=== PATIENT | female | born 1950 | race Two or more races ===

== ENCOUNTER → 2020-04-23 12:17 | Outpatient (BNVA) | payer MEDICARE, SELFPAY | PROVIDERS: PCP Internal Medicine; Visit Provider Internal Medicine Gastroenterology | DX: R13.12 Dysphagia, oropharyngeal phase (principal); K59.09 Other constipation; R73.03 Prediabetes; I10 Essential (primary) hypertension; Z86.010 Personal history of colon polyps; Z87.19 Personal history of other diseases of the digestive system | CPT/HCPCS: Q3014 ==

== ENCOUNTER 2020-06-17 16:23 | Outpatient (REF) | payer OTHER, MEDICARE, SELFPAY | END 2020-06-17 16:24 | disposition home or self-care (01) | LOC: HO.LAB 16:23 | PROVIDERS: Visit Provider Internal Medicine | DX: Z20.822 Contact with and (suspected) exposure to COVID-19 (principal) | CPT/HCPCS: 36415; C9803; U0003; U0005 ==

== ENCOUNTER → 2020-10-29 13:48 | Outpatient (BNVA) | payer OTHER, MEDICARE, SELFPAY | PROVIDERS: PCP Internal Medicine; Visit Provider Internal Medicine Gastroenterology | DX: R13.12 Dysphagia, oropharyngeal phase (principal); R49.1 Aphonia; K59.00 Constipation, unspecified; R10.32 Left lower quadrant pain; K57.90 Diverticulosis of intestine, part unspecified, without perforation or abscess without bleeding; R11.2 Nausea with vomiting, unspecified; R14.0 Abdominal distension (gaseous); R63.4 Abnormal weight loss; K21.9 Gastro-esophageal reflux disease without esophagitis; I10 Essential (primary) hypertension; R73.03 Prediabetes; E78.1 Pure hyperglyceridemia; Z87.19 Personal history of other diseases of the digestive system; Z86.010 Personal history of colon polyps | CPT/HCPCS: 99212 ==

== ENCOUNTER 2020-11-14 07:19 | Outpatient (REF) | payer OTHER, MEDICARE, SELFPAY ==
[2020-11-14 07:47] LABS: MANUAL DIFF FLAG NO
[2020-11-14 07:51] LABS: Basophils Percent Auto 0.9 % (0-2); Eosinophils Absolute Auto 0.1 X10*3/uL (0.0-0.4); Eosinophils Percent Auto 2.3 % (0-4); Hematocrit 38.5 % (37-47); Hemoglobin 12.8 g/dl (12.0-16.0); Imm Gran Abs Auto 0.01 X10*3/uL (0.00-0.03); Imm Gran Pct Auto 0.3 % (0.0-0.4); Lymphocytes Absolute Auto 1.2 X10*3/uL (1.2-4.9); Lymphocytes Percent Auto 35.9 % (20-40); Mean Corpuscular HGB Conc 33.2 g/dl (31.0-35.0); Mean Corpuscular Hemoglobin 31.1 pg (27.0-33.0); Mean Corpuscular Volume 93.4 fL (80-98); Mean Platelet Volume 9.2 fL (9.4-12.3); Monocytes Absolute Auto 0.3 X10*3/uL (0.1-1.2); Monocytes Percent Auto 9.6 % (2-11); Neutrophils Absolute Auto 1.8 X10*3/uL (2.0-8.3); Platelet Count 256 X10*3/uL (160-400); Red Blood Count 4.12 X10*6/uL (4.20-5.50); Red Cell Distribution Width 13.6 % (11.0-16.0); White Blood Count 3.4 X10*3/uL (4.8-10.8)
[2020-11-14 08:15] LABS: Alanine Aminotransferase 15 U/L (0-31); Albumin Level 4.3 g/dL (3.5-5.0); Alkaline Phosphatase 55 U/L (39-117); Anion Gap 13 (12-20); Aspartate Amino Transferase 15 U/L (5-31); Bilirubin Total 0.6 mg/dL (0.0-1.0); Blood Urea Nitrogen 11 mg/dL (9-16); C Reactive Protein 0.22 mg/dL (< or = 0.50); Calcium 9.2 mg/dL (8.4-10.2); Carbon Dioxide 26 mmol/L (22-29); Chloride 104 mmol/L (96-108); Estimated Glomerular Filt Rate > 60; Glucose Random 146 mg/dL (60-115); Lipase 24 U/L (8-78); Potassium 4.4 mmol/L (3.3-5.1); Sodium 139 mmol/L (135-145); Total Protein 6.6 g/dL (6.5-8.0)
[2020-11-14 08:36] LABS: TSH reflex Free T4 0.68 uIU/mL (0.32-4.0)
[2020-11-16 09:02] LABS: Folate 14.1 ng/mL (> or = 4.0); Vitamin B12 251 pg/mL (200-900)
== END 2020-11-14 07:20 | disposition home or self-care (01) ==
LOC: HO.LAB 07:19
PROVIDERS: PCP Internal Medicine; Visit Provider Internal Medicine Gastroenterology
DX: R13.12 Dysphagia, oropharyngeal phase (principal); K22.2 Esophageal obstruction
CPT/HCPCS: 36415; 80053; 82607; 82746; 83690; 84443; 85025; 86140

== ENCOUNTER 2020-11-23 07:31 | Outpatient (REF) | payer OTHER, MEDICARE, SELFPAY ==
--- NOTE | ~2020-11-23 | US_ITS ---
EXAMINATION: US ABDOMEN COMPLETE CLINICAL INFORMATION: Abnormal weight loss. COMPARISON: CT abdomen pelvis 06/08/2018. Ultrasound pelvis 12/21/2010. TECHNIQUE: Real-time imaging of the abdominal viscera. FINDINGS: PANCREAS: Normal. ABDOMINAL AORTA: The proximal, mid, and distal segments are normal in caliber. INFERIOR VENA CAVA: Visualized portions are normal. LIVER: Normal. The liver is normal in size. The liver contour is normal. Parenchymal echogenicity is normal. No focal hepatic lesion. There is no intrahepatic biliary duct dilatation seen. GALLBLADDER: Normal. The gallbladder is physiologically distended without evidence of stones, sludge, polyps, wall thickening or pericholecystic fluid. COMMON BILE DUCT: Normal in caliber measuring 0.6 cm in diameter. RIGHT KIDNEY: Normal. No hydronephrosis. No renal calculi or focal parenchymal lesions. The kidney measures 9.3 cm in maximum dimension. LEFT KIDNEY: There is a 1 cm cyst in the midpole with question of wall calcification versus milk of calcium. No hydronephrosis. The kidney measures 9.8 cm in maximum dimension. SPLEEN: Normal. The spleen measures 7.8 cm in maximum dimension. FREE FLUID: None. US/US abdomen complete IMPRESSION: 1 cm left renal cyst with question wall calcification versus milk of calcium cyst. Otherwise unremarkable exam.
== END 2020-11-23 07:32 | disposition home or self-care (01) ==
LOC: HO.US 07:31
PROVIDERS: Visit Provider Internal Medicine Gastroenterology
DX: R63.4 Abnormal weight loss (principal)
CPT/HCPCS: 76700

== ENCOUNTER → 2020-11-24 11:58 | Day surgery (SDC) | payer OTHER, MEDICARE, SELFPAY ==
[2020-11-19 12:06] VITALS: BMI 25.4
--- NOTE | 2020-11-23 09:52 | HO.ANESPROP2 ---
HPI - Anesthesia Eval Consult details Narrative: 70yo F for Upper Endoscopy PMFSH Active Problems Active Problems: All Active Problems (Updated 11/19/20 @ 12:07 by Lubna King) Oropharyngeal dysphagia (Acute) Chronic constipation (Acute) History of colon polyps (Acute) Hx of diverticulitis of colon (Acute) Schatzki's ring (Acute) Weight loss (Acute) Past Medical History Medical History (Updated 11/23/20 @ 09:53 by Stephanie Garvin) Chronic constipation Hx of diverticulitis of colon Oropharyngeal dysphagia Schatzki's ring Family History Family History Father No problems noted. Mother No problems noted. Surgical History Surgical History (Updated 11/19/20 @ 12:08 by Lubna King) History of appendectomy History of colonoscopy History of hysterectomy Hx of endoscopy Hx of hand surgery Hx of tonsillectomy Social History Social History Alcohol intake: current Alcohol intake frequency: holidays/special occasions only Alcohol type: wine Meds Allergies Allergy/AdvReac Type Severity Reaction Status Date / Time No Known Allergies Allergy Verified 10/29/20 13:52 [No Known Allergies*] Home Medications Medication Instructions Recorded Confirmed Last Taken Type polyethylene glycol 3350 17 17 g PO DAILY 04/23/20 10/29/20 Unknown History gram/dose oral powder escitalopram oxalate 1 tab PO DAILY 11/19/20 11/19/20 Unknown History zolpidem 1 tab PO BEDTIME PRN 11/19/20 11/19/20 Unknown History Exam Exam Date and Time: November 23, 2020 0952 Height,Weight and Vital Signs: Height 4 ft 10 in Weight 55.338 kg Assessment and Plan Assessment Anesthesia Assessment: Chart Reviewed
--- NOTE | 2020-11-24 13:01 | PC.NURSE ---
Patient is in the process of having extensive dental work done. She is having dental implants and, at this time, the stabilizing screws are in place. Patient was evaluated by Dr Collier prior to preparation for an upper endoscopy today. The decision was made to postpone this elective procedure and reschedule once dental implants are completed. Pt is agreeable and will follow up with Dr Mcknight's office once dental procedure is complete. I spoke with Dr Mcknight's office and they will also follow-up with patient.
== END ==
PROVIDERS: PCP Internal Medicine; Visit Provider Internal Medicine Gastroenterology
DX: R13.12 Dysphagia, oropharyngeal phase (principal); Z53.8 Procedure and treatment not carried out for other reasons

== ENCOUNTER 2021-01-20 07:56 | Outpatient (REF) | payer OTHER, MEDICARE, SELFPAY ==
--- NOTE | ~2021-01-20 | XR_ITS ---
EXAMINATION: XR SHOULDER, RIGHT CLINICAL INFORMATION: Right shoulder pain. COMPARISON: None. TECHNIQUE: Grashey, scapular Y, and axillary views of the right shoulder. FINDINGS: Moderate acromioclavicular marginal osteophytes. Tiny glenohumeral marginal osteophytes. No acute fracture or dislocation. No lytic or blastic osseous lesion. No abnormal soft tissue calcification. XR/XR shoulder RT min 2V IMPRESSION: Moderate acromioclavicular and mild glenohumeral osteoarthritis.
== END 2021-01-20 07:57 | disposition home or self-care (01) ==
LOC: HO.HOSX 07:56
PROVIDERS: Visit Provider Physician Assistant
DX: M75.81 Other shoulder lesions, right shoulder (principal)
CPT/HCPCS: 73030

== ENCOUNTER → 2021-02-11 13:56 | Outpatient (BNVA) | payer OTHER, MEDICARE, SELFPAY | PROVIDERS: PCP Internal Medicine; Referring Provider Internal Medicine; Visit Provider Internal Medicine Gastroenterology ==

== ENCOUNTER 2021-02-16 17:55 | Emergency (ER) | payer MEDICARE, SELFPAY ==
--- NOTE | ~2021-02-16 | CT_ITS ---
EXAMINATION: CT HEAD WITHOUT CONTRAST CLINICAL INFORMATION: Fall. COMPARISON: No similar priors. TECHNIQUE: Contiguous axial imaging was performed from the skull base to vertex without intravenous administration of contrast. This CT examination was performed using dose optimization techniques as appropriate, variously including the following: *Automated exposure control *Adjustment of mA and/or kV according to patient size (this includes techniques or standardized protocols for targeted exams where dose is matched to indication/reason for exam; i.e. extremities or head) *Use of iterative reconstruction technique DLP: 595 mGy-cm FINDINGS: There is no evidence of acute intracranial hemorrhage or edematous territorial infarction. There is no abnormal attenuation within the brain parenchyma. Prabhakar-white matter differentiation is preserved. The ventricles are normal in size and configuration. No evidence for obstructive hydrocephalus. No abnormal mass effect or midline shift. No extra-axial fluid collections. No acute soft tissue or osseous abnormalities. The mastoid air cells and paranasal sinuses are clear. CT/CT head/brain wo con IMPRESSION: No evidence of acute intracranial hemorrhage or edematous territorial infarction.
--- NOTE | 2021-02-16 18:19 | ED.PSYCH ---
HPI - Psych General Chief Complaint: Psychiatric Symptoms Stated Complaint: crisis Time Seen by Provider: 02/16/21 18:13 Source: patient Mode of arrival: ambulatory Limitations: no limitations History of Present Illness HPI Narrative: patient presents with her son, she is not sleeping for months. She is taking escitalopram and zolpidem with no effect. Patient used to drink alcohol but she has stopped. patient denies voices or hallucinations. no thoughts of hurting herself. Patient states that she is not sleeping despite melatonin. Onset (ago): week(s) Duration: constant History of same: Yes Relieving factors: none Exacerbating factors: none Related Data Home Medications Medication Instructions Recorded Confirmed polyethylene glycol 3350 17 17 g PO DAILY 04/23/20 10/29/20 gram/dose oral powder (Miralax) escitalopram oxalate 10 mg tablet 1 tab PO DAILY 11/19/20 01/12/21 zolpidem 5 mg tablet 1 tab PO BEDTIME PRN 11/19/20 01/12/21 Previous Rx's Medication Instructions Recorded sennosides 8.6 mg-docusate sodium 1 tab-cap PO BEDTIME 30 Days #30 10/29/20 50 mg tablet tab Allergies Allergy/AdvReac Type Severity Reaction Status Date / Time No Known Allergies Allergy Verified 02/11/21 13:55 [No Known Allergies*] Review of Systems Constitutional: Constitutional: Reports no additional constitutional complaints Eyes: Eyes: Reports no additional eye complaints ENT: Denies dizziness Cardiovascular: Cardiovascular: Reports no additional cardiovascular complaints Respiratory: Respiratory: Reports as per HPI Gastrointestinal: Gastrointestinal: Reports no additional gastrointestinal complaints Genitourinary: Genitourinary: Reports no additional female genitourinary complaints Musculoskeletal: Musculoskeletal: Reports no additional musculoskeletal complaints Integumentary/Breasts: Skin/Breast: Denies rash Neurologic: Reports system reviewed and no additional complaints, except as documented, Denies dizziness and Denies Sensory deficit (Neuro) Psychiatric: Psychiatric: Denies anxiety PMFSH Past Medical History Medical History Chronic constipation Hx of diverticulitis of colon Oropharyngeal dysphagia Schatzki's ring Surgical History History of appendectomy History of colonoscopy History of hysterectomy Hx of endoscopy Hx of hand surgery Hx of tonsillectomy Family History Family History Father No problems noted. Mother No problems noted. Social History Social History Alcohol intake: current Alcohol intake frequency: holidays/special occasions only Alcohol type: wine Advance Directives: No Advance Directives Information Provided: Yes Current occupational status: employed Current occupation: rt handed Physical Exam Vital Signs: Vital Signs: Last Vital Signs Temp 99.3 F 02/16/21 18:32 Pulse 99 02/16/21 19:59 Resp 20 02/16/21 19:59 BP 152/83 H 02/16/21 19:59 Pulse Ox 99 02/16/21 19:59 Body Mass Index 21.9 Const: General: healthy appearing Nutritional Appearance: average body habitus Orientation/consciousness: oriented to person and patient oriented x3 Limitations: no limitations HENMT: Head: Yes normal to inspection Ears: external ears normal General nose exam: Normal external nose present Mouth: Normal oral and palatal mucosa present and oropharynx normal Throat: Yes posterior oropharynx normal Eyes: General: appearance normal, both eyes and all related structures Neck: Other: supple Neck: Yes normal visual inspection Chest: Chest palpation & inspection: normal inspection of the chest Resp: Auscultation: clear to auscultation bilaterally Cardio: Jugular venous distension: no JVD Rate: regular rate Rhythm: regular rhythm Heart sounds: S1 normal heart sound present and S2 normal heart sound present GI: Inspection: Yes normal to inspection Palpation (GI): Soft to palpation, nontender and No hepatosplenomegaly present Auscultation: normal bowel sounds : General: Yes no CVA tenderness Back/Spine/Pelvis: Back: no CVA tenderness Skin: General skin exam: no rashes or lesions noted Neuro: General: oriented to person and patient oriented x3 Cranial nerves: Yes CN's II-XII intact bilaterally Motor exam (neuro): 5/5 motor strength present throughout Sensory Exam: No Sensory deficit (Neuro) Extrem: General: Yes normal to inspection Psych: Appearance: grossly normal Course Reevaluation(s) Reevaluation #1: Discussed with Dr. Jarrell, will check labs and give ativan and have her follow up with Mel[facility] Time: 19:33 MDM - Psych Lab Data Result diagrams: 02/16/21 19:23 02/16/21 19:23 Labs: Lab Results 02/16/21 02/16/21 02/16/21 Range/Units 18:47 18:47 19:23 WBC 6.1 (4.8-10.8) X10*3/uL RBC 4.52 (4.20-5.50) X10*6/uL Hgb 14.0 (12.0-16.0) g/dl Hct 40.4 (37-47) % MCV 89.4 (80-98) fL MCH 31.0 (27.0-33.0) pg MCHC 34.7 (31.0-35.0) g/dl RDW 13.3 (11.0-16.0) % Plt Count 258 (160-400) X10*3/uL MPV 9.1 L (9.4-12.3) fL Immature Gran % (Auto) 0.2 (0.0-0.4) % Neut % (Auto) 68.1 (45-73) % Lymph % (Auto) 22.1 (20-40) % Mineral % (Auto) 8.4 (2-11) % Eos % (Auto) 0.7 (0-4) % Baso % (Auto) 0.5 (0-2) % Lymph # (Auto) 1.4 (1.2-4.9) X10*3/uL Mineral # (Auto) 0.5 (0.1-1.2) X10*3/uL Eos # (Auto) 0.0 (0.0-0.4) X10*3/uL Baso # (Auto) 0.0 (0.0-0.2) X10*3/uL Abs Immat Gran (auto) 0.01 (0.00-0.03) X10*3/uL Absolute Neuts (auto) 4.2 (2.0-8.3) X10*3/uL Absolute Nucleated RBC 0.000 (0.0-0.012) X10*3/uL Nucleated RBC % (auto) 0.0 (0.0-0.2) /100WBC Sodium (135-145) mmol/L Potassium (3.3-5.1) mmol/L Chloride (96-108) mmol/L Carbon Dioxide (22-29) mmol/L Anion Gap (12-20) BUN (9-16) mg/dL Creatinine (0.5-1.4) mg/dL Estim Creat Clear Calc Estimated GFR Random Glucose (60-115) mg/dL Calcium (8.4-10.2) mg/dL Magnesium (1.6-2.6) mg/dL Total Bilirubin (0.0-1.0) mg/dL Direct Bilirubin (0.0-0.5) mg/dL AST (5-31) U/L ALT (0-31) U/L Alkaline Phosphatase (39-117) U/L Total Protein (6.5-8.0) g/dL Albumin (3.5-5.0) g/dL Urine Color STRAW Urine Appearance CLEAR Urine pH 6.0 (5.0-8.0) Ur Specific [place] <= 1.005 (1.005-1.025) Urine Protein NEG (NEG-TRACE) MG/DL Urine Glucose (UA) NEG (NEG) MG/DL Urine Ketones NEG (NEG) MG/DL Urine Blood NEG (NEG) Urine Nitrite NEG (NEG) Ur Leukocyte Esterase TRACE H (NEG) Urine RBC 0 (0) /HPF Urine WBC 1-4 (0-4) /HPF Ur Squamous Epith Cells TRACE /LPF Ur Renal Epithelial Cell TRACE /LPF Urine Bacteria TRACE /LPF Urine Opiates Screen Not Detected (Not Detect) Urine Fentanyl Screen Not Detected (Not Detect) Ur Barbiturates Screen Not Detected (Not Detect) Ur Phencyclidine Scrn Not Detected (Not Detect) Ur Amphetamines Screen Not Detected (Not Detect) U Benzodiazepines Scrn Not Detected (Not Detect) Urine Cocaine Screen Not Detected (Not Detect) U Marijuana (THC) Screen Not Detected (Not Detect) COVID-19 ([facility]) (Negative) COVID-19 Clin Com 02/16/21 02/16/21 Range/Units 19:23 20:25 WBC (4.8-10.8) X10*3/uL RBC (4.20-5.50) X10*6/uL Hgb (12.0-16.0) g/dl Hct (37-47) % MCV (80-98) fL MCH (27.0-33.0) pg MCHC (31.0-35.0) g/dl RDW (11.0-16.0) % Plt Count (160-400) X10*3/uL MPV (9.4-12.3) fL Immature Gran % (Auto) (0.0-0.4) % Neut % (Auto) (45-73) % Lymph % (Auto) (20-40) % Mineral % (Auto) (2-11) % Eos % (Auto) (0-4) % Baso % (Auto) (0-2) % Lymph # (Auto) (1.2-4.9) X10*3/uL Mineral # (Auto) (0.1-1.2) X10*3/uL Eos # (Auto) (0.0-0.4) X10*3/uL Baso # (Auto) (0.0-0.2) X10*3/uL Abs Immat Gran (auto) (0.00-0.03) X10*3/uL Absolute Neuts (auto) (2.0-8.3) X10*3/uL Absolute Nucleated RBC (0.0-0.012) X10*3/uL Nucleated RBC % (auto) (0.0-0.2) /100WBC Sodium 141 (135-145) mmol/L Potassium 4.0 (3.3-5.1) mmol/L Chloride 103 (96-108) mmol/L Carbon Dioxide 28 (22-29) mmol/L Anion Gap 14 (12-20) BUN 9 (9-16) mg/dL Creatinine 0.73 (0.5-1.4) mg/dL Estim Creat Clear Calc 53.0 Estimated GFR > 60 Random Glucose 120 H (60-115) mg/dL Calcium 9.5 (8.4-10.2) mg/dL Magnesium 2.2 (1.6-2.6) mg/dL Total Bilirubin 0.5 (0.0-1.0) mg/dL Direct Bilirubin 0.2 (0.0-0.5) mg/dL AST 22 D (5-31) U/L ALT 37 H (0-31) U/L Alkaline Phosphatase 68 D (39-117) U/L Total Protein 7.0 (6.5-8.0) g/dL Albumin 4.6 (3.5-5.0) g/dL Urine Color Urine Appearance Urine pH (5.0-8.0) Ur Specific [place] (1.005-1.025) Urine Protein (NEG-TRACE) MG/DL Urine Glucose (UA) (NEG) MG/DL Urine Ketones (NEG) MG/DL Urine Blood (NEG) Urine Nitrite (NEG) Ur Leukocyte Esterase (NEG) Urine RBC (0) /HPF Urine WBC (0-4) /HPF Ur Squamous Epith Cells /LPF Ur Renal Epithelial Cell /LPF Urine Bacteria /LPF Urine Opiates Screen (Not Detect) Urine Fentanyl Screen (Not Detect) Ur Barbiturates Screen (Not Detect) Ur Phencyclidine Scrn (Not Detect) Ur Amphetamines Screen (Not Detect) U Benzodiazepines Scrn (Not Detect) Urine Cocaine Screen (Not Detect) U Marijuana (THC) Screen (Not Detect) COVID-19 ([facility]) Negative (Negative) COVID-19 Clin Com See Note Imaging Data CT scan - head: Radiologist's impression: MPRESSION: No evidence of acute intracranial hemorrhage or edematous territorial infarction. Discharge Plan Discharge Clinical Impression: Anxiety Insomnia Qualifiers: Insomnia type: unspecified Qualified Code(s): G47.00 - Insomnia, unspecified Patient Disposition: Home, Self-Care Instructions: Insomnia (ED), Anxiety (ED) Prescriptions: No Action zolpidem 5 mg tablet 1 tab PO BEDTIME PRN (Reason: Insomnia) RF: 0 escitalopram oxalate 10 mg tablet 1 tab PO DAILY RF: 0 sennosides-docusate sodium 8.6-50 mg tablet 1 tab-cap PO BEDTIME 30 Days Qty: 30 RF: 4 polyethylene glycol 3350 [Miralax] 17 gram/dose powder 17 g PO DAILY RF: 0 Referrals: Sawyer Mckenzie MD [Primary Care Provider] - 2 days (patient with worsening insomnia)
[2021-02-16 18:32] VITALS: BP 185/82; PULSE 100; RESP 18; TEMP 37.4; O2SAT 100; BMI 21.9
[2021-02-16 18:54] LABS: Appearance Urine CLEAR; Color Urine STRAW; Glucose Urine UA NEG (NEG); Leukocyte Esterase Urine TRACE (NEG); Nitrite Urine NEG (NEG); Specific Gravity - Urine <= 1.005 (1.005-1.025); UACC Culture Trigger YES; Urine Blood NEG (NEG); Urine Ketones NEG (NEG); Urine Protein NEG (NEG-TRACE)
[2021-02-16 19:05] LABS: Renal Epithelial Cells Urine TRACE /LPF; Squamous Epithelial Cell Urine TRACE /LPF
[2021-02-16 19:06] LABS: Amphetamine Screen Urine Not Detected (Not Detect); Bacteria Urine TRACE /LPF; Barbiturates, Urine Not Detected (Not Detect); Benzodiazepines Screen Urine Not Detected (Not Detect); Cannabinoid Screen Urine Not Detected (Not Detect); Cocaine Screen Urine Not Detected (Not Detect); Fentanyl, urine Not Detected (Not Detect); Opiate Screen Urine Not Detected (Not Detect); Phencyclidine Screen Urine Not Detected (Not Detect); RBC Urine 0 /HPF (0); UACC CULT YES
[2021-02-16] MEDS: LORazepam 1 MG TABLET 2 MG PO (19:13)
[2021-02-16 19:27] LABS: MANUAL DIFF FLAG NO
[2021-02-16 19:29] LABS: Basophils Percent Auto 0.5 % (0-2); Eosinophils Percent Auto 0.7 % (0-4); Hematocrit 40.4 % (37-47); Imm Gran Abs Auto 0.01 X10*3/uL (0.00-0.03); Imm Gran Pct Auto 0.2 % (0.0-0.4); Lymphocytes Absolute Auto 1.4 X10*3/uL (1.2-4.9); Lymphocytes Percent Auto 22.1 % (20-40); Mean Corpuscular HGB Conc 34.7 g/dl (31.0-35.0); Mean Corpuscular Volume 89.4 fL (80-98); Mean Platelet Volume 9.1 fL (9.4-12.3); Monocytes Absolute Auto 0.5 X10*3/uL (0.1-1.2); Monocytes Percent Auto 8.4 % (2-11); Neutrophils Absolute Auto 4.2 X10*3/uL (2.0-8.3); Neutrophils Percent Auto 68.1 % (45-73); Platelet Count 258 X10*3/uL (160-400); Red Blood Count 4.52 X10*6/uL (4.20-5.50); Red Cell Distribution Width 13.3 % (11.0-16.0); White Blood Count 6.1 X10*3/uL (4.8-10.8)
[2021-02-16 19:44] LABS: Anion Gap 14 (12-20); Blood Urea Nitrogen 9 mg/dL (9-16); Calcium 9.5 mg/dL (8.4-10.2); Carbon Dioxide 28 mmol/L (22-29); Chloride 103 mmol/L (96-108); Estimated Glomerular Filt Rate > 60; Glucose Random 120 mg/dL (60-115); Sodium 141 mmol/L (135-145)
[2021-02-16 19:59] VITALS: BP 152/83; PULSE 99; RESP 20; O2SAT 99
[2021-02-16 20:18] LABS: Alanine Aminotransferase 37 U/L (0-31); Albumin Level 4.6 g/dL (3.5-5.0); Alkaline Phosphatase 68 U/L (39-117); Aspartate Amino Transferase 22 U/L (5-31); Bilirubin Direct 0.2 mg/dL (0.0-0.5); Bilirubin Total 0.5 mg/dL (0.0-1.0); Magnesium 2.2 mg/dL (1.6-2.6)
[2021-02-16 20:48] LABS: COVID-19 Test Negative (Negative)
== END 2021-02-16 23:06 | disposition home or self-care (01) ==
PROVIDERS: Emergency Medicine; Physician Assistant; Emergency Provider Emergency Medicine Emergency Medical Services; PCP Internal Medicine
DX: G47.00 Insomnia, unspecified (principal); F41.1 Generalized anxiety disorder; F43.0 Acute stress reaction; R51.9 Headache, unspecified; Z20.822 Contact with and (suspected) exposure to COVID-19; Z79.899 Other long term (current) drug therapy
CPT/HCPCS: 36415; 70450; 80048; 80076; 80307; 81001; 83735; 85025; 87086; 87635; 99283; 99284

== ENCOUNTER 2021-02-19 20:47 | Inpatient (IN) | payer MEDICARE, SELFPAY ==
--- NOTE | 2021-02-19 20:55 | ED_ITS ---
HPI - Psych General Chief Complaint: Psychiatric Symptoms Stated Complaint: psychotic episode Source: patient Mode of arrival: ambulatory Limitations: no limitations History of Present Illness HPI Narrative: 70-year-old female presents via EMS for increased depression, insomnia, decreased appetite. 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 MD complaint: feels depressed and anxiety Onset (ago): month(s) Duration: constant History of same: Yes Relieving factors: none Associated psychiatric symptoms: depression Associated symptoms: denies other symptoms Treatments prior to arrival: placed on mental health hold Related Data Home Medications Medication Instructions Recorded Confirmed polyethylene glycol 3350 17 17 g PO DAILY 04/23/20 02/19/21 gram/dose oral powder (Miralax) escitalopram oxalate 10 mg tablet 1 tab PO DAILY 11/19/20 02/19/21 Previous Rx's Medication Instructions Recorded sennosides 8.6 mg-docusate sodium 1 tab-cap PO BEDTIME 30 Days #30 10/29/20 50 mg tablet tab lorazepam 1 mg tablet (Ativan) 1 mg PO QPM PRN #10 tab 02/16/21 Allergies Allergy/AdvReac Type Severity Reaction Status Date / Time No Known Allergies Allergy Verified 02/11/21 13:55 [No Known Allergies*] Review of Systems Review of Systems: Constitutional: Positive anorexia, Positive fatigue, No Fever, No Chills ENT/Mouth: No Ear Pain, No Nasal Congestion, No sore throat Eyes: No Eye Pain, No Swelling, No Redness Cardiovascular: No Chest Pain, No SOB Respiratory: No Cough, No Sputum, No Dyspnea Gastrointestinal: No Nausea, No Vomiting, No Diarrhea, No Hematochezia, No Melena Genitourinary: No Dysuria, No Urinary Frequency, No Hematuria Musculoskeletal: No Myalgias Skin: No Skin Lesions, No rash Neuro: No Weakness, No Numbness, No Paresthesias, No Dizziness, No Headache Psych: Positive insomnia, positive Anxiety, positive Depression, no SI/HI Heme/Lymph: No Lymphadenopathy Endocrine: No Polyuria, No Polydipsia Yes all other systems are reviewed and are negative [facility] Past Medical History Attestation statement: The following information was validated with the patient. Source: old records reviewed Medical History Chronic constipation Hx of diverticulitis of colon Oropharyngeal dysphagia Schatzki's ring Surgical History History of appendectomy History of colonoscopy History of hysterectomy Hx of endoscopy Hx of hand surgery Hx of tonsillectomy Family History Family History Father No problems noted. Mother No problems noted. Social History Social History Alcohol intake: current Alcohol intake frequency: holidays/special occasions only Alcohol type: wine Advance Directives: No Advance Directives Information Provided: No Current occupational status: employed Current occupation: rt handed Physical Exam Vital Signs: Vital Signs: Last Vital Signs Temp 98.9 F 02/19/21 20:56 Pulse 94 02/19/21 20:56 Resp 18 02/19/21 20:56 BP 171/85 H 02/19/21 20:56 Pulse Ox 98 02/19/21 20:56 Body Mass Index 25.2 Appearance: Alert. Oriented X3. Moderate emotional distress. Head: Normal external exam. Normocephalic. Atraumatic. No Wilkes signs noted. No raccoon eyes noted Eyes: PERRLA. EOMI. Conjunctiva and sclera normal. Eyelids normal. ENT: TM's Normal. Pharynx normal. Uvula midline. Moist mucous membranes. No trismus noted. No drooling noted. No muffled voice noted. Neck: Normal inspection. Neck supple. No adenopathy. Thyroid Normal. No meningeal signs. No neck mass noted. CVS: Normal heart rate and rhythm. Heart sound normal. No murmurs noted. Pulses equal to all extremities. Respiratory: No respiratory distress. Painless inspiration. Breath sounds normal. No wheezes/rales/rhonchi noted. Chest nontender. No accessory muscle usage noted or decreased air movement noted. Abdomen: Soft and nontender. Bowel sounds normal in all 4 quadrants. No distention noted. No organomegaly noted. No visible injury noted. Back: No CVA tenderness. Full range of motion noted. Skin: Skin warm and dry. Normal skin color. Normal skin turgor. No rashes/lesions/lacerations noted. Extremities: No lower extremity edema. Extremities exhibit normal range of motion. Extremities nontender. Neuro: cranial nerves 2-12 intact, no focal neural deficits, strength 5/5 to all extremities, No motor deficit. No sensory deficit. Patellar Reflexes normal. Course Course Course Narrative: 70-year-old female presents from home for psychiatric evaluation. Patient was seen on 02/16/2021 for anxiety and was prescribed Ativan, which worked for her for couple of days. However patient states that she has not been eating or drinking, feels very depressed, and is fatigued. Family called N, N referred patient to the emergency department. Will rule out medical concerns, order psychiatric consult, and patient is section 12, inpatient bed search. Patient is speaking softly, making poor eye contact, and answering questions politely and appropriately. 10:26 p.m. patient medically cleared. Physician observation started at this time. MDM - Psych Differential Diagnosis Differential diagnosis: Likely acute psychosis, depression, acute anxiety and mood disorder Medical Records Attestation: I reviewed the patient's medical records. Lab Data Attestation: I reviewed the patient's lab results. Result diagrams: 02/19/21 21:22 02/19/21 21:45 Labs: Lab Results 02/19/21 02/19/21 02/19/21 Range/Units 21:22 21:22 21:22 WBC 6.3 (4.8-10.8) X10*3/uL RBC 4.32 (4.20-5.50) X10*6/uL Hgb 13.5 (12.0-16.0) g/dl Hct 39.5 (37-47) % MCV 91.4 (80-98) fL MCH 31.3 (27.0-33.0) pg MCHC 34.2 (31.0-35.0) g/dl RDW 13.6 (11.0-16.0) % Plt Count 244 (160-400) X10*3/uL MPV 9.3 L (9.4-12.3) fL Immature Gran % (Auto) 0.2 (0.0-0.4) % Neut % (Auto) 68.2 (45-73) % Lymph % (Auto) 24.0 (20-40) % [place] % (Auto) 6.3 (2-11) % Eos % (Auto) 0.8 (0-4) % Baso % (Auto) 0.5 (0-2) % Lymph # (Auto) 1.5 (1.2-4.9) X10*3/uL [place] # (Auto) 0.4 (0.1-1.2) X10*3/uL Eos # (Auto) 0.1 (0.0-0.4) X10*3/uL Baso # (Auto) 0.0 (0.0-0.2) X10*3/uL Abs Immat Gran (auto) 0.01 (0.00-0.03) X10*3/uL Absolute Neuts (auto) 4.3 (2.0-8.3) X10*3/uL Absolute Nucleated RBC 0.000 (0.0-0.012) X10*3/uL Nucleated RBC % (auto) 0.0 (0.0-0.2) /100WBC Sodium (135-145) mmol/L Potassium (3.3-5.1) mmol/L Chloride (96-108) mmol/L Carbon Dioxide (22-29) mmol/L Anion Gap (12-20) BUN (9-16) mg/dL Creatinine (0.5-1.4) mg/dL Estim Creat Clear Calc Estimated GFR Random Glucose (60-115) mg/dL Calcium (8.4-10.2) mg/dL Total Bilirubin (0.0-1.0) mg/dL Direct Bilirubin (0.0-0.5) mg/dL AST (5-31) U/L ALT (0-31) U/L Alkaline Phosphatase (39-117) U/L Troponin I High Sens (<3.5-17.0) ng/L Total Protein (6.5-8.0) g/dL Albumin (3.5-5.0) g/dL Lipase (8-78) U/L TSH (0.32-4.0) uIU/mL Urine Color Urine Appearance Urine pH (5.0-8.0) Ur Specific [place] (1.005-1.025) Urine Protein (NEG-TRACE) MG/DL Urine Glucose (UA) (NEG) MG/DL Urine Ketones (NEG) MG/DL Urine Blood (NEG) Urine Nitrite (NEG) Ur Leukocyte Esterase (NEG) Urine Opiates Screen Not Detected (Not Detect) Urine Fentanyl Screen Not Detected (Not Detect) Ur Barbiturates Screen Not Detected (Not Detect) Ur Phencyclidine Scrn Not Detected (Not Detect) Ur Amphetamines Screen Not Detected (Not Detect) U Benzodiazepines Scrn Not Detected (Not Detect) Urine Cocaine Screen Not Detected (Not Detect) U Marijuana (THC) Screen Not Detected (Not Detect) Ethyl Alcohol mg/dL COVID-19 ([facility]) Negative (Negative) COVID-19 Clin Com See Note 02/19/21 02/19/21 02/19/21 Range/Units 21:22 21:45 21:45 WBC (4.8-10.8) X10*3/uL RBC (4.20-5.50) X10*6/uL Hgb (12.0-16.0) g/dl Hct (37-47) % MCV (80-98) fL MCH (27.0-33.0) pg MCHC (31.0-35.0) g/dl RDW (11.0-16.0) % Plt Count (160-400) X10*3/uL MPV (9.4-12.3) fL Immature Gran % (Auto) (0.0-0.4) % Neut % (Auto) (45-73) % Lymph % (Auto) (20-40) % [place] % (Auto) (2-11) % Eos % (Auto) (0-4) % Baso % (Auto) (0-2) % Lymph # (Auto) (1.2-4.9) X10*3/uL [place] # (Auto) (0.1-1.2) X10*3/uL Eos # (Auto) (0.0-0.4) X10*3/uL Baso # (Auto) (0.0-0.2) X10*3/uL Abs Immat Gran (auto) (0.00-0.03) X10*3/uL Absolute Neuts (auto) (2.0-8.3) X10*3/uL Absolute Nucleated RBC (0.0-0.012) X10*3/uL Nucleated RBC % (auto) (0.0-0.2) /100WBC Sodium 140 (135-145) mmol/L Potassium 4.3 (3.3-5.1) mmol/L Chloride 107 (96-108) mmol/L Carbon Dioxide 23 (22-29) mmol/L Anion Gap 14 (12-20) BUN 16 D (9-16) mg/dL Creatinine 0.83 (0.5-1.4) mg/dL Estim Creat Clear Calc 51.9 Estimated GFR > 60 Random Glucose 156 H (60-115) mg/dL Calcium 8.7 D (8.4-10.2) mg/dL Total Bilirubin 0.3 (0.0-1.0) mg/dL Direct Bilirubin < 0.2 (0.0-0.5) mg/dL AST 19 (5-31) U/L ALT 26 (0-31) U/L Alkaline Phosphatase 58 (39-117) U/L Troponin I High Sens 7.0 (<3.5-17.0) ng/L Total Protein 6.5 (6.5-8.0) g/dL Albumin 4.1 (3.5-5.0) g/dL Lipase 40 (8-78) U/L TSH 3.31 (0.32-4.0) uIU/mL Urine Color STRAW Urine Appearance CLEAR Urine pH 6.0 (5.0-8.0) Ur Specific [place] <= 1.005 (1.005-1.025) Urine Protein NEG (NEG-TRACE) MG/DL Urine Glucose (UA) NEG (NEG) MG/DL Urine Ketones NEG (NEG) MG/DL Urine Blood NEG (NEG) Urine Nitrite NEG (NEG) Ur Leukocyte Esterase NEG (NEG) Urine Opiates Screen (Not Detect) Urine Fentanyl Screen (Not Detect) Ur Barbiturates Screen (Not Detect) Ur Phencyclidine Scrn (Not Detect) Ur Amphetamines Screen (Not Detect) U Benzodiazepines Scrn (Not Detect) Urine Cocaine Screen (Not Detect) U Marijuana (THC) Screen (Not Detect) Ethyl Alcohol mg/dL COVID-19 ([facility]) (Negative) COVID-19 Clin Com 02/19/21 Range/Units 21:45 WBC (4.8-10.8) X10*3/uL RBC (4.20-5.50) X10*6/uL Hgb (12.0-16.0) g/dl Hct (37-47) % MCV (80-98) fL MCH (27.0-33.0) pg MCHC (31.0-35.0) g/dl RDW (11.0-16.0) % Plt Count (160-400) X10*3/uL MPV (9.4-12.3) fL Immature Gran % (Auto) (0.0-0.4) % Neut % (Auto) (45-73) % Lymph % (Auto) (20-40) % [place] % (Auto) (2-11) % Eos % (Auto) (0-4) % Baso % (Auto) (0-2) % Lymph # (Auto) (1.2-4.9) X10*3/uL [place] # (Auto) (0.1-1.2) X10*3/uL Eos # (Auto) (0.0-0.4) X10*3/uL Baso # (Auto) (0.0-0.2) X10*3/uL Abs Immat Gran (auto) (0.00-0.03) X10*3/uL Absolute Neuts (auto) (2.0-8.3) X10*3/uL Absolute Nucleated RBC (0.0-0.012) X10*3/uL Nucleated RBC % (auto) (0.0-0.2) /100WBC Sodium (135-145) mmol/L Potassium (3.3-5.1) mmol/L Chloride (96-108) mmol/L Carbon Dioxide (22-29) mmol/L Anion Gap (12-20) BUN (9-16) mg/dL Creatinine (0.5-1.4) mg/dL Estim Creat Clear Calc Estimated GFR Random Glucose (60-115) mg/dL Calcium (8.4-10.2) mg/dL Total Bilirubin (0.0-1.0) mg/dL Direct Bilirubin (0.0-0.5) mg/dL AST (5-31) U/L ALT (0-31) U/L Alkaline Phosphatase (39-117) U/L Troponin I High Sens (<3.5-17.0) ng/L Total Protein (6.5-8.0) g/dL Albumin (3.5-5.0) g/dL Lipase (8-78) U/L TSH (0.32-4.0) uIU/mL Urine Color Urine Appearance Urine pH (5.0-8.0) Ur Specific [place] (1.005-1.025) Urine Protein (NEG-TRACE) MG/DL Urine Glucose (UA) (NEG) MG/DL Urine Ketones (NEG) MG/DL Urine Blood (NEG) Urine Nitrite (NEG) Ur Leukocyte Esterase (NEG) Urine Opiates Screen (Not Detect) Urine Fentanyl Screen (Not Detect) Ur Barbiturates Screen (Not Detect) Ur Phencyclidine Scrn (Not Detect) Ur Amphetamines Screen (Not Detect) U Benzodiazepines Scrn (Not Detect) Urine Cocaine Screen (Not Detect) U Marijuana (THC) Screen (Not Detect) Ethyl Alcohol < 10 mg/dL COVID-19 ([facility]) (Negative) COVID-19 Clin Com ECG Data Attestation: I personally reviewed and interpreted this ECG as follows: ECG interpretation date: 02/19/21 Discharge Plan Discharge Clinical Impression: Acute psychosis, Acute anxiety Depression Qualifiers: Depression Type: major depressive disorder Major depression recurrence: recurrent Active/Remission status: currently active Major depression episode sev erity: severe Psychotic features: without psychotic features Qualified Code(s): F33.2 - Major depressive disorder, recurrent severe without psychotic features Prescriptions: No Action escitalopram oxalate 10 mg tablet 1 tab PO DAILY RF: 0 lorazepam [Ativan] 1 mg tablet 1 mg PO QPM PRN (Reason: Anxiety, insomnia) Qty: 10 RF: 0 sennosides-docusate sodium 8.6-50 mg tablet 1 tab-cap PO BEDTIME 30 Days Qty: 30 RF: 4 polyethylene glycol 3350 [Miralax] 17 gram/dose powder 17 g PO DAILY RF: 0
[2021-02-19 20:56] VITALS: BP 171/85; PULSE 94; RESP 18; TEMP 37.2; O2SAT 98; BMI 25.2
--- NOTE | 2021-02-19 20:58 | ECG_ITS ---
Test Reason : CARDIAC HISTORY Blood Pressure : / mmHG Vent. Rate : 082 BPM Atrial Rate : 082 BPM P-R Int : 146 ms QRS Dur : 080 ms QT Int : 390 ms P-R-T Axes : 052 010 028 degrees QTc Int : 455 ms Normal sinus rhythm Normal ECG When compared with ECG of 09-JUL-2018 12:40, No significant change was found Referred By: Sandi Mcwilliams Electronically Signed By:HAL LUI MD
[2021-02-19 21:28] LABS: MANUAL DIFF FLAG NO
[2021-02-19 21:31] LABS: Appearance Urine CLEAR; Color Urine STRAW; Glucose Urine UA NEG (NEG); Leukocyte Esterase Urine NEG (NEG); Nitrite Urine NEG (NEG); Specific Gravity - Urine <= 1.005 (1.005-1.025); Urine Blood NEG (NEG); Urine Ketones NEG (NEG); Urine Protein NEG (NEG-TRACE)
[2021-02-19 21:47] LABS: COVID-19 Test Negative (Negative)
[2021-02-19 21:53] LABS: Basophils Percent Auto 0.5 % (0-2); Eosinophils Absolute Auto 0.1 X10*3/uL (0.0-0.4); Eosinophils Percent Auto 0.8 % (0-4); Hematocrit 39.5 % (37-47); Hemoglobin 13.5 g/dl (12.0-16.0); Imm Gran Abs Auto 0.01 X10*3/uL (0.00-0.03); Imm Gran Pct Auto 0.2 % (0.0-0.4); Lymphocytes Absolute Auto 1.5 X10*3/uL (1.2-4.9); Mean Corpuscular HGB Conc 34.2 g/dl (31.0-35.0); Mean Corpuscular Hemoglobin 31.3 pg (27.0-33.0); Mean Corpuscular Volume 91.4 fL (80-98); Mean Platelet Volume 9.3 fL (9.4-12.3); Monocytes Absolute Auto 0.4 X10*3/uL (0.1-1.2); Monocytes Percent Auto 6.3 % (2-11); Neutrophils Absolute Auto 4.3 X10*3/uL (2.0-8.3); Neutrophils Percent Auto 68.2 % (45-73); Platelet Count 244 X10*3/uL (160-400); Red Blood Count 4.32 X10*6/uL (4.20-5.50); Red Cell Distribution Width 13.6 % (11.0-16.0); White Blood Count 6.3 X10*3/uL (4.8-10.8)
[2021-02-19 22:05] LABS: Ethanol < 10 mg/dL
[2021-02-19 22:07] LABS: Amphetamine Screen Urine Not Detected (Not Detect); Barbiturates, Urine Not Detected (Not Detect); Benzodiazepines Screen Urine Not Detected (Not Detect); Cannabinoid Screen Urine Not Detected (Not Detect); Cocaine Screen Urine Not Detected (Not Detect); Fentanyl, urine Not Detected (Not Detect); Opiate Screen Urine Not Detected (Not Detect); Phencyclidine Screen Urine Not Detected (Not Detect)
[2021-02-19 22:12] LABS: Alanine Aminotransferase 26 U/L (0-31); Albumin Level 4.1 g/dL (3.5-5.0); Alkaline Phosphatase 58 U/L (39-117); Anion Gap 14 (12-20); Aspartate Amino Transferase 19 U/L (5-31); Bilirubin Direct < 0.2 mg/dL (0.0-0.5); Bilirubin Total 0.3 mg/dL (0.0-1.0); Blood Urea Nitrogen 16 mg/dL (9-16); Calcium 8.7 mg/dL (8.4-10.2); Carbon Dioxide 23 mmol/L (22-29); Chloride 107 mmol/L (96-108); Creatinine Clr Calc Pharmacy 51.9; Estimated Glomerular Filt Rate > 60; Glucose Random 156 mg/dL (60-115); Lipase 40 U/L (8-78); Potassium 4.3 mmol/L (3.3-5.1); Sodium 140 mmol/L (135-145); Total Protein 6.5 g/dL (6.5-8.0)
[2021-02-19 22:29] LABS: Thyroid Stimulating Hormone 3.31 uIU/mL (0.32-4.0)
[2021-02-19] MEDS: LORazepam 1 MG TABLET PO (23:33)
[2021-02-20 00:21] VITALS: BP 153/93; PULSE 88; RESP 18; TEMP 36.7; O2SAT 97
--- NOTE | 2021-02-20 05:08 | PC.NURSE ---
Patient slept through the night, no distress observed/reported, medication compliant, behavior calm, quiet, and appropriate, patient was assessed by [facility] in the community, disposition is section 12 inpatient bed search, med rec completed/approved/MAR active, VSS, patient was upset with her disposition however, after explanation, patient was okayed with plan, elimination intact, good family support, sons comes to see her, will continue to monitor.
--- NOTE | 2021-02-20 06:56 | PC.NURSE ---
patient appears to remain at rest at present with even unlabored breaths patient appears in no distress
[2021-02-20] MEDS: Escitalopram Oxalate 10 MG TABLET PO (08:04)
[2021-02-20 09:10] VITALS: BP 130/93; PULSE 94; RESP 14; TEMP 37; O2SAT 98
[2021-02-20] MEDS: Acetaminophen 325 MG TABLET 975 MG PO ×2 (12:18→19:47)
--- NOTE | 2021-02-20 15:20 | PM.PSYCN ---
History of Present Illness Date of Service: 02/20/21 Chief Complaint: psychotic episode Reason for Consult: medication recs Requesting physician: Sandi Mcwilliams Discussed with referring provider: No Sources of Information: patient interviewed, chart reviewed and crisis/core team assessment reviewed HPI Narrative: pt seen with fleet service clerk Pt is a 70 yo Japanese Speaking female who presents to ED for disorganized behavior, AH and paranoid delusions. Crisis reports indicates synptoms have been increasing over last few weeks per family. Pt is a poor historian answering questions with few words. Reports she is scared for her life and thinks that she is being spied on, followed and that her and her family's lives are in danger; she reports she fears her home is being video taped and that phones are being listened into. Several times pt says she's afraid. She is not sure who is conspiring or why but she reiterates she is scared. Pt endorses AH and says that none of her family believes her or are experiencing the same fears for voices. Pt denies SI. She wants medication to help her. Pt asks several times why her family has not come to visit her, if they are coming to visit her...despite being told several times that they already been her twice today. [facility] Medical History (Updated 02/20/21 @ 20:50 by Timmy Lima MD) Chronic constipation Hx of diverticulitis of colon Oropharyngeal dysphagia Psychotic disorder Schatzki's ring Surgical History History of appendectomy History of colonoscopy History of hysterectomy Hx of endoscopy Hx of hand surgery Hx of tonsillectomy Diagnostics Vital Signs (24Hr): Vital Signs - 24 hr 02/19/21 20:56 02/20/21 00:21 02/20/21 09:10 Temperature 98.9 F 98.1 F 98.6 F Pulse Rate 94 88 94 Respiratory Rate 18 18 14 Blood Pressure 171/85 H 153/93 H 130/93 H Pulse Oximetry 98 97 98 Body Mass Index 25.2 Labs Results: 02/19/21 21:22 02/19/21 21:45 Labs: Laboratory Results - last 48 hr 02/19/21 02/19/21 02/19/21 21:22 21:22 21:22 WBC 6.3 RBC 4.32 Hgb 13.5 Hct 39.5 MCV 91.4 MCH 31.3 MCHC 34.2 RDW 13.6 Plt Count 244 MPV 9.3 L Immature Gran % (Auto) 0.2 Neut % (Auto) 68.2 Lymph % (Auto) 24.0 [place] % (Auto) 6.3 Eos % (Auto) 0.8 Baso % (Auto) 0.5 Lymph # (Auto) 1.5 [place] # (Auto) 0.4 Eos # (Auto) 0.1 Baso # (Auto) 0.0 Abs Immat Gran (auto) 0.01 Absolute Neuts (auto) 4.3 Absolute Nucleated RBC 0.000 Nucleated RBC % (auto) 0.0 Sodium Potassium Chloride Carbon Dioxide Anion Gap BUN Creatinine Estim Creat Clear Calc Estimated GFR Random Glucose Calcium Total Bilirubin Direct Bilirubin AST ALT Alkaline Phosphatase Troponin I High Sens Total Protein Albumin Lipase TSH Urine Color Urine Appearance Urine pH Ur Specific [place] Urine Protein Urine Glucose (UA) Urine Ketones Urine Blood Urine Nitrite Ur Leukocyte Esterase Urine Opiates Screen Not Detected Urine Fentanyl Screen Not Detected Ur Barbiturates Screen Not Detected Ur Phencyclidine Scrn Not Detected Ur Amphetamines Screen Not Detected U Benzodiazepines Scrn Not Detected Urine Cocaine Screen Not Detected U Marijuana (THC) Screen Not Detected Ethyl Alcohol COVID-19 ([facility]) Negative COVID-19 Clin Com See Note 02/19/21 02/19/21 02/19/21 21:22 21:45 21:45 WBC RBC Hgb Hct MCV MCH MCHC RDW Plt Count MPV Immature Gran % (Auto) Neut % (Auto) Lymph % (Auto) [place] % (Auto) Eos % (Auto) Baso % (Auto) Lymph # (Auto) [place] # (Auto) Eos # (Auto) Baso # (Auto) Abs Immat Gran (auto) Absolute Neuts (auto) Absolute Nucleated RBC Nucleated RBC % (auto) Sodium 140 Potassium 4.3 Chloride 107 Carbon Dioxide 23 Anion Gap 14 BUN 16 D Creatinine 0.83 Estim Creat Clear Calc 51.9 Estimated GFR > 60 Random Glucose 156 H Calcium 8.7 D Total Bilirubin 0.3 Direct Bilirubin < 0.2 AST 19 ALT 26 Alkaline Phosphatase 58 Troponin I High Sens 7.0 Total Protein 6.5 Albumin 4.1 Lipase 40 TSH 3.31 Urine Color STRAW Urine Appearance CLEAR Urine pH 6.0 Ur Specific [place] <= 1.005 Urine Protein NEG Urine Glucose (UA) NEG Urine Ketones NEG Urine Blood NEG Urine Nitrite NEG Ur Leukocyte Esterase NEG Urine Opiates Screen Urine Fentanyl Screen Ur Barbiturates Screen Ur Phencyclidine Scrn Ur Amphetamines Screen U Benzodiazepines Scrn Urine Cocaine Screen U Marijuana (THC) Screen Ethyl Alcohol COVID-19 ([facility]) COVID-19 Clin Com 02/19/21 21:45 WBC RBC Hgb Hct MCV MCH MCHC RDW Plt Count MPV Immature Gran % (Auto) Neut % (Auto) Lymph % (Auto) [place] % (Auto) Eos % (Auto) Baso % (Auto) Lymph # (Auto) [place] # (Auto) Eos # (Auto) Baso # (Auto) Abs Immat Gran (auto) Absolute Neuts (auto) Absolute Nucleated RBC Nucleated RBC % (auto) Sodium Potassium Chloride Carbon Dioxide Anion Gap BUN Creatinine Estim Creat Clear Calc Estimated GFR Random Glucose Calcium Total Bilirubin Direct Bilirubin AST ALT Alkaline Phosphatase Troponin I High Sens Total Protein Albumin Lipase TSH Urine Color Urine Appearance Urine pH Ur Specific [place] Urine Protein Urine Glucose (UA) Urine Ketones Urine Blood Urine Nitrite Ur Leukocyte Esterase Urine Opiates Screen Urine Fentanyl Screen Ur Barbiturates Screen Ur Phencyclidine Scrn Ur Amphetamines Screen U Benzodiazepines Scrn Urine Cocaine Screen U Marijuana (THC) Screen Ethyl Alcohol < 10 COVID-19 ([facility]) COVID-19 Clin Com Mental Status Exam Mental Status Exam Patient Appearance: Well Grooomed Patient Orientation: Person, Place and Time Level of Consciousness: Awake and Appropriate Patient Behavior: Cooperative, Timid, Anxious, Fearful and Good Eye Contact Mood Description: Fearful and Anxious Affect Description: Fearful and Anxious Ability to Follow Directions: Fair Speech Pattern: Soft-Spoken Hallucinations: Auditory Delusions: Paranoid Ideation Thought Process: Rumination and Goal Oriented Thought Content: positive for Obsessional Thoughts Judgement: Poor Judgement and Insight: impaired Medications Medications Current Medications Acetaminophen (Acetaminophen 325 Mg Tablet) 975 mg PO Q8H [facility] Last Admin: 02/20/21 12:18 Dose: 975 mg Documented by: Escitalopram Oxalate (Escitalopram Oxalate 10 Mg Tablet) 10 mg PO DAILY [facility] Last Admin: 02/20/21 08:04 Dose: 10 mg Documented by: Lorazepam (Lorazepam 1 Mg Tablet) 1 mg PO BEDTIME PRN PRN Reason: Anxiety, insomnia Last Admin: 02/19/21 23:33 Dose: 1 mg Documented by: Polyethylene Glycol (Polyethylene Glycol 3350 17 Gm Powd.Pack) 17 gm PO BEDTIME JUMA Senna/Docusate Sodium (Sennosides/Docusate Sodium Tablet) 1 tab PO BEDTIME JUMA Last Admin: 02/19/21 23:44 Dose: Not Given Documented by: Allergies Allergies Allergy/AdvReac Type Severity Reaction Status Date / Time No Known Allergies Allergy Verified 02/11/21 13:55 [No Known Allergies*] Assessment & Plan Assessment & Plan (1) Psychotic disorder: Status: Acute Code(s): F29 - Unspecified psychosis not due to a substance or known physiological condition Assessment and Plan: IMPRESSION: pt seen with fleet service clerk Pt is a 70 yo Japanese Speaking female who presents to ED for disorganized behavior, AH and paranoid delusions. Crisis reports indicates synptoms have been increasing over last few weeks per family. Pt is a poor historian answering questions with few words. Reports she is scared for her life and thinks that she is being spied on, followed and that her and her family's lives are in danger; she reports she fears her home is being video taped and that phones are being listened into. Several times pt says she's afraid. She is not sure who is conspiring or why but she reiterates she is scared. Pt endorses AH and says that none of her family believes her or are experiencing the same fears for voices. Pt denies SI. She wants medication to help her.? PLAN: will start Risperdal 0.5mg BID for now; start at lower dose given patients age bed search underway for inpt admission Greater than 50% of the session was spent on counseling and/or coordination of care
[2021-02-20] MEDS: risperiDONE 0.5 MG TABLET PO ×2 (15:36→19:47)
--- NOTE | 2021-02-20 18:03 | PC.NURSE ---
clients sister speaking along with client made request on behalf of client to not have transaltion services if possible seemingly makes client nervous.
[2021-02-20] MEDS: LORazepam 1 MG TABLET PO (19:47)
[2021-02-20] MEDS: polyethylene glycoL 3350 17 GM POWD.PACK PO (19:47)
--- NOTE | 2021-02-21 | ECG_ITS ---
Test Reason : MED CLERANCE Blood Pressure : / mmHG Vent. Rate : 090 BPM Atrial Rate : 090 BPM P-R Int : 132 ms QRS Dur : 076 ms QT Int : 372 ms P-R-T Axes : 063 005 037 degrees QTc Int : 455 ms Sinus rhythm with occasional Premature ventricular complexes Minimal voltage criteria for LVH, may be normal variant Borderline ECG When compared with ECG of 19-FEB-2021 22:25, Premature ventricular complexes are now Present Referred By: Jacque Good Electronically Signed By:HAL LUI MD
[2021-02-21 02:14] VITALS: BP 146/76; PULSE 89; TEMP 36.7; O2SAT 98
--- NOTE | 2021-02-21 05:01 | PC.NURSE ---
Patient slept through the night, no distress observed/reported, patient was up briefly stayed up for an hour, mood pleasant, behavior appropriate, compliant with medication, patient disposition is section 12 inpatient bed search, patient was started on resperidone 0.5 mg BID, patient is [id number] well, VSS, will continue to monitor.
--- NOTE | 2021-02-21 06:55 | PC.NURSE ---
patient appears to remain asleep at present, appears to be in no distress, breaths are even and unlabored
[2021-02-21] MEDS: Escitalopram Oxalate 10 MG TABLET PO (10:12)
[2021-02-21] MEDS: risperiDONE 0.5 MG TABLET PO ×2 (10:12→20:13)
[2021-02-21 11:46] VITALS: BP 148/82; PULSE 85; TEMP 37.3; O2SAT 99
[2021-02-21 12:22] LABS: Estimated Average Glucose 120 mg/dL; Hemoglobin A1c % 5.8 %
[2021-02-21 16:48] VITALS: BP 164/81; PULSE 81; RESP 18; TEMP 36.8; O2SAT 98
[2021-02-21] MEDS: LORazepam 1 MG TABLET PO (20:13)
[2021-02-21] MEDS: polyethylene glycoL 3350 17 GM POWD.PACK PO (20:13)
[2021-02-22 03:40] VITALS: BP 157/88; PULSE 91; TEMP 36.8; O2SAT 98
--- NOTE | 2021-02-22 05:38 | PC.NURSE ---
Patient slept through the night, no distress observed/reported, medication complaint, behavior calm, quiet, and appropriate, appetite good, elimination intact, VSS, disposition per [facility] is section 12 inpatient bed search, patient may be admitted to M3 if there is any discharges today, will continue to monitor.
--- NOTE | 2021-02-22 07:07 | PC.NURSE ---
Report received from Chung. Pt sleeping at this time, resp reg and even. NAD. Awaiting a bed at this time.
[2021-02-22 08:18] VITALS: BP 129/84; PULSE 87; RESP 14; TEMP 36.8; O2SAT 99
[2021-02-22] MEDS: Escitalopram Oxalate 10 MG TABLET PO (09:17)
[2021-02-22] MEDS: risperiDONE 0.5 MG TABLET PO ×2 (09:17→21:19)
[2021-02-22 15:28] VITALS: BP 166/93; PULSE 82; RESP 16; TEMP 36.4; O2SAT 98; BMI 22.5
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
[2021-02-22] MEDS: QUEtiapine Fumarate 25 MG TABLET 12.5 MG PO (17:53)
[2021-02-22 18:00] VITALS: BP 150/89; PULSE 85; TEMP 36.3; O2SAT 99
[2021-02-22] MEDS: polyethylene glycoL 3350 17 GM POWD.PACK PO (21:19)
[2021-02-22] MEDS: Sennosides/Docusate Sodium TABLET 1 TAB PO (21:19)
[2021-02-23 06:00] VITALS: BP 170/81; PULSE 101; RESP 16; O2SAT 96
[2021-02-23 07:07] LABS: Cholesterol 213 mg/dL; HDL Cholesterol 55 mg/dL; LDL Cholesterol Calculated 138 mg/dl; Triglycerides 101 mg/dL
[2021-02-23 08:26] LABS: Estimated Average Glucose 123 mg/dL; Hemoglobin A1c % 5.9 %
[2021-02-23] MEDS: Escitalopram Oxalate 10 MG TABLET PO (09:50)
[2021-02-23] MEDS: risperiDONE 0.5 MG TABLET PO ×2 (09:50→20:19)
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
[2021-02-23 18:00] VITALS: BP 142/77; PULSE 95; RESP 18; TEMP 36.4; O2SAT 98
[2021-02-23] MEDS: polyethylene glycoL 3350 17 GM POWD.PACK PO (20:17)
[2021-02-23] MEDS: Acetaminophen 325 MG TABLET 975 MG PO (20:18)
[2021-02-23] MEDS: Sennosides/Docusate Sodium TABLET 1 TAB PO (20:19)
[2021-02-24 06:00] VITALS: BP 176/91; PULSE 90; TEMP 36.4; O2SAT 100
[2021-02-24] MEDS: risperiDONE 0.5 MG TABLET PO (07:41)
[2021-02-24] MEDS: Escitalopram Oxalate 10 MG TABLET PO (07:41)
--- NOTE | 2021-02-24 14:31 | P.PNPSI_ITS ---
Subjective Subjective Date of Service: 02/24/21 Reason For Visit: Psychosis Subjective Notes: Conditional Voluntary and 3 Day Healthcare Proxy: No Guardianship: No Medical Problems Affecting Mental Status: No Interim History: The nursing staff reports that the patient is eating and sleeping normally. She is very guarded and she does complain of anxiety and depression. Today we interview with the social sciences instructor in she was very paranoid regarding signing consents. We could contact with her sister over the phone and later we had a family meeting and we assured the patient that the concerns that she is signing are on her best interest. Her sister reported that she has chronically paranoid nearly all her life and she was very isolative and quiet. She had the previous admission several years ago but it was not clear where or why she wants. Her sister reported also that she was poorly compliant with doxepin prescribed in the community She signed a 3 day notice and we have to discharge her tomorrow, she is willing to continue treatment as an outpatient. No side effects with Risperdal 1 mg p.o. b.i.d. Medication Compliance: Yes Side effects from medications: No Attending Groups: Intermittent Review of Systems Acute medical concerns: No Medical Review of Systems: unchanged Mental Status Exam Mental Status Exam Patient Appearance: Well Grooomed Patient Orientation: Person, Place and Situation Level of Consciousness: Awake and Appropriate Patient Behavior: Guarded, Cooperative and Passive Mood Description: Constricted Affect Description: Fearful Patient Cognition Impaired: Yes Ability to Follow Directions: Good Speech Pattern: Clear Memory Description: Intact Delusions: Paranoid Ideation Thought Process: Evasive and Slowed Thinking Thought Content: positive for Circumstantial and positive for Preoccupation Judgement: Fair Diagnostics Vital Signs (24Hr): Vital Signs - 24 hr 02/23/21 18:00 02/24/21 06:00 Temperature 97.5 F 97.6 F Pulse Rate 95 90 Respiratory Rate 18 Blood Pressure 142/77 H 176/91 H Pulse Oximetry 98 100 Body Mass Index 22.5 Labs Results: 02/19/21 21:22 02/19/21 21:45 Labs: Laboratory Results - last 48 hr 02/23/21 02/23/21 06:33 06:33 Estimat Average Glucose 123 Hemoglobin A1c % 5.9 Triglycerides 101 Cholesterol 213 LDL Cholesterol, Calc 138 HDL Cholesterol 55 Medications Medications Current Medications Acetaminophen (Acetaminophen 325 Mg Tablet) 975 mg PO Q8H [facility] Last Admin: 02/24/21 04:52 Dose: Not Given Documented by: Al Hydroxide/Mg Hydroxide (Magnesium Hydrox/Alum Hydrox 30 Ml Oral.Susp) 30 ml PO Q6H PRN PRN Reason: Heartburn/Nausea Escitalopram Oxalate (Escitalopram Oxalate 10 Mg Tablet) 10 mg PO DAILY [facility] Last Admin: 02/24/21 07:41 Dose: 10 mg Documented by: Lorazepam (Lorazepam 1 Mg Tablet) 1 mg PO BEDTIME PRN PRN Reason: Anxiety, insomnia Last Admin: 02/21/21 20:13 Dose: 1 mg Documented by: Magnesium Hydroxide (Milk Of Magnesia 30 Ml Oral.Susp) 30 ml PO DAILY PRN PRN Reason: Constipation Polyethylene Glycol (Polyethylene Glycol 3350 17 Gm Powd.Pack) 17 gm PO BEDTIME [facility] Last Admin: 02/23/21 20:17 Dose: 17 gm Documented by: Risperidone (Risperidone 1 Mg Tablet) 1 mg PO BID [facility] Senna/Docusate Sodium (Sennosides/Docusate Sodium Tablet) 1 tab PO BEDTIME [facility] Last Admin: 02/23/21 20:19 Dose: 1 tab Documented by: Allergies Allergies Allergy/AdvReac Type Severity Reaction Status Date / Time No Known Allergies Allergy Verified 02/11/21 13:55 [No Known Allergies*] Assessment & Plan Assessment & Plan (1) Psychotic disorder: Status: Acute Code(s): F29 - Unspecified psychosis not due to a substance or known physiological condition Assessment and Plan: Middle age descent female with a sudden onset of psychotic symptoms without a clear stressor that worsened in the last 3 weeks apparently no prior psychiatric history regarding psychosis. Plan 1. Gather more collateral information. 2. Continue Risperdal 0.5 mg p.o. b.i.d. 3. Discharge tomorrow Greater than 50% of the session was spent on counseling and/or coordination of care Reason for contiued inpatient stay Substantial Risk for: inability to function, rapid decompensation and med/psych decompensation
[2021-02-24 18:00] VITALS: BP 129/71; PULSE 88; RESP 20; TEMP 36.5; O2SAT 98
[2021-02-24] MEDS: Acetaminophen 325 MG TABLET 975 MG PO (20:50)
[2021-02-24] MEDS: risperiDONE 1 MG TABLET PO (20:51)
[2021-02-24] MEDS: polyethylene glycoL 3350 17 GM POWD.PACK PO (20:51)
[2021-02-24] MEDS: Sennosides/Docusate Sodium TABLET 1 TAB PO (20:51)
[2021-02-24] MEDS: LORazepam 1 MG TABLET PO (23:28)
[2021-02-25 06:00] VITALS: BP 108/58; PULSE 99; RESP 18; TEMP 36; O2SAT 99
--- NOTE | 2021-02-25 09:15 | PM.PSYDC ---
DS: Providers Provider Date of Service: 02/25/21 Date of admission: 02/22/21 13:13 Date of discharge: 02/25/21 Primary care physician: Sawyer Mckenzie MD Attending physician on discharge: Dalton Felipe DS: Diagnosis Discharge Diagnosis (1) Psychotic disorder: Status: Acute DS: Medications Discharge Medications Home Medications: Home Medications Medication Instructions Recorded Confirmed polyethylene glycol 3350 17 17 g PO DAILY 04/23/20 02/19/21 gram/dose oral powder (Miralax) escitalopram oxalate 10 mg tablet 1 tab PO DAILY 11/19/20 02/19/21 Previous Rx's Medication Instructions Recorded sennosides 8.6 mg-docusate sodium 1 tab-cap PO BEDTIME 30 Days #30 10/29/20 50 mg tablet tab lorazepam 1 mg tablet (Ativan) 1 mg PO QPM PRN #10 tab 02/16/21 Mental Status Exam Mental Status Exam Patient Appearance: Well Grooomed Patient Orientation: Person and Situation Level of Consciousness: Awake and Appropriate Patient Behavior: Passive and Suspicious Mood Description: Calm Affect Description: Constricted Patient Cognition Impaired: No Ability to Follow Directions: Fair Speech Pattern: Clear Memory Description: Intact Hallucinations: None Delusions: Not Present Thought Process: Goal Oriented Thought Content: positive for Circumstantial Judgement: Fair Data Data Completed and Pending Completed studies during hospitalization [Text1]: 02/19/21 02/19/21 02/19/21 21:22 21:22 21:22 WBC 6.3 RBC 4.32 Hgb 13.5 Hct 39.5 MCV 91.4 MCH 31.3 MCHC 34.2 RDW 13.6 Plt Count 244 MPV 9.3 L Immature Gran % (Auto) 0.2 Neut % (Auto) 68.2 Lymph % (Auto) 24.0 [place] % (Auto) 6.3 Eos % (Auto) 0.8 Baso % (Auto) 0.5 Lymph # (Auto) 1.5 [place] # (Auto) 0.4 Eos # (Auto) 0.1 Baso # (Auto) 0.0 Abs Immat Gran (auto) 0.01 Absolute Neuts (auto) 4.3 Absolute Nucleated RBC 0.000 Nucleated RBC % (auto) 0.0 Sodium Potassium Chloride Carbon Dioxide Anion Gap BUN Creatinine Estim Creat Clear Calc Estimated GFR Random Glucose Estimat Average Glucose Hemoglobin A1c % Calcium Total Bilirubin Direct Bilirubin AST ALT Alkaline Phosphatase Troponin I High Sens Total Protein Albumin Triglycerides Cholesterol LDL Cholesterol, Calc HDL Cholesterol Lipase TSH Urine Color Urine Appearance Urine pH Ur Specific [place] Urine Protein Urine Glucose (UA) Urine Ketones Urine Blood Urine Nitrite Ur Leukocyte Esterase Urine Opiates Screen Not Detected Urine Fentanyl Screen Not Detected Ur Barbiturates Screen Not Detected Ur Phencyclidine Scrn Not Detected Ur Amphetamines Screen Not Detected U Benzodiazepines Scrn Not Detected Urine Cocaine Screen Not Detected U Marijuana (THC) Screen Not Detected Ethyl Alcohol COVID-19 ([facility]) Negative COVID-19 [employer] See Note 02/19/21 02/19/21 02/19/21 21:22 21:22 21:45 WBC RBC Hgb Hct MCV MCH MCHC RDW Plt Count MPV Immature Gran % (Auto) Neut % (Auto) Lymph % (Auto) [place] % (Auto) Eos % (Auto) Baso % (Auto) Lymph # (Auto) [place] # (Auto) Eos # (Auto) Baso # (Auto) Abs Immat Gran (auto) Absolute Neuts (auto) Absolute Nucleated RBC Nucleated RBC % (auto) Sodium 140 Potassium 4.3 Chloride 107 Carbon Dioxide 23 Anion Gap 14 BUN 16 D Creatinine 0.83 Estim Creat Clear Calc 51.9 Estimated GFR > 60 Random Glucose 156 H Estimat Average Glucose 120 Hemoglobin A1c % 5.8 Calcium 8.7 D Total Bilirubin 0.3 Direct Bilirubin < 0.2 AST 19 ALT 26 Alkaline Phosphatase 58 Troponin I High Sens Total Protein 6.5 Albumin 4.1 Triglycerides Cholesterol LDL Cholesterol, Calc HDL Cholesterol Lipase 40 TSH 3.31 Urine Color STRAW Urine Appearance CLEAR Urine pH 6.0 Ur Specific [place] <= 1.005 Urine Protein NEG Urine Glucose (UA) NEG Urine Ketones NEG Urine Blood NEG Urine Nitrite NEG Ur Leukocyte Esterase NEG Urine Opiates Screen Urine Fentanyl Screen Ur Barbiturates Screen Ur Phencyclidine Scrn Ur Amphetamines Screen U Benzodiazepines Scrn Urine Cocaine Screen U Marijuana (THC) Screen Ethyl Alcohol COVID-19 ([facility]) COVID-19 [employer] 02/19/21 02/19/21 02/23/21 21:45 21:45 06:33 WBC RBC Hgb Hct MCV MCH MCHC RDW Plt Count MPV Immature Gran % (Auto) Neut % (Auto) Lymph % (Auto) [place] % (Auto) Eos % (Auto) Baso % (Auto) Lymph # (Auto) [place] # (Auto) Eos # (Auto) Baso # (Auto) Abs Immat Gran (auto) Absolute Neuts (auto) Absolute Nucleated RBC Nucleated RBC % (auto) Sodium Potassium Chloride Carbon Dioxide Anion Gap BUN Creatinine Estim Creat Clear Calc Estimated GFR Random Glucose Estimat Average Glucose 123 Hemoglobin A1c % 5.9 Calcium Total Bilirubin Direct Bilirubin AST ALT Alkaline Phosphatase Troponin I High Sens 7.0 Total Protein Albumin Triglycerides Cholesterol LDL Cholesterol, Calc HDL Cholesterol Lipase TSH Urine Color Urine Appearance Urine pH Ur Specific [place] Urine Protein Urine Glucose (UA) Urine Ketones Urine Blood Urine Nitrite Ur Leukocyte Esterase Urine Opiates Screen Urine Fentanyl Screen Ur Barbiturates Screen Ur Phencyclidine Scrn Ur Amphetamines Screen U Benzodiazepines Scrn Urine Cocaine Screen U Marijuana (THC) Screen Ethyl Alcohol < 10 COVID-19 ([facility]) COVID-19 [employer] 02/23/21 06:33 WBC RBC Hgb Hct MCV MCH MCHC RDW Plt Count MPV Immature Gran % (Auto) Neut % (Auto) Lymph % (Auto) [place] % (Auto) Eos % (Auto) Baso % (Auto) Lymph # (Auto) [place] # (Auto) Eos # (Auto) Baso # (Auto) Abs Immat Gran (auto) Absolute Neuts (auto) Absolute Nucleated RBC Nucleated RBC % (auto) Sodium Potassium Chloride Carbon Dioxide Anion Gap BUN Creatinine Estim Creat Clear Calc Estimated GFR Random Glucose Estimat Average Glucose Hemoglobin A1c % Calcium Total Bilirubin Direct Bilirubin AST ALT Alkaline Phosphatase Troponin I High Sens Total Protein Albumin Triglycerides 101 Cholesterol 213 LDL Cholesterol, Calc 138 HDL Cholesterol 55 Lipase TSH Urine Color Urine Appearance Urine pH Ur Specific [place] Urine Protein Urine Glucose (UA) Urine Ketones Urine Blood Urine Nitrite Ur Leukocyte Esterase Urine Opiates Screen Urine Fentanyl Screen Ur Barbiturates Screen Ur Phencyclidine Scrn Ur Amphetamines Screen U Benzodiazepines Scrn Urine Cocaine Screen U Marijuana (THC) Screen Ethyl Alcohol COVID-19 ([facility]) COVID-19 Clin Com DS: Summary Hospital Course Hospital Course: The patient was initially admitted due to psychotic symptoms please see HPI and admission note for more details. The patient was initially placed into the unit to address his psychosis. She was started on Risperdal 0.5 mg p.o. b.i.d.. The patient tolerated the medication very well but still she was psychotic after 4 days of treatment. The patient also signed herself into the hospital but she signed a 3 day notice since she wanted to get out of the hospital soon as possible. The patient was very paranoid and confused at times. Even though that she was distrustful, she was able to participate in the unit and participate in treatment with the social service agency director and the rest of the team. We gather collateral information and we could talk with her sister and she reported that she has been chronically psychotic since she was a young adult but she was never treated. She had 1 prior admission long time ago but it was unclear what kind of treatment she was taking. It was clear that she was noncompliant with the doxepin that was prescribed by a primary care physician. We increased Risperdal up to 1 mg p.o. b.i.d. wait for improvement of her psychosis, she denied auditory hallucinations, her paranoia improved and since there were no safety concerns discharge planning was discussed. Time spent discussing smoking cessation with patient: 3 to 10 minutes Status at Discharge Cognitive/behavioral status at discharge: At baseline Functional status at discharge: independent ambulation Overall status at discharge: patient is back to baseline Time Spent with Patient Time attestation: Total time spent providing and/or coordinating discharge services: Time spent: Less than 30 minutes Discharge Plan Discharge Patient Disposition: Home, Self-Care Discharge Diagnosis: Schizophrenia Referrals: Jessica Garcia [Other] - 03/02/21 2:00 pm (Your next therapy appointment is scheudled for 03/02/21 at 2:00PM and this is an in office visit. ) Sawyer Mckenzie MD [Primary Care Provider] - 1 Week Discharge Medications: New risperidone 1 mg Tablet 1 mg PO BID 30 Days Qty: 60 RF: 0 Continued lorazepam [Ativan] 1 mg tablet 1 mg PO QPM PRN (Reason: Anxiety, insomnia) 30 Days Qty: 30 RF: 0 escitalopram oxalate 10 mg tablet 1 tab PO DAILY 30 Days Qty: 30 RF: 0 sennosides-docusate sodium 8.6-50 mg tablet 1 tab-cap PO BEDTIME 30 Days Qty: 30 RF: 4 polyethylene glycol 3350 [Miralax] 17 gram/dose powder 17 g PO DAILY RF: 0 Discharge Orders: Discharge Order (Routine); Ordered 02/25/21 Ordered By: Dalton Felipe Diet: advance to usual diet Activity on Discharge: As tolerated Stand Alone Forms: Patient Portal Discharge page Care Plan Goals: Care plan goals were achieved in the unit. Health Concerns: Continue outpatient treatment with his regular PCP Plan of Treatment: Continue psychiatric treatment as an outpatient. She has a therapist and she will be referred to prescriber Assessment: The patient is a middle-aged descent female, mostly South African-speaking with a long history of psychosis that probably started in her childhood, with mild chronic paranoid but she has been functional on her life. Recently admitted to exacerbation of psychosis with paranoia that resolved with Risperdal. Since she is not a safety concern, discharge planning was discussed and aftercare provided.
[2021-02-25] MEDS: Escitalopram Oxalate 10 MG TABLET PO (09:48)
[2021-02-25] MEDS: risperiDONE 1 MG TABLET PO (09:48)
--- NOTE | 2021-02-25 10:51 | PC.NURSE ---
Patient appropriate upon approach. Pleasant and cooperative. Alert and oriented. Son participated in dc. All information/instructions reviewed with patient and son and understanding was verbalized by both. Patient ambulating independently. Was walked to front of hospital by staff. Patient happy to be leaving stating, I'm excited to be going home .
== END 2021-02-25 10:25 | disposition home or self-care (01) | DRG 885 ==
LOC: HO.ED 02-22 13:07 → HO.PGERI 02-22 13:16
PROVIDERS: Nurse Practitioner Family; Physician Assistant Medical; Admitting Provider Psychiatry & Neurology Psychiatry; Emergency Provider Emergency Medicine; PCP Internal Medicine; Visit Provider Psychiatry & Neurology Psychiatry
DX: F20.9 Schizophrenia, unspecified (principal); K59.09 Other constipation; Z20.822 Contact with and (suspected) exposure to COVID-19; Z79.899 Other long term (current) drug therapy
CPT/HCPCS: 36415; 80048; 80061; 80076; 80307; 81003; 82077; 83036; 83690; 84443; 84484; 85025; 87635; 93005; 99285

== ENCOUNTER 2021-03-08 13:12 | Day surgery (SDC) | payer MEDICARE, SELFPAY ==
--- NOTE | 2021-03-05 09:38 | P.CONAN_ITS ---
Documented by User: Stephanie Garvin NP 03/05/21 09:43 HPI - Anesthesia Eval Consult details Narrative: 70yo F for Upper Endoscopy with dilation 02/25/21 Psych D/C with exacerbation of psychosis with paranoia that resolved with Risperdal Pt rescheduled x 2 d/t dental procedures with exposed sutures in mouth PMFSH Active Problems Active Problems: All Active Problems (Updated 03/05/21 @ 00:03 by Background Daemon) History of colon polyps (Acute) Weight loss (Acute) Rotator cuff tendonitis (Acute) Depression (Acute) Psychotic disorder (Acute) Oropharyngeal dysphagia (Acute) Chronic constipation (Acute) Hx of diverticulitis of colon (Acute) Schatzki's ring (Acute) Past Medical History Medical History (Updated 03/05/21 @ 00:03 by Background Daemon) Anxiety Chronic constipation Hiatal hernia Hx of diverticulitis of colon Oropharyngeal dysphagia Psychotic disorder Schatzki's ring Family History Family History Father No problems noted. Mother No problems noted. Surgical History Surgical History History of appendectomy History of colonoscopy History of hysterectomy Hx of endoscopy Hx of hand surgery Hx of tonsillectomy Social History Social History Household Members: None Housing: House Housing Other:: Two family home. lives on second floor alone Do you presently have visiting nurse or other home services: No Alcohol intake: current Alcohol intake frequency: holidays/special occasions only Alcohol type: wine Patient Tobacco Use Status: Never used Tobacco Second Hand Smoke Exposure: No Advance Directives: No Advance Directives Information Provided: Yes service: No Current occupational status: employed Current occupation: rt handed Sexual orientation: Straight/Heterosexual Meds Allergies Allergy/AdvReac Type Severity Reaction Status Date / Time No Known Allergies Allergy Verified 02/11/21 13:55 [No Known Allergies*] Home Medications Medication Instructions Recorded Confirmed Last Taken Type polyethylene glycol 3350 17 17 g PO DAILY 04/23/20 03/02/21 Unknown History gram/dose oral powder (Miralax) Exam Exam Date and Time: March 05, 2021 0938 Pertinent Lab Results Pertinent Lab Results: Laboratory Tests 02/19/21 02/19/21 21:22 21:45 WBC 6.3 Hgb 13.5 Hct 39.5 Plt Count 244 Sodium 140 Potassium 4.3 Chloride 107 Carbon Dioxide 23 BUN 16 D Creatinine 0.83 Narrative Narrative: EKG 02/2021 Vent. Rate : 090 BPM ? ? Atrial Rate : 090 BPM ?? P-R Int : 132 ms? QRS Dur : 076 ms ? ? QT Int : 372 ms ? ? ? P-R-T Axes : 063 005 037 degrees ?? QTc Int : 455 ms ? Sinus rhythm with occasional Premature ventricular complexes Minimal voltage criteria for LVH, may be normal variant Borderline ECG When compared with ECG of 19-FEB-2021 22:25, Premature ventricular complexes are now Present Assessment and Plan Assessment Anesthesia Assessment: Chart Reviewed Documented by User: Annemarie Rosario MD 03/08/21 13:34 [facility] Past Medical History Medical History (Updated 03/05/21 @ 00:03 by Shailesh Conde) Anxiety Chronic constipation Hiatal hernia Hx of diverticulitis of colon Oropharyngeal dysphagia Psychotic disorder Schatzki's ring Family History Family History Father No problems noted. Mother No problems noted. Family history of problems with anesthesia: No Surgical History Surgical History History of appendectomy History of colonoscopy History of hysterectomy Hx of endoscopy Hx of hand surgery Hx of tonsillectomy History of Problems with Anesthesia: No Social History Social History Household Members: None Housing: House Housing Other:: Two family home. lives on second floor alone Do you presently have visiting nurse or other home services: No Alcohol intake: current Alcohol intake frequency: holidays/special occasions only Alcohol type: wine Patient Tobacco Use Status: Never used Tobacco Second Hand Smoke Exposure: No Advance Directives: No Advance Directives Information Provided: Yes service: No Current occupational status: employed Current occupation: rt handed Sexual orientation: Straight/Heterosexual Meds Allergies Allergy/AdvReac Type Severity Reaction Status Date / Time No Known Allergies Allergy Verified 02/11/21 13:55 [No Known Allergies*] Home Medications Medication Instructions Recorded Confirmed Last Taken Type polyethylene glycol 3350 17 17 g PO DAILY 04/23/20 03/02/21 Unknown History gram/dose oral powder (Miralax) Exam Airway Mallampati Class: II TM Dist: >3cm Neck ROM: Full Partial: Upper Heart: rrr Lungs: cta Assessment and Plan Assessment Anesthesia Assessment: Anesthesia Plan Discussed and Chart Reviewed Final Anesthetic Review Family History of Problems with Anesthesia: No History of Problems with Anesthesia: No NPO: Yes ASA Class: II Final Preanesthetic Review: No Changes in Pt Med Stat, Meds/Allgs Chart Reviewed and Consent Obtained/Reviewed Patient Risk: Intermediate Procedure Risk: Intermediate Anesthetic Plan Anesthetic Plan: MAC: Disposition: Standard PACU
[2021-03-08 13:40] VITALS: BP 165/85; PULSE 101; RESP 18; TEMP 37.3; O2SAT 100; BMI 19.5
[2021-03-08] MEDS: Lactated Ringers 1,000 ML 100 ML IVCONT (13:51)
--- NOTE | 2021-03-08 14:20 | PM.OP ---
Brief Operative Note Date of Service: 03/08/21 Pre-op diagnosis: Dysphagia, history of Schatzki's ring, wt loss Post-op diagnosis: same Procedure: FLEXIBLE TRANSORAL UPPER GASTROINTESTINAL ENDOSCOPY WITH BIOPSIES AND ESOPHAGEAL BALLOON DILATION Consent: Indications for the procedure and potential complications of bleeding, perforation, reaction to medications and missed diagnosis were discussed with the patient and informed consent was obtained. Instrument: Olympus GIF H 190 mid size upper endoscope Monitoring: Vital signs and clinical assessment, continuous EKG monitoring, Pulse oximetry, Carbon Dioxide monitoring and blood pressure monitoring were done throughout the procedure. Procedure: The patient was placed in the left lateral decubitis position and pre-procedure medications were administered and a bite block was placed. The endoscope was inserted into the mouth and advanced under direct vision to the third part of duodenum. A careful inspection was made as the upper endoscope was withdrawn including a retroflexed examination of the proximal stomach; Findings and interventions are described below. Findings: Larynx: Normal Esophagus: Tortuous esophagus with increased tertiary contractions without stricture or ring. GE junction at 34 cms, hiatal hernia 34 to 37 cms . No esophagitis or Wahl?s. Recurrent Schatzki's ring was not visualized - empirc dilation was performed with an 18 and 19 mm CRE balloon x 60 seconds at each level. Stomach: Mild gastric erythema. Biopsies obtained during last EGD were negative for H pylori. Grade 2 flap valve on retroflexed examination of the cardia. Duodenum: Normal bulb and descending duodenum. Biopsies obtained from 3rd part of duodenum to check for celiac sprue - given hx of wt loss. Intervention: Biopsies and balloon dilation to 57 F as noted above Impression and Post Procedure Diagnosis: Endoscopy Findings: ESOPHAGUS: Tortuous esophagus with increased tertiary contractions without stricture or ring. GE junction at 34 cms, hiatal hernia 34 to 37 cms . No esophagitis or Wahl?s. Recurrent Schatzki's ring was not visualized - empirc dilation was performed with an 18 and 19 mm CRE balloon x 60 seconds at each level. DUODENUM: Normal - bxed to check for celiac sprue Plan: Await pathology results Patient has an appointment on 04/29/21 in the GI Clinic with Dalia Mcknight M.D.-. Above findings were reviewed with the patient. Surgeon: Dalia Mcknight MD Anesthesia: MAC (Komal Bartlett CRNA) Was an Vessel Welder used for this Procedure?: Yes Vessel Welder: Karol Sinclair Estimated blood loss (mL): 0 Pathology: other (A- SMALL BOWEL BIOPSIES) Condition: stable Disposition: PACU
--- NOTE | 2021-03-08 14:20 | MHC.SHP ---
Pre-Procedural Eval Section A Date of Service: 03/08/21 The patient is an INPATIENT: No Changes since office visit: Yes New Medical Problems, Yes Changes in Medication and Yes Patient answered all questions; No Cold of Flu in the past 2 weeks The History & Physical has been completed within 30 days and I have reviewed it.: Yes Section B Chief Complaint: dysphagia,oropharyngeal Allergies: Allergies Allergy/AdvReac Type Severity Reaction Status Date / Time No Known Allergies Allergy Verified 03/08/21 13:57 [No Known Allergies*] Plan I have reviewed the history and physical and performed a pertinent physical examination on my patient. No changes have occurred unless specified.
--- NOTE | 2021-03-08 14:25 | W.PM.OPN ---
Operative Note Operative Note Date of Service: 03/08/21 Narrative: Pre-op diagnosis:?Dysphagia, history of Schatzki's ring, wt loss Post-op diagnosis:?same Procedure:? FLEXIBLE TRANSORAL UPPER GASTROINTESTINAL ENDOSCOPY WITH BIOPSIES AND ESOPHAGEAL BALLOON DILATION Consent:?Indications for the procedure and potential complications of bleeding, perforation, reaction to medications and missed diagnosis were discussed with the patient and informed consent was obtained. Instrument:?Olympus GIF H 190 mid size upper endoscope Monitoring: Vital signs and clinical assessment, continuous EKG monitoring, Pulse oximetry, Carbon Dioxide monitoring and blood pressure monitoring were done throughout the procedure. Procedure:?The patient was placed in the left lateral decubitis position and pre-procedure medications were administered and a bite block was placed. The endoscope was inserted into the mouth and advanced under direct vision to the third part of duodenum. A careful inspection was made as the upper endoscope was withdrawn including a retroflexed examination of the proximal stomach; Findings and interventions are described below. Findings: Larynx:? Normal Esophagus: Tortuous esophagus with increased tertiary contractions without stricture or ring.? GE junction at 34 cms, hiatal hernia 34 to 37 cms . No esophagitis or Wahl?s.? Recurrent Schatzki's ring was not visualized - empirc dilation was performed with an 18 and 19 mm CRE balloon x 60 seconds at each level. Stomach:?Mild gastric erythema. Biopsies obtained during last EGD were negative for H pylori. Grade 2 flap valve on retroflexed examination of the cardia. Duodenum: Normal bulb and descending duodenum.? Biopsies obtained from 3rd part of duodenum to check for celiac sprue - given hx of wt loss. Intervention: Biopsies and balloon dilation to 57 F as noted above Impression and Post Procedure Diagnosis: Endoscopy Findings: ESOPHAGUS: Tortuous esophagus with increased tertiary contractions without stricture or ring.? GE junction at 34 cms, hiatal hernia 34 to 37 cms . No esophagitis or Wahl?s.? Recurrent Schatzki's ring was not visualized - empirc dilation was performed with an 18 and 19 mm CRE balloon x 60 seconds at each level. DUODENUM: Normal - bxed to check for celiac sprue Plan: Await pathology results Patient has an appointment on 04/29/21 in the GI Clinic with Dalia Mcknight M.D.-. Above findings were reviewed with the patient. Surgeon:?Dalia Mcknight MD Anesthesia:?MAC (Komal Bartlett CRNA) Was an Executive Associate used for this Procedure?:?Yes Executive Associate:?Karol Sinclair Estimated blood loss (mL):?0 Pathology:?other (A- SMALL BOWEL BIOPSIES) Condition:?stable Disposition:?PACU
[2021-03-08 14:59] VITALS: BP 79/41; PULSE 81; RESP 16; TEMP 36.9; O2SAT 98
[2021-03-08 15:14] VITALS: BP 94/58; PULSE 82; RESP 18; O2SAT 98
[2021-03-08 15:25] VITALS: BP 126/69; TEMP 36.9
== END 2021-03-08 16:07 | disposition home or self-care (01) ==
PROVIDERS: PCP Internal Medicine; Visit Provider Internal Medicine Gastroenterology
PROC: 0DJ08ZZ Inspection of Upper Intestinal Tract, Via Natural or Artificial Opening Endoscopic (ICD-10-PCS; CPT 43235; principal; 2021-03-08 14:10)
DX: K22.2 Esophageal obstruction (principal); Z87.19 Personal history of other diseases of the digestive system; K22.89 Other specified disease of esophagus; R09.89 Other specified symptoms and signs involving the circulatory and respiratory systems; K44.9 Diaphragmatic hernia without obstruction or gangrene; R63.4 Abnormal weight loss; Z68.23 Body mass index [BMI] 23.0-23.9, adult; I10 Essential (primary) hypertension; R73.03 Prediabetes; Z79.899 Other long term (current) drug therapy
CPT/HCPCS: 43249; 43239; 88305; C1726; J3010

== ENCOUNTER 2021-04-27 10:53 | Outpatient (REF) | payer MEDICARE, SELFPAY ==
[2021-04-27 10:58] LABS: MANUAL DIFF FLAG NO
[2021-04-27 11:29] LABS: Appearance Urine CLEAR; Color Urine YELLOW; Glucose Urine UA NEG (NEG); Leukocyte Esterase Urine NEG (NEG); Nitrite Urine NEG (NEG); PH 6.5 (5.0-8.0); Urine Blood NEG (NEG); Urine Ketones NEG (NEG); Urine Protein NEG (NEG-TRACE)
[2021-04-27 11:39] LABS: Basophils Percent Auto 0.9 % (0-2); Eosinophils Percent Auto 0.6 % (0-4); Hematocrit 40.9 % (37.0-47.0); Hemoglobin 13.5 g/dl (12.0-16.0); Imm Gran Abs Auto 0.01 X10*3/uL (0.00-0.03); Imm Gran Pct Auto 0.3 % (0.0-0.4); Lymphocytes Absolute Auto 0.8 X10*3/uL (1.2-4.9); Lymphocytes Percent Auto 23.9 % (20-40); Mean Corpuscular Hemoglobin 30.1 pg (27.0-33.0); Mean Corpuscular Volume 91.1 fL (80.0-98.0); Mean Platelet Volume 9.4 fL (9.4-12.3); Monocytes Absolute Auto 0.2 X10*3/uL (0.1-1.2); Monocytes Percent Auto 6.8 % (2-11); Neutrophils Absolute Auto 2.3 x10*3/uL (2.0-8.3); Neutrophils Percent Auto 67.5 % (45-73); Platelet Count 334 X10*3/uL (160-400); Red Blood Count 4.49 X10*6/uL (4.20-5.50); Red Cell Distribution Width 13.1 % (11.0-16.0); White Blood Count 3.4 X10*3/uL (4.8-10.8)
[2021-04-27 12:23] LABS: Alanine Aminotransferase 15 U/L (0-31); Albumin Level 4.4 g/dL (3.5-5.0); Alkaline Phosphatase 65 U/L (39-117); Anion Gap 13 (12-20); Aspartate Amino Transferase 12 U/L (5-31); Bilirubin Total 0.6 mg/dL (0.0-1.0); Blood Urea Nitrogen 8 mg/dL (9-16); Calcium 9.7 mg/dL (8.4-10.2); Carbon Dioxide 26 mmol/L (22-29); Chloride 106 mmol/L (96-108); Cholesterol 223 mg/dL; Estimated Glomerular Filt Rate > 60; Glucose Fasting 119 mg/dL (60-99); HDL Cholesterol 60 mg/dL; LDL Cholesterol Calculated 142 mg/dl; Potassium 4.2 mmol/L (3.3-5.1); Sodium 141 mmol/L (135-145); Total Protein 6.8 g/dL (6.5-8.0); Triglycerides 105 mg/dL
[2021-04-27 12:26] LABS: Creatinine Urine 160.85 mg/dL; Estimated Average Glucose 123 mg/dL; Hemoglobin A1c % 5.9 %; Microalbum/Creatinine Ratio Ur 8.7 ug/mg cr; Reflex LDLD? No
== END 2021-04-27 10:54 | disposition home or self-care (01) ==
LOC: HO.LNP 10:53
PROVIDERS: PCP Internal Medicine; Visit Provider Internal Medicine
DX: Z00.00 Encounter for general adult medical examination without abnormal findings (principal); I10 Essential (primary) hypertension; D72.9 Disorder of white blood cells, unspecified; E78.2 Mixed hyperlipidemia; R73.03 Prediabetes; E55.9 Vitamin D deficiency, unspecified
CPT/HCPCS: 80053; 80061; 81003; 82043; 82306; 83036; 85025

== ENCOUNTER 2021-05-27 11:18 | Inpatient (IN) | payer MEDICARE, SELFPAY ==
--- NOTE | ~2021-05-27 | CT_ITS ---
CT HEAD WITHOUT CONTRAST CLINICAL INFORMATION: Change in mental status. COMPARISON: Head CT 02/16/2021. TECHNIQUE: Contiguous axial imaging was performed from the skull base to vertex without intravenous administration of contrast. This CT examination was performed using dose optimization techniques as appropriate, variously including the following: *Automated exposure control *Adjustment of mA and/or kV according to patient size (this includes techniques or standardized protocols for targeted exams where dose is matched to indication/reason for exam; i.e. extremities or head) *Use of iterative reconstruction technique FINDINGS: Atherosclerotic calcification throughout the intracranial arterial vasculature. Mild chronic microangiopathy. There is no intracranial hemorrhage, hydrocephalus, extra-axial surface collection, midline shift, or other herniation pattern. Prabhakar to white matter differentiation is diffusely maintained without evidence of an evolved acute territorial infarct. The basilar cisterns are preserved. No significant soft tissue abnormality. No acute osseous abnormality. The paranasal sinuses and the mastoid air cells are well aerated. CT/CT head/brain wo con IMPRESSION: No acute intracranial abnormality. Atherosclerotic calcification throughout the intracranial arterial vasculature. Mild chronic microangiopathy.
[2021-05-27 13:22] VITALS: BP 152/79; PULSE 88; RESP 14; TEMP 36; O2SAT 99; BMI 20.7
[2021-05-27 15:55] VITALS: RESP 18
--- NOTE | 2021-05-27 17:05 | ED.PSYCH ---
HPI - Psych General Chief Complaint: Psychiatric Symptoms <AMBER Troncoso - Last Filed: 05/27/21 17:45> Stated Complaint: behavioral <AMBER Troncoso Last Filed: 05/27/21 17:45> Time Seen by Provider: 05/27/21 16:38 <AMBER Troncoso Last Filed: 05/27/21 17:45> Source: patient <AMBER Troncoso - Last Filed: 05/27/21 17:45> Mode of arrival: ambulatory <AMBER Troncoso Last Filed: 05/27/21 17:45> History of Present Illness HPI Narrative: 71-year-old female with a past medical history of anxiety, chronic constipation, psychotic disorder with recent admission to our facility discharged on 02/25/21, sent in by PCPs office for increased anxiety/depression and medication refills/adjustments. Patient reports she is almost out of her medication, reports compliance with medications. Denies SI/HI, EtOH or illicit drug use. Denies CP/SOB, cough, abdominal pain <AMBER Troncoso Last Filed: 05/27/21 17:45> MD complaint: feels depressed and anxiety <AMBER Troncoso Last Filed: 05/27/21 17:45> Onset (ago): day(s) <AMBER Troncoso - Last Filed: 05/27/21 17:45> Duration: constant <AMBER Troncoso Last Filed: 05/27/21 17:45> History of same: Yes <AMBER Troncoso Last Filed: 05/27/21 17:45> Related Data Home Medications: Home Medications Medication Instructions Recorded Confirmed polyethylene glycol 3350 17 17 g PO DAILY 04/23/20 03/02/21 gram/dose oral powder (Miralax) Previous Rx's Medication Instructions Recorded sennosides 8.6 mg-docusate sodium 1 tab-cap PO BEDTIME 30 Days #30 10/29/20 50 mg tablet tab escitalopram oxalate 10 mg tablet 1 tab PO DAILY 30 Days #30 tab 02/25/21 lorazepam 1 mg tablet (Ativan) 1 mg PO QPM PRN 30 Days #30 tab 02/25/21 risperidone 1 mg tablet 1 mg PO BID 14 Days #28 tab 05/27/21 <AMBER Troncoso - Last Filed: 05/27/21 17:45> Allergies/Adverse Reactions: Allergies Allergy/AdvReac Type Severity Reaction Status Date / Time No Known Allergies Allergy Verified 03/08/21 13:57 [No Known Allergies*] <AMBER Troncoso - Last Filed: 05/27/21 17:45> Review of Systems Review of Systems: Constitutional: No Fever, No Chills, No Fatigue, No Malaise ENT/Mouth: No Ear Pain, No Nasal Congestion, No sore throat, No Rhinorrhea, No Swallowing Difficulty Eyes: No Eye Pain, No Swelling, No Redness Cardiovascular: No Chest Pain, No SOB, No Edema Respiratory: No Cough, No Dyspnea Gastrointestinal: No Nausea, No Vomiting, No Diarrhea, No Constipation, No Abdominal pain Genitourinary: No Dysuria, No Urinary Frequency, No Hesitancy Musculoskeletal: No joint pain, No Myalgias, No Joint Swelling Skin: No Skin Lesions, No rash Neuro: No Weakness, No Dizziness, No Headache Psych: + Anxiety/Panic, + Depression, No SI/HI/AH/VH, No Social Issues <AMBER Troncoso - Last Filed: 05/27/21 17:45> Yes all other systems are reviewed and are negative <AMBER Troncoso - Last Filed: 05/27/21 17:45> [facility] Past Medical History Attestation statement: The following information was validated with the patient. <AMBER Troncoso - Last Filed: 05/27/21 17:45> Medical History: Medical History Anxiety Chronic constipation Hiatal hernia Hx of diverticulitis of colon Oropharyngeal dysphagia Psychotic disorder Schatzki's ring <AMBER Troncoso - Last Filed: 05/27/21 17:45> Surgical History: Surgical History History of appendectomy History of colonoscopy History of hysterectomy Hx of endoscopy Hx of hand surgery Hx of tonsillectomy <AMBER Troncoso Last Filed: 05/27/21 17:45> Family History Family History: Family History Father No problems noted. Mother No problems noted. <AMBER Troncoso - Last Filed: 05/27/21 17:45> Social History Social History: Social History Household Members: None Housing: House Housing Other:: Two family home. lives on second floor alone Do you presently have visiting nurse or other home services: No Alcohol intake: current Alcohol intake frequency: holidays/special occasions only Alcohol type: wine Patient Tobacco Use Status: Never used Tobacco Second Hand Smoke Exposure: No Use of substances other than those prescribed or required for medical reasons: No Advance Directives: No Advance Directives Information Provided: Yes service: No Current occupational status: employed Current occupation: rt handed Sexual orientation: Straight/Heterosexual <AMBER Troncoso - Last Filed: 05/27/21 17:45> Physical Exam Vital Signs: Vital Signs: Last Vital Signs Temp 96.8 F 05/27/21 13:22 Pulse 88 05/27/21 13:22 Resp 18 05/27/21 15:55 BP 152/79 H 05/27/21 13:22 Pulse Ox 99 05/27/21 13:22 BMI result Body Mass Index 20.7 <AMBER Troncoso - Last Filed: 05/27/21 17:45> Vital Signs: Last Vital Signs Temp 96.8 F 05/27/21 13:22 Pulse 88 05/27/21 13:22 Resp 18 05/27/21 15:55 BP 152/79 H 05/27/21 13:22 Pulse Ox 99 05/27/21 13:22 BMI result Body Mass Index 20.7 <AMBER Gonzalez - Last Filed: 05/27/21 19:05> Const: General: cooperative, alert and awake <AMBER Troncoso - Last Filed: 05/27/21 17:45> Orientation/consciousness: patient oriented x3 <AMBER Troncoso - Last Filed: 05/27/21 17:45> Limitations: no limitations <AMBER Troncoso - Last Filed: 05/27/21 17:45> HENMT: Head: Yes normal to inspection and Yes atraumatic <Katie Faria PA - Last Filed: 05/27/21 17:45> Ears: hearing grossly normal bilaterally <Katie Faria PA - Last Filed: 05/27/21 17:45> General nose exam: Normal external nose present <Katie Faria PA - Last Filed: 05/27/21 17:45> Face and sinus: Yes normal facial exam <Katie Faria PA - Last Filed: 05/27/21 17:45> Throat: Yes posterior oropharynx normal <Katie Faria PA - Last Filed: 05/27/21 17:45> Eyes: General: appearance normal, both eyes and all related structures <Katie Faria PA - Last Filed: 05/27/21 17:45> EOM: EOMs intact bilaterally <Katie Faria PA - Last Filed: 05/27/21 17:45> Neck: Neck: Yes normal visual inspection and Yes no meningeal signs <Katie Faria PA - Last Filed: 05/27/21 17:45> Resp: Effort & Inspection: normal respiratory effort and no respiratory distress <Katie Faria PA - Last Filed: 05/27/21 17:45> Auscultation: clear to auscultation bilaterally, no rales, no rhonchi and no wheezes <Katie Faria PA - Last Filed: 05/27/21 17:45> Cardio: Rate: regular rate <Katie Faria PA - Last Filed: 05/27/21 17:45> Heart sounds: S1 normal heart sound present and S2 normal heart sound present <Katie Faria PA - Last Filed: 05/27/21 17:45> GI: Inspection: Yes normal to inspection <Katie Faria PA - Last Filed: 05/27/21 17:45> Palpation (GI): Soft to palpation, nontender, no guarding and not rigid <Katie Faria PA - Last Filed: 05/27/21 17:45> Skin: Rashes: no rashes <Katie Faria PA - Last Filed: 05/27/21 17:45> Wounds: no wounds <AMBER Troncoso - Last Filed: 05/27/21 17:45> Neuro: General: patient oriented x3, no meningeal signs and CN's II-XI intact bilaterally <AMBER Troncoso - Last Filed: 05/27/21 17:45> Gait exam (Neuro): Normal gait present <AMBER Troncoso - Last Filed: 05/27/21 17:45> Extrem: General: Yes normal to inspection <AMBER Troncoso - Last Filed: 05/27/21 17:45> Psych: Affect: Anxious affect present <AMBER Troncoso Last Filed: 05/27/21 17:45> Attitude: cooperative <AMBER Troncoso - Last Filed: 05/27/21 17:45> Thought content: suicidality, no homicidality and Depressive thoughts present <AMBER Troncoso - Last Filed: 05/27/21 17:45> Insight: Fair insight present (Psych) <AMBER Troncoso - Last Filed: 05/27/21 17:45> Judgement: Fair judgement present (Psych) <AMBER Troncoso - Last Filed: 05/27/21 17:45> Course Course Course Narrative: -1800--ED care transferred to Dr. Rivera pending CARE team consult <AMBER Troncoso - Last Filed: 05/27/21 17:45> Reevaluation(s) Reevaluation #1: - Care team spoke to me. Risperidone was sent to the pharmacy by Winifred Bhakta NP. Patient should still have ativan. Patient not SI or HI. Care team feels comfortable with discharge home. I agree with plan. <AMBER Gonzalez - Last Filed: 05/27/21 19:05> Time: 19:04 <AMBER Gonzalez - Last Filed: 05/27/21 19:05> MDM - Psych MDM Narrative Medical decision making narrative: 71-year-old female with a past medical history of anxiety, chronic constipation, psychotic disorder with recent admission to our facility discharged on 02/25/21, sent in by PCPs office for increased anxiety/depression and medication refills/adjustments. On exam VSS, NAD, well appearing. Denies SI/SI Will obtain Care team consult <AMBER Troncoso - Last Filed: 05/27/21 17:45> Differential Diagnosis Differential diagnosis: Likely acute psychosis, depression and acute anxiety <AMBER Troncoso - Last Filed: 05/27/21 17:45> Medical Records Attestation: I reviewed the patient's medical records. <AMBER Troncoso Last Filed: 05/27/21 17:45> Lab Data Attestation: I reviewed the patient's lab results. <AMBER Troncoso Last Filed: 05/27/21 17:45> Discharge Plan Discharge Clinical Impression: Acute anxiety, Depression <AMBER Troncoso Last Filed: 05/27/21 17:45> Patient Disposition: Home, Self-Care <AMBER Troncoso Last Filed: 05/27/21 17:45> Instructions: Depression (ED), Anxiety (ED) <AMBER Troncoso Last Filed: 05/27/21 17:45> Additional Instructions: Take your medications as prescribed. If you were prescribed antibiotics today, it is important that you take your medication to their entirety, do not skip any doses, do not finish them early. Follow-up with your primary care provider this week. Return to the emergency department with new or worsening symptoms. In case of emergency call 911 <AMBER Troncoso - Last Filed: 05/27/21 17:45> Prescriptions: Continued risperidone 1 mg Tablet 1 mg PO BID 14 Days Qty: 28 RF: 0 No Action lorazepam [Ativan] 1 mg tablet 1 mg PO QPM PRN (Reason: Anxiety, insomnia) 30 Days Qty: 30 RF: 0 escitalopram oxalate 10 mg tablet 1 tab PO DAILY 30 Days Qty: 30 RF: 0 sennosides-docusate sodium 8.6-50 mg tablet 1 tab-cap PO BEDTIME 30 Days Qty: 30 RF: 4 polyethylene glycol 3350 [Miralax] 17 gram/dose powder 17 g PO DAILY RF: 0 <AMBER Troncoso Last Filed: 05/27/21 17:45> Referrals: Sawyer Mckenzie MD [Primary Care Provider] - 2 days <AMBER Troncoso - Last Filed: 05/27/21 17:45> Stand Alone Forms: Work/School Release <AMBER Troncoso - Last Filed: 05/27/21 17:45>
--- NOTE | 2021-05-27 19:09 | MHC.CARE ---
CARE Team meets with pt, who was sent to the ED (not a sect 12) by her PCP due to increased anxiety and depression and pt being out of meds. Pt states denies SI/HI, but states that she does feel anxious and depressed due to being out of her medication. Pt states that she has some Ativan at home, but is out of risperdal. CARE Team speaks with psych provider, Siri Canas NP who agrees to fill her risperdal. CARE Team explains to pt how to get an outpatient psychiatrist and makes referral for pt to [facility]. Contact info for [facility] also provided to pt, who is instructed to call and follow up. Plan is discussed with AMBER Hutchison who plans to discharge pt.
[2021-05-27 19:16] VITALS: BP 157/93; PULSE 89; RESP 16; O2SAT 98
[2021-05-27 20:45] VITALS: BP 182/94; PULSE 93; RESP 18; TEMP 36.6; O2SAT 98
[2021-05-27 21:38] LABS: COVID-19 Test Negative (Negative)
[2021-05-27] MEDS: LORazepam 1 MG TABLET PO (21:41)
[2021-05-27] MEDS: risperiDONE 1 MG TABLET PO (22:16)
[2021-05-28 05:19] VITALS: BP 149/79; PULSE 78; RESP 17; TEMP 36.4; O2SAT 100
[2021-05-28 05:33] LABS: Appearance Urine CLEAR; Color Urine YELLOW; Glucose Urine UA NEG (NEG); Leukocyte Esterase Urine 1+ (NEG); Nitrite Urine NEG (NEG); PH 5.5 (5.0-8.0); Specific Gravity - Urine <= 1.005 (1.005-1.025); UACC Culture Trigger YES; Urine Blood NEG (NEG); Urine Ketones NEG (NEG); Urine Protein NEG (NEG-TRACE)
[2021-05-28 06:00] LABS: Bacteria Urine 1+ /LPF; RBC Urine 0-2 /HPF (0); Squamous Epithelial Cell Urine 2+ /LPF; UACC CULT YES
--- NOTE | 2021-05-28 06:01 | PC.NURSE ---
Patient slept through the night, no distress observed/reported, patient is primarily Serbian speaking, behavior calm, quiet, and cooperative, medication compliant, VSS, patient was assessed by care team, disposition is section 12 inpatient bed search, will continue to monitor.
[2021-05-28 06:02] LABS: Amphetamine Screen Urine Not Detected (Not Detect); Barbiturates, Urine Not Detected (Not Detect); Benzodiazepines Screen Urine Not Detected (Not Detect); Cannabinoid Screen Urine Not Detected (Not Detect); Cocaine Screen Urine Not Detected (Not Detect); Fentanyl, urine Not Detected (Not Detect); Opiate Screen Urine Not Detected (Not Detect); Phencyclidine Screen Urine Not Detected (Not Detect)
--- NOTE | 2021-05-28 07:19 | PC.NURSE ---
patient appears to remain at rest at present respirations are even and unlabored, patient sergio[ears in no distress
[2021-05-28] MEDS: risperiDONE 1 MG TABLET PO (08:54)
--- NOTE | 2021-05-28 09:03 | MHC.CARE ---
CARE Team spoke with Rudy - Pt no longer is covered. Pts plan termed 02/05/2021.
[2021-05-28 20:14] VITALS: BP 154/77; PULSE 100; TEMP 37.1; O2SAT 96
[2021-05-28] MEDS: risperiDONE 2 MG TABLET PO (21:15)
[2021-05-28] MEDS: cloNIDine HCL 0.1 MG TABLET PO (21:15)
[2021-05-28] MEDS: LORazepam 1 MG TABLET PO (21:15)
[2021-05-28 21:24] VITALS: BP 149/88; PULSE 99
[2021-05-28 21:39] LABS: MANUAL DIFF FLAG NO
[2021-05-28 21:40] LABS: Basophils Percent Auto 0.7 % (0-2); Eosinophils Absolute Auto 0.1 X10*3/uL (0.0-0.4); Eosinophils Percent Auto 2.2 % (0-4); Hematocrit 38.7 % (37.0-47.0); Imm Gran Abs Auto 0.01 X10*3/uL (0.00-0.03); Imm Gran Pct Auto 0.2 % (0.0-0.4); Lymphocytes Absolute Auto 1.4 X10*3/uL (1.2-4.9); Lymphocytes Percent Auto 31.2 % (20-40); Mean Corpuscular HGB Conc 33.6 g/dl (31.0-35.0); Mean Corpuscular Hemoglobin 30.3 pg (27.0-33.0); Mean Corpuscular Volume 90.2 fL (80.0-98.0); Mean Platelet Volume 8.9 fL (9.4-12.3); Monocytes Absolute Auto 0.5 X10*3/uL (0.1-1.2); Monocytes Percent Auto 10.1 % (2-11); Neutrophils Absolute Auto 2.5 x10*3/uL (2.0-8.3); Neutrophils Percent Auto 55.6 % (45-73); Platelet Count 311 X10*3/uL (160-400); Red Blood Count 4.29 X10*6/uL (4.20-5.50); Red Cell Distribution Width 13.2 % (11.0-16.0); White Blood Count 4.5 X10*3/uL (4.8-10.8)
[2021-05-28 21:59] LABS: Alanine Aminotransferase 16 U/L (0-31); Albumin Level 4.1 g/dL (3.5-5.0); Alkaline Phosphatase 65 U/L (39-117); Anion Gap 12 (12-20); Aspartate Amino Transferase 13 U/L (5-31); Bilirubin Total 0.3 mg/dL (0.0-1.0); Blood Urea Nitrogen 15 mg/dL (9-16); Calcium 9.7 mg/dL (8.4-10.2); Carbon Dioxide 29 mmol/L (22-29); Chloride 103 mmol/L (96-108); Creatinine Clr Calc Pharmacy 53.4; Estimated Glomerular Filt Rate > 60; Glucose Random 109 mg/dL (60-115); Sodium 140 mmol/L (135-145); Total Protein 6.7 g/dL (6.5-8.0)
[2021-05-28 22:54] VITALS: BP 99/58; PULSE 93; RESP 20; TEMP 36.4; O2SAT 98
--- NOTE | 2021-05-28 22:56 | P.CNPS_ITS ---
History of Present Illness Date of Service: 05/28/2021 Chief Complaint: Delusional Reason for Consult: medication, disposition Requesting physician: Annamarie Hernandez Discussed with referring provider: Yes Sources of Information: patient interviewed, chart reviewed and crisis/core team assessment reviewed HPI Narrative: Hoa is a 71 year old Hong Konger speaking female who carries a dx of an unspecified psychotic disorder. She is known to [facility] through one prior admission to in 03/05 for similar presentation. Pt presented to [facility] ED on 05/27/21 from her PCP office due to non-adherence on risperdal and increased anxiety and depression. During CARE team eval, pt began to express delusional thought content, feeling fearful, and appeared suspicious. CARE Team clinician also spoke with pt?s family who reported that pt has been wandering around town, pacing, not sleeping, verbally aggressive, and expressing odd beliefs, i.e. government agencies are coming after her and there are people wanting to harm her kids. Pt?s family is advocating for pt to be admitted. Per CARE team, pt?s family stated she was not better after discharging from , however, delusional thoughts increased over the past two weeks. Pt is pacing a lot, and has been wandering around town aimlessly. Pt has questionable med adherence, as she says she has been taking risperdal, however has not filled it since 03/30/21.? I evaluated the pt this evening and upon interview she reports ?I want to go home.? Says she has been unable to sleep, daytime energy is low. Says the risperdal has been ?helping a little bit? and that she has been taking it, however does not appear to be reliable historian. She reports risperdal is ?too strong? and that it is ?giving me nightmares.? Pt denies A/VH, however endorses delusional thought content. Says she is afraid something will happen to her and her family. She is distressed, tearful, says ?Tell me, I killed my son?? Insists that something happened to her children. Says no one cares about her.?Pt perseverative on wanting to go home to check on her children, deemed elopement risk in the ED pod. Past Psychiatric History: The patient is a very poor historian but apparently has progressive reports she has 2 prior admissions unclear where and when. Medical Evaluation Reviewed: Yes [facility] Medical History Anxiety Chronic constipation Hiatal hernia Hx of diverticulitis of colon Oropharyngeal dysphagia Psychotic disorder Schatzki's ring Surgical History History of appendectomy History of colonoscopy History of hysterectomy Hx of endoscopy Hx of hand surgery Hx of tonsillectomy Family History: Denies, she reports that on her father side there is substance a buse Social History: The patient was born and raised in [place], her milestones were achieved at expected age that she attended regular school up to the 9th grade she dropped out. She had 3 children and she has worked, this moment she has good social support provided by her family. Retired from working at [employer] for 14 years Trauma History: -Per chart, pt reported a period of time being from her children was difficult for her. Diagnostics Vital Signs (24Hr): Vital Signs - 24 hr 05/28/21 05:19 05/28/21 20:14 05/28/21 21:24 Temperature 97.5 F 98.8 F Pulse Rate 78 100 99 Respiratory Rate 17 Blood Pressure 149/79 H 154/77 H 149/88 H Pulse Oximetry 100 96 05/28/21 22:54 Temperature 97.6 F Pulse Rate 93 Respiratory Rate 20 Blood Pressure 99/58 L Pulse Oximetry 98 BMI result Body Mass Index 20.7 Labs Results: 05/28/21 21:34 05/28/21 21:34 Labs: Laboratory Results - last 48 hr 05/27/21 05/28/21 05/28/21 21:16 05:24 05:24 WBC RBC Hgb Hct MCV MCH MCHC RDW Plt Count MPV Immature Gran % (Auto) Neut % (Auto) Lymph % (Auto) [place] % (Auto) Eos % (Auto) Baso % (Auto) Lymph # (Auto) [place] # (Auto) Eos # (Auto) Baso # (Auto) Abs Immat Gran (auto) Absolute Neuts (auto) Absolute Nucleated RBC Nucleated RBC % (auto) Sodium Potassium Chloride Carbon Dioxide Anion Gap BUN Creatinine Estim Creat Clear Calc Estimated GFR Random Glucose Calcium Total Bilirubin AST ALT Alkaline Phosphatase Total Protein Albumin Urine Color YELLOW Urine Appearance CLEAR Urine pH 5.5 Ur Specific [place] <= 1.005 Urine Protein NEG Urine Glucose (UA) NEG Urine Ketones NEG Urine Blood NEG Urine Nitrite NEG Ur Leukocyte Esterase 1+ H Urine RBC 0-2 Urine WBC 1-4 Ur Squamous Epith Cells 2+ Urine Bacteria 1+ Urine Opiates Screen Not Detected Urine Fentanyl Screen Not Detected Ur Barbiturates Screen Not Detected Ur Phencyclidine Scrn Not Detected Ur Amphetamines Screen Not Detected U Benzodiazepines Scrn Not Detected Urine Cocaine Screen Not Detected U Marijuana (THC) Screen Not Detected COVID-19 ([facility]) Negative COVID-19 Clin Com See Note 05/28/21 05/28/21 21:34 21:34 WBC 4.5 L RBC 4.29 Hgb 13.0 Hct 38.7 MCV 90.2 MCH 30.3 MCHC 33.6 RDW 13.2 Plt Count 311 MPV 8.9 L Immature Gran % (Auto) 0.2 Neut % (Auto) 55.6 Lymph % (Auto) 31.2 [place] % (Auto) 10.1 Eos % (Auto) 2.2 Baso % (Auto) 0.7 Lymph # (Auto) 1.4 [place] # (Auto) 0.5 Eos # (Auto) 0.1 Baso # (Auto) 0.0 Abs Immat Gran (auto) 0.01 Absolute Neuts (auto) 2.5 Absolute Nucleated RBC 0.000 Nucleated RBC % (auto) 0.0 Sodium 140 Potassium 4.0 Chloride 103 Carbon Dioxide 29 Anion Gap 12 BUN 15 D Creatinine 0.75 Estim Creat Clear Calc 53.4 Estimated GFR > 60 Random Glucose 109 Calcium 9.7 Total Bilirubin 0.3 AST 13 ALT 16 Alkaline Phosphatase 65 Total Protein 6.7 Albumin 4.1 Urine Color Urine Appearance Urine pH Ur Specific [place] Urine Protein Urine Glucose (UA) Urine Ketones Urine Blood Urine Nitrite Ur Leukocyte Esterase Urine RBC Urine WBC Ur Squamous Epith Cells Urine Bacteria Urine Opiates Screen Urine Fentanyl Screen Ur Barbiturates Screen Ur Phencyclidine Scrn Ur Amphetamines Screen U Benzodiazepines Scrn Urine Cocaine Screen U Marijuana (THC) Screen COVID-19 ([facility]) COVID-19 Clin Com Mental Status Exam Mental Status Exam Narrative: A&O to person and place. In hospital attire, appears older than stated age, petite. Good eye contact, inattentive. No Tics or Tremors. No abnormal involuntary movements. Suspicious, difficult to engage in meaningful conversation. Non-pressured speech, non-spontaneous with regular rate and r hythm, quiet volume and normal prosody. No prolonged speech latency or dysarthria. Mood is ?anxious,? affect is tearful, anxious, distressed. Denies SI/SIB/HI upon inquiry. Denies A/VH. Endorses bizarre delusional thought content. Thoughts are illogical, ruminative on delusional beliefs. No known co gnitive or memory impairment. Insight/ Judgment poor. Medications Medications Current Medications Acetaminophen (Acetaminophen 325 Mg Tablet) 650 mg PO Q6H PRN PRN Reason: Headache/Pain Mild Scale (1-3) Al Hydroxide/Mg Hydroxide (Magnesium Hydrox/Alum Hydrox 30 Ml Oral.Susp) 30 ml PO Q6H PRN PRN Reason: Heartburn/Nausea Clonidine HCl (Clonidine Hcl 0.1 Mg Tablet) 0.1 mg PO BID [facility]; Protocol Last Admin: 05/28/21 21:15 Dose: 0.1 mg Documented by: Hydroxyzine HCl (Hydroxyzine Hcl 25 Mg Tablet) 25 mg PO Q6H PRN PRN Reason: Anxiety Lorazepam (Lorazepam 1 Mg Tablet) 1 mg PO BEDTIME PRN PRN Reason: Anxiety, insomnia Last Admin: 05/28/21 21:15 Dose: 1 mg Documented by: Magnesium Hydroxide (Milk Of Magnesia 30 Ml Oral.Susp) 30 ml PO DAILY PRN PRN Reason: Constipation Risperidone (Risperidone 2 Mg Tablet) 2 mg PO BEDTIME JUMA Last Admin: 05/28/21 21:15 Dose: 2 mg Documented by: Trazodone HCl (Trazodone Hcl 50 Mg Tablet) 50 mg PO BEDTIME PRN PRN Reason: Insomnia Allergies Allergies Allergy/AdvReac Type Severity Reaction Status Date / Time No Known Allergies Allergy Verified 03/08/21 13:57 [No Known Allergies*] Assessment & Plan Assessment & Plan (1) Schizoaffective disorder, depressive type: Status: Acute Code(s): F25.1 - Schizoaffective disorder, depressive type Assessment and Plan: Hoa is a 71 year old Hong Konger speaking female who carries a dx of an unspecified psychotic disorder. She presented to [facility] ED at request of her PCP and family due to concerns with delusional beliefs, bizarre behaviors, poor sleep, and not attending to ADLs. She does not appear med adherent. Plan: Pt willing to sign CV, however appears highly anxious and distressed due to delusional belief that she harmed her son and that her children/ family are harmed. Will continue risperdal 1 mg BID and start clonidine 0.1 mg BID for sx of anxiety, hyperarousal, and nightmares. Will continue ativan 1 mg QHS PRN, however per CARE team pt may be overusing this medication. -Continue monitoring medically. Patient is currently medically cleared. -Patient cannot leave AGAINST MEDICAL ADVICE. -Care Team evaluation for bed search. Patient will be a CV. Legal Status: signed CV initial treatments ordered collateral history needed ? I spent minutes with the patient and/or on the patient floor today, greater than?50% of which was spent counseling/coordinating care.
--- NOTE | 2021-05-29 00:11 | PC.ADMIT ---
patient admitted from [facility] emergency room after family sending her in saying that her medications are not working and she needs a psychiatrist to adjust her medications. Patient has been hearing voices telling her her children are going to be hurt, On admission patient requests her children not be contacted, only her sister Galina but can't remember her phone number. Senior Field Service Engineer [employer] with patient. Patient is calm and cooperative states I'll only be here 3 days and its because I hurt my children . Very poor eye contact from patient. Consents to be signed with a medical administrative technician in the AM. Patient given snack and oriented to her room.
[2021-05-29 06:00] VITALS: BP 148/67; PULSE 94; RESP 19; TEMP 36.1; O2SAT 96
[2021-05-29 08:00] VITALS: BP 148/67; PULSE 94; RESP 19; TEMP 36.1; O2SAT 96
[2021-05-29 08:00] LABS: Cholesterol 190 mg/dL; HDL Cholesterol 47 mg/dL; LDL Cholesterol Calculated 126 mg/dl; Triglycerides 89 mg/dL
[2021-05-29 08:08] LABS: Estimated Average Glucose 126 mg/dL
[2021-05-29 08:20] LABS: Free T4 (Free Thyroxine) 0.96 ng/dL (0.71-1.85); Thyroid Stimulating Hormone 1.32 uIU/mL (0.32-4.0)
[2021-05-29] MEDS: cloNIDine HCL 0.1 MG TABLET PO ×2 (09:07→21:03)
--- NOTE | 2021-05-29 10:36 | HO.PSYCHPN ---
Subjective Subjective Date of Service: 05/29/21 Reason For Visit: Delusional Subjective Notes: Conditional Voluntary Interim History: Patient was seen and discussed in rounds. Records and plans reviewed. Labs were reviewed. She is doing better and has been less delusional back on her medications. She continues to be anxious and somewhat paranoid, checking doors etc.. No complaints or side effects. Eating and sleeping adequately. No changes were made today Medication Compliance: Yes Side effects from medications: No Review of Systems Review of Systems Constitutional: No Fever, No Chills, No Fatigue, No Malaise ENT/Mouth: No Ear Pain, No Nasal Congestion, No sore throat, No Rhinorrhea, No Swallowing Difficulty Eyes: No Eye Pain, No Swelling, No Redness Cardiovascular: No Chest Pain, No SOB, No Edema Respiratory: No Cough, No Dyspnea Gastrointestinal: No Nausea, No Vomiting, No Diarrhea, No Constipation, No Abdominal pain Genitourinary: No Dysuria, No Urinary Frequency, No Hesitancy Musculoskeletal: No joint pain, No Myalgias, No Joint Swelling Skin: No Skin Lesions, No rash Neuro: No Weakness, No Dizziness, No Headache Psych: + Anxiety/Panic, + Depression, No SI/HI/AH/VH, No Social Issues Yes all other systems are reviewed and are negative Mental Status Exam Mental Status Exam Narrative: In today's visit she is alert, pleasant and somewhat interactive. Normal speech. Little eye contact. Affect is appropriate and constricted. She denies any auditory or visual hallucinations. Cognitively impaired. Suspicious Marina paranoia present. No SI. Cognitively impaired. Judgment is impaired Diagnostics Vital Signs (24Hr): Vital Signs - 24 hr 05/28/21 20:14 05/28/21 21:24 05/28/21 22:54 Temperature 98.8 F 97.6 F Pulse Rate 100 99 93 Respiratory Rate 20 Blood Pressure 154/77 H 149/88 H 99/58 L Pulse Oximetry 96 98 05/29/21 06:00 05/29/21 08:00 Temperature 97 F 97 F Pulse Rate 94 94 Respiratory Rate 19 19 Blood Pressure 148/67 H 148/67 H Pulse Oximetry 96 96 BMI result Body Mass Index 20.7 Labs Results: 05/28/21 21:34 05/28/21 21:34 Labs: Laboratory Results - last 48 hr 05/27/21 05/28/21 05/28/21 21:16 05:24 05:24 WBC RBC Hgb Hct MCV MCH MCHC RDW Plt Count MPV Immature Gran % (Auto) Neut % (Auto) Lymph % (Auto) [place] % (Auto) Eos % (Auto) Baso % (Auto) Lymph # (Auto) [place] # (Auto) Eos # (Auto) Baso # (Auto) Abs Immat Gran (auto) Absolute Neuts (auto) Absolute Nucleated RBC Nucleated RBC % (auto) Sodium Potassium Chloride Carbon Dioxide Anion Gap BUN Creatinine Estim Creat Clear Calc Estimated GFR Random Glucose Estimat Average Glucose Hemoglobin A1c % Calcium Total Bilirubin AST ALT Alkaline Phosphatase Total Protein Albumin Triglycerides Cholesterol LDL Cholesterol, Calc HDL Cholesterol TSH Free T4 Urine Color YELLOW Urine Appearance CLEAR Urine pH 5.5 Ur Specific [place] <= 1.005 Urine Protein NEG Urine Glucose (UA) NEG Urine Ketones NEG Urine Blood NEG Urine Nitrite NEG Ur Leukocyte Esterase 1+ H Urine RBC 0-2 Urine WBC 1-4 Ur Squamous Epith Cells 2+ Urine Bacteria 1+ Urine Opiates Screen Not Detected Urine Fentanyl Screen Not Detected Ur Barbiturates Screen Not Detected Ur Phencyclidine Scrn Not Detected Ur Amphetamines Screen Not Detected U Benzodiazepines Scrn Not Detected Urine Cocaine Screen Not Detected U Marijuana (THC) Screen Not Detected COVID-19 ([facility]) Negative COVID-19 Clin Com See Note 05/28/21 05/28/21 05/29/21 21:34 21:34 07:14 WBC 4.5 L RBC 4.29 Hgb 13.0 Hct 38.7 MCV 90.2 MCH 30.3 MCHC 33.6 RDW 13.2 Plt Count 311 MPV 8.9 L Immature Gran % (Auto) 0.2 Neut % (Auto) 55.6 Lymph % (Auto) 31.2 [place] % (Auto) 10.1 Eos % (Auto) 2.2 Baso % (Auto) 0.7 Lymph # (Auto) 1.4 [place] # (Auto) 0.5 Eos # (Auto) 0.1 Baso # (Auto) 0.0 Abs Immat Gran (auto) 0.01 Absolute Neuts (auto) 2.5 Absolute Nucleated RBC 0.000 Nucleated RBC % (auto) 0.0 Sodium 140 Potassium 4.0 Chloride 103 Carbon Dioxide 29 Anion Gap 12 BUN 15 D Creatinine 0.75 Estim Creat Clear Calc 53.4 Estimated GFR > 60 Random Glucose 109 Estimat Average Glucose 126 Hemoglobin A1c % 6.0 Calcium 9.7 Total Bilirubin 0.3 AST 13 ALT 16 Alkaline Phosphatase 65 Total Protein 6.7 Albumin 4.1 Triglycerides Cholesterol LDL Cholesterol, Calc HDL Cholesterol TSH Free T4 Urine Color Urine Appearance Urine pH Ur Specific [place] Urine Protein Urine Glucose (UA) Urine Ketones Urine Blood Urine Nitrite Ur Leukocyte Esterase Urine RBC Urine WBC Ur Squamous Epith Cells Urine Bacteria Urine Opiates Screen Urine Fentanyl Screen Ur Barbiturates Screen Ur Phencyclidine Scrn Ur Amphetamines Screen U Benzodiazepines Scrn Urine Cocaine Screen U Marijuana (THC) Screen COVID-19 ([facility]) COVID-19 [facility] Com 05/29/21 07:14 WBC RBC Hgb Hct MCV MCH MCHC RDW Plt Count MPV Immature Gran % (Auto) Neut % (Auto) Lymph % (Auto) [place] % (Auto) Eos % (Auto) Baso % (Auto) Lymph # (Auto) [place] # (Auto) Eos # (Auto) Baso # (Auto) Abs Immat Gran (auto) Absolute Neuts (auto) Absolute Nucleated RBC Nucleated RBC % (auto) Sodium Potassium Chloride Carbon Dioxide Anion Gap BUN Creatinine Estim Creat Clear Calc Estimated GFR Random Glucose Estimat Average Glucose Hemoglobin A1c % Calcium Total Bilirubin AST ALT Alkaline Phosphatase Total Protein Albumin Triglycerides 89 Cholesterol 190 LDL Cholesterol, Calc 126 HDL Cholesterol 47 D TSH 1.32 Free T4 0.96 Urine Color Urine Appearance Urine pH Ur Specific [place] Urine Protein Urine Glucose (UA) Urine Ketones Urine Blood Urine Nitrite Ur Leukocyte Esterase Urine RBC Urine WBC Ur Squamous Epith Cells Urine Bacteria Urine Opiates Screen Urine Fentanyl Screen Ur Barbiturates Screen Ur Phencyclidine Scrn Ur Amphetamines Screen U Benzodiazepines Scrn Urine Cocaine Screen U Marijuana (THC) Screen COVID-19 ([facility]) COVID-19 Clin Com Medications Medications Current Medications Acetaminophen (Acetaminophen 325 Mg Tablet) 650 mg PO Q6H PRN PRN Reason: Headache/Pain Mild Scale (1-3) Al Hydroxide/Mg Hydroxide (Magnesium Hydrox/Alum Hydrox 30 Ml Oral.Susp) 30 ml PO Q6H PRN PRN Reason: Heartburn/Nausea Clonidine HCl (Clonidine Hcl 0.1 Mg Tablet) 0.1 mg PO BID [facility]; Protocol Last Admin: 05/29/21 09:07 Dose: 0.1 mg Documented by: Hydroxyzine HCl (Hydroxyzine Hcl 25 Mg Tablet) 25 mg PO Q6H PRN PRN Reason: Anxiety Lorazepam (Lorazepam 1 Mg Tablet) 1 mg PO BEDTIME PRN PRN Reason: Anxiety, insomnia Last Admin: 05/28/21 21:15 Dose: 1 mg Documented by: Magnesium Hydroxide (Milk Of Magnesia 30 Ml Oral.Susp) 30 ml PO DAILY PRN PRN Reason: Constipation Risperidone (Risperidone 2 Mg Tablet) 2 mg PO BEDTIME JUMA Last Admin: 05/28/21 21:15 Dose: 2 mg Documented by: Trazodone HCl (Trazodone Hcl 50 Mg Tablet) 50 mg PO BEDTIME PRN PRN Reason: Insomnia Allergies Allergies Allergy/AdvReac Type Severity Reaction Status Date / Time No Known Allergies Allergy Verified 03/08/21 13:57 [No Known Allergies*] Assessment & Plan Assessment & Plan (1) Schizoaffective disorder, depressive type: Status: Acute Code(s): F25.1 - Schizoaffective disorder, depressive type Assessment and Plan: Hoa is a 71 year old [place] speaking female who carries a dx of an unspecified psychotic disorder. She presented to [facility] ED at request of her PCP and family due to concerns with delusional beliefs, bizarre behaviors, poor sleep, and not attending to ADLs. She does not appear med adherent. Plan: Pt willing to sign CV, however appears highly anxious and distressed due to delusional belief that she harmed her son and that her children/ family are harmed. Will continue risperdal 1 mg BID and start clonidine 0.1 mg BID for sx of anxiety, hyperarousal, and nightmares. Will continue ativan 1 mg QHS PRN, however per CARE team pt may be overusing this medication. -Continue monitoring medically. Patient is currently medically cleared. -Patient cannot leave AGAINST MEDICAL ADVICE. -Care Team evaluation for bed search. Patient will be a CV. Legal Status: signed CV initial treatments ordered collateral history needed ? 05/29/2021 Continue current regimen and plans with no changes I spent minutes with the patient and/or on the patient floor today, greater than?50% of which was spent counseling/coordinating care. Reason for contiued inpatient stay Substantial Risk for: rapid decompensation
[2021-05-29 18:00] VITALS: BP 137/73; PULSE 82; RESP 18; TEMP 36.2; O2SAT 98
[2021-05-29] MEDS: traZODone HCL 50 MG TABLET PO (21:03)
[2021-05-29] MEDS: risperiDONE 2 MG TABLET PO (21:03)
[2021-05-30] MEDS: cloNIDine HCL 0.1 MG TABLET PO ×2 (09:35→21:14)
[2021-05-30 09:56] VITALS: BP 145/71; PULSE 89; RESP 16; TEMP 36.6; O2SAT 96
--- NOTE | 2021-05-30 10:25 | P.PNPSI_ITS ---
Subjective Subjective Date of Service: 05/30/21 Reason For Visit: Delusional Subjective Notes: Conditional Voluntary Medical Problems Affecting Mental Status: No Interim History: Patient was seen and discussed in rounds today. She continues to be somewhat anxious with some pacing and checking the exit doors but not doing that today. She continues also to be isolative. She is med compliant but says that she is not going to take medications after discharge. She does not have any providers on the outside beside her PCP. No changes were made today Medication Compliance: Yes Side effects from medications: No Review of Systems Review of Systems Constitutional: No Fever, No Chills, No Fatigue, No Malaise ENT/Mouth: No Ear Pain, No Nasal Congestion, No sore throat, No Rhinorrhea, No Swallowing Difficulty Eyes: No Eye Pain, No Swelling, No Redness Cardiovascular: No Chest Pain, No SOB, No Edema Respiratory: No Cough, No Dyspnea Gastrointestinal: No Nausea, No Vomiting, No Diarrhea, No Constipation, No Abdominal pain Genitourinary: No Dysuria, No Urinary Frequency, No Hesitancy Musculoskeletal: No joint pain, No Myalgias, No Joint Swelling Skin: No Skin Lesions, No rash Neuro: No Weakness, No Dizziness, No Headache Psych: + Anxiety/Panic, + Depression, No SI/HI/AH/VH, No Social Issues Yes all other systems are reviewed and are negative Mental Status Exam Mental Status Exam Narrative: In today's visit she is alert, pleasant and somewhat interactive. Normal speech. Little eye contact. Affect is appropriate and constricted. She denies any auditory or visual hallucinations. Cognitively impaired. Suspicious Marina paranoia present. No SI. Cognitively impaired. Judgment is impaired Diagnostics Vital Signs (24Hr): Vital Signs - 24 hr 05/29/21 18:00 05/30/21 09:56 Temperature 97.2 F 97.8 F Pulse Rate 82 89 Respiratory Rate 18 16 Blood Pressure 137/73 145/71 H Pulse Oximetry 98 96 BMI result Body Mass Index 20.7 Labs Results: 05/28/21 21:34 05/28/21 21:34 Labs: Laboratory Results - last 48 hr 05/28/21 05/28/21 05/29/21 21:34 21:34 07:14 WBC 4.5 L RBC 4.29 Hgb 13.0 Hct 38.7 MCV 90.2 MCH 30.3 MCHC 33.6 RDW 13.2 Plt Count 311 MPV 8.9 L Immature Gran % (Auto) 0.2 Neut % (Auto) 55.6 Lymph % (Auto) 31.2 [place] % (Auto) 10.1 Eos % (Auto) 2.2 Baso % (Auto) 0.7 Lymph # (Auto) 1.4 [place] # (Auto) 0.5 Eos # (Auto) 0.1 Baso # (Auto) 0.0 Abs Immat Gran (auto) 0.01 Absolute Neuts (auto) 2.5 Absolute Nucleated RBC 0.000 Nucleated RBC % (auto) 0.0 Sodium 140 Potassium 4.0 Chloride 103 Carbon Dioxide 29 Anion Gap 12 BUN 15 D Creatinine 0.75 Estim Creat Clear Calc 53.4 Estimated GFR > 60 Random Glucose 109 Estimat Average Glucose 126 Hemoglobin A1c % 6.0 Calcium 9.7 Total Bilirubin 0.3 AST 13 ALT 16 Alkaline Phosphatase 65 Total Protein 6.7 Albumin 4.1 Triglycerides Cholesterol LDL Cholesterol, Calc HDL Cholesterol TSH Free T4 05/29/21 07:14 WBC RBC Hgb Hct MCV MCH MCHC RDW Plt Count MPV Immature Gran % (Auto) Neut % (Auto) Lymph % (Auto) [place] % (Auto) Eos % (Auto) Baso % (Auto) Lymph # (Auto) [place] # (Auto) Eos # (Auto) Baso # (Auto) Abs Immat Gran (auto) Absolute Neuts (auto) Absolute Nucleated RBC Nucleated RBC % (auto) Sodium Potassium Chloride Carbon Dioxide Anion Gap BUN Creatinine Estim Creat Clear Calc Estimated GFR Random Glucose Estimat Average Glucose Hemoglobin A1c % Calcium Total Bilirubin AST ALT Alkaline Phosphatase Total Protein Albumin Triglycerides 89 Cholesterol 190 LDL Cholesterol, Calc 126 HDL Cholesterol 47 D TSH 1.32 Free T4 0.96 Medications Medications Current Medications Acetaminophen (Acetaminophen 325 Mg Tablet) 650 mg PO Q6H PRN PRN Reason: Headache/Pain Mild Scale (1-3) Al Hydroxide/Mg Hydroxide (Magnesium Hydrox/Alum Hydrox 30 Ml Oral.Susp) 30 ml PO Q6H PRN PRN Reason: Heartburn/Nausea Clonidine HCl (Clonidine Hcl 0.1 Mg Tablet) 0.1 mg PO BID [facility]; Protocol Last Admin: 05/30/21 09:35 Dose: 0.1 mg Documented by: Hydroxyzine HCl (Hydroxyzine Hcl 25 Mg Tablet) 25 mg PO Q6H PRN PRN Reason: Anxiety Lorazepam (Lorazepam 1 Mg Tablet) 1 mg PO BEDTIME PRN PRN Reason: Anxiety, insomnia Last Admin: 05/28/21 21:15 Dose: 1 mg Documented by: Magnesium Hydroxide (Milk Of Magnesia 30 Ml Oral.Susp) 30 ml PO DAILY PRN PRN Reason: Constipation Risperidone (Risperidone 2 Mg Tablet) 2 mg PO BEDTIME JUMA Last Admin: 05/29/21 21:03 Dose: 2 mg Documented by: Trazodone HCl (Trazodone Hcl 50 Mg Tablet) 50 mg PO BEDTIME PRN PRN Reason: Insomnia Last Admin: 05/29/21 21:03 Dose: 50 mg Documented by: Allergies Allergies Allergy/AdvReac Type Severity Reaction Status Date / Time No Known Allergies Allergy Verified 03/08/21 13:57 [No Known Allergies*] Assessment & Plan Assessment & Plan (1) Schizoaffective disorder, depressive type: Status: Acute Code(s): F25.1 - Schizoaffective disorder, depressive type Assessment and Plan: Hoa is a 71 year old Tamaz[place] speaking female who carries a dx of an unspecified psychotic disorder. She presented to [facility] [place] ED at request of her PCP and family due to concerns with delusional beliefs, bizarre behaviors, poor sleep, and not attending to ADLs. She does not appear med adherent. Plan: Pt willing to sign CV, however appears highly anxious and distressed due to delusional belief that she harmed her son and that her children/ family are harmed. Will continue risperdal 1 mg BID and start clonidine 0.1 mg BID for sx of anxiety, hyperarousal, and nightmares. Will continue ativan 1 mg QHS PRN, however per CARE team pt may be overusing this medication. -Continue monitoring medically. Patient is currently medically cleared. -Patient cannot leave AGAINST MEDICAL ADVICE. -Care Team evaluation for bed search. Patient will be a CV. Legal Status: signed CV initial treatments ordered collateral history needed ? 05/29/2021 Continue current regimen and plans with no changes 05/30/2021 Continue current plans and regimen. No changes were made today I spent minutes with the patient and/or on the patient floor today, greater than?50% of which was spent counseling/coordinating care. Reason for contiued inpatient stay Substantial Risk for: other
[2021-05-30 18:00] VITALS: BP 138/83; PULSE 89; RESP 17; TEMP 36.4; O2SAT 96
[2021-05-30] MEDS: risperiDONE 2 MG TABLET PO (21:14)
[2021-05-31] MEDS: traZODone HCL 50 MG TABLET PO (02:54)
[2021-05-31 06:00] VITALS: BP 153/73; PULSE 91; RESP 17; TEMP 36.2; O2SAT 98
[2021-05-31] MEDS: cloNIDine HCL 0.1 MG TABLET PO ×2 (08:24→20:52)
--- NOTE | 2021-05-31 14:44 | P.PNPSI_ITS ---
Subjective Subjective Date of Service: 05/31/21 Reason For Visit: Delusional Subjective Notes: Conditional Voluntary Interim History: the nursing staff reported the patient is anxious and dysphoric. She remains most of the time in her room but she attended to 1 gr oup. The patient disclosed that she has poor sleep. On interview the patient denies having any problems she wants to go home we discussed over the phone with her sister who reported that she was noncompliant since she was unable to follow outpatient providers in the community. Mental Status Exam Mental Status Exam Patient Appearance: Well Grooomed Patient Orientation: Person Level of Consciousness: Awake Patient Behavior: Cooperative Mood Description: Constricted Affect Description: Constricted Patient Cognition Impaired: Yes Ability to Follow Directions: Good Speech Pattern: Clear Memory Description: Intact Hallucinations: None Delusions: Paranoid Ideation Thought Content: positive for Linear Judgement: Fair Diagnostics Vital Signs (24Hr): Vital Signs - 24 hr 05/30/21 18:00 05/31/21 06:00 Temperature 97.5 F 97.1 F Pulse Rate 89 91 Respiratory Rate 17 17 Blood Pressure 138/83 153/73 H Pulse Oximetry 96 98 BMI result Body Mass Index 20.7 Labs Results: 05/28/21 21:34 05/28/21 21:34 Medications Medications Current Medications Acetaminophen (Acetaminophen 325 Mg Tablet) 650 mg PO Q6H PRN PRN Reason: Headache/Pain Mild Scale (1-3) Al Hydroxide/Mg Hydroxide (Magnesium Hydrox/Alum Hydrox 30 Ml Oral.Susp) 30 ml PO Q6H PRN PRN Reason: Heartburn/Nausea Clonidine HCl (Clonidine Hcl 0.1 Mg Tablet) 0.1 mg PO BID [facility]; Protocol Last Admin: 05/31/21 08:24 Dose: 0.1 mg Documented by: Hydroxyzine HCl (Hydroxyzine Hcl 25 Mg Tablet) 25 mg PO Q6H PRN PRN Reason: Anxiety Lorazepam (Lorazepam 1 Mg Tablet) 1 mg PO BEDTIME PRN PRN Reason: Anxiety, insomnia Last Admin: 05/28/21 21:15 Dose: 1 mg Documented by: Magnesium Hydroxide (Milk Of Magnesia 30 Ml Oral.Susp) 30 ml PO DAILY PRN PRN Reason: Constipation Risperidone (Risperidone 2 Mg Tablet) 2 mg PO BEDTIME JUMA Last Admin: 05/30/21 21:14 Dose: 2 mg Documented by: Trazodone HCl (Trazodone Hcl 50 Mg Tablet) 50 mg PO BEDTIME PRN PRN Reason: Insomnia Last Admin: 05/31/21 02:54 Dose: 50 mg Documented by: Allergies Allergies Allergy/AdvReac Type Severity Reaction Status Date / Time No Known Allergies Allergy Verified 03/08/21 13:57 [No Known Allergies*] Assessment & Plan Assessment & Plan (1) Schizoaffective disorder, depressive type: Status: Acute Code(s): F25.1 - Schizoaffective disorder, depressive type Assessment and Plan: Hoa is a 71 year old French speaking female who carries a dx of an unspecified psychotic disorder. She [place] [facility] [place] request of her PCP and family due to concerns with delusional beliefs, bizarre behaviors, poor sleep, and not attending to ADLs. She does not appear med adherent. Plan 1. Continue Risperdal 2 mg p.o. q.h.s. and lorazepam 1 mg p.o. q.h.s.. 2. Get a family meeting. 3. [place] testing French for tomorrow I spent minutes with the patient and/or on the patient floor today, greater than?50% of which was spent counseling/coordinating care. Reason for contiued inpatient stay Substantial Risk for: inability to function, rapid decompensation and med/psych decompensation
[2021-05-31 18:00] VITALS: BP 185/115; PULSE 96; RESP 18; TEMP 36.8; O2SAT 98
[2021-05-31 20:50] VITALS: BP 162/64; PULSE 88; RESP 16; O2SAT 99
[2021-05-31] MEDS: risperiDONE 2 MG TABLET PO (20:52)
--- NOTE | 2021-06-01 | ECG_ITS ---
Test Reason : CP Blood Pressure : / mmHG Vent. Rate : 089 BPM Atrial Rate : 089 BPM P-R Int : 126 ms QRS Dur : 074 ms QT Int : 366 ms P-R-T Axes : 082 046 061 degrees QTc Int : 445 ms Normal sinus rhythm Normal ECG When compared with ECG of 21-FEB-2021 09:36, Premature ventricular complexes are no longer Present Referred By: Dalton Felipe Electronically Signed By:Frankie Cash
[2021-06-01 06:00] VITALS: BP 148/89; PULSE 91; RESP 16; TEMP 36.8; O2SAT 96
[2021-06-01] MEDS: cloNIDine HCL 0.1 MG TABLET PO ×2 (08:10→21:08)
[2021-06-01] MEDS: hydrOXYzine HCL 25 MG TABLET PO (10:43)
--- NOTE | 2021-06-01 16:40 | HO.PSYCHPN ---
Subjective Subjective Date of Service: 06/01/21 Reason For Visit: Delusional Subjective Notes: Conditional Voluntary Interim History: The nursing staff reported that the patient has been isolative, pacing the hallways paranoid and internally preoccupied. She is verbal only in [place] Sudanese. On interview the patient reported that she wanted to go home. Yesterday we spoke with her sister and apparently she could not continue her treatment since her appointment was canceled and she decompensated. The patient wants to go home as soon as possible Mental Status Exam Mental Status Exam Patient Appearance: Well Grooomed Patient Orientation: Person Level of Consciousness: Awake Patient Behavior: Cooperative Mood Description: Depressed Affect Description: Constricted Patient Cognition Impaired: No Ability to Follow Directions: Good Speech Pattern: Clear Memory Description: Intact Hallucinations: None Delusions: Not Present Thought Process: Linear Thought Content: positive for Circumstantial Depressive Symptoms: Crying Spells Judgement: Poor Diagnostics Vital Signs (24Hr): Vital Signs - 24 hr 05/31/21 18:00 05/31/21 20:50 06/01/21 06:00 Temperature 98.3 F 98.2 F Pulse Rate 96 88 91 Respiratory Rate 18 16 16 Blood Pressure 185/115 H 162/64 H 148/89 H Pulse Oximetry 98 99 96 BMI result Body Mass Index 20.7 Labs Results: 05/28/21 21:34 05/28/21 21:34 Medications Medications Current Medications Acetaminophen (Acetaminophen 325 Mg Tablet) 650 mg PO Q6H PRN PRN Reason: Headache/Pain Mild Scale (1-3) Al Hydroxide/Mg Hydroxide (Magnesium Hydrox/Alum Hydrox 30 Ml Oral.Susp) 30 ml PO Q6H PRN PRN Reason: Heartburn/Nausea Clonidine HCl (Clonidine Hcl 0.1 Mg Tablet) 0.1 mg PO BID [facility]; Protocol Last Admin: 06/01/21 08:10 Dose: 0.1 mg Documented by: Hydroxyzine HCl (Hydroxyzine Hcl 25 Mg Tablet) 25 mg PO Q6H PRN PRN Reason: Anxiety Last Admin: 06/01/21 10:43 Dose: 25 mg Documented by: Lorazepam (Lorazepam 1 Mg Tablet) 1 mg PO BEDTIME PRN PRN Reason: Anxiety, insomnia Last Admin: 05/28/21 21:15 Dose: 1 mg Documented by: Magnesium Hydroxide (Milk Of Magnesia 30 Ml Oral.Susp) 30 ml PO DAILY PRN PRN Reason: Constipation Risperidone (Risperidone 2 Mg Tablet) 2 mg PO BEDTIME JUMA Last Admin: 05/31/21 20:52 Dose: 2 mg Documented by: Trazodone HCl (Trazodone Hcl 50 Mg Tablet) 50 mg PO BEDTIME PRN PRN Reason: Insomnia Last Admin: 05/31/21 02:54 Dose: 50 mg Documented by: Allergies Allergies Allergy/AdvReac Type Severity Reaction Status Date / Time No Known Allergies Allergy Verified 03/08/21 13:57 [No Known Allergies*] Assessment & Plan Assessment & Plan (1) Schizoaffective disorder, depressive type: Status: Acute Code(s): F25.1 - Schizoaffective disorder, depressive type Assessment and Plan: Hoa is a 71 year old [place]ese speaking female who carries a dx of an unspecified psychotic disorder. She presented to [facility] [facility] at request of her PCP and family due to concerns with delusional beliefs, bizarre behaviors, poor sleep, and not attending to ADLs. She does not appear med adherent. Plan 1. Continue Risperdal 2 mg p.o. q.h.s. and lorazepam 1 mg p.o. q.h.s.. 2. Get a family meeting. 3. [place] testing [place]ese for tomorrow I spent minutes with the patient and/or on the patient floor today, greater than?50% of which was spent counseling/coordinating care. Reason for contiued inpatient stay Substantial Risk for: inability to function, rapid decompensation and med/psych decompensation
[2021-06-01 18:00] VITALS: BP 183/73; PULSE 90; RESP 16; TEMP 36.6; O2SAT 99
[2021-06-01] MEDS: risperiDONE 2 MG TABLET PO (21:08)
[2021-06-02 08:00] VITALS: BP 145/75; PULSE 97; TEMP 36.3; O2SAT 99
[2021-06-02] MEDS: cloNIDine HCL 0.1 MG TABLET PO ×2 (08:18→20:28)
--- NOTE | 2021-06-02 16:34 | P.PNPSI_ITS ---
Subjective Subjective Date of Service: 06/02/21 Reason For Visit: Delusional Subjective Notes: Conditional Voluntary Interim History: The nursing staff reported the patient slept well, she was visible in the unit and she looked less guarded with staff but she was very anxious on approach. She took a shower last day but she was seen self dialogue in last night. On interview, the patient stated that she was doing well and she wants to be discharged as soon as possible. Today we have a family meeting over the phone with the outreach and education social worker and we tried to convince her to get Invega Sustenna long-acting injectable but she refused. We also wanted the family to help her convinced her to take medications and accept help. We had a conversation with the risk engineer and her sister will have permission to visit her in person so she can advocate her and help her to get the healthcare proxy, applications for [employer] and other services. Mental Status Exam Mental Status Exam Patient Appearance: Well Grooomed Patient Orientation: Person Level of Consciousness: Awake Patient Behavior: Guarded, Passive and Suspicious Mood Description: Blunted Affect Description: Calm Patient Cognition Impaired: No Ability to Follow Directions: Good Speech Pattern: Appropriate Hallucinations: None Delusions: Paranoid Ideation Thought Process: Evasive Thought Content: positive for Perseveration, positive for Poverty of Content and positive for Thought Blocking Judgement: Fair Diagnostics Vital Signs (24Hr): Vital Signs - 24 hr 06/01/21 18:00 06/02/21 08:00 Temperature 97.8 F 97.4 F Pulse Rate 90 97 Respiratory Rate 16 Blood Pressure 183/73 H 145/75 H Pulse Oximetry 99 99 BMI result Body Mass Index 20.7 Labs Results: 05/28/21 21:34 05/28/21 21:34 Medications Medications Current Medications Acetaminophen (Acetaminophen 325 Mg Tablet) 650 mg PO Q6H PRN PRN Reason: Headache/Pain Mild Scale (1-3) Al Hydroxide/Mg Hydroxide (Magnesium Hydrox/Alum Hydrox 30 Ml Oral.Susp) 30 ml PO Q6H PRN PRN Reason: Heartburn/Nausea Clonidine HCl (Clonidine Hcl 0.1 Mg Tablet) 0.1 mg PO BID [facility]; Protocol Last Admin: 06/02/21 08:18 Dose: 0.1 mg Documented by: Hydroxyzine HCl (Hydroxyzine Hcl 25 Mg Tablet) 25 mg PO Q6H PRN PRN Reason: Anxiety Last Admin: 06/01/21 10:43 Dose: 25 mg Documented by: Magnesium Hydroxide (Milk Of Magnesia 30 Ml Oral.Susp) 30 ml PO DAILY PRN PRN Reason: Constipation Risperidone (Risperidone 2 Mg Tablet) 2 mg PO BEDTIME JUMA Last Admin: 06/01/21 21:08 Dose: 2 mg Documented by: Trazodone HCl (Trazodone Hcl 50 Mg Tablet) 50 mg PO BEDTIME PRN PRN Reason: Insomnia Last Admin: 05/31/21 02:54 Dose: 50 mg Documented by: Allergies Allergies Allergy/AdvReac Type Severity Reaction Status Date / Time No Known Allergies Allergy Verified 03/08/21 13:57 [No Known Allergies*] Assessment & Plan Assessment & Plan (1) Schizoaffective disorder, depressive type: Status: Acute Code(s): F25.1 - Schizoaffective disorder, depressive type Assessment and Plan: Hoa is a 71 year old Slovenian speaking female who carries a dx of an unspecified psychotic disorder. She presented to [facility] [place] at request of her PCP and family due to concerns with delusional beliefs, bizarre behaviors, poor sleep, and not attending to ADLs. She does not appear med adherent. Plan 1. Continue Risperdal 2 mg p.o. q.h.s. and lorazepam 1 mg p.o. q.h.s.. 2. Get a family meeting. 3. [place] testing Slovenian for tomorrow I spent minutes with the patient and/or on the patient floor today, greater than?50% of which was spent counseling/coordinating care. Reason for contiued inpatient stay Substantial Risk for: inability to function, rapid decompensation and med/psych decompensation
[2021-06-02 18:00] VITALS: BP 166/91; PULSE 84; RESP 18; TEMP 36.4; O2SAT 97
[2021-06-02] MEDS: traZODone HCL 50 MG TABLET PO (20:28)
[2021-06-02] MEDS: risperiDONE 2 MG TABLET PO (20:28)
[2021-06-03 08:00] VITALS: BP 152/74; PULSE 92; TEMP 36.4; O2SAT 100
[2021-06-03] MEDS: cloNIDine HCL 0.1 MG TABLET PO ×2 (08:48→20:38)
[2021-06-03 10:22] VITALS: BMI 20.2
--- NOTE | 2021-06-03 14:47 | PC.NURSE ---
Patient was complaining about constipation. Patient was offered Milk of magnesia PRN but refused it .Patient wanted to get a tablet instead of a liquid. MD notified . Will continue to monitor.
--- NOTE | 2021-06-03 16:46 | HO.PSYCHPN ---
Subjective Subjective Date of Service: 06/03/21 Reason For Visit: Delusional Subjective Notes: Conditional Voluntary Interim History: the nursing staff reported the patient has being cooperative and pleasant, asking continues knee about her discharge. On interview the patient denies new symptoms she was to be discharged. We did a [place] test and she scored 22/30 but the patient is nearly illetrated. Mental Status Exam Mental Status Exam Patient Appearance: Well Grooomed Patient Orientation: Person Level of Consciousness: Awake Patient Behavior: Cooperative Mood Description: Constricted Affect Description: Constricted Patient Cognition Impaired: Yes Ability to Follow Directions: Good Speech Pattern: Clear Hallucinations: None Delusions: Paranoid Ideation Thought Process: Linear Thought Content: positive for Circumstantial Judgement: Fair Diagnostics Vital Signs (24Hr): Vital Signs - 24 hr 06/02/21 18:00 06/03/21 08:00 Temperature 97.5 F 97.6 F Pulse Rate 84 92 Respiratory Rate 18 Blood Pressure 166/91 H 152/74 H Pulse Oximetry 97 100 BMI result Body Mass Index 20.2 Labs Results: 05/28/21 21:34 05/28/21 21:34 Imaging Radiology Impressions: ITS Impressions Head CT 06/03/21 08:01 IMPRESSION: No acute intracranial abnormality. Atherosclerotic calcification throughout the intracranial arterial vasculature. Mild chronic microangiopathy. Medications Medications Current Medications Acetaminophen (Acetaminophen 325 Mg Tablet) 650 mg PO Q6H PRN PRN Reason: Headache/Pain Mild Scale (1-3) Al Hydroxide/Mg Hydroxide (Magnesium Hydrox/Alum Hydrox 30 Ml Oral.Susp) 30 ml PO Q6H PRN PRN Reason: Heartburn/Nausea Clonidine HCl (Clonidine Hcl 0.1 Mg Tablet) 0.1 mg PO BID [facility]; Protocol Last Admin: 06/03/21 08:48 Dose: 0.1 mg Documented by: Hydroxyzine HCl (Hydroxyzine Hcl 25 Mg Tablet) 25 mg PO Q6H PRN PRN Reason: Anxiety Last Admin: 06/01/21 10:43 Dose: 25 mg Documented by: Magnesium Hydroxide (Milk Of Magnesia 30 Ml Oral.Susp) 30 ml PO DAILY PRN PRN Reason: Constipation Risperidone (Risperidone 2 Mg Tablet) 2 mg PO BEDTIME [facility] Last Admin: 06/02/21 20:28 Dose: 2 mg Documented by: Trazodone HCl (Trazodone Hcl 50 Mg Tablet) 50 mg PO BEDTIME PRN PRN Reason: Insomnia Last Admin: 06/02/21 20:28 Dose: 50 mg Documented by: Allergies Allergies Allergy/AdvReac Type Severity Reaction Status Date / Time No Known Allergies Allergy Verified 03/08/21 13:57 [No Known Allergies*] Assessment & Plan Assessment & Plan (1) Schizoaffective disorder, depressive type: Status: Acute Code(s): F25.1 - Schizoaffective disorder, depressive type Assessment and Plan: Hoa is a 71 year old Andorran speaking female who carries a dx of an unspecified psychotic disorder. She presented to [facility] [facility] at request of her PCP and family due to concerns with delusional beliefs, bizarre behaviors, poor sleep, and not attending to ADLs. She does not appear med adherent. Plan 1. Continue Risperdal 2 mg p.o. q.h.s. and lorazepam 1 mg p.o. q.h.s.. 2. Get a family meeting. 3. [place] testing [place]ran I spent minutes with the patient and/or on the patient floor today, greater than?50% of which was spent counseling/coordinating care. Reason for contiued inpatient stay Substantial Risk for: inability to function, rapid decompensation and med/psych decompensation
[2021-06-03] MEDS: risperiDONE 2 MG TABLET PO (20:38)
[2021-06-03 22:07] VITALS: BP 158/82; PULSE 85; RESP 16; TEMP 36.6; O2SAT 100
[2021-06-04 08:18] VITALS: BP 148/81; PULSE 84; RESP 16; TEMP 36.4; O2SAT 97
[2021-06-04] MEDS: cloNIDine HCL 0.1 MG TABLET PO ×2 (08:19→21:02)
--- NOTE | 2021-06-04 08:30 | P.PNPSI_ITS ---
Subjective Subjective Date of Service: 06/04/21 Reason For Visit: Delusional Subjective Notes: Conditional Voluntary Interim History: The nursing staff reported that the patient has being visible in the unit, pacing the hallway. On interview the patient asked for her discharge she states that she is compliant with medication and she wants to go home as soon as possible. We he did a Jack test on the Bahamian and she has scored 23/30 but the patient is nearly illetrated. Mental Status Exam Mental Status Exam Patient Appearance: Well Grooomed Patient Orientation: Person Level of Consciousness: Awake Patient Behavior: Cooperative Mood Description: Depressed Affect Description: Constricted Patient Cognition Impaired: Yes Ability to Follow Directions: Good Speech Pattern: Clear Hallucinations: None Delusions: Paranoid Ideation Thought Process: Linear Thought Content: positive for Circumstantial Judgement: Fair Diagnostics Vital Signs (24Hr): Vital Signs - 24 hr 06/03/21 22:07 06/04/21 08:18 Temperature 97.9 F 97.6 F Pulse Rate 85 84 Respiratory Rate 16 16 Blood Pressure 158/82 H 148/81 H Pulse Oximetry 100 97 BMI result Body Mass Index 20.2 Labs Results: 05/28/21 21:34 05/28/21 21:34 Imaging Radiology Impressions: ITS Impressions Head CT 06/03/21 08:01 IMPRESSION: No acute intracranial abnormality. Atherosclerotic calcification throughout the intracranial arterial vasculature. Mild chronic microangiopathy. Medications Medications Current Medications Acetaminophen (Acetaminophen 325 Mg Tablet) 650 mg PO Q6H PRN PRN Reason: Headache/Pain Mild Scale (1-3) Al Hydroxide/Mg Hydroxide (Magnesium Hydrox/Alum Hydrox 30 Ml Oral.Susp) 30 ml PO Q6H PRN PRN Reason: Heartburn/Nausea Clonidine HCl (Clonidine Hcl 0.1 Mg Tablet) 0.1 mg PO BID [facility]LY [facility]; Protocol Last Admin: 06/04/21 08:19 Dose: 0.1 mg Documented by: Hydroxyzine HCl (Hydroxyzine Hcl 25 Mg Tablet) 25 mg PO Q6H PRN PRN Reason: Anxiety Last Admin: 06/01/21 10:43 Dose: 25 mg Documented by: Magnesium Hydroxide (Milk Of Magnesia 30 Ml Oral.Susp) 30 ml PO DAILY PRN PRN Reason: Constipation Risperidone (Risperidone 2 Mg Tablet) 2 mg PO BEDTIME [facility] Last Admin: 06/03/21 20:38 Dose: 2 mg Documented by: Trazodone HCl (Trazodone Hcl 50 Mg Tablet) 50 mg PO BEDTIME PRN PRN Reason: Insomnia Last Admin: 06/02/21 20:28 Dose: 50 mg Documented by: Allergies Allergies Allergy/AdvReac Type Severity Reaction Status Date / Time No Known Allergies Allergy Verified 03/08/21 13:57 [No Known Allergies*] Assessment & Plan Assessment & Plan (1) Schizoaffective disorder, depressive type: Status: Acute Code(s): F25.1 - Schizoaffective disorder, depressive type Assessment and Plan: Hoa is a 71 year old Bahamian speaking female who carries a dx of an unspecified psychotic disorder. She presented to [facility] ED at request of her PCP and family due to concerns with delusional beliefs, bizarre behaviors, poor sleep, and not attending to ADLs. She does not appear med adherent. Plan 1. Continue Risperdal 2 mg p.o. q.h.s. and lorazepam 1 mg p.o. q.h.s.. 2. Get a family meeting. 3. Jack testing Bahamian I spent minutes with the patient and/or on the patient floor today, greater than?50% of which was spent counseling/coordinating care. Reason for contiued inpatient stay Substantial Risk for: inability to function, rapid decompensation and med/psych decompensation
[2021-06-04 20:50] VITALS: BP 133/65; PULSE 87; RESP 16; TEMP 37; O2SAT 97
[2021-06-04] MEDS: risperiDONE 2 MG TABLET PO (21:03)
[2021-06-05 08:00] VITALS: BP 165/74; PULSE 87; RESP 16; TEMP 36.1; O2SAT 97
[2021-06-05] MEDS: cloNIDine HCL 0.1 MG TABLET PO ×2 (11:11→20:16)
--- NOTE | 2021-06-05 15:38 | P.PNPSI_ITS ---
Subjective Subjective Date of Service: 06/05/21 Reason For Visit: Delusional Medical Problems Affecting Mental Status: No Interim History: record reviewed and discussed with staff. Is guarded and vague with continuity writer. Is aware how long she has been in hospital stating she was anxious and depressed but feels much better. Reported that she was scared as was her family, but could not elaborate on same. Unable to elaborate why family were concerned. Denied medication nonadherence in the past. Denied medication concerns and where she takes Risperdal. Denies feeling depressed. Denies feeling paranoid or hallucinations. Reports he will continue medications o utside, but unable to give a concrete plan around same. Medication Compliance: Yes Side effects from medications: No Review of Systems Review of Systems Unremarkable Mental Status Exam Mental Status Exam Narrative: guarded. Fair self-care. Restricted affect. Denied SI or HI. No overt psychosis. Insight and judgment does appear limited Diagnostics Vital Signs (24Hr): Vital Signs - 24 hr 06/04/21 20:50 06/05/21 08:00 Temperature 98.6 F 97.0 F Pulse Rate 87 87 Respiratory Rate 16 16 Blood Pressure 133/65 165/74 H Pulse Oximetry 97 97 BMI result Body Mass Index 20.2 Labs Results: 05/28/21 21:34 05/28/21 21:34 Imaging Radiology Impressions: ITS Impressions Head CT 06/03/21 08:01 IMPRESSION: No acute intracranial abnormality. Atherosclerotic calcification throughout the intracranial arterial vasculature. Mild chronic microangiopathy. Medications Medications Current Medications Acetaminophen (Acetaminophen 325 Mg Tablet) 650 mg PO Q6H PRN PRN Reason: Headache/Pain Mild Scale (1-3) Al Hydroxide/Mg Hydroxide (Magnesium Hydrox/Alum Hydrox 30 Ml Oral.Susp) 30 ml PO Q6H PRN PRN Reason: Heartburn/Nausea Clonidine HCl (Clonidine Hcl 0.1 Mg Tablet) 0.1 mg PO BID [facility]; Protocol Last Admin: 06/05/21 11:11 Dose: 0.1 mg Documented by: Hydroxyzine HCl (Hydroxyzine Hcl 25 Mg Tablet) 25 mg PO Q6H PRN PRN Reason: Anxiety Last Admin: 06/01/21 10:43 Dose: 25 mg Documented by: Magnesium Hydroxide (Milk Of Magnesia 30 Ml Oral.Susp) 30 ml PO DAILY PRN PRN Reason: Constipation Risperidone (Risperidone 2 Mg Tablet) 2 mg PO BEDTIME JUMA Last Admin: 06/04/21 21:03 Dose: 2 mg Documented by: Trazodone HCl (Trazodone Hcl 50 Mg Tablet) 50 mg PO BEDTIME PRN PRN Reason: Insomnia Last Admin: 06/02/21 20:28 Dose: 50 mg Documented by: Allergies Allergies Allergy/AdvReac Type Severity Reaction Status Date / Time No Known Allergies Allergy Verified 03/08/21 13:57 [No Known Allergies*] Assessment & Plan Assessment & Plan (1) Schizoaffective disorder, depressive type: Status: Acute Code(s): F25.1 - Schizoaffective disorder, depressive type Assessment and Plan: Hoa is a 71 year old Dominican speaking female who carries a dx of an unspecified psychotic disorder. She presented to [facility] at request of her PCP and family due to concerns with delusional beliefs, bizarre behaviors, poor sleep, and not attending to ADLs. She does not appear med adherent. Plan 1. Continue Risperdal 2 mg p.o. q.h.s. and lorazepam 1 mg p.o. q.h.s.. 2. Get a family meeting. 3. Arthur testing Dominican 06/05/2021: No changes to current Teams treatment plan. I spent minutes with the patient and/or on the patient floor today, greater than?50% of which was spent counseling/coordinating care. Reason for contiued inpatient stay Substantial Risk for: rapid decompensation
[2021-06-05 20:10] VITALS: BP 138/66; PULSE 89; RESP 16; TEMP 36.3; O2SAT 98
[2021-06-05] MEDS: risperiDONE 2 MG TABLET PO (20:16)
[2021-06-06 06:00] VITALS: BP 143/82; PULSE 88; TEMP 36.2; O2SAT 98
[2021-06-06] MEDS: cloNIDine HCL 0.1 MG TABLET PO ×2 (08:58→20:02)
--- NOTE | 2021-06-06 11:11 | P.PNPSI_ITS ---
Subjective Subjective Date of Service: 06/06/21 Reason For Visit: Delusional Interim History: no issues overnight. Looking forward to discharge tomorrow and staying with her sister. Reports sleep is okay. Reports feeling much less anxious and much less fearful. Attributes this to medications. Denies feeling depressed. No psychosis noted. No medication concerns. Medication Compliance: Yes Side effects from medications: No Attending Groups: Intermittent Review of Systems Acute medical concerns: No Review of Systems Review of Systems Unremarkable Mental Status Exam Mental Status Exam Narrative: Engaged. Organized. Fair self-care. Restricted affect. Denied SI or HI. No overt psychosis. Insight and judgment okay Diagnostics Vital Signs (24Hr): Vital Signs - 24 hr 06/05/21 20:10 06/06/21 06:00 Temperature 97.4 F 97.1 F Pulse Rate 89 88 Respiratory Rate 16 Blood Pressure 138/66 143/82 H Pulse Oximetry 98 98 BMI result Body Mass Index 20.2 Labs Results: 05/28/21 21:34 05/28/21 21:34 Imaging Radiology Impressions: ITS Impressions Head CT 06/03/21 08:01 IMPRESSION: No acute intracranial abnormality. Atherosclerotic calcification throughout the intracranial arterial vasculature. Mild chronic microangiopathy. Medications Medications Current Medications Acetaminophen (Acetaminophen 325 Mg Tablet) 650 mg PO Q6H PRN PRN Reason: Headache/Pain Mild Scale (1-3) Al Hydroxide/Mg Hydroxide (Magnesium Hydrox/Alum Hydrox 30 Ml Oral.Susp) 30 ml PO Q6H PRN PRN Reason: Heartburn/Nausea Clonidine HCl (Clonidine Hcl 0.1 Mg Tablet) 0.1 mg PO BID [facility]; Protocol Last Admin: 06/06/21 08:58 Dose: 0.1 mg Documented by: Hydroxyzine HCl (Hydroxyzine Hcl 25 Mg Tablet) 25 mg PO Q6H PRN PRN Reason: Anxiety Last Admin: 06/01/21 10:43 Dose: 25 mg Documented by: Magnesium Hydroxide (Milk Of Magnesia 30 Ml Oral.Susp) 30 ml PO DAILY PRN PRN Reason: Constipation Risperidone (Risperidone 2 Mg Tablet) 2 mg PO BEDTIME JUMA Last Admin: 06/05/21 20:16 Dose: 2 mg Documented by: Trazodone HCl (Trazodone Hcl 50 Mg Tablet) 50 mg PO BEDTIME PRN PRN Reason: Insomnia Last Admin: 01/19/22 20:28 Dose: 50 mg Documented by: Allergies Allergies Allergy/AdvReac Type Severity Reaction Status Date / Time No Known Allergies Allergy Verified 03/08/21 13:57 [No Known Allergies*] Assessment & Plan Assessment & Plan (1) Schizoaffective disorder, depressive type: Status: Acute Code(s): F25.1 - Schizoaffective disorder, depressive type Assessment and Plan: Hoa is a 71 year old Indonesian speaking female who carries a dx of an unspecified psychotic disorder. She presented to [facility] ED at request of her PCP and family due to concerns with delusional beliefs, bizarre behaviors, poor sl eep, and not attending to ADLs. She does not appear med adherent. Plan 1. Continue Risperdal 2 mg p.o. q.h.s. and lorazepam 1 mg p.o. q.h.s.. 2. Get a family meeting. 3. Hockley testing Indonesian 06/06/2021: No changes to primary team's treatment plan. I spent minutes with the patient and/or on the patient floor today, greater than?50% of which was spent counseling/coordinating care. Reason for contiued inpatient stay Substantial Risk for: rapid decompensation
[2021-06-06 18:00] VITALS: BP 135/74; PULSE 85; RESP 17; TEMP 36.6; O2SAT 98
[2021-06-06] MEDS: risperiDONE 2 MG TABLET PO (20:02)
[2021-06-07 06:00] VITALS: BP 127/69; PULSE 95; RESP 18; TEMP 36.3; O2SAT 98
[2021-06-07] MEDS: cloNIDine HCL 0.1 MG TABLET PO (08:56)
--- NOTE | 2021-06-07 12:21 | P.DS_ITS ---
DS: Providers Provider Date of Service: 06/07/21 Date of admission: 05/28/21 22:06 Date of discharge: 06/07/21 Primary care physician: Sawyer Mckenzie MD Attending physician on discharge: Dalton Felipe DS: Diagnosis Discharge Diagnosis (1) Schizoaffective disorder, depressive type: Status: Acute DS: Medications Discharge Medications Home Medications: Previous Rx's Medication Instructions Recorded lorazepam 1 mg tablet (Ativan) 1 mg PO QPM PRN 30 Days #30 tab 02/25/21 risperidone 1 mg tablet 1 mg PO BID 14 Days #28 tab 05/27/21 Mental Status Exam Mental Status Exam Patient Appearance: Well Grooomed Patient Orientation: Person Level of Consciousness: Awake Patient Behavior: Cooperative Mood Description: Calm Affect Description: Constricted Patient Cognition Impaired: Yes Ability to Follow Directions: Good Speech Pattern: Clear Hallucinations: None Delusions: Not Present Thought Process: Linear Thought Content: positive for Circumstantial Judgement: Fair Data Data Completed and Pending Completed studies during hospitalization [Text1]: 05/28/21 Unknown Urine clean catch - Urine watts top Urine Culture - Final Imaging Diagnostic Imaging Impressions Head CT 06/03/21 08:01 IMPRESSION: No acute intracranial abnormality. Atherosclerotic calcification throughout the intracranial arterial vasculature. Mild chronic microangiopathy. DS: Summary Hospital Course Hospital Course: the patient was admitted for exacerbation of psychotic symptoms please see HPI on the admission note. We contact her sister and her relatives in a family meeting over the phone and it was clear that the patient was unable to continue treatment after the last admission a few months ago. She was noncompliant with Risperdal for several weeks and she decompensated. We discussed risks, benefits, side-effects and alternatives and she agreed to restart Risperdal with for improvement. The patient went back to her normal self and discharge planning was discussed Time Spent with Patient Time attestation: Total time spent providing and/or coordinating discharge services: Discharge Plan Discharge Patient Disposition: Home, Self-Care Discharge Diagnosis: schizoaffective disorder depressed type Referrals: [facility] [Other] - 3-5 Days (Multiple attempts to call office and obtain next appointment date have been made. Hoa reports she will reach out to her therapist to make an appointment.) Sawyer Mckenzie MD [Primary Care Provider] - 06/18/21 3:15 pm Discharge Medications: New clonidine HCl 0.1 mg Tablet 0.1 mg PO BID 30 Days Qty: 60 RF: 0 risperidone 2 mg Tablet 2 mg PO BEDTIME 30 Days Qty: 30 RF: 0 Continued lorazepam [Ativan] 1 mg tablet 1 mg PO QPM PRN (Reason: Anxiety, insomnia) 30 Days Qty: 30 RF: 0 Discontinued risperidone 1 mg Tablet 1 mg PO BID 30 Days Qty: 60 RF: 0 Discharge Orders: Discharge Order (Routine); Ordered 06/07/21 Ordered By: Dalton Felipe Diet: advance to usual diet Activity on Discharge: As tolerated Stand Alone Forms: Patient Portal Discharge page, Work/School Release Activity Restrictions/Additional Instructions: Take your medications as prescribed. If you were prescribed antibiotics today, it is important that you take your medication to their entirety, do not skip any doses, do not finish them early. Follow-up with your primary care provider this week. Return to the emergency department with new or worsening symptoms. In case of emergency call 911 Care Plan Goals: CARE PLAN GOALS ACHIEVED Health Concerns: continue treatment by primary care physician Plan of Treatment: continue medication management. Referral for ancillary services were ready done Assessment: the patient is a middle-aged descent female, mostly Macedonian-speaking with a long history of psychosis and treated for years readmitted for disorganized behavior in the context of noncompliance with Risperdal. Currently at baseline ready for discharge safe in the community Patient Instructions: Depression (ED), Anxiety (ED)
--- NOTE | 2021-06-07 12:36 | PC.NURSE ---
Discharge Note: Patient alert and oriented x4. Patient appears calm, pleasant, cooperative and compliant with meds and care. Patient aware of discharge plan and patient reports readiness to go home. Discharge instructions and medication teaching discussed with patient. Patient's belongings have all been accounted for and returned to patient.
== END 2021-06-07 12:55 | disposition home or self-care (01) | DRG 885 ==
LOC: HO.ED 05-28 09:29 → HO.PGERI 05-28 22:15
PROVIDERS: Admitting Provider Registered Nurse; Emergency Provider Emergency Medicine; PCP Internal Medicine; Visit Provider Registered Nurse
DX: F25.1 Schizoaffective disorder, depressive type (principal); K59.09 Other constipation; Z20.822 Contact with and (suspected) exposure to COVID-19; Z79.899 Other long term (current) drug therapy
CPT/HCPCS: 36415; 70450; 80053; 80061; 80307; 81001; 83036; 84439; 84443; 85025; 87086; 87635; 93005; 99285

== ENCOUNTER 2021-06-07 16:59 | Inpatient (IN) | payer MEDICARE, SELFPAY ==
[2021-06-07 17:08] VITALS: BP 165/77; BP 176/70; PULSE 101; PULSE 107; RESP 18; TEMP 36.7; O2SAT 100; BMI 23.8
--- NOTE | 2021-06-07 17:10 | ED_ITS ---
HPI - Psych General Chief Complaint: Psychiatric Symptoms Stated Complaint: sec 12/crisis Time Seen by Provider: 06/07/21 17:10 Source: patient Mode of arrival: EMS Limitations: no limitations History of Present Illness MD complaint: other (aggression, not taking medications, delusions) Onset (ago): day(s) (2) Duration: getting worse History of same: Yes Relieving factors: none Context: not taking psychiatric medications Associated psychiatric symptoms: delusions Associated symptoms: denies other symptoms Treatments prior to arrival: placed on mental health hold Related Data Previous Rx's Medication Instructions Recorded clonidine HCl 0.1 mg tablet 0.1 mg PO BID 30 Days #60 tab 06/07/21 lorazepam 1 mg tablet (Ativan) 1 mg PO QPM PRN 30 Days #30 tab 06/07/21 risperidone 2 mg tablet 2 mg PO BEDTIME 30 Days #30 tab 06/07/21 Allergies Allergy/AdvReac Type Severity Reaction Status Date / Time No Known Allergies Allergy Verified 03/08/21 13:57 [No Known Allergies*] Review of Systems Review of Systems: Constitutional : No Fever, No Chills ENT/Mouth : No Ear Pain, No Nasal Congestion, No sore throat Eyes: No Eye Pain, No Swelling, No Redness Cardiovascular : No Chest Pain, No SOB Respiratory : No Cough, No Sputum, No Dyspnea Gastrointestinal : No Nausea, No Vomiting, No Diarrhea, No Hematochezia, No Melena Genitourinary : No Dysuria, No Urinary Frequency, No Hematuria Musculoskeletal : No Myalgias Skin : No Skin Lesions, No rash Neuro : No Weakness, No Numbness, No Paresthesias, No Dizziness, No Headache Psych : positive Anxiety, positive Depression, no SI/HI Heme/Lymph: No Lymphadenopathy Endocrine : No Polyuria, No Polydipsia All other systems reviewed and are negative [facility] Past Medical History Medical History Anxiety Chronic constipation Hiatal hernia Hx of diverticulitis of colon Oropharyngeal dysphagia Psychotic disorder Schatzki's ring Surgical History History of appendectomy History of colonoscopy History of hysterectomy Hx of endoscopy Hx of hand surgery Hx of tonsillectomy Family History Family History Father No problems noted. Mother No problems noted. Social History Social History Household Members: None Housing: House Housing Other:: Two family home. lives on second floor alone Do you presently have visiting nurse or other home services: No Alcohol intake: current Alcohol intake frequency: holidays/special occasions only Alcohol type: wine Patient Tobacco Use Status: Never used Tobacco Second Hand Smoke Exposure: No Advance Directives: No Advance Directives Information Provided: Yes service: No Current occupational status: employed Current occupation: rt handed Sexual orientation: Straight/Heterosexual Physical Exam Vital Signs: Vital Signs: Last Vital Signs Temp 98.0 F 06/07/21 17:08 Pulse 90 06/07/21 21:24 Resp 18 06/07/21 17:08 BP 125/73 06/07/21 21:24 Pulse Ox 100 06/07/21 17:08 BMI result Body Mass Index 23.8 Appearance: Alert. Oriented X3. No acute distress. Calm and cooperative, tearful Eyes: Pupils equal, round and reactive to light. ENT: Pharynx normal. Neck: Normal inspection. Neck supple. CVS: Normal heart rate and rhythm. Pulses normal. Respiratory: No respiratory distress. Breath sounds normal. Abdomen: Soft and nontender. Skin: Skin warm and dry. Normal skin color. Normal skin turgor. Extremities: No lower extremity edema. No calf ttp Neuro: Oriented X 3. No motor deficit. No sensory deficit. CN2-12 intact Course Course Course Narrative: Physician observation started at 615pm. Patient placed in physician observation because the patient needed more time for bed search given section 12 and ongoing need for placement. At the time observation was started the patient's vitals were stable, patient is alert and oriented but slightly anxious, Neuro: nonfocal, CV RRR, Lungs clear MDM - Psych MDM Narrative Medical decision making narrative: 71 yo female with hx of depression, anxiety, schizophrenia, off medications - delusions, aggression, on section 12 with bedsearch from community at this time will obtain basic labs and and medically clear the patient for psychiatric care. Lab Data Result diagrams: 06/07/21 17:30 06/07/21 17:30 Labs: Lab Results 06/07/21 06/07/21 06/07/21 Range/Units 17:30 17:30 17:30 WBC 4.4 L (4.8-10.8) X10*3/uL RBC 4.17 L (4.20-5.50) X10*6/uL Hgb 12.5 (12.0-16.0) g/dl Hct 37.7 (37.0-47.0) % MCV 90.4 (80.0-98.0) fL MCH 30.0 (27.0-33.0) pg MCHC 33.2 (31.0-35.0) g/dl RDW 13.2 (11.0-16.0) % Plt Count 277 (160-400) X10*3/uL MPV 9.5 (9.4-12.3) fL Immature Gran % (Auto) 0.2 (0.0-0.4) % Neut % (Auto) 68.3 (45-73) % Lymph % (Auto) 22.1 (20-40) % Lee % (Auto) 7.3 (2-11) % Eos % (Auto) 1.4 (0-4) % Baso % (Auto) 0.7 (0-2) % Lymph # (Auto) 1.0 L (1.2-4.9) X10*3/uL Lee # (Auto) 0.3 (0.1-1.2) X10*3/uL Eos # (Auto) 0.1 (0.0-0.4) X10*3/uL Baso # (Auto) 0.0 (0.0-0.2) X10*3/uL Abs Immat Gran (auto) 0.01 (0.00-0.03) X10*3/uL Absolute Neuts (auto) 3.0 (2.0-8.3) x10*3/uL Absolute Nucleated RBC 0.000 (0.0-0.012) X10*3/uL Nucleated RBC % (auto) 0.0 (0.0-0.2) /100WBC Sodium 140 (135-145) mmol/L Potassium 4.4 (3.3-5.1) mmol/L Chloride 106 (96-108) mmol/L Carbon Dioxide 27 (22-29) mmol/L Anion Gap 11 L (12-20) BUN 19 H (9-16) mg/dL Creatinine 0.78 (0.5-1.4) mg/dL Estim Creat Clear Calc 46.3 Estimated GFR > 60 Random Glucose 121 H (60-115) mg/dL Calcium 9.1 D (8.4-10.2) mg/dL Total Bilirubin 0.2 (0.0-1.0) mg/dL Direct Bilirubin < 0.2 (0.0-0.5) mg/dL AST 11 (5-31) U/L ALT 14 (0-31) U/L Alkaline Phosphatase 59 (39-117) U/L Total Protein 6.3 L (6.5-8.0) g/dL Albumin 3.9 (3.5-5.0) g/dL COVID-19 ([facility]) Negative (Negative) COVID-19 Clin Com See Note Discharge Plan Discharge Clinical Impression: Depression Patient Disposition: Still a Patient Prescriptions: No Action clonidine HCl 0.1 mg Tablet 0.1 mg PO BID 30 Days Qty: 60 RF: 0 risperidone 2 mg Tablet 2 mg PO BEDTIME 30 Days Qty: 30 RF: 0 lorazepam [Ativan] 1 mg tablet 1 mg PO QPM PRN (Reason: Anxiety, insomnia) 30 Days Qty: 30 RF: 0
[2021-06-07 17:36] LABS: MANUAL DIFF FLAG NO
[2021-06-07 17:52] LABS: COVID-19 Test Negative (Negative); IDNOW Serial# 9DD0AD1C
[2021-06-07 17:59] LABS: Alanine Aminotransferase 14 U/L (0-31); Albumin Level 3.9 g/dL (3.5-5.0); Alkaline Phosphatase 59 U/L (39-117); Anion Gap 11 (12-20); Aspartate Amino Transferase 11 U/L (5-31); Bilirubin Direct < 0.2 mg/dL (0.0-0.5); Bilirubin Total 0.2 mg/dL (0.0-1.0); Blood Urea Nitrogen 19 mg/dL (9-16); Calcium 9.1 mg/dL (8.4-10.2); Carbon Dioxide 27 mmol/L (22-29); Chloride 106 mmol/L (96-108); Creatinine Clr Calc Pharmacy 46.3; Estimated Glomerular Filt Rate > 60; Glucose Random 121 mg/dL (60-115); Potassium 4.4 mmol/L (3.3-5.1); Sodium 140 mmol/L (135-145); Total Protein 6.3 g/dL (6.5-8.0)
[2021-06-07 18:06] LABS: Basophils Percent Auto 0.7 % (0-2); Eosinophils Absolute Auto 0.1 X10*3/uL (0.0-0.4); Eosinophils Percent Auto 1.4 % (0-4); Hematocrit 37.7 % (37.0-47.0); Hemoglobin 12.5 g/dl (12.0-16.0); Imm Gran Abs Auto 0.01 X10*3/uL (0.00-0.03); Imm Gran Pct Auto 0.2 % (0.0-0.4); Lymphocytes Percent Auto 22.1 % (20-40); Mean Corpuscular HGB Conc 33.2 g/dl (31.0-35.0); Mean Corpuscular Volume 90.4 fL (80.0-98.0); Mean Platelet Volume 9.5 fL (9.4-12.3); Monocytes Absolute Auto 0.3 X10*3/uL (0.1-1.2); Monocytes Percent Auto 7.3 % (2-11); Neutrophils Percent Auto 68.3 % (45-73); Platelet Count 277 X10*3/uL (160-400); Red Blood Count 4.17 X10*6/uL (4.20-5.50); Red Cell Distribution Width 13.2 % (11.0-16.0); White Blood Count 4.4 X10*3/uL (4.8-10.8)
[2021-06-07] MEDS: cloNIDine HCL 0.1 MG TABLET PO (21:23)
[2021-06-07] MEDS: LORazepam 1 MG TABLET PO (21:23)
[2021-06-07 21:24] VITALS: BP 125/73; PULSE 90
[2021-06-07] MEDS: risperiDONE 2 MG TABLET PO (21:28)
--- NOTE | 2021-06-08 | ECG_ITS ---
Test Reason : medical clearance Blood Pressure : / mmHG Vent. Rate : 083 BPM Atrial Rate : 083 BPM P-R Int : 144 ms QRS Dur : 072 ms QT Int : 366 ms P-R-T Axes : 075 036 045 degrees QTc Int : 430 ms Normal sinus rhythm Possible Left atrial enlargement Borderline ECG When compared with ECG of 01-JUN-2021 12:16, No significant change was found Referred By: Corrina Deleon Electronically Signed By:REBECA VAZQUEZ MD
--- NOTE | 2021-06-08 05:10 | PC.NURSE ---
Patient slept through the night, no distress observed/reported, behavior calm and quiet, medication compliant, patient's disposition per [facility] is section 12 inpatient bed search, will continue to monitor.
[2021-06-08 06:00] VITALS: BP 172/84; PULSE 95; RESP 16; TEMP 36.8; O2SAT 100
[2021-06-08 06:43] LABS: Amphetamine Screen Urine Not Detected (Not Detect); Barbiturates, Urine Not Detected (Not Detect); Benzodiazepines Screen Urine Not Detected (Not Detect); Cannabinoid Screen Urine Not Detected (Not Detect); Cocaine Screen Urine Not Detected (Not Detect); Fentanyl, urine Not Detected (Not Detect); Opiate Screen Urine Not Detected (Not Detect); Phencyclidine Screen Urine Not Detected (Not Detect)
[2021-06-08 06:49] LABS: Appearance Urine CLEAR; Color Urine YELLOW; Glucose Urine UA NEG (NEG); Leukocyte Esterase Urine 1+ (NEG); Nitrite Urine NEG (NEG); Urine Blood NEG (NEG); Urine Ketones NEG (NEG); Urine Protein NEG (NEG-TRACE)
[2021-06-08 06:55] LABS: Bacteria Urine TRACE /LPF; RBC Urine 0 /HPF (0); Squamous Epithelial Cell Urine 1+ /LPF; WBC Clumps Urine NOTED
--- NOTE | 2021-06-08 07:05 | PC.NURSE ---
patient appear to remain asleep at present respirations are even and unlabored patient appears in no distress
[2021-06-08] MEDS: cloNIDine HCL 0.1 MG TABLET PO ×2 (09:34→20:22)
[2021-06-08 09:59] LABS: Appearance Urine CLEAR; Color Urine STRAW; Glucose Urine UA NEG (NEG); Leukocyte Esterase Urine NEG (NEG); Nitrite Urine NEG (NEG); Urine Blood NEG (NEG); Urine Ketones NEG (NEG); Urine Protein NEG (NEG-TRACE)
[2021-06-08 10:07] LABS: COVID-19 Test Negative (Negative)
[2021-06-08 12:28] VITALS: BP 140/82
--- NOTE | 2021-06-08 13:35 | PHA.MEDREC ---
Pharmacy Consult ? Medication Reconciliation Pharmacy has completed the medication reconciliation. No remarkable issues. Charmaine Solis, JerilynD
[2021-06-08 13:55] VITALS: BP 137/65; PULSE 76; RESP 18; TEMP 36.1; O2SAT 99
[2021-06-08 16:05] VITALS: BMI 23.8
--- NOTE | 2021-06-08 18:27 | PC.ADMIT ---
pt is a 71 y/o female who presented to [facility] ED post discharge from inpatient geriatric psych unit for verbal/physical aggression and paranoia. pt was admitted to tang-psych with DSM 5 diagnosis unspecified schizophrenia, and depressive disorder. pa arrived on unit from ED to unit alert and oriented x3, on wheelchair accompanied by security and nurse. Pt signed CV in ED and requested to sign 3-day upon arrival to unit. Most of admission history obtained from [facility] crisis assessment due to pt not being fully compliant w/admission. Per [facility] crisis report, pt's family reached out to MD demanding pt to be reevaluated due to aggressive behavior towards them. Pt's brother reported patient's presentation to be worse. it is important to note that most of this history was obtained from [facility] crisis assessment. pt declined exhibiting any aggressive behaviors nor paranoia however, pt was observed to be guarded, suspicious and responding to internal stimuli. Vital signs on arrival are stable, pt is ambulatory. Pt appears hemodynamically stable.
[2021-06-08 20:20] VITALS: BP 130/72; PULSE 92; RESP 16; TEMP 36.6; O2SAT 100
[2021-06-08] MEDS: risperiDONE 2 MG TABLET PO (20:22)
[2021-06-09 08:00] VITALS: BP 148/87; PULSE 89; RESP 18; TEMP 36.3; O2SAT 99
[2021-06-09] MEDS: cloNIDine HCL 0.1 MG TABLET PO ×2 (08:33→22:25)
--- NOTE | 2021-06-09 15:03 | P.HPPS_ITS ---
[facility] Date of Service: 06/09/21 Chief Complaint: psychosis Sources of Information: patient interviewed and chart reviewed HPI Subjective Notes: Arora Warning and Conditional Voluntary Narrative: The patient is a 71-year-old descent female, mostly Korean-speaking with a long history of schizoaffective disorder discharged from this unit yesterday after being treated with risperidone that historically has helped her. When she was discharged, at home, her family described that she was very easily agitated, paranoid uneven assaultive. They called EMS and she was brought into this facility for psychiatric stabilization. When she was brought back into the unit, the patient has sinus CV and she asked for a 3 day notice that she wants to be discharged. On interview, the patient was perseverative on being discharged she wants to leave she states that she is doing fine and she admitted that she had an argument with her sister Galina but she is not angry or irritable and she states that she is doing fairly well. On observation, the patient is slightly internally preoccupied and very concrete. Usually, at baseline she is very concrete and she has court on the [place] but she is poorly located. She adamantly denies suicidal ideation or homicidal ideation she denies auditory hallucinations. Over the phone, we could talk with her sister and they want to start guardianship papers since they stated that they do not feel that she is safe in the community by herself. Her son a.m. and her sister Galina are willing to be the guardian's of the patient. I explained at length how the process is done but at this moment we will try to filed for Section 7 and 8 since the patient does not want treatment here at this moment Past Psychiatric History: The patient is a very poor historian but apparently has progressive reports she has 2 prior admissions unclear where and when. Medical Evaluation Reviewed: Yes [facility] Medical History Anxiety Chronic constipation Hiatal hernia Hx of diverticulitis of colon Oropharyngeal dysphagia Psychotic disorder Schatzki's ring Surgical History History of appendectomy History of colonoscopy History of hysterectomy Hx of endoscopy Hx of hand surgery Hx of tonsillectomy Family History: Denies, she reports that on her father side there is substance abuse Social History: The patient was born and raised in [place], her milestones were achieved at expected age that she attended regular school up to the 9th grade she dropped out. She had 3 children and she has worked, this moment she has good social support provided by her family. Retired from working at [employer] for 14 years Trauma History: -Per chart, pt reported a period of time being from her children was difficult for her. Diagnostics Vital Signs (24Hr): Vital Signs - 24 hr 06/08/21 20:20 06/09/21 08:00 Temperature 98 F 97.4 F Pulse Rate 92 89 Respiratory Rate 16 18 Blood Pressure 130/72 148/87 H Pulse Oximetry 100 99 BMI result Verdana 4 Body Mass Index Verdana 4 23.8 Verdana 4 Verdana 4 Labs Results: 06/07/21 17:30 06/07/21 17:30 Labs: Laboratory Results - last 48 hr 06/07/21 06/07/21 06/07/21 17:30 17:30 17:30 WBC 4.4 L RBC 4.17 L Hgb 12.5 Hct 37.7 MCV 90.4 MCH 30.0 MCHC 33.2 RDW 13.2 Plt Count 277 MPV 9.5 Immature Gran % (Auto) 0.2 Neut % (Auto) 68.3 Lymph % (Auto) 22.1 [place] % (Auto) 7.3 Eos % (Auto) 1.4 Baso % (Auto) 0.7 Lymph # (Auto) 1.0 L [place] # (Auto) 0.3 Eos # (Auto) 0.1 Baso # (Auto) 0.0 Abs Immat Gran (auto) 0.01 Absolute Neuts (auto) 3.0 Absolute Nucleated RBC 0.000 Nucleated RBC % (auto) 0.0 Sodium 140 Potassium 4.4 Chloride 106 Carbon Dioxide 27 Anion Gap 11 L BUN 19 H Creatinine 0.78 Estim Creat Clear Calc 46.3 Estimated GFR > 60 Random Glucose 121 H Calcium 9.1 D Total Bilirubin 0.2 Direct Bilirubin < 0.2 AST 11 ALT 14 Alkaline Phosphatase 59 Total Protein 6.3 L Albumin 3.9 Urine Color Urine Appearance Urine pH Ur Specific [place] Urine Protein Urine Glucose (UA) Urine Ketones Urine Blood Urine Nitrite Ur Leukocyte Esterase Urine RBC Urine WBC Urine WBC Clumps Ur Squamous Epith Cells Urine Bacteria Urine Opiates Screen Urine Fentanyl Screen Ur Barbiturates Screen Ur Phencyclidine Scrn Ur Amphetamines Screen U Benzodiazepines Scrn Urine Cocaine Screen U Marijuana (THC) Screen COVID-19 ([facility]) Negative COVID-19 Clin Com See Note 06/08/21 06/08/21 06/08/21 06:21 06:21 09:42 WBC RBC Hgb Hct MCV MCH MCHC RDW Plt Count MPV Immature Gran % (Auto) Neut % (Auto) Lymph % (Auto) [place] % (Auto) Eos % (Auto) Baso % (Auto) Lymph # (Auto) [place] # (Auto) Eos # (Auto) Baso # (Auto) Abs Immat Gran (auto) Absolute Neuts (auto) Absolute Nucleated RBC Nucleated RBC % (auto) Sodium Potassium Chloride Carbon Dioxide Anion Gap BUN Creatinine Estim Creat Clear Calc Estimated GFR Random Glucose Calcium Total Bilirubin Direct Bilirubin AST ALT Alkaline Phosphatase Total Protein Albumin Urine Color YELLOW Urine Appearance CLEAR Urine pH 6.0 Ur Specific [place] 1.010 Urine Protein NEG Urine Glucose (UA) NEG Urine Ketones NEG Urine Blood NEG Urine Nitrite NEG Ur Leukocyte Esterase 1+ H Urine RBC 0 Urine WBC 10-14 H Urine WBC Clumps NOTED Ur Squamous Epith Cells 1+ Urine Bacteria TRACE Urine Opiates Screen Not Detected Urine Fentanyl Screen Not Detected Ur Barbiturates Screen Not Detected Ur Phencyclidine Scrn Not Detected Ur Amphetamines Screen Not Detected U Benzodiazepines Scrn Not Detected Urine Cocaine Screen Not Detected U Marijuana (THC) Screen Not Detected COVID-19 ([facility]) Negative COVID-19 Clin Com See Note 06/08/21 09:44 WBC RBC Hgb Hct MCV MCH MCHC RDW Plt Count MPV Immature Gran % (Auto) Neut % (Auto) Lymph % (Auto) [place] % (Auto) Eos % (Auto) Baso % (Auto) Lymph # (Auto) [place] # (Auto) Eos # (Auto) Baso # (Auto) Abs Immat Gran (auto) Absolute Neuts (auto) Absolute Nucleated RBC Nucleated RBC % (auto) Sodium Potassium Chloride Carbon Dioxide Anion Gap BUN Creatinine Estim Creat Clear Calc Estimated GFR Random Glucose Calcium Total Bilirubin Direct Bilirubin AST ALT Alkaline Phosphatase Total Protein Albumin Urine Color STRAW Urine Appearance CLEAR Urine pH 6.0 Ur Specific [place] 1.010 Urine Protein NEG Urine Glucose (UA) NEG Urine Ketones NEG Urine Blood NEG Urine Nitrite NEG Ur Leukocyte Esterase NEG Urine RBC Urine WBC Urine WBC Clumps Ur Squamous Epith Cells Urine Bacteria Urine Opiates Screen Urine Fentanyl Screen Ur Barbiturates Screen Ur Phencyclidine Scrn Ur Amphetamines Screen U Benzodiazepines Scrn Urine Cocaine Screen U Marijuana (THC) Screen COVID-19 ([facility]) COVID-19 Clin Com Meds/Allergies Meds Home Medications Acetaminophen (Acetaminophen 325 Mg Tablet) 650 mg PO Q6H PRN PRN Reason: Headache/Pain Mild Scale (1-3) Al Hydroxide/Mg Hydroxide (Magnesium Hydrox/Alum Hydrox 30 Ml Oral.Susp) 30 ml PO Q6H PRN PRN Reason: Heartburn/Nausea Clonidine HCl (Clonidine Hcl 0.1 Mg Tablet) 0.1 mg PO BID [facility]; Protocol Last Admin: 06/09/21 08:33 Dose: 0.1 mg Documented by: Hydroxyzine HCl (Hydroxyzine Hcl 25 Mg Tablet) 25 mg PO BEDTIME PRN PRN Reason: Anxiety Lorazepam (Lorazepam 1 Mg Tablet) 1 mg PO BEDTIME PRN PRN Reason: Anxiety Magnesium Hydroxide (Milk Of Magnesia 30 Ml Oral.Susp) 30 ml PO DAILY PRN PRN Reason: Constipation Risperidone (Risperidone 2 Mg Tablet) 2 mg PO BEDTIME [facility] Last Admin: 06/08/21 20:22 Dose: 2 mg Documented by: Trazodone HCl (Trazodone Hcl 50 Mg Tablet) 50 mg PO BEDTIME PRN PRN Reason: Insomnia Allergies Allergies Allergy/AdvReac Type Severity Reaction Status Date / Time No Known Allergies Allergy Verified 03/08/21 13:57 [No Known Allergies*] Mental Status Exam Mental Status Exam Patient Appearance: Appropriate Patient Orientation: Person and Situation Level of Consciousness: Awake Patient Behavior: Guarded and Suspicious Mood Description: Suspicious, Withdrawn and Fearful Affect Description: Labile Patient Cognition Impaired: Yes Ability to Follow Directions: Good Speech Pattern: Clear Hallucinations: None Delusions: Paranoid Ideation Thought Process: Evasive Thought Content: positive for Perseveration, positive for Poverty of Content and positive for Thought Blocking Judgement: Fair Assessment & Plan Assessment & Plan (1) Schizoaffective disorder, depressive type: Status: Acute Code(s): F25.1 - Schizoaffective disorder, depressive type Plan The patient is a middle-aged female with a long history of schizoaffective disorder who has not been treated most of her life 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 She was recently discharged from this unit but at home she become assaultive towards her sister so she was brought back into the hospital. Plan 1. Continue same medications. 2. We will file for section 7 and 8 and probably will ask to start Invega Sustenna to assure compliance. 3. Neuro cognitive testing to see we have to start Aricept for dementia Reason for continued inpatient stay Substantial Risk for: inability to function, rapid decompensation and med/psych decompensation
[2021-06-09 22:10] VITALS: BP 156/68; PULSE 82; RESP 17; TEMP 36.8; O2SAT 99
[2021-06-09] MEDS: risperiDONE 2 MG TABLET PO (22:26)
[2021-06-10 07:30] VITALS: BP 128/73; PULSE 72; RESP 14; TEMP 36.7; O2SAT 98
[2021-06-10] MEDS: cloNIDine HCL 0.1 MG TABLET PO ×2 (09:49→20:10)
[2021-06-10 09:56] VITALS: BMI 22.8
--- NOTE | 2021-06-10 14:35 | P.PNPSI_ITS ---
Subjective Subjective Date of Service: 06/10/21 Reason For Visit: psychosis Subjective Notes: Arora Warning and 3 Day Interim History: The nursing staff reported that she was internally preoccupied, verbal on [place] only. On interview, she asked for discharge, she admitted that she got angry at home with her sister. I explained that she would probably get a section 7 and 8 since she is unable to take care of herself in the community. Mental Status Exam Mental Status Exam Patient Appearance: Inappropriate Patient Orientation: Person and Situation Level of Consciousness: Awake Patient Behavior: Guarded and Passive Mood Description: Withdrawn Affect Description: Constricted Patient Cognition Impaired: Yes Ability to Follow Directions: Good Speech Pattern: Appropriate Hallucinations: Auditory Delusions: Paranoid Ideation Thought Process: Linear Thought Content: positive for [place], positive for Poverty of Content and positive for Thought Blocking Judgement: Fair Diagnostics Vital Signs (24Hr): Vital Signs - 24 hr 06/09/21 22:10 06/10/21 07:30 Temperature 98.2 F 98.1 F Pulse Rate 82 72 Respiratory Rate 17 14 Blood Pressure 156/68 H 128/73 Pulse Oximetry 99 98 BMI result [place] 4 Body Mass Index [place] 4 22.8 [place] 4 [place] 4 Labs Results: 06/07/21 17:30 06/07/21 17:30 Medications Medications Current Medications Acetaminophen (Acetaminophen 325 Mg Tablet) 650 mg PO Q6H PRN PRN Reason: Headache/Pain Mild Scale (1-3) Al Hydroxide/Mg Hydroxide (Magnesium Hydrox/Alum Hydrox 30 Ml Oral.Susp) 30 ml PO Q6H PRN PRN Reason: Heartburn/Nausea Clonidine HCl (Clonidine Hcl 0.1 Mg Tablet) 0.1 mg PO BID [facility]; Protocol Last Admin: 06/10/21 09:49 Dose: 0.1 mg Documented by: Hydroxyzine HCl (Hydroxyzine Hcl 25 Mg Tablet) 25 mg PO BEDTIME PRN PRN Reason: Anxiety Lorazepam (Lorazepam 1 Mg Tablet) 1 mg PO BEDTIME PRN PRN Reason: Anxiety Magnesium Hydroxide (Milk Of Magnesia 30 Ml Oral.Susp) 30 ml PO DAILY PRN PRN Reason: Constipation Risperidone (Risperidone 2 Mg Tablet) 2 mg PO BEDTIME [facility] Last Admin: 06/09/21 22:26 Dose: 2 mg Documented by: Trazodone HCl (Trazodone Hcl 50 Mg Tablet) 50 mg PO BEDTIME PRN PRN Reason: Insomnia Allergies Allergies Allergy/AdvReac Type Severity Reaction Status Date / Time No Known Allergies Allergy Verified 03/08/21 13:57 [No Known Allergies*] Assessment & Plan Assessment & Plan (1) Schizoaffective disorder, depressive type: Status: Acute Code(s): F25.1 - Schizoaffective disorder, depressive type Plan The patient is a middle-aged female with a long history of schizoaffective disorder who has not been treated most of her life 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 She was recently discharged from this unit but at home she become assaultive towards her sister so she was brought back into the hospital. Plan 1. Continue same medications. 2. We will file for section 7 and 8 and probably will ask to start Invega Sustenna to assure compliance. 3. Neuro cognitive testing to see we have to start Aricept for dementia/ 4. Family meeting. I spent minutes with the patient and/or on the patient floor today, greater than?50% of which was spent counseling/coordinating care. Reason for contiued inpatient stay Substantial Risk for: harm to others, inability to function, rapid decompensation and med/psych decompensation
[2021-06-10 18:59] VITALS: BP 134/66; PULSE 82; RESP 16; TEMP 36.6; O2SAT 99
[2021-06-10] MEDS: risperiDONE 2 MG TABLET PO (20:10)
[2021-06-11 08:00] VITALS: BP 150/75; PULSE 80; RESP 15; TEMP 36.4; O2SAT 99
[2021-06-11] MEDS: cloNIDine HCL 0.1 MG TABLET PO ×2 (08:34→20:07)
--- NOTE | 2021-06-11 15:25 | P.PNPSI_ITS ---
Subjective Subjective Date of Service: 06/11/21 Reason For Visit: psychosis Subjective Notes: 3 Day Interim History: The nursing staff reported that the patient remains internally preoccupied and seclussive, mostly in her room, perseverative of discharge. Her son called and asked for discharge since she was been calling him to pick her up. On interview, she denied new symptoms, refused to participate in the interview, she understood Arora warning. Today, we did the filing for section 7 and 8. Mental Status Exam Mental Status Exam Patient Appearance: Disheveled Patient Orientation: Person and Situation Level of Consciousness: Awake Patient Behavior: Passive Mood Description: Depressed Affect Description: Constricted Patient Cognition Impaired: No Ability to Follow Directions: Fair Speech Pattern: Appropriate Hallucinations: None Delusions: Not Present Thought Process: Evasive Thought Content: positive for Perseveration and positive for Poverty of Content Judgement: Fair Diagnostics Vital Signs (24Hr): Vital Signs - 24 hr 06/10/21 18:59 06/11/21 08:00 Temperature 97.8 F 97.6 F Pulse Rate 82 80 Respiratory Rate 16 15 Blood Pressure 134/66 150/75 H Pulse Oximetry 99 99 BMI result Verd[place] 4 Body Mass Index [place] 4 22.8 [place] 4 Verdana 4 Labs Results: 06/07/21 17:30 06/07/21 17:30 Medications Medications Current Medications Acetaminophen (Acetaminophen 325 Mg Tablet) 650 mg PO Q6H PRN PRN Reason: Headache/Pain Mild Scale (1-3) Al Hydroxide/Mg Hydroxide (Magnesium Hydrox/Alum Hydrox 30 Ml Oral.Susp) 30 ml PO Q6H PRN PRN Reason: Heartburn/Nausea Clonidine HCl (Clonidine Hcl 0.1 Mg Tablet) 0.1 mg PO BID [facility]; Protocol Last Admin: 06/11/21 08:34 Dose: 0.1 mg Documented by: Hydroxyzine HCl (Hydroxyzine Hcl 25 Mg Tablet) 25 mg PO BEDTIME PRN PRN Reason: Anxiety Lorazepam (Lorazepam 1 Mg Tablet) 1 mg PO BEDTIME PRN PRN Reason: Anxiety Magnesium Hydroxide (Milk Of Magnesia 30 Ml Oral.Susp) 30 ml PO DAILY PRN PRN Reason: Constipation Risperidone (Risperidone 2 Mg Tablet) 2 mg PO BEDTIME [facility] Last Admin: 06/10/21 20:10 Dose: 2 mg Documented by: Trazodone HCl (Trazodone Hcl 50 Mg Tablet) 50 mg PO BEDTIME PRN PRN Reason: Insomnia Allergies Allergies Allergy/AdvReac Type Severity Reaction Status Date / Time No Known Allergies Allergy Verified 03/08/21 13:57 [No Known Allergies*] Assessment & Plan Assessment & Plan (1) Schizoaffective disorder, depressive type: Status: Acute Code(s): F25.1 - Schizoaffective disorder, depressive type Plan The patient is a middle-aged female with a long history of schizoaffective disorder who has not been treated most of her life 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 She was recently discharged from this unit but at home she become assaultive towards her sister so she was brought back into the hospital. Plan 1. Continue same medications. 2. We will file for section 7 and 8 and probably will ask to start Invega Sustenna to assure compliance. 3. Neuro cognitive testing to see we have to start Aricept for dementia/ 4. Family meeting. I spent minutes with the patient and/or on the patient floor today, greater than?50% of which was spent counseling/coordinating care. Reason for contiued inpatient stay Substantial Risk for: inability to function, rapid decompensation and med/psych decompensation
[2021-06-11 18:00] VITALS: BP 124/59; PULSE 82; RESP 17; TEMP 36.5; O2SAT 98
[2021-06-11] MEDS: risperiDONE 2 MG TABLET PO (20:07)
[2021-06-12 06:00] VITALS: BP 165/84; PULSE 79; RESP 18; TEMP 36.7; O2SAT 98
--- NOTE | 2021-06-12 08:53 | HO.PSYCHPN ---
Subjective Subjective Date of Service: 06/12/21 Reason For Visit: psychosis Subjective Notes: 3 Day Interim History: The nursing staff reported that the patient remains mostly in her room, seclusive and isolative but fully compliant with treatment. On interview the patient asked to be discharged as soon as possible. She is fully aware that we sign for a sections 7 and 8 due to her readmission. Mental Status Exam Mental Status Exam Patient Appearance: Well Grooomed Patient Orientation: Person Level of Consciousness: Awake Patient Behavior: Guarded and Passive Mood Description: Suspicious and Withdrawn Affect Description: Constricted Patient Cognition Impaired: Yes Ability to Follow Directions: Good Speech Pattern: Clear Hallucinations: None Delusions: Paranoid Ideation Thought Process: Linear Thought Content: positive for Circumstantial Judgement: Fair Diagnostics Vital Signs (24Hr): Vital Signs - 24 hr 06/11/21 18:00 06/12/21 06:00 Temperature 97.7 F 98.0 F Pulse Rate 82 79 Respiratory Rate 17 18 Blood Pressure 124/59 L 165/84 H Pulse Oximetry 98 98 BMI result Body Mass Index 22.8 Labs Results: 06/07/21 17:30 06/07/21 17:30 Medications Medications Current Medications Acetaminophen (Acetaminophen 325 Mg Tablet) 650 mg PO Q6H PRN PRN Reason: Headache/Pain Mild Scale (1-3) Al Hydroxide/Mg Hydroxide (Magnesium Hydrox/Alum Hydrox 30 Ml Oral.Susp) 30 ml PO Q6H PRN PRN Reason: Heartburn/Nausea Clonidine HCl (Clonidine Hcl 0.1 Mg Tablet) 0.1 mg PO BID [facility]; Protocol Last Admin: 06/11/21 20:07 Dose: 0.1 mg Documented by: Hydroxyzine HCl (Hydroxyzine Hcl 25 Mg Tablet) 25 mg PO BEDTIME PRN PRN Reason: Anxiety Lorazepam (Lorazepam 1 Mg Tablet) 1 mg PO BEDTIME PRN PRN Reason: Anxiety Magnesium Hydroxide (Milk Of Magnesia 30 Ml Oral.Susp) 30 ml PO DAILY PRN PRN Reason: Constipation Risperidone (Risperidone 2 Mg Tablet) 2 mg PO BEDTIME [facility] Last Admin: 06/11/21 20:07 Dose: 2 mg Documented by: Trazodone HCl (Trazodone Hcl 50 Mg Tablet) 50 mg PO BEDTIME PRN PRN Reason: Insomnia Allergies Allergies Allergy/AdvReac Type Severity Reaction Status Date / Time No Known Allergies Allergy Verified 03/08/21 13:57 [No Known Allergies*] Assessment & Plan Assessment & Plan (1) Schizoaffective disorder, depressive type: Status: Acute Code(s): F25.1 - Schizoaffective disorder, depressive type Plan The patient is a middle-aged female with a long history of schizoaffective disorder who has not been treated most of her life 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 She was recently discharged from this unit but at home she become assaultive towards her sister so she was brought back into the hospital. Plan 1. Continue same medications. 2. We will file for section 7 and 8 and probably will ask to start Invega Sustenna to assure compliance. 3. Neuro cognitive testing to see we have to start Aricept for dementia/ 4. Family meeting. I spent minutes with the patient and/or on the patient floor today, greater than?50% of which was spent counseling/coordinating care. Reason for contiued inpatient stay Substantial Risk for: inability to function, rapid decompensation and med/psych decompensation
[2021-06-12] MEDS: cloNIDine HCL 0.1 MG TABLET PO ×2 (09:33→20:13)
[2021-06-12 18:00] VITALS: BP 129/63; PULSE 82; RESP 14; TEMP 36.5; O2SAT 98
[2021-06-12] MEDS: risperiDONE 2 MG TABLET PO (20:13)
[2021-06-12] MEDS: traZODone HCL 50 MG TABLET PO (20:13)
[2021-06-13 07:30] VITALS: BP 136/77; PULSE 76; RESP 16; TEMP 36.1; O2SAT 99
--- NOTE | 2021-06-13 07:57 | P.PNPSI_ITS ---
Subjective Subjective Date of Service: 06/13/21 Reason For Visit: psychosis Subjective Notes: Conditional Voluntary and 3 Day Interim History: The nursing staff reported that the patient has been isolative, crying in her room in the morning but later, she had a phone call in the afternoon with her family and she cheered up later. On interview, she denied new symptoms, she wants to go home. Mental Status Exam Mental Status Exam Patient Appearance: Appropriate Patient Orientation: Person and Situation Level of Consciousness: Awake Patient Behavior: Appropriate and Guarded Mood Description: Depressed Affect Description: Constricted Patient Cognition Impaired: Yes Ability to Follow Directions: Good Speech Pattern: Clear Hallucinations: None Delusions: Paranoid Ideation Thought Process: Linear Thought Content: positive for Obsessional Thoughts and positive for Poverty of Content Judgement: Fair Diagnostics Vital Signs (24Hr): Vital Signs - 24 hr 06/12/21 18:00 Temperature 97.7 F Pulse Rate 82 Respiratory Rate 14 Blood Pressure 129/63 Pulse Oximetry 98 BMI result [place] 4 Body Mass Index [place] 4 22.8 [place] 4 [place] 4 Labs Results: 06/07/21 17:30 06/07/21 17:30 Medications Medications Current Medications Acetaminophen (Acetaminophen 325 Mg Tablet) 650 mg PO Q6H PRN PRN Reason: Headache/Pain Mild Scale (1-3) Al Hydroxide/Mg Hydroxide (Magnesium Hydrox/Alum Hydrox 30 Ml Oral.Susp) 30 ml PO Q6H PRN PRN Reason: Heartburn/Nausea Clonidine HCl (Clonidine Hcl 0.1 Mg Tablet) 0.1 mg PO BID [facility]; Protocol Last Admin: 06/12/21 20:13 Dose: 0.1 mg Documented by: Hydroxyzine HCl (Hydroxyzine Hcl 25 Mg Tablet) 25 mg PO BEDTIME PRN PRN Reason: Anxiety Lorazepam (Lorazepam 1 Mg Tablet) 1 mg PO BEDTIME PRN PRN Reason: Anxiety Magnesium Hydroxide (Milk Of Magnesia 30 Ml Oral.Susp) 30 ml PO DAILY PRN PRN Reason: Constipation Risperidone (Risperidone 2 Mg Tablet) 2 mg PO BEDTIME [facility] Last Admin: 06/12/21 20:13 Dose: 2 mg Documented by: Trazodone HCl (Trazodone Hcl 50 Mg Tablet) 50 mg PO BEDTIME PRN PRN Reason: Insomnia Last Admin: 06/12/21 20:13 Dose: 50 mg Documented by: Allergies Allergies Allergy/AdvReac Type Severity Reaction Status Date / Time No Known Allergies Allergy Verified 03/08/21 13:57 [No Known Allergies*] Assessment & Plan Assessment & Plan (1) Schizoaffective disorder, depressive type: Status: Acute Code(s): F25.1 - Schizoaffective disorder, depressive type Plan The patient is a 71 year old [place] female, mostly Russian speaking with a long history of Schizoaffective Disorder, readmitted after an episode of agitation. So far, she has been compliatn with treatment, seclussive and perseverative. Plan: Continue same treatment. Family meeting tomorrow. I spent minutes with the patient and/or on the patient floor today, greater than?50% of which was spent counseling/coordinating care. Reason for contiued inpatient stay Substantial Risk for: inability to function, rapid decompensation and med/psych decompensation
[2021-06-13] MEDS: cloNIDine HCL 0.1 MG TABLET PO ×2 (09:12→20:28)
[2021-06-13 20:10] VITALS: BP 136/63; PULSE 84; RESP 18; TEMP 37.1; O2SAT 100
[2021-06-13] MEDS: risperiDONE 2 MG TABLET PO (20:28)
[2021-06-13] MEDS: Milk of Magnesia 30 ML ORAL.SUSP PO (20:28)
[2021-06-14 06:00] VITALS: BP 150/67; PULSE 79; RESP 16; TEMP 36.2; O2SAT 98
[2021-06-14] MEDS: cloNIDine HCL 0.1 MG TABLET PO ×2 (08:24→20:31)
--- NOTE | 2021-06-14 11:03 | P.PNPSI_ITS ---
Subjective Subjective Date of Service: 06/14/21 Reason For Visit: psychosis Subjective Notes: 3 Day Interim History: The nursing staff reported that the patient slept 7 hours and she state most of the time in her room. She is perseverative stating that she wants to go home. According to the family, she calls constantly asking to be picked up. Today we have a family meeting and we explained to the family the procedure of sections 7 Na since she signed a 3 day notice. On interview the patient denies new symptoms and she states that she is going to do very well and she will be compliant with medications Mental Status Exam Mental Status Exam Patient Appearance: Appropriate Patient Orientation: Person and Situation Level of Consciousness: Awake Patient Behavior: Cooperative Mood Description: Constricted Affect Description: Constricted Patient Cognition Impaired: Yes Ability to Follow Directions: Good Speech Pattern: Appropriate Hallucinations: None Delusions: Paranoid Ideation Thought Process: Linear Thought Content: positive for Circumstantial Judgement: Fair Diagnostics Vital Signs (24Hr): Vital Signs - 24 hr 06/13/21 20:10 06/14/21 06:00 Temperature 98.8 F 97.1 F Pulse Rate 84 79 Respiratory Rate 18 16 Blood Pressure 136/63 150/67 H Pulse Oximetry 100 98 BMI result Verdana 4 Body Mass Index Verdana 4 22.8 Verdana 4 Verdana 4 Labs Results: 06/07/21 17:30 06/07/21 17:30 Medications Medications Current Medications Acetaminophen (Acetaminophen 325 Mg Tablet) 650 mg PO Q6H PRN PRN Reason: Headache/Pain Mild Scale (1-3) Al Hydroxide/Mg Hydroxide (Magnesium Hydrox/Alum Hydrox 30 Ml Oral.Susp) 30 ml PO Q6H PRN PRN Reason: Heartburn/Nausea Clonidine HCl (Clonidine Hcl 0.1 Mg Tablet) 0.1 mg PO BID [facility]; Protocol Last Admin: 06/14/21 08:24 Dose: 0.1 mg Documented by: Hydroxyzine HCl (Hydroxyzine Hcl 25 Mg Tablet) 25 mg PO BEDTIME PRN PRN Reason: Anxiety Magnesium Hydroxide (Milk Of Magnesia 30 Ml Oral.Susp) 30 ml PO DAILY PRN PRN Reason: Constipation Last Admin: 06/13/21 20:28 Dose: 30 ml Documented by: Risperidone (Risperidone 2 Mg Tablet) 2 mg PO BEDTIME JUMA Last Admin: 06/13/21 20:28 Dose: 2 mg Documented by: Trazodone HCl (Trazodone Hcl 50 Mg Tablet) 50 mg PO BEDTIME PRN PRN Reason: Insomnia Last Admin: 06/12/21 20:13 Dose: 50 mg Documented by: Allergies Allergies Allergy/AdvReac Type Severity Reaction Status Date / Time No Known Allergies Allergy Verified 03/08/21 13:57 [No Known Allergies*] Assessment & Plan Assessment & Plan (1) Schizoaffective disorder, depressive type: Status: Acute Code(s): F25.1 - Schizoaffective disorder, depressive type Plan The patient is a 71 year old [place]ert[place] female, mostly [place]araguan speaking with a long history of Schizoaffective Disorder, readmitted after an episode of agitation. So far, she has been compliatn with treatment, seclussive and perseverative. Plan: Continue same treatment. Filed for Section 7 and 8 I spent minutes with the patient and/or on the patient floor today, greater than?50% of which was spent counseling/coordinating care. Reason for contiued inpatient stay Substantial Risk for: inability to function, rapid decompensation and med/psych decompensation
[2021-06-14 19:50] VITALS: BP 133/63; PULSE 80; RESP 16; TEMP 36.6; O2SAT 99
[2021-06-14] MEDS: risperiDONE 2 MG TABLET PO (20:32)
[2021-06-15 07:30] VITALS: BP 149/73; PULSE 80; TEMP 35.9; O2SAT 99
[2021-06-15] MEDS: cloNIDine HCL 0.1 MG TABLET PO ×2 (08:20→20:13)
--- NOTE | 2021-06-15 11:05 | P.PNPSI_ITS ---
Subjective Subjective Date of Service: 06/15/21 Reason For Visit: psychosis Interim History: The nursing staff reported the patient has been isolative in her room, compliant with her medications. Yesterday we had a family meeting with her sister and son and apparently the patient has been calling a daily basis asking to be picked up. We discussed with the family about the goals of treatment and having realistic expectations of her level of functionality. The patient has been suffering of psychotic symptoms nearly all her life without any treatment and she has residual symptoms such as chronic paranoia that medication with not help. On interview the patient wanted to be discharged. We discussed with the team and we will ask for a continuation of the sections 7 and 8 and coordinated efforts with the family and the patient. Mental Status Exam Mental Status Exam Patient Appearance: Well Grooomed Patient Orientation: Person Level of Consciousness: Awake Patient Behavior: Cooperative Mood Description: Depressed Affect Description: Constricted Patient Cognition Impaired: Yes Ability to Follow Directions: Good Speech Pattern: Clear Hallucinations: None Delusions: Paranoid Ideation Thought Process: Linear Thought Content: positive for Circumstantial Judgement: Fair Diagnostics Vital Signs (24Hr): Vital Signs - 24 hr 06/14/21 19:50 06/15/21 07:30 Temperature 97.8 F 96.7 F L Pulse Rate 80 80 Respiratory Rate 16 Blood Pressure 133/63 149/73 H Pulse Oximetry 99 99 BMI result Verdana 4 Body Mass Index Verdana 4 22.8 Verdana 4 Verdana 4 Labs Results: 06/07/21 17:30 06/07/21 17:30 Medications Medications Current Medications Acetaminophen (Acetaminophen 325 Mg Tablet) 650 mg PO Q6H PRN PRN Reason: Headache/Pain Mild Scale (1-3) Al Hydroxide/Mg Hydroxide (Magnesium Hydrox/Alum Hydrox 30 Ml Oral.Susp) 30 ml PO Q6H PRN PRN Reason: Heartburn/Nausea Clonidine HCl (Clonidine Hcl 0.1 Mg Tablet) 0.1 mg PO BID [facility]; Protocol Last Admin: 06/15/21 08:20 Dose: 0.1 mg Documented by: Hydroxyzine HCl (Hydroxyzine Hcl 25 Mg Tablet) 25 mg PO BEDTIME PRN PRN Reason: Anxiety Magnesium Hydroxide (Milk Of Magnesia 30 Ml Oral.Susp) 30 ml PO DAILY PRN PRN Reason: Constipation Last Admin: 06/13/21 20:28 Dose: 30 ml Documented by: Risperidone (Risperidone 2 Mg Tablet) 2 mg PO BEDTIME JUMA Last Admin: 06/14/21 20:32 Dose: 2 mg Documented by: Trazodone HCl (Trazodone Hcl 50 Mg Tablet) 50 mg PO BEDTIME PRN PRN Reason: Insomnia Last Admin: 06/12/21 20:13 Dose: 50 mg Documented by: Allergies Allergies Allergy/AdvReac Type Severity Reaction Status Date / Time No Known Allergies Allergy Verified 03/08/21 13:57 [No Known Allergies*] Assessment & Plan Assessment & Plan (1) Schizoaffective disorder, depressive type: Status: Acute Code(s): F25.1 - Schizoaffective disorder, depressive type Plan The patient is a 71 year old Puertor[place] female, mostly Fijian speaking with a long history of Schizoaffective Disorder, readmitted after an episode of agitation. So far, she has been compliatn with treatment, seclussive and perseverative. Plan: Continue same treatment. I will offer Invega Hansel Filed for Section 7 and 8 I spent minutes with the patient and/or on the patient floor today, greater than?50% of which was spent counseling/coordinating care. Reason for contiued inpatient stay Substantial Risk for: inability to function, rapid decompensation and med/psych decompensation
[2021-06-15] MEDS: risperiDONE 2 MG TABLET PO (20:14)
[2021-06-15 21:29] VITALS: BP 127/59; PULSE 74; RESP 18; TEMP 36.5; O2SAT 100
[2021-06-16 06:00] VITALS: BP 142/70; PULSE 76; RESP 14; TEMP 36.7; O2SAT 98
[2021-06-16] MEDS: cloNIDine HCL 0.1 MG TABLET PO ×2 (08:56→21:07)
--- NOTE | 2021-06-16 13:48 | P.PNPSI_ITS ---
Subjective Subjective Date of Service: 06/16/21 Reason For Visit: psychosis Interim History: The nursing staff reported the patient has refused showered and yesterday, she is visible in the unit but she does not engage with staff or peers. Not even with Citizen Of [place]-speaking staff. On interview, I explained the patient that she will have a hearing tomorrow since she signed a 3 day notice and she wants to leave the hospital. The family has given mixed messages regarding the expectations a day 1 from her. I offered long-acting injectables but she refused. Still she remains internally preoccupied but easily redirectable. Mental Status Exam Mental Status Exam Patient Appearance: Appropriate Patient Orientation: Person Level of Consciousness: Awake Patient Behavior: Cooperative Mood Description: Depressed Affect Description: Constricted Patient Cognition Impaired: Yes Ability to Follow Directions: Fair Speech Pattern: Clear Hallucinations: Auditory Delusions: Paranoid Ideation Thought Process: Linear Thought Content: positive for Poverty of Content Judgement: Poor Diagnostics Vital Signs (24Hr): Vital Signs - 24 hr 06/15/21 21:29 06/16/21 06:00 Temperature 97.7 F 98.0 F Pulse Rate 74 76 Respiratory Rate 18 14 Blood Pressure 127/59 L 142/70 H Pulse Oximetry 100 98 BMI result Verdana 4 Body Mass Index Verdana 4 22.8 Verdana 4 Verdana 4 Labs Results: 06/07/21 17:30 06/07/21 17:30 Medications Medications Current Medications Acetaminophen (Acetaminophen 325 Mg Tablet) 650 mg PO Q6H PRN PRN Reason: Headache/Pain Mild Scale (1-3) Al Hydroxide/Mg Hydroxide (Magnesium Hydrox/Alum Hydrox 30 Ml Oral.Susp) 30 ml PO Q6H PRN PRN Reason: Heartburn/Nausea Clonidine HCl (Clonidine Hcl 0.1 Mg Tablet) 0.1 mg PO BID [facility]; Protocol Last Admin: 06/16/21 08:56 Dose: 0.1 mg Documented by: Hydroxyzine HCl (Hydroxyzine Hcl 25 Mg Tablet) 25 mg PO BEDTIME PRN PRN Reason: Anxiety Magnesium Hydroxide (Milk Of Magnesia 30 Ml Oral.Susp) 30 ml PO DAILY PRN PRN Reason: Constipation Last Admin: 06/13/21 20:28 Dose: 30 ml Documented by: Risperidone (Risperidone 2 Mg Tablet) 2 mg PO BEDTIME JUMA Last Admin: 06/15/21 20:14 Dose: 2 mg Documented by: Trazodone HCl (Trazodone Hcl 50 Mg Tablet) 50 mg PO BEDTIME PRN PRN Reason: Insomnia Last Admin: 06/12/21 20:13 Dose: 50 mg Documented by: Allergies Allergies Allergy/AdvReac Type Severity Reaction Status Date / Time No Known Allergies Allergy Verified 03/08/21 13:57 [No Known Allergies*] Assessment & Plan Assessment & Plan (1) Schizoaffective disorder, depressive type: Status: Acute Code(s): F25.1 - Schizoaffective disorder, depressive type Plan The patient is a 71 year old [place]ert[place] female, mostly Citizen Of [place] speaking with a long history of Schizoaffective Disorder, readmitted after an episode of agitation. So far, she has been compliatn with treatment, seclussive and perseverative. Plan: Continue same treatment. I offered Invega Hansel but she refused Filed for Section 7 and 8 I spent minutes with the patient and/or on the patient floor today, greater than?50% of which was spent counseling/coordinating care. Reason for contiued inpatient stay Substantial Risk for: inability to function, rapid decompensation and med/psych decompensation
[2021-06-16 19:52] VITALS: BP 147/72; PULSE 74; RESP 17; TEMP 36.3; O2SAT 98
[2021-06-16] MEDS: risperiDONE 2 MG TABLET PO (21:07)
[2021-06-17 06:00] VITALS: BP 157/76; PULSE 77; RESP 16; TEMP 36.7; O2SAT 99
[2021-06-17] MEDS: cloNIDine HCL 0.1 MG TABLET PO ×2 (08:39→19:42)
[2021-06-17 14:19] VITALS: BMI 23.0
[2021-06-17 19:34] VITALS: BP 133/64; PULSE 80; RESP 17; TEMP 36.4; O2SAT 98
[2021-06-17] MEDS: risperiDONE 2 MG TABLET PO (19:45)
[2021-06-18 08:00] VITALS: BP 135/74; PULSE 77; RESP 16; TEMP 36.2; O2SAT 99
[2021-06-18] MEDS: cloNIDine HCL 0.1 MG TABLET PO ×2 (08:10→20:13)
--- NOTE | 2021-06-18 15:21 | P.PNPSI_ITS ---
Subjective Subjective Date of Service: 06/18/21 Reason For Visit: psychosis Interim History: The nursing staff reported the patient remains appropriate, isolative in her room pacing in the hallways at times. On interview, the patient wanted to be discharged as soon as possible, I offer her again long-acting injectables insert of the medication but she was not 100% in agreement. I stated that I do not want to filed for Section 7 and 8, her hearing was postponed until further notice. Mental Status Exam Mental Status Exam Patient Appearance: Appropriate Patient Orientation: Person, Place and Situation Level of Consciousness: Awake Patient Behavior: Guarded and Passive Mood Description: Suspicious and Withdrawn Affect Description: Constricted Patient Cognition Impaired: Yes Ability to Follow Directions: Fair Speech Pattern: Clear Hallucinations: None Delusions: Paranoid Ideation Thought Content: positive for Perseveration and positive for Poverty of Content Judgement: Poor Diagnostics Vital Signs (24Hr): Vital Signs - 24 hr 06/17/21 19:34 06/18/21 08:00 Temperature 97.5 F 97.1 F Pulse Rate 80 77 Respiratory Rate 17 16 Blood Pressure 133/64 135/74 Pulse Oximetry 98 99 BMI result Verdana 4 Body Mass Index Verdana 4 23.0 Verdana 4 Verdana 4 Labs Results: 06/07/21 17:30 06/07/21 17:30 Medications Medications Current Medications Acetaminophen (Acetaminophen 325 Mg Tablet) 650 mg PO Q6H PRN PRN Reason: Headache/Pain Mild Scale (1-3) Al Hydroxide/Mg Hydroxide (Magnesium Hydrox/Alum Hydrox 30 Ml Oral.Susp) 30 ml PO Q6H PRN PRN Reason: Heartburn/Nausea Clonidine HCl (Clonidine Hcl 0.1 Mg Tablet) 0.1 mg PO BID [facility]; Protocol Last Admin: 06/18/21 08:10 Dose: 0.1 mg Documented by: Hydroxyzine HCl (Hydroxyzine Hcl 25 Mg Tablet) 25 mg PO BEDTIME PRN PRN Reason: Anxiety Magnesium Hydroxide (Milk Of Magnesia 30 Ml Oral.Susp) 30 ml PO DAILY PRN PRN Reason: Constipation Last Admin: 06/13/21 20:28 Dose: 30 ml Documented by: Risperidone (Risperidone 2 Mg Tablet) 2 mg PO BEDTIME JUMA Last Admin: 06/17/21 19:45 Dose: 2 mg Documented by: Trazodone HCl (Trazodone Hcl 50 Mg Tablet) 50 mg PO BEDTIME PRN PRN Reason: Insomnia Last Admin: 06/12/21 20:13 Dose: 50 mg Documented by: Allergies Allergies Allergy/AdvReac Type Severity Reaction Status Date / Time No Known Allergies Allergy Verified 03/08/21 13:57 [No Known Allergies*] Assessment & Plan Assessment & Plan (1) Schizoaffective disorder, depressive type: Status: Acute Code(s): F25.1 - Schizoaffective disorder, depressive type Plan The patient is a 71 year old [place]ert[place] female, mostly Welsh speaking with a long history of Schizoaffective Disorder, readmitted after an episode of agitation. So far, she has been compliatn with treatment, seclussive and perseverative. Plan: Continue same treatment. I offered Invega Hansel but she refused Filed for Section 7 and 8 I spent minutes with the patient and/or on the patient floor today, greater than?50% of which was spent counseling/coordinating care. Patient educated on: diagnosis and medication risk/benefits Informed Consent: further education needed Reason for contiued inpatient stay Substantial Risk for: inability to function, rapid decompensation and med/psych decompensation
[2021-06-18 19:51] VITALS: BP 128/71; PULSE 96; RESP 17; TEMP 36.7; O2SAT 98
[2021-06-18] MEDS: risperiDONE 2 MG TABLET PO (20:13)
[2021-06-19 08:00] VITALS: BP 164/73; PULSE 81; RESP 18; TEMP 36.2; O2SAT 100
[2021-06-19] MEDS: cloNIDine HCL 0.1 MG TABLET PO ×2 (08:01→20:12)
--- NOTE | 2021-06-19 15:59 | P.PNPSI_ITS ---
Subjective Subjective Date of Service: 06/19/21 Reason For Visit: psychosis Subjective Notes: Arora Warning Interim History: 06/18:The nursing staff reported the patient remains appropriate, isolative in her room pacing in the hallways at times. On interview, the patient wanted to be discharged as soon as possible, I offer her again long-acting injectables insert of the medication but she was not 100% in agreement. I stated that I do not want to filed for Section 7 and 8, her hearing was postponed until further notice. 06/19: Remains much the same. Wandering in corridor. States she is going to court. Looked perplexed. Ct Rx plan Medication Compliance: Intermittent Side effects from medications: No Attending Groups: No Mental Status Exam Mental Status Exam Patient Appearance: Appropriate Patient Orientation: Person, Place and Situation Level of Consciousness: Awake Patient Behavior: Guarded and Passive Mood Description: Suspicious and Withdrawn Affect Description: Constricted Patient Cognition Impaired: Yes Ability to Follow Directions: Fair Speech Pattern: Clear Diagnostics Vital Signs (24Hr): Vital Signs - 24 hr 06/18/21 19:51 06/19/21 08:00 Temperature 98.0 F 97.2 F Pulse Rate 96 81 Respiratory Rate 17 18 Blood Pressure 128/71 164/73 H Pulse Oximetry 98 100 BMI result Verdana 4 Body Mass Index Verdana 4 23.0 Verdana 4 Verdana 4 Labs Results: 06/07/21 17:30 06/07/21 17:30 Medications Medications Current Medications Acetaminophen (Acetaminophen 325 Mg Tablet) 650 mg PO Q6H PRN PRN Reason: Headache/Pain Mild Scale (1-3) Al Hydroxide/Mg Hydroxide (Magnesium Hydrox/Alum Hydrox 30 Ml Oral.Susp) 30 ml PO Q6H PRN PRN Reason: Heartburn/Nausea Clonidine HCl (Clonidine Hcl 0.1 Mg Tablet) 0.1 mg PO BID [facility]; Protocol Last Admin: 06/19/21 08:01 Dose: 0.1 mg Documented by: Hydroxyzine HCl (Hydroxyzine Hcl 25 Mg Tablet) 25 mg PO BEDTIME PRN PRN Reason: Anxiety Magnesium Hydroxide (Milk Of Magnesia 30 Ml Oral.Susp) 30 ml PO DAILY PRN PRN Reason: Constipation Last Admin: 06/13/21 20:28 Dose: 30 ml Documented by: Risperidone (Risperidone 2 Mg Tablet) 2 mg PO BEDTIME JUMA Last Admin: 06/18/21 20:13 Dose: 2 mg Documented by: Trazodone HCl (Trazodone Hcl 50 Mg Tablet) 50 mg PO BEDTIME PRN PRN Reason: Insomnia Last Admin: 06/12/21 20:13 Dose: 50 mg Documented by: Allergies Allergies Allergy/AdvReac Type Severity Reaction Status Date / Time No Known Allergies Allergy Verified 03/08/21 13:57 [No Known Allergies*] Assessment & Plan Assessment & Plan (1) Schizoaffective disorder, depressive type: Status: Acute Code(s): F25.1 - Schizoaffective disorder, depressive type Plan The patient is a 71 year old [place] female, mostly Citizen Of [place] speaking with a long history of Schizoaffective Disorder, readmitted after an episode of agitation. So far, she has been compliatn with treatment, seclussive and perseverative. Plan: Continue same treatment. I offered Invega Sustenna but she refused Filed for Section 7 and 8 06/18: Ct same. Recheck CBC if allows I spent __25____ minutes with the patient and/or on the patient floor today, greater than?50% of which was spent counseling/coordinating care. Patient educated on: diagnosis Informed Consent: does not understand and further education needed Reason for contiued inpatient stay Substantial Risk for: inability to function and rapid decompensation
--- NOTE | 2021-06-19 16:06 | P.PNPSI_ITS ---
Subjective Subjective Date of Service: 06/19/21 Reason For Visit: psychosis Interim History: 06/18:The nursing staff reported the patient remains appropriate, isolative in her room pacing in the hallways at times. On interview, the patient wanted to be discharged as soon as possible, I offer her again long-acting injectables insert of the medication but she was not 100% in agreement. I stated that I do not want to filed for Section 7 and 8, her hearing was postponed until further notice. 06/19: Remains much the same. Wandering in corridor. States she is going to court. Looked perplexed. Ct Rx plan Mental Status Exam Mental Status Exam Patient Appearance: Appropriate Patient Orientation: Person, Place and Situation Level of Consciousness: Awake Patient Behavior: Guarded and Passive Mood Description: Suspicious and Withdrawn Affect Description: Constricted Patient Cognition Impaired: Yes Ability to Follow Directions: Fair Speech Pattern: Clear Diagnostics Vital Signs (24Hr): Vital Signs - 24 hr 06/18/21 19:51 06/19/21 08:00 Temperature 98.0 F 97.2 F Pulse Rate 96 81 Respiratory Rate 17 18 Blood Pressure 128/71 164/73 H Pulse Oximetry 98 100 BMI result Verdana 4 Body Mass Index Verdana 4 23.0 Verdana 4 Verdana 4 Labs Results: 06/07/21 17:30 06/07/21 17:30 Medications Medications Current Medications Acetaminophen (Acetaminophen 325 Mg Tablet) 650 mg PO Q6H PRN PRN Reason: Headache/Pain Mild Scale (1-3) Al Hydroxide/Mg Hydroxide (Magnesium Hydrox/Alum Hydrox 30 Ml Oral.Susp) 30 ml PO Q6H PRN PRN Reason: Heartburn/Nausea Clonidine HCl (Clonidine Hcl 0.1 Mg Tablet) 0.1 mg PO BID [facility]; Protocol Last Admin: 06/19/21 08:01 Dose: 0.1 mg Documented by: Hydroxyzine HCl (Hydroxyzine Hcl 25 Mg Tablet) 25 mg PO BEDTIME PRN PRN Reason: Anxiety Magnesium Hydroxide (Milk Of Magnesia 30 Ml Oral.Susp) 30 ml PO DAILY PRN PRN Reason: Constipation Last Admin: 06/13/21 20:28 Dose: 30 ml Documented by: Risperidone (Risperidone 2 Mg Tablet) 2 mg PO BEDTIME JUMA Last Admin: 06/18/21 20:13 Dose: 2 mg Documented by: Trazodone HCl (Trazodone Hcl 50 Mg Tablet) 50 mg PO BEDTIME PRN PRN Reason: Insomnia Last Admin: 06/12/21 20:13 Dose: 50 mg Documented by: Allergies Allergies Allergy/AdvReac Type Severity Reaction Status Date / Time No Known Allergies Allergy Verified 03/08/21 13:57 [No Known Allergies*] Assessment & Plan Assessment & Plan (1) Schizoaffective disorder, depressive type: Status: Acute Code(s): F25.1 - Schizoaffective disorder, depressive type Plan The patient is a 71 year old Puert[place] female, mostly Haitian speaking with a long history of Schizoaffective Disorder, readmitted after an episode of agitation. So far, she has been compliatn with treatment, seclussive and perseverative. Plan: Continue same treatment. I offered Invega Hansel but she refused Filed for Section 7 and 8 06/18: Ct same. Recheck CBC if allows I spent minutes with the patient and/or on the patient floor today, greater than?50% of which was spent counseling/coordinating care. Reason for contiued inpatient stay Substantial Risk for: rapid decompensation
[2021-06-19] MEDS: risperiDONE 2 MG TABLET PO (20:12)
[2021-06-19 21:17] VITALS: BP 125/64; PULSE 79; RESP 16; TEMP 37.3; O2SAT 98
[2021-06-20 06:00] VITALS: BP 135/67; PULSE 69; TEMP 36; O2SAT 99
[2021-06-20] MEDS: cloNIDine HCL 0.1 MG TABLET PO ×2 (08:44→19:46)
--- NOTE | 2021-06-20 12:07 | P.PNPSI_ITS ---
Subjective Subjective Date of Service: 06/20/21 Reason For Visit: psychosis Interim History: 06/18:The nursing staff reported the patient remains appropriate, isolative in her room pacing in the hallways at times. On interview, the patient wanted to be discharged as soon as possible, I offer her again long-acting injectables insert of the medication but she was not 100% in agreement. I stated that I do not want to filed for Section 7 and 8, her hearing was postponed until further notice. 06/19: Remains much the same. Wandering in corridor. States she is going to court. Looked perplexed. Ct Rx plan 06/20: No change in MSE. Remains confused/perseverative. Ct Rx plan Unsure of taking meds. Pleasant. Med compliant Medication Compliance: Yes Side effects from medications: No Mental Status Exam Mental Status Exam Patient Appearance: Appropriate Patient Orientation: Person, Place and Situation Level of Consciousness: Awake Patient Behavior: Guarded and Passive Mood Description: Suspicious and Withdrawn Affect Description: Constricted Patient Cognition Impaired: Yes Ability to Follow Directions: Fair Speech Pattern: Clear Diagnostics Vital Signs (24Hr): Vital Signs - 24 hr 06/19/21 08:00 06/19/21 21:17 Temperature 97.2 F 99.1 F Pulse Rate 81 79 Respiratory Rate 18 16 Blood Pressure 164/73 H 125/64 Pulse Oximetry 100 98 BMI result Verdana 4 Body Mass Index Verdana 4 23.0 Verdana 4 Verdana 4 Labs Results: 06/07/21 17:30 06/07/21 17:30 Medications Medications Current Medications Acetaminophen (Acetaminophen 325 Mg Tablet) 650 mg PO Q6H PRN PRN Reason: Headache/Pain Mild Scale (1-3) Al Hydroxide/Mg Hydroxide (Magnesium Hydrox/Alum Hydrox 30 Ml Oral.Susp) 30 ml PO Q6H PRN PRN Reason: Heartburn/Nausea Clonidine HCl (Clonidine Hcl 0.1 Mg Tablet) 0.1 mg PO BID [facility]; Protocol Last Admin: 06/19/21 20:12 Dose: 0.1 mg Documented by: Hydroxyzine HCl (Hydroxyzine Hcl 25 Mg Tablet) 25 mg PO BEDTIME PRN PRN Reason: Anxiety Magnesium Hydroxide (Milk Of Magnesia 30 Ml Oral.Susp) 30 ml PO DAILY PRN PRN Reason: Constipation Last Admin: 06/13/21 20:28 Dose: 30 ml Documented by: Risperidone (Risperidone 2 Mg Tablet) 2 mg PO BEDTIME JUMA Last Admin: 06/19/21 20:12 Dose: 2 mg Documented by: Trazodone HCl (Trazodone Hcl 50 Mg Tablet) 50 mg PO BEDTIME PRN PRN Reason: Insomnia Last Admin: 06/12/21 20:13 Dose: 50 mg Documented by: Allergies Allergies Allergy/AdvReac Type Severity Reaction Status Date / Time No Known Allergies Allergy Verified 03/08/21 13:57 [No Known Allergies*] Assessment & Plan Assessment & Plan (1) Schizoaffective disorder, depressive type: Status: Acute Code(s): F25.1 - Schizoaffective disorder, depressive type Plan The patient is a 71 year old [place]ert[place] female, mostly [place] speaking with a long history of Schizoaffective Disorder, readmitted after an episode of agitation. So far, she has been compliatn with treatment, seclussive and perseverative. Plan: Continue same treatment. I offered Invega Sustenna but she refused Filed for Section 7 and 8 06/18: Ct same. Recheck CBC if allows 06/19, 06/20: Ct Rx plan. encourage med compliance. Hearing pending I spent minutes with the patient and/or on the patient floor today, greater than?50% of which was spent counseling/coordinating care. Patient educated on: diagnosis Informed Consent: does not understand Reason for contiued inpatient stay Substantial Risk for: rapid decompensation
[2021-06-20] MEDS: risperiDONE 2 MG TABLET PO (19:46)
[2021-06-20 19:47] VITALS: BP 125/66; PULSE 72; RESP 16; TEMP 36.6; O2SAT 98
[2021-06-21 06:58] LABS: MANUAL DIFF FLAG NO
[2021-06-21 07:01] LABS: Basophils Percent Auto 0.8 % (0-2); Eosinophils Percent Auto 1.1 % (0-4); Hematocrit 37.1 % (37.0-47.0); Hemoglobin 12.4 g/dl (12.0-16.0); Imm Gran Abs Auto 0.01 X10*3/uL (0.00-0.03); Imm Gran Pct Auto 0.3 % (0.0-0.4); Lymphocytes Percent Auto 27.1 % (20-40); Mean Corpuscular HGB Conc 33.4 g/dl (31.0-35.0); Mean Corpuscular Hemoglobin 29.9 pg (27.0-33.0); Mean Corpuscular Volume 89.4 fL (80.0-98.0); Monocytes Absolute Auto 0.3 X10*3/uL (0.1-1.2); Monocytes Percent Auto 7.9 % (2-11); Neutrophils Absolute Auto 2.4 x10*3/uL (2.0-8.3); Neutrophils Percent Auto 62.8 % (45-73); Platelet Count 263 X10*3/uL (160-400); Red Blood Count 4.15 X10*6/uL (4.20-5.50); Red Cell Distribution Width 12.9 % (11.0-16.0); White Blood Count 3.8 X10*3/uL (4.8-10.8)
[2021-06-21 08:00] VITALS: BP 173/81; PULSE 76; RESP 18; TEMP 36.8; O2SAT 99
[2021-06-21] MEDS: cloNIDine HCL 0.1 MG TABLET PO (08:14)
--- NOTE | 2021-06-21 18:01 | PC.NURSE ---
Patient was aware and ready for discharge but did not know if it is going to happen today. After court decision . Paper work reviewed with patient . Next doses medication and follow up appointment explained to patient. Patient verbalized understanding. Patient with belongings accompanied to the front of the building per hospital policy.
--- NOTE | 2021-09-30 16:57 | P.DS_ITS ---
DS: Providers Provider Date of Service: 06/21/21 Date of admission: 06/08/21 13:05 Date of discharge: 06/21/21 Primary care physician: Sawyer Mckenzie MD Consults: 06/09/21 07:11 Consult to Hospitalist Routine Consulting Provider: Hospitalist Reason For Exam: New admission DS: Diagnosis Discharge Diagnosis (1) Schizoaffective disorder, depressive type: Status: Acute DS: Medications Discharge Medications Home Medications: Home Medications Medication Instructions Recorded Confirmed clonidine HCl 0.1 mg tablet 1 tab PO BID 09/22/21 09/30/21 lorazepam 1 mg tablet 1 mg PO QPM PRN 09/22/21 09/30/21 minoxidil 2.5 mg tablet 0.5 tab PO DAILY 09/22/21 09/30/21 risperidone 2 mg tablet 1 tab PO BEDTIME 09/22/21 09/30/21 sennosides 8.6 mg-docusate sodium 1 tab PO BEDTIME 09/22/21 09/30/21 50 mg tablet (Senna-S) Previous Rx's Medication Instructions Recorded oxycodone 5 mg tablet 5 mg PO Q6H PRN #10 tab 09/24/21 amoxicillin 875 mg-potassium 1 tab PO Q12H #20 tab 09/30/21 clavulanate 125 mg tablet metronidazole 500 mg tablet 500 mg PO BID 10 Days #20 tab 09/30/21 Mental Status Exam Mental Status Exam Patient Appearance: Well Grooomed Patient Orientation: Person Level of Consciousness: Awake Patient Behavior: Guarded Mood Description: Constricted Affect Description: Constricted Patient Cognition Impaired: Yes Ability to Follow Directions: Good Speech Pattern: Clear Hallucinations: None Delusions: Not Present Thought Process: Distracted Thought Content: positive for Herman Judgement: Fair Data Data Completed and Pending Completed studies during hospitalization [Text1]: 06/08/21 Unknown Urine clean catch - Urine watts top Urine Culture - Final DS: Summary Hospital Course Hospital Course: the patient has been fully compliant with treatment, she is at her baseline on Risperdal. She she has pleasant and cooperative. Please see the discharge summary of June 10 for further details Time spent discussing smoking cessation with patient: 3 to 10 minutes Status at Discharge Cognitive/behavioral status at discharge: at baseline Functional status at discharge: independent ambulation Overall status at discharge: patient is back to baseline Time Spent with Patient Time attestation: Total time spent providing and/or coordinating discharge services: Time spent: Less than 30 minutes Discharge Plan Discharge Patient Disposition: Home, Self-Care Discharge Diagnosis: schizoaffective disorder Referrals: [facility] [Other] - 07/13/21 2:30 pm (SW called to make referral, however provider office closed. Court hearing ran late and office closed prior to court hearing ending. Nurse Discharge ordered Hoa to be discharged. SW to call and obtain appt date and times and call Hoa's sister with them. Hoa in agreement with plan and did sign VIPUL. SW obtained [place] [facility]. Appointment is for July 13 @ 2:30 PM via telehealth. SW called son Cain and provided him with appointment date and time.) [facility] [Provider Group] - 1 Day (Patient has a walking appointment in 1 week. Tel: [phone]) Sawyer Mckenzie MD [Primary Care Provider] - 1 Week (Will call office tomorrow to schedule appointment.) Discharge Medications: Discontinued clonidine HCl 0.1 mg Tablet 0.1 mg PO BID 30 Days Qty: 60 0RF Protocol: Hold for SBP< HOLD for SBP < : 90 risperidone 2 mg Tablet 2 mg PO BEDTIME 30 Days Qty: 30 0RF lorazepam 1 mg tablet 1 mg PO BEDTIME PRN (Reason: Anxiety) 0RF No Action clonidine HCl 0.1 mg tablet 1 tab PO BID 0RF sennosides-docusate sodium [Senna-S] 8.6-50 mg tablet 1 tab PO BEDTIME 0RF minoxidil 2.5 mg tablet 0.5 tab PO DAILY 0RF risperidone 2 mg tablet 1 tab PO BEDTIME 0RF lorazepam 1 mg tablet 1 mg PO QPM PRN (Reason: Anxiety) 0RF oxycodone 5 mg tablet 5 mg PO Q6H PRN (Reason: pain (scale score 7-10)) Qty: 10 0RF amoxicillin-pot clavulanate 875-125 mg tablet 1 tab PO Q12H Qty: 20 0RF metronidazole 500 mg tablet 500 mg PO BID 10 Days Qty: 20 0RF Discharge Orders: Discharge Order (Routine); Ordered 06/21/21 Ordered By: Maegan Mendez Diet: advance to usual diet Activity on Discharge: As tolerated Stand Alone Forms: Patient Portal Discharge page, Community Support Care Plan Goals: 1. maintain mood No SI/HI continue taking medications Health Concerns: follow up with PCP re: HTN Plan of Treatment: go to nearest ED or call 911 in event of emergency. Assessment: pt suspicious, superficially cooperative, declines referrals for OP providers despite reporting that medications where helpful. No SI/HI. No signs of aggression towards self or others. Discharge Date/Time: 06/21/21 17:30
== END 2021-06-21 17:30 | disposition home or self-care (01) | DRG 885 ==
LOC: HO.ED 06-08 08:45 → HO.PGERI 06-08 13:18
PROVIDERS: Physician Assistant Medical; Psychiatry & Neurology Psychiatry; Student in an Organized Health Care Education/Training Program; Admitting Provider Psychiatry & Neurology Psychiatry; Emergency Provider Emergency Medicine; PCP Internal Medicine; Visit Provider Psychiatry & Neurology Psychiatry
DX: F25.1 Schizoaffective disorder, depressive type (principal); Z20.822 Contact with and (suspected) exposure to COVID-19; Z79.899 Other long term (current) drug therapy
CPT/HCPCS: 36415; 80048; 80076; 80307; 81001; 81003; 85025; 87086; 87635; 93005; 99285

== ENCOUNTER → 2021-09-02 09:36 | Outpatient (BNVA) | payer SELFPAY | PROVIDERS: PCP Internal Medicine; Referring Provider Internal Medicine; Visit Provider Internal Medicine Gastroenterology | DX: R13.12 Dysphagia, oropharyngeal phase (principal); K22.2 Esophageal obstruction; K59.09 Other constipation; R10.30 Lower abdominal pain, unspecified; Z86.010 Personal history of colon polyps; Z87.19 Personal history of other diseases of the digestive system | CPT/HCPCS: 99212 ==

== ENCOUNTER 2021-09-22 12:38 | Inpatient (IN) | payer MEDICARE, SELFPAY ==
--- NOTE | ~2021-09-22 | CT_ITS ---
EXAMINATION: CT ABDOMEN AND PELVIS WITHOUT CONTRAST CLINICAL INFORMATION: Lower abdominal pain for 5 days COMPARISON: 06/08/2018 TECHNIQUE: Multidetector volumetric imaging was performed from the superior aspect of the liver through the pubic symphysis. Sagittal and coronal reformatted images were obtained on the technologist's workstation. This CT examination was performed using dose optimization techniques as appropriate, variously including the following: *Automated exposure control *Adjustment of mA and/or kV according to patient size (this includes techniques or standardized protocols for targeted exams where dose is matched to indication/reason for exam; i.e. extremities or head) *Use of iterative reconstruction technique DLP: 386 mGy-cm FINDINGS: LUNG BASES: Mild basilar atelectasis LIVER, GALLBLADDER, AND BILIARY TREE: The liver is normal in size, shape, and attenuation. No focal hepatic lesion or biliary ductal dilatation is present. The gallbladder is unremarkable with no evidence of radiopaque gallstones, gallbladder wall thickening, or obvious pericholecystic inflammatory changes. PANCREAS: Unremarkable. SPLEEN: Unremarkable. ADRENAL GLANDS: Unremarkable. KIDNEYS AND URETERS: The kidneys are normal in size, shape, and attenuation. No hydronephrosis, hydroureter, or calculi seen. No perinephric stranding. BLADDER: Unremarkable. GASTROINTESTINAL TRACT: Diverticulosis in the sigmoid. In addition soft tissue stranding in mucosal thickening. I suspect diverticulitis. There is some free fluid in the deep pelvis on the right which may be reactive. Early abscess formation here cannot be excluded. Attention to follow-up. This area measures 3.7 x 1.9 cm. Otherwise the bowel pattern is nonobstructing. Diverticulosis in other areas noted. ABDOMINAL WALL: No significant hernia is appreciated. LYMPH NODES: No bulky adenopathy. Some mild nodes around diverticula disease may well be reactive. VASCULAR: Unremarkable. PELVIC VISCERA: Unremarkable. OSSEOUS STRUCTURES: Unremarkable. CT/CT abdomen pelvis wo con IMPRESSION: Findings as described above. Findings most consistent with significant diverticulitis in the sigmoid. As described some adjacent soft tissue stranding and fluid. Possible early fluid collection in the deep pelvis on the right. Attention to follow-up. This area of disease is also intimately associated with the cervical/uterine structure which demonstrates some air density. Therefore an element of fistulization cannot be excluded. Fleischner guidelines were followed.
[2021-09-22 12:54] VITALS: BP 150/74; PULSE 98; RESP 16; TEMP 37.8; O2SAT 99; BMI 24.6
[2021-09-22 13:04] LABS: MANUAL DIFF FLAG NO
[2021-09-22 13:16] LABS: Basophils Percent Auto 0.3 % (0-2); Eosinophils Percent Auto 0.2 % (0-4); Hematocrit 37.1 % (37.0-47.0); Hemoglobin 12.3 g/dl (12.0-16.0); Imm Gran Abs Auto 0.03 X10*3/uL (0.00-0.03); Imm Gran Pct Auto 0.3 % (0.0-0.4); Lymphocytes Absolute Auto 1.2 X10*3/uL (1.2-4.9); Lymphocytes Percent Auto 11.4 % (20-40); Mean Corpuscular HGB Conc 33.2 g/dl (31.0-35.0); Mean Corpuscular Hemoglobin 29.2 pg (27.0-33.0); Mean Corpuscular Volume 88.1 fL (80.0-98.0); Mean Platelet Volume 9.3 fL (9.4-12.3); Monocytes Absolute Auto 0.6 X10*3/uL (0.1-1.2); Monocytes Percent Auto 5.8 % (2-11); Neutrophils Absolute Auto 8.4 x10*3/uL (2.0-8.3); Platelet Count 322 X10*3/uL (160-400); Red Blood Count 4.21 X10*6/uL (4.20-5.50); Red Cell Distribution Width 13.5 % (11.0-16.0); White Blood Count 10.2 X10*3/uL (4.8-10.8)
[2021-09-22 13:25] LABS: Anion Gap 15 (12-20); Blood Urea Nitrogen 9 mg/dL (9-16); Calcium 9.4 mg/dL (8.4-10.2); Carbon Dioxide 23 mmol/L (22-29); Chloride 105 mmol/L (96-108); Creatinine Clr Calc Pharmacy 57.5; Estimated Glomerular Filt Rate > 60; Glucose Random 115 mg/dL (60-115); Potassium 4.4 mmol/L (3.3-5.1); Sodium 139 mmol/L (135-145)
[2021-09-22 13:27] LABS: Influenza A Negative (Negative); Influenza B2 Negative (Negative)
--- NOTE | 2021-09-22 17:18 | ED_ITS ---
HPI - Abdominal Pain General Chief Complaint: Abdominal Pain Stated Complaint: abd pain Time Seen by Provider: 09/22/21 17:17 Source: patient Mode of arrival: ambulatory Limitations: no limitations History of Present Illness HPI narrative: 71 y/o female with history of schizoaffective disorder, constipation, divert iculitis, depression who presents to the ER with 5 days of worsening lower abdominal pain. She reports it feels similar to when she had diverticulitis in the past. She has also been constipated and taking laxatives with last BM yesterday, small and hard, no blood. She also reports nausea and vomiting a few days ago that has since resolved, she has not eaten much in the last 2 days. She reports development of fevers yesterday. No urinary symptoms, vaginal discharge or bleeding. MD elicited complaint: abdominal pain Pertinent past history: diverticulitis Onset (ago): day(s) (5) Pain Consistency: constant Location: RLQ, LLQ and suprapubic Severity: severe Pain scale (0-10): 9 Quality: stabbing Radiation: none Migration to: no migration Exacerbating factors: eating Relieving factors: nothing Context: history of similar episodes Associated symptoms: nausea, vomiting, fever, chills and constipation Related Data Previous Rx's Medication Instructions Recorded clonidine HCl 0.1 mg tablet 0.1 mg PO BID #60 tab 06/21/21 risperidone 2 mg tablet 2 mg PO BEDTIME #30 tab 06/21/21 linaclotide 145 mcg capsule 145 mcg PO QAM 30 Days #30 cap 09/02/21 (Linzess) Allergies Allergy/AdvReac Type Severity Reaction Status Date / Time No Known Allergies Allergy Verified 09/02/21 09:47 [No Known Allergies*] Review of Systems Review of Systems Constitutional: + Fever, No Chills ENT/Mouth: No sore throat, No Rhinorrhea, No Swallowing Difficulty Eyes: No Eye Pain, No Swelling, No Redness Cardiovascular: No Chest Pain, No SOB, No Orthopnea, No Edema Respiratory: No Cough, No Sputum, No Wheezing, No dyspnea Gastrointestinal: + Nausea, No Vomiting, No Diarrhea, + abdominal Pain, No Hematochezia, No Melena Genitourinary: No Dysuria, No Urinary Frequency, No Hematuria Musculoskeletal: No joint pain, No Myalgias Skin: No Skin Lesions, No rash Neuro: No Weakness, No Numbness, No Dizziness, No Headache Psych: No Anxiety/Panic, No Depression Heme/Lymph: No Bruising, No Lymphadenopathy Endocrine: No Polyuria, No Polydipsia [facility] Past Medical History Medical History (Updated 09/22/21 @ 20:09 by AMBER Cannon) Anxiety Chronic constipation Hiatal hernia Hx of diverticulitis of colon Oropharyngeal dysphagia Psychotic disorder Schatzki's ring Surgical History History of appendectomy History of colonoscopy History of esophagogastroduodenoscopy (EGD) History of hysterectomy Hx of endoscopy Hx of hand surgery Hx of tonsillectomy Family History Family History Father No problems noted. Mother No problems noted. Social History Social History Household Members: None Housing: House Housing Other:: Two family home. lives on second floor alone Do you presently have visiting nurse or other home services: No Unable to assess alcohol history related to: Refusing to respond Alcohol intake: current Alcohol intake frequency: holidays/special occasions only Alcohol type: wine Patient Tobacco Use Status: Never used Tobacco Second Hand Smoke Exposure: No Advance Directives: No Advance Directives Information Provided: No service: No Current occupational status: employed Current occupation: rt handed Sexual orientation: Straight/Heterosexual Physical Exam ED Vital Signs: Vital Signs - 24 hr 09/22/21 12:54 09/22/21 17:31 Temperature 100.1 F 99.8 F Pulse Rate 98 90 Respiratory Rate 16 18 Blood Pressure 150/74 H 180/94 H Pulse Oximetry 99 96 BMI result Body Mass Index 24.6 Appearance: Alert. Oriented X3. Appears uncomfortable. Eyes: Pupils equal, round and reactive to light. ENT: Pharynx normal. Neck: Normal inspection. Neck supple. CVS: Normal heart rate and rhythm. Pulses normal. Respiratory: No respiratory distress. Breath sounds normal. Abdomen: Soft with diffuse lower abdominal tenderness, no rebound or guarding. +BS x4 Skin: Skin warm and dry. Normal skin color. Normal skin turgor. No rashes. Extremities: No lower extremity edema. Neuro: Oriented X 3. No motor deficit. No sensory deficit. Course Course Course Narrative: 71 yo female with history of schizoaffective disorder, diverticulitis, depression, dysphagia, constipation who presents to the ER with 5 days of lower abdominal pain, s/p nausea and vomiting and reported fever at home. Lower abdomen is tender throughout, no rebound or guarding. Labs are unremarkable. Will get CT scan for further evaluation. UA added as well. Will place IV and medicate with morphine, zofran and give 1L IVF. Reevaluation(s) Reevaluation #1: UA negative. Pain slightly improved. No vomiting. CT scan showing Dense of diverticulitis is soft tissue stranding in mucosal thickening, there is also free fluid deep in the pelvis on the right which may be reactive. This may also be due to early abscess formation, area measures 3.7 x 1.9 cm. Will give Zosyn, check lactic and blood cultures. Dr. Alexandra Tigertexted - recommending medicine admission and he will consult. Patient updated on plan of care. Consultations Consultation #1: Dr. Alexandra - General Surgery MDM - Abdominal Pain Lab Data Result diagrams: 09/22/21 13:00 09/22/21 13:00 Labs: Lab Results 09/22/21 09/22/21 09/22/21 Range/Units 13:00 13:00 13:00 WBC 10.2 (4.8-10.8) X10*3/uL RBC 4.21 (4.20-5.50) X10*6/uL Hgb 12.3 (12.0-16.0) g/dl Hct 37.1 (37.0-47.0) % MCV 88.1 (80.0-98.0) fL MCH 29.2 (27.0-33.0) pg MCHC 33.2 (31.0-35.0) g/dl RDW 13.5 (11.0-16.0) % Plt Count 322 (160-400) X10*3/uL MPV 9.3 L (9.4-12.3) fL Immature Gran % (Auto) 0.3 (0.0-0.4) % Neut % (Auto) 82.0 H (45-73) % Lymph % (Auto) 11.4 L (20-40) % [place] % (Auto) 5.8 (2-11) % Eos % (Auto) 0.2 (0-4) % Baso % (Auto) 0.3 (0-2) % Lymph # (Auto) 1.2 (1.2-4.9) X10*3/uL [place] # (Auto) 0.6 (0.1-1.2) X10*3/uL Eos # (Auto) 0.0 (0.0-0.4) X10*3/uL Baso # (Auto) 0.0 (0.0-0.2) X10*3/uL Abs Immat Gran (auto) 0.03 (0.00-0.03) X10*3/uL Absolute Neuts (auto) 8.4 H (2.0-8.3) x10*3/uL Absolute Nucleated RBC 0.000 (0.0-0.012) X10*3/uL Nucleated RBC % (auto) 0.0 (0.0-0.2) /100WBC Sodium 139 (135-145) mmol/L Potassium 4.4 (3.3-5.1) mmol/L Chloride 105 (96-108) mmol/L Carbon Dioxide 23 (22-29) mmol/L Anion Gap 15 (12-20) BUN 9 D (9-16) mg/dL Creatinine 0.73 (0.5-1.4) mg/dL Estim Creat Clear Calc 57.5 Estimated GFR > 60 Random Glucose 115 (60-115) mg/dL Calcium 9.4 (8.4-10.2) mg/dL Urine Color Urine Appearance Urine pH (5.0-8.0) Ur Specific [place] (1.005-1.025) Urine Protein (NEG-TRACE) MG/DL Urine Glucose (UA) (NEG) MG/DL Urine Ketones (NEG) MG/DL Urine Blood (NEG) Urine Nitrite (NEG) Ur Leukocyte Esterase (NEG) Influenza Type A (JACIEL) Negative (Negative) Influenza Type B (JACIEL) Negative (Negative) Influenza A & B Note See Note 09/22/21 Range/Units 18:38 WBC (4.8-10.8) X10*3/uL RBC (4.20-5.50) X10*6/uL Hgb (12.0-16.0) g/dl Hct (37.0-47.0) % MCV (80.0-98.0) fL MCH (27.0-33.0) pg MCHC (31.0-35.0) g/dl RDW (11.0-16.0) % Plt Count (160-400) X10*3/uL MPV (9.4-12.3) fL Immature Gran % (Auto) (0.0-0.4) % Neut % (Auto) (45-73) % Lymph % (Auto) (20-40) % [place] % (Auto) (2-11) % Eos % (Auto) (0-4) % Baso % (Auto) (0-2) % Lymph # (Auto) (1.2-4.9) X10*3/uL [place] # (Auto) (0.1-1.2) X10*3/uL Eos # (Auto) (0.0-0.4) X10*3/uL Baso # (Auto) (0.0-0.2) X10*3/uL Abs Immat Gran (auto) (0.00-0.03) X10*3/uL Absolute Neuts (auto) (2.0-8.3) x10*3/uL Absolute Nucleated RBC (0.0-0.012) X10*3/uL Nucleated RBC % (auto) (0.0-0.2) /100WBC Sodium (135-145) mmol/L Potassium (3.3-5.1) mmol/L Chloride (96-108) mmol/L Carbon Dioxide (22-29) mmol/L Anion Gap (12-20) BUN (9-16) mg/dL Creatinine (0.5-1.4) mg/dL Estim Creat Clear Calc Estimated GFR Random Glucose (60-115) mg/dL Calcium (8.4-10.2) mg/dL Urine Color YELLOW Urine Appearance CLEAR Urine pH 5.5 (5.0-8.0) Ur Specific [place] 1.015 (1.005-1.025) Urine Protein NEG (NEG-TRACE) MG/DL Urine Glucose (UA) NEG (NEG) MG/DL Urine Ketones 15 (NEG) MG/DL Urine Blood NEG (NEG) Urine Nitrite NEG (NEG) Ur Leukocyte Esterase NEG (NEG) Influenza Type A (JACIEL) (Negative) Influenza Type B (JACIEL) (Negative) Influenza A & B Note Critical Care Time Critical Care Time Critical Care Time: Yes Total Critical Care Time: 35 Attestation: I have personally provided critical care time exclusive of time spent on separately billable procedures. Time includes review of lab data, radiology results, discussion with consultants, and monitoring for potential decompensation. Intervention performed as documented. Discharge Plan Discharge Clinical Impression: Diverticulitis Patient Disposition: Admitted As Inpatient
[2021-09-22 17:31] VITALS: BP 180/94; PULSE 90; RESP 18; TEMP 37.7; O2SAT 96
[2021-09-22] MEDS: ondansetron HCL 4 MG/2 ML VIAL IVPUSH (17:51)
[2021-09-22] MEDS: Morphine Sulfate 4 MG/ML CARTRIDGE IVPUSH ×2 (17:51→20:21)
[2021-09-22] MEDS: 0.9 % Sodium Chloride 1,000 ML 999 ML IVCONT ×2 (17:51→20:22)
[2021-09-22 18:44] LABS: Appearance Urine CLEAR; Color Urine YELLOW; Glucose Urine UA NEG (NEG); Leukocyte Esterase Urine NEG (NEG); Nitrite Urine NEG (NEG); PH 5.5 (5.0-8.0); Specific Gravity - Urine 1.015 (1.005-1.025); Urine Blood NEG (NEG); Urine Ketones 15 MG/DL (NEG); Urine Protein NEG (NEG-TRACE)
[2021-09-22] MEDS: Piperacillin Sodium/Tazobactam 3.375 GM in 0.9 % Sodium Chloride 50 ML IV (20:22)
--- NOTE | 2021-09-22 20:23 | PM.IMHP ---
History of Present Illness Date of Service: 09/22/21 Chief Complaint: Abdominal pain 71-year-old female with a past medical history of hypertension, hyperlipidemia, prediabetes, history of diverticulitis, dysphagia, hiatal hernia, gastritis, history of Schatzki ring; history of diverticulosis presented to the hospital with a chief complaint of lower abdominal pain. Patient reported that over the past 5 days she has been having abdominal pain located in the lower abdomen; denies any diarrhea. Mentions that she has been constipated x-ray she had a bowel movement him. Also complained of subjective fevers. Reported she had nausea and vomiting. Denies any blood in the vomitus. Reports her symptoms are similar to prior episodes of diverticulitis. Denies any urinary symptoms. Denies any chest pain palpitations lightheadedness or dizziness. Review of all other systems is negative except mentioned above ER course: Per ER team patient noted to have abdominal tenderness; no peritoneal signs; CT scan showed acute diverticulitis; given Zosyn. Admitted to the hospital for further management. [facility] Medical History Anxiety Chronic constipation Hiatal hernia Hx of diverticulitis of colon Oropharyngeal dysphagia Psychotic disorder Schatzki's ring Family History Father No problems noted. Mother No problems noted. Surgical History History of appendectomy History of colonoscopy History of esophagogastroduodenoscopy (EGD) History of hysterectomy Hx of endoscopy Hx of hand surgery Hx of tonsillectomy Social History Household Members: None Housing: House Housing Other:: Two family home. lives on second floor alone Do you presently have visiting nurse or other home services: No Unable to assess alcohol history related to: Refusing to respond Alcohol intake: current Alcohol intake frequency: holidays/special occasions only Alcohol type: wine Patient Tobacco Use Status: Never used Tobacco Second Hand Smoke Exposure: No service: No Current occupational status: unemployed Current occupation: rt handed Sexual orientation: Straight/Heterosexual Meds Allergies Allergy/AdvReac Type Severity Reaction Status Date / Time No Known Allergies Allergy Verified 11/29/21 07:58 [No Known Allergies*] Active Medications: Current Medications Sodium Chloride (Ns) 1,000 mls @ 999 mls/hr IVCONT .Q1H1M JUMA Stop: 09/22/21 21:00 Piperacillin Sod/Tazobactam (Sod 3.375 gm/ Sodium Chloride) 50 mls @ 100 mls/hr IV ONCE ONE Stop: 09/22/21 20:26 Pharmacy Consult (Consult Rx Perform Med Rec) 1 each MISCELLANE ONCE PRN PRN Reason: Consult order Home Medications Medication Instructions Recorded Confirmed Last Taken Type clonidine HCl 0.1 mg tablet 1 tab PO BID 09/22/21 11/29/21 09/22/21 History lorazepam 1 mg tablet 1 mg PO QPM PRN Anxiety 09/22/21 11/29/21 Unknown History minoxidil 2.5 mg tablet 0.5 tab PO DAILY alopecia 09/22/21 11/29/21 09/22/21 History risperidone 2 mg tablet 1 tab PO BEDTIME 09/22/21 11/29/21 09/21/21 History Physical Exam Vital Signs and Narrative: Vital Signs: Last Vital Signs Temp 99.8 F 09/22/21 17:31 Pulse 90 09/22/21 17:31 Resp 18 09/22/21 17:31 BP 180/94 H 09/22/21 17:31 Pulse Ox 96 09/22/21 17:31 BMI result Body Mass Index 24.6 Gen: Appears be in no acute distress HEENT: NCAT, Moist mucosa. Pulmonary: Vesicular breath sounds, fair air entry CVS: Normal S1-S2 Abdomen: BS+, Soft, tender in the lower quadrants; no guarding no rigidity Extremities: Warm well perfused Neuro: Alert and awake. Results Labs CBC and Chem 7: 09/23/21 07:37 09/23/21 07:37 Labs: Laboratory Results - last 24 hr 09/22/21 09/22/21 09/22/21 13:00 13:00 13:00 MCV 88.1 MCH 29.2 MCHC 33.2 RDW 13.5 Plt Count 322 MPV 9.3 L Immature Gran % (Auto) 0.3 Neut % (Auto) 82.0 H Lymph % (Auto) 11.4 L [place] % (Auto) 5.8 Eos % (Auto) 0.2 Baso % (Auto) 0.3 Lymph # (Auto) 1.2 [place] # (Auto) 0.6 Eos # (Auto) 0.0 Baso # (Auto) 0.0 Abs Immat Gran (auto) 0.03 Absolute Neuts (auto) 8.4 H Absolute Nucleated RBC 0.000 Nucleated RBC % (auto) 0.0 Anion Gap 15 Estim Creat Clear Calc 57.5 Estimated GFR > 60 Random Glucose 115 Calcium 9.4 Urine Color Urine Appearance Urine pH Ur Specific [place] Urine Protein Urine Glucose (UA) Urine Ketones Urine Blood Urine Nitrite Ur Leukocyte Esterase Influenza Type A (JACIEL) Negative Influenza Type B (JACIEL) Negative Influenza A & B Note See Note 09/22/21 18:38 MCV MCH MCHC RDW Plt Count MPV Immature Gran % (Auto) Neut % (Auto) Lymph % (Auto) [place] % (Auto) Eos % (Auto) Baso % (Auto) Lymph # (Auto) [place] # (Auto) Eos # (Auto) Baso # (Auto) Abs Immat Gran (auto) Absolute Neuts (auto) Absolute Nucleated RBC Nucleated RBC % (auto) Anion Gap Estim Creat Clear Calc Estimated GFR Random Glucose Calcium Urine Color YELLOW Urine Appearance CLEAR Urine pH 5.5 Ur Specific [place] 1.015 Urine Protein NEG Urine Glucose (UA) NEG Urine Ketones 15 Urine Blood NEG Urine Nitrite NEG Ur Leukocyte Esterase NEG Influenza Type A (JACIEL) Influenza Type B (JACIEL) Influenza A & B Note Imaging Radiologist's Impressions: Impressions Abdomen/Pelvis CT 09/22/21 17:57 IMPRESSION: Findings as described above. Findings most consistent with significant diverticulitis in the sigmoid. As described some adjacent soft tissue stranding and fluid. Possible early fluid collection in the deep pelvis on the right. Attention to follow-up. This area of disease is also intimately associated with the cervical/uterine structure which demonstrates some air density. Therefore an element of fistulization cannot be excluded. Fleischner guidelines were followed. Assessment and Plan (1) Diverticulitis: Status: Acute Plan 71-year-old female with a past medical history of hypertension, hyperlipidemia, prediabetes, history of diverticulitis, dysphagia, hiatal hernia, gastritis, history of Schatzki ring; history of diverticulosis presented to the hospital with a chief complaint of lower abdominal pain. Noted to have acute diverticulitis on the CT scan. Admitted for further management. Acute diverticulitis: CT scan showed diverticulitis without any abscess or free air. Also noted free fluid in the pelvis. Patient has no peritoneal signs. Continue Zosyn General surgery consult NPO IV fluids History of Dysphagia: Likely secondary to tortuous esophagus as noted on EGD in February 2021; no evidence of stricture webbing. Patient had empiric dilation done. Speech and swallow eval Gastroenterology follow-up. History of anxiety/depression: Continue home clonidine/aspirin. DVT prophylaxis: Subcu heparin Code status: Full code Quality Stroke Does the patient have a stroke diagnosis?: No VTE Prior VTE?: No VTE Risk Level:: Medical - moderate - high VTE Device Contraindication: Treatment Not Indicated VTE Drug Contraindication: N/A - Med Ordered
[2021-09-22 20:26] VITALS: BP 150/85; PULSE 85; RESP 18; TEMP 36.9; O2SAT 95
[2021-09-22 20:32] LABS: Lactic Acid 0.5 mmol/L (0.5-2.0)
--- NOTE | 2021-09-22 20:46 | PHA.MEDREC ---
Pharmacy Consult ? Medication Reconciliation Pharmacy has completed the medication reconciliation.
[2021-09-22] MEDS: Dextrose 5 % and 0.45 % NaCl 1,000 ML 50 ML IVCONT (22:09)
[2021-09-22] MEDS: Heparin Sodium,Porcine 5,000 UNIT/ML VIAL 5000 UNIT SUBCUT (22:09)
[2021-09-22 22:14] LABS: COVID-19 Test Negative (Negative)
[2021-09-22 23:30] VITALS: BP 136/59; PULSE 81; RESP 16; TEMP 37.1; O2SAT 98
[2021-09-23] MEDS: Piperacillin Sodium/Tazobactam 3.375 GM in 0.9 % Sodium Chloride 50 ML IV ×4 (01:57→19:51)
[2021-09-23 01:59] VITALS: BP 141/68; PULSE 78
[2021-09-23] MEDS: HYDROmorphone HCl 1 MG/ML SYRINGE 0.5 MG IVPUSH ×2 (02:08→09:03)
--- NOTE | 2021-09-23 02:45 | PC.NURSE ---
Pt unhooked from monitor to ambulate to bathroom Gait even and steady Pt back on stretcher and on monitors NAD Pt medicated per MAR Will continue to monitor
[2021-09-23 05:42] VITALS: BP 126/69; PULSE 79; RESP 16; TEMP 36.7; O2SAT 98
[2021-09-23] MEDS: Heparin Sodium,Porcine 5,000 UNIT/ML VIAL 5000 UNIT SUBCUT ×3 (06:00→21:01)
[2021-09-23 06:24] VITALS: BP 164/65; PULSE 78; RESP 17; TEMP 36.9; O2SAT 98
[2021-09-23 07:51] LABS: MANUAL DIFF FLAG NO
[2021-09-23 07:55] LABS: Basophils Percent Auto 0.2 % (0-2); Eosinophils Percent Auto 0.3 % (0-4); Hematocrit 32.5 % (37.0-47.0); Hemoglobin 10.9 g/dl (12.0-16.0); Imm Gran Abs Auto 0.02 X10*3/uL (0.00-0.03); Imm Gran Pct Auto 0.2 % (0.0-0.4); Lymphocytes Absolute Auto 1.2 X10*3/uL (1.2-4.9); Lymphocytes Percent Auto 13.3 % (20-40); Mean Corpuscular HGB Conc 33.5 g/dl (31.0-35.0); Mean Corpuscular Hemoglobin 29.6 pg (27.0-33.0); Mean Corpuscular Volume 88.3 fL (80.0-98.0); Mean Platelet Volume 9.1 fL (9.4-12.3); Monocytes Absolute Auto 0.7 X10*3/uL (0.1-1.2); Monocytes Percent Auto 7.9 % (2-11); Neutrophils Absolute Auto 7.1 x10*3/uL (2.0-8.3); Neutrophils Percent Auto 78.1 % (45-73); Platelet Count 259 X10*3/uL (160-400); Red Blood Count 3.68 X10*6/uL (4.20-5.50); Red Cell Distribution Width 13.7 % (11.0-16.0); White Blood Count 9.1 X10*3/uL (4.8-10.8)
--- NOTE | 2021-09-23 08:07 | PM.CNGS ---
History of Present Illness Consult details Consult date: 09/23/21 Requesting physician: Steve Talavera Narrative: 71-year-old female patient presenting with a 5 day history of lower abdominal pain which is increasing in severity. She has a prior history of diverticulitis and feels the symptoms are quite similar. She has past history of schizoaffective disorder, constipation, diverticulitis, and depression. She reports previous hysterectomy. The abdominal pain was associated with nausea and vomiting, fever without chills. Her bowels have been difficult for the last several days, requiring a laxative to have a bowel movement. She denies any bleeding per rectum. Evaluation in the emergency department revealed a normal WBC. CT of the abdomen and pelvis did reveal a evidence of diverticulitis as well as a possible fluid collection/abscess. No free air is appreciated. Patient is admitted for IV antibiotics. Review of Systems Constitutional: Constitutional: Denies chills, Denies fever(s), Denies headache(s) and Denies poor appetite ENT: Denies dizziness and Denies headache(s) Cardiovascular: Cardiovascular: Denies chest pain, Denies rapid heart rate, Denies palpitations and Denies slow heart rate Respiratory: Respiratory: Denies chest congestion, Denies cough, Denies pain on inspiration and Denies wheezing Gastrointestinal: Gastrointestinal: Reports abdominal pain, Denies bloating, Denies change in stool character, Reports constipation, Denies diarrhea, Reports nausea, Reports vomiting and Denies hematemesis Musculoskeletal: Musculoskeletal: Denies back pain, Denies arthralgias, Denies joint swelling and Denies numbness Integumentary/Breasts: Skin/Breast: Denies change in pigmentation, Denies erythema and Denies rash Neurologic: Denies dizziness, Denies headache(s) and Denies numbness Psychiatric: Psychiatric: Reports anxiety and Reports depression Endocrine: Endocrine: Denies palpitations Hematologic/Lymphatic: Hematologic/Lymphatic: Denies easy bleeding, Denies easy bruising and Denies lymphadenopathy Allergic/Immunologic: Allergic/Immunologic: Denies wheezing PMFSH Past Medical History Medical History Anxiety Chronic constipation Hiatal hernia Hx of diverticulitis of colon Oropharyngeal dysphagia Psychotic disorder Schatzki's ring Family History Family History Father No problems noted. Mother No problems noted. Surgical History Surgical History History of appendectomy History of colonoscopy History of esophagogastroduodenoscopy (EGD) History of hysterectomy Hx of endoscopy Hx of hand surgery Hx of tonsillectomy Social History Social History Household Members: None Housing: House Housing Other:: Two family home. lives on second floor alone Do you presently have visiting nurse or other home services: No Unable to assess alcohol history related to: Refusing to respond Alcohol intake: current Alcohol intake frequency: holidays/special occasions only Alcohol type: wine Patient Tobacco Use Status: Never used Tobacco Second Hand Smoke Exposure: No Advance Directives: No Advance Directives Information Provided: No service: No Current occupational status: employed Current occupation: rt handed Sexual orientation: Straight/Heterosexual Meds Allergies Allergy/AdvReac Type Severity Reaction Status Date / Time No Known Allergies Allergy Verified 09/02/21 09:47 [No Known Allergies*] Active Medications: Current Medications Acetaminophen (Acetaminophen 325 Mg Tablet) 650 mg PO Q6H PRN PRN Reason: Pain, Mild (Pain Scale 1-3) Clonidine HCl (Clonidine Hcl 0.1 Mg Tablet) 0.1 mg PO BID [facility]; Protocol Heparin Sodium (Porcine) (Heparin Sodium,Porcine 5,000 Unit/Ml Vial) 5,000 unit SUBCUT Q8H [facility] Last Admin: 09/23/21 06:00 Dose: 5,000 unit Documented by: Hydromorphone HCl (Hydromorphone Hcl 1 Mg/Ml Syringe) 0.5 mg IVPUSH Q4H PRN; Protocol PRN Reason: Breakthrough Pain Last Admin: 09/23/21 02:08 Dose: 0.5 mg Documented by: Dextrose/Sodium Chloride (D51/2ns) 1,000 mls @ 50 mls/hr IVCONT .Q20H [facility] Last Admin: 09/22/21 22:09 Dose: 50 mls/hr Documented by: Piperacillin Sod/Tazobactam (Sod 3.375 gm/ Sodium Chloride) 50 mls @ 100 mls/hr IV Q6H [facility] Last Infusion: 09/23/21 02:30 Dose: Infused Documented by: Lorazepam (Lorazepam 1 Mg Tablet) 1 mg PO DAILY PRN PRN Reason: Anxiety Melatonin (Melatonin 3 Mg Tablet) 6 mg PO BEDTIME PRN PRN Reason: Insomnia Minoxidil (Minoxidil 2.5 Mg Tablet) 1.25 mg PO DAILY [facility] Pharmacy Consult (Consult Rx Perform Med Rec) 1 each MISCELLANE ONCE PRN PRN Reason: Consult order Risperidone (Risperidone 2 Mg Tablet) 2 mg PO BEDTIME [facility] Senna (Sennosides 8.6 Mg Tablet) 17.2 mg PO BEDTIME PRN PRN Reason: Constipation Senna/Docusate Sodium (Sennosides/Docusate Sodium Tablet) 1 tab PO BEDTIME [facility] Sodium Chloride (0.9 % Sodium Chloride Flush 3 Ml Syringe) 3 ml IVFLUSH QSHIFT [facility] Last Admin: 09/23/21 00:18 Dose: Not Given Documented by: Home Medications Medication Instructions Recorded Confirmed Last Taken Type clonidine HCl 0.1 mg tablet 1 tab PO BID 09/22/21 09/22/21 09/22/21 History lorazepam 1 mg tablet 1 mg PO QPM PRN 09/22/21 09/22/21 Unknown History minoxidil 2.5 mg tablet 0.5 tab PO DAILY 09/22/21 09/22/21 09/22/21 History risperidone 2 mg tablet 1 tab PO BEDTIME 09/22/21 09/22/21 09/21/21 History sennosides 8.6 mg-docusate sodium 1 tab PO BEDTIME 09/22/21 09/22/21 09/21/21 History 50 mg tablet (Senna-S) Physical Exam Vital Signs: Vital Signs: Last Vital Signs Temp 98.5 F 09/23/21 06:24 Pulse 78 09/23/21 06:24 Resp 17 09/23/21 06:24 BP 164/65 H 09/23/21 06:24 Pulse Ox 98 09/23/21 06:24 BMI result Body Mass Index 24.6 Const: General: cooperative and well developed Nutritional Appearance: well nourished Orientation/consciousness: patient oriented x3 Eyes: Sclerae: sclerae normal EOM: EOMs intact bilaterally Neck: Neck: Yes normal visual inspection Resp: Effort & Inspection: normal respiratory effort, no cough, no respiratory distress and no stridor Cardio: Jugular venous distension: no JVD GI: Inspection: Yes normal to inspection Palpation (GI): Soft to palpation, Tenderness to palpation present (GI), no guarding, not rigid and No Rebound tenderness present Percussion: Yes normal to percussion Auscultation: normal bowel sounds Rectal Exam - Female: deferred Skin: General skin exam: no rashes or lesions noted Neuro: General: patient oriented x3 and no focal motor deficits Extrem: General: Yes full ROM and Yes no clubbing, cyanosis or edema Psych: Appearance: grossly normal Results Labs Result diagrams: 09/23/21 07:37 09/22/21 13:00 Labs: Abnormal lab results 09/22/21 09/23/21 Range/Units 13:00 07:37 RBC 3.68 L (4.20-5.50) X10*6/uL Hgb 10.9 L (12.0-16.0) g/dl Hct 32.5 L (37.0-47.0) % MPV 9.3 L 9.1 L (9.4-12.3) fL Neut % (Auto) 82.0 H 78.1 H (45-73) % Lymph % (Auto) 11.4 L 13.3 L (20-40) % Absolute Neuts (auto) 8.4 H (2.0-8.3) x10*3/uL Short CBC 09/22/21 09/23/21 Range/Units 13:00 07:37 WBC 10.2 9.1 (4.8-10.8) X10*3/uL Hgb 12.3 10.9 L (12.0-16.0) g/dl Hct 37.1 32.5 L (37.0-47.0) % Plt Count 322 259 (160-400) X10*3/uL BMP 09/22/21 13:00 Sodium 139 Potassium 4.4 Chloride 105 Carbon Dioxide 23 BUN 9 D Creatinine 0.73 Calcium 9.4 Urine 09/22/21 Range/Units 18:38 Urine Color YELLOW Urine Appearance CLEAR Urine pH 5.5 (5.0-8.0) Ur Specific [place] 1.015 (1.005-1.025) Urine Protein NEG (NEG-TRACE) MG/DL Urine Glucose (UA) NEG (NEG) MG/DL All other labs normal. Assessment and Plan (1) Diverticulitis: Status: Acute Plan 71-year-old female patient presenting with complaints of lower abdominal pain over the past 5 days, increasing in severity, associated with nausea and vomiting. Patient has a prior history of diverticulitis and this appears to be recurrent episode. CT confirms evidence of diverticulitis with a possible fluid collection. There is no evidence of free air. Agree with current management with Zosyn. Will monitor the patient's progress during this hospitalization. No surgical intervention recommended at this time unless symptoms worsen or do not respond to antibiotics. Procedures Date of Service Date of Service: 09/23/21
[2021-09-23 08:16] LABS: Anion Gap 12 (12-20); Blood Urea Nitrogen 8 mg/dL (9-16); Calcium 8.4 mg/dL (8.4-10.2); Carbon Dioxide 20 mmol/L (22-29); Chloride 109 mmol/L (96-108); Creatinine Clr Calc Pharmacy 68.9; Estimated Glomerular Filt Rate > 60; Glucose Random 125 mg/dL (60-115); Sodium 137 mmol/L (135-145)
[2021-09-23] MEDS: minoxidiL 2.5 MG TABLET 1.25 MG PO (08:32)
[2021-09-23] MEDS: cloNIDine HCL 0.1 MG TABLET PO ×2 (08:33→19:49)
--- NOTE | 2021-09-23 11:25 | HO.PM.IMPN ---
Subjective Subjective Date of Service: 09/23/21 Interval History: Seen in follow-up for acute diverticulitis, interval history; 11/21 pain, no nausea vomiting. This is not her 1st episode of diverticulitis Review of Systems no nausea vomiting has abdominal pain no fever Physical Exam Vital Signs: Vital Signs: Last Vital Signs Temp 98.5 F 09/23/21 06:24 Pulse 78 09/23/21 06:24 Resp 17 09/23/21 06:24 BP 164/65 H 09/23/21 06:24 Pulse Ox 98 09/23/21 06:24 BMI result Body Mass Index 24.6 Const: Other: General: AO X 3, no acute distress Resp: CTA bilateral CVS: S1,S2,RRR GI: +BS, mild tenderness in the low abdomen., no distention Skin: No rash Neuro: motor grossly intact Psych: appropriate affect Objective Data Active Medications Acetaminophen (Acetaminophen 325 Mg Tablet) 650 mg PO Q6H PRN PRN Reason: Pain, Mild (Pain Scale 1-3) Clonidine HCl (Clonidine Hcl 0.1 Mg Tablet) 0.1 mg PO BID [facility]; Protocol Last Admin: 09/23/21 08:33 Dose: 0.1 mg Documented by: JEZ Heparin Sodium (Porcine) (Heparin Sodium,Porcine 5,000 Unit/Ml Vial) 5,000 unit SUBCUT Q8H [facility] Last Admin: 09/23/21 06:00 Dose: 5,000 unit Documented by: HARLAN Hydromorphone HCl (Hydromorphone Hcl 1 Mg/Ml Syringe) 0.5 mg IVPUSH Q4H PRN; Protocol PRN Reason: Breakthrough Pain Last Admin: 09/23/21 09:03 Dose: 0.5 mg Documented by: JEZ Dextrose/Sodium Chloride (D51/2ns) 1,000 mls @ 50 mls/hr IVCONT .Q20H [facility] Last Admin: 09/22/21 22:09 Dose: 50 mls/hr Documented by: HARLAN Piperacillin Sod/Tazobactam (Sod 3.375 gm/ Sodium Chloride) 50 mls @ 100 mls/hr IV Q6H [facility] Last Infusion: 09/23/21 09:36 Dose: 0 mls/hr Documented by: JEZ Lorazepam (Lorazepam 1 Mg Tablet) 1 mg PO DAILY PRN PRN Reason: Anxiety Melatonin (Melatonin 3 Mg Tablet) 6 mg PO BEDTIME PRN PRN Reason: Insomnia Minoxidil (Minoxidil 2.5 Mg Tablet) 1.25 mg PO DAILY [facility] Last Admin: 09/23/21 08:32 Dose: 1.25 mg Documented by: JEZ Pharmacy Consult (Consult Rx Perform Med Rec) 1 each MISCELLANE ONCE PRN PRN Reason: Consult order Risperidone (Risperidone 2 Mg Tablet) 2 mg PO BEDTIME [facility] Senna (Sennosides 8.6 Mg Tablet) 17.2 mg PO BEDTIME PRN PRN Reason: Constipation Senna/Docusate Sodium (Sennosides/Docusate Sodium Tablet) 1 tab PO BEDTIME [facility] Sodium Chloride (0.9 % Sodium Chloride Flush 3 Ml Syringe) 3 ml IVFLUSH QSHIFT [facility] Last Admin: 09/23/21 08:34 Dose: Not Given Documented by: JEZ Non-Admin Reason: IV Running Labs CBC & Chem 7: 09/23/21 07:37 09/23/21 07:37 Labs: Laboratory Results - last 24 hr 09/22/21 09/22/21 09/22/21 13:00 13:00 13:00 MCV 88.1 MCH 29.2 MCHC 33.2 RDW 13.5 Plt Count 322 MPV 9.3 L Immature Gran % (Auto) 0.3 Neut % (Auto) 82.0 H Lymph % (Auto) 11.4 L [place] % (Auto) 5.8 Eos % (Auto) 0.2 Baso % (Auto) 0.3 Lymph # (Auto) 1.2 [place] # (Auto) 0.6 Eos # (Auto) 0.0 Baso # (Auto) 0.0 Abs Immat Gran (auto) 0.03 Absolute Neuts (auto) 8.4 H Absolute Nucleated RBC 0.000 Nucleated RBC % (auto) 0.0 Anion Gap 15 Estim Creat Clear Calc 57.5 Estimated GFR > 60 Random Glucose 115 Lactic Acid Calcium 9.4 Urine Color Urine Appearance Urine pH Ur Specific [place] Urine Protein Urine Glucose (UA) Urine Ketones Urine Blood Urine Nitrite Ur Leukocyte Esterase COVID-19 (SUMANTH) COVID-19 Clin Com Influenza Type A (JACIEL) Negative Influenza Type B (JACIEL) Negative Influenza A & B Note See Note 09/22/21 09/22/21 09/22/21 18:38 20:16 21:53 MCV MCH MCHC RDW Plt Count MPV Immature Gran % (Auto) Neut % (Auto) Lymph % (Auto) [place] % (Auto) Eos % (Auto) Baso % (Auto) Lymph # (Auto) [place] # (Auto) Eos # (Auto) Baso # (Auto) Abs Immat Gran (auto) Absolute Neuts (auto) Absolute Nucleated RBC Nucleated RBC % (auto) Anion Gap Estim Creat Clear Calc Estimated GFR Random Glucose Lactic Acid 0.5 Calcium Urine Color YELLOW Urine Appearance CLEAR Urine pH 5.5 Ur Specific [place] 1.015 Urine Protein NEG Urine Glucose (UA) NEG Urine Ketones 15 Urine Blood NEG Urine Nitrite NEG Ur Leukocyte Esterase NEG COVID-19 (SUMANTH) Negative COVID-19 Clin Com See Note Influenza Type A (JACIEL) Influenza Type B (JACIEL) Influenza A & B Note 09/23/21 09/23/21 07:37 07:37 MCV 88.3 MCH 29.6 MCHC 33.5 RDW 13.7 Plt Count 259 MPV 9.1 L Immature Gran % (Auto) 0.2 Neut % (Auto) 78.1 H Lymph % (Auto) 13.3 L [place] % (Auto) 7.9 Eos % (Auto) 0.3 Baso % (Auto) 0.2 Lymph # (Auto) 1.2 [place] # (Auto) 0.7 Eos # (Auto) 0.0 Baso # (Auto) 0.0 Abs Immat Gran (auto) 0.02 Absolute Neuts (auto) 7.1 Absolute Nucleated RBC 0.000 Nucleated RBC % (auto) 0.0 Anion Gap 12 Estim Creat Clear Calc 68.9 Estimated GFR > 60 Random Glucose 125 H Lactic Acid Calcium 8.4 D Urine Color Urine Appearance Urine pH Ur Specific [place] Urine Protein Urine Glucose (UA) Urine Ketones Urine Blood Urine Nitrite Ur Leukocyte Esterase COVID-19 (SUMANTH) COVID-19 Clin Com Influenza Type A (JACIEL) Influenza Type B (JACIEL) Influenza A & B Note Assessment and Plan (1) Diverticulitis: Status: Acute (2) Lower abdominal pain: Status: Acute Plan 71-year-old female with a past medical history of hypertension, hyperlipidemia, prediabetes, history of diverticulitis, dysphagia, hiatal hernia, gastritis, history of Schatzki ring; history of diverticulosis presented to the hospital with a chief complaint of lower abdominal pain.? Noted to have acute diverticulitis on the CT scan.? Admitted for further management.? Acute diverticulitis: CT scan showed diverticulitis, CT scan shows some fluid collection but no free air. - Continue IV antibiotics (Zosyn) - surgery is following and does not recommend int-ervention at this time. - IV fluid while NPO. - IV Dilaudid for pain History of Dysphagia:? Likely secondary to tortuous esophagus as noted on EGD in February 2021; no evidence of stricture webbing.? Patient had empiric dilation done. Speech and swallow eval Gastroenterology follow-up. History of anxiety/depression:? Continue home clonidine/aspirin.? DVT prophylaxis:? Subcu heparin Code status:? Full code need for inpatient: Need for IV antibiotics for extensive diverticular lightest while NPO and need to monitor for response. Quality Stroke Does the patient have a stroke diagnosis?: No VTE Prior VTE?: No VTE Risk Level:: Medical - moderate - high VTE Device Contraindication: Treatment Not Indicated VTE Drug Contraindication: N/A - Med Ordered
[2021-09-23 12:04] VITALS: BP 102/48; PULSE 67; RESP 14; TEMP 36.5; O2SAT 97
--- NOTE | 2021-09-23 13:58 | PC.NURSE ---
1000 Medicated with IV Dilaudid at 0900 with good effect. Remains NPO. VSS Amb to bathroom. cont with IV zosyn.
[2021-09-23 17:37] LABS: Glucose, Whole Blood 109 mg/dL (60-115)
[2021-09-23 18:13] VITALS: BP 150/69; PULSE 73; RESP 18; TEMP 37.1
[2021-09-23] MEDS: Dextrose 5 % and 0.45 % NaCl 1,000 ML 50 ML IVCONT (18:21)
[2021-09-23] MEDS: Sennosides/Docusate Sodium TABLET 1 TAB PO (19:49)
[2021-09-23] MEDS: risperiDONE 2 MG TABLET PO (19:49)
[2021-09-24 00:08] VITALS: BP 96/56; PULSE 76; RESP 18; TEMP 36.8; O2SAT 97
[2021-09-24] MEDS: Piperacillin Sodium/Tazobactam 3.375 GM in 0.9 % Sodium Chloride 50 ML IV ×2 (01:07→09:14)
[2021-09-24] MEDS: HYDROmorphone HCl 1 MG/ML SYRINGE 0.5 MG IVPUSH (01:30)
[2021-09-24] MEDS: 0.9 % Sodium Chloride Flush 3 ML SYRINGE IVFLUSH ×2 (01:38→09:14)
[2021-09-24] MEDS: Heparin Sodium,Porcine 5,000 UNIT/ML VIAL 5000 UNIT SUBCUT (06:46)
--- NOTE | 2021-09-24 06:51 | PC.NURSE ---
Patient c/o abdominal pain. Pain medication administered with good effect . Will continued to monitor.
[2021-09-24 08:17] VITALS: BP 147/79
--- NOTE | 2021-09-24 09:08 | PM.PNGS ---
Subjective Subjective Date of Service: 09/24/21 Interval history: Patient feels much improved with abdominal pain down to 4/10. She feels ready for discharge for home but has not eaten yet. She denies fever or chills. Physical Exam Vital Signs: Vital Signs: Last Vital Signs Temp 98.2 F 09/24/21 00:08 Pulse 76 09/24/21 00:08 Resp 18 09/24/21 00:08 BP 147/79 H 09/24/21 08:17 Pulse Ox 97 09/24/21 00:08 BMI result Body Mass Index 24.6 Const: General: no acute distress Nutritional Appearance: well nourished Orientation/consciousness: patient oriented x3 Limitations: no limitations Resp: Effort & Inspection: normal respiratory effort, no cough, respiratory effort not decreased and no respiratory distress GI: Palpation (GI): Soft to palpation, Tenderness to palpation present (GI) in the LLQ; Negative for with no rebound tenderness, no guarding and not rigid Percussion: Yes normal to percussion Auscultation: normal bowel sounds Skin: General skin exam: no rashes or lesions noted Neuro: General: patient oriented x3 Extrem: General: No edema Objective Data Active Medications Acetaminophen (Acetaminophen 325 Mg Tablet) 650 mg PO Q6H PRN PRN Reason: Pain, Mild (Pain Scale 1-3) Clonidine HCl (Clonidine Hcl 0.1 Mg Tablet) 0.1 mg PO BID [facility]; Protocol Last Admin: 09/23/21 19:49 Dose: 0.1 mg Documented by: INDERJIT Heparin Sodium (Porcine) (Heparin Sodium,Porcine 5,000 Unit/Ml Vial) 5,000 unit SUBCUT Q8H [facility] Last Admin: 09/24/21 06:46 Dose: 5,000 unit Documented by: JEREMIAS Hydromorphone HCl (Hydromorphone Hcl 1 Mg/Ml Syringe) 0.5 mg IVPUSH Q4H PRN; Protocol PRN Reason: Breakthrough Pain Last Admin: 09/24/21 01:30 Dose: 0.5 mg Documented by: JEREMIAS Dextrose/Sodium Chloride (D51/2ns) 1,000 mls @ 50 mls/hr IVCONT .Q20H [facility] Last Admin: 09/23/21 18:21 Dose: 50 mls/hr Documented by: INDERJIT Piperacillin Sod/Tazobactam (Sod 3.375 gm/ Sodium Chloride) 50 mls @ 100 mls/hr IV Q6H [facility] Last Infusion: 09/24/21 06:29 Dose: 100 mls/hr Documented by: JEREMIAS Lorazepam (Lorazepam 1 Mg Tablet) 1 mg PO DAILY PRN PRN Reason: Anxiety Melatonin (Melatonin 3 Mg Tablet) 6 mg PO BEDTIME PRN PRN Reason: Insomnia Minoxidil (Minoxidil 2.5 Mg Tablet) 1.25 mg PO DAILY [facility] Last Admin: 09/23/21 08:32 Dose: 1.25 mg Documented by: JEZ Pharmacy Consult (Consult Rx Perform Med Rec) 1 each MISCELLANE ONCE PRN PRN Reason: Consult order Risperidone (Risperidone 2 Mg Tablet) 2 mg PO BEDTIME [facility] Last Admin: 09/23/21 19:49 Dose: 2 mg Documented by: INDERJIT Senna (Sennosides 8.6 Mg Tablet) 17.2 mg PO BEDTIME PRN PRN Reason: Constipation Senna/Docusate Sodium (Sennosides/Docusate Sodium Tablet) 1 tab PO BEDTIME [facility] Last Admin: 09/23/21 19:49 Dose: 1 tab Documented by: INDERJIT Sodium Chloride (0.9 % Sodium Chloride Flush 3 Ml Syringe) 3 ml IVFLUSH QSHIFT [facility] Last Admin: 09/24/21 01:38 Dose: 3 ml Documented by: JEREMIAS Labs CBC & Chem 7: 09/23/21 07:37 09/23/21 07:37 Labs: Laboratory Results - last 24 hr 09/23/21 17:33 POC Glucose 109 Microbiology Microbiology Results: Microbiology 09/22/21 20:16 Blood Culture - Preliminary Blood - Venous No growth after 24 hours. 09/22/21 20:16 Blood Culture - Preliminary Blood - Venous No growth after 24 hours. Procedures Date of Service Date of Service: 09/24/21 Progress Note: A&P Assessment and plan (1) Diverticulitis: Status: Acute Plan 71-year-old female patient with a recurrent episode of sigmoid diverticulitis. She does appear to be improving with the IV antibiotics. I believe she can start a diet today. Discharge to home with oral antibiotics if tolerated as per primary team. I will be able to follow her up in the office in 1-2 weeks after discharge. Time Spent With Patient Time: Total time spent is greater than 50% in coordination of care (as documented) at patient's floor/unit and/or counseling patient: Quality Stroke Does the patient have a stroke diagnosis?: No VTE Prior VTE?: No VTE Risk Level:: Medical - moderate - high VTE Device Contraindication: Treatment Not Indicated VTE Drug Contraindication: N/A - Med Ordered
[2021-09-24] MEDS: minoxidiL 2.5 MG TABLET 1.25 MG PO (09:14)
[2021-09-24] MEDS: cloNIDine HCL 0.1 MG TABLET PO (09:14)
[2021-09-24 10:43] VITALS: BP 141/61; PULSE 63; RESP 20; TEMP 36.8; O2SAT 97
--- NOTE | 2021-09-24 10:45 | PM.DS ---
DS: Providers Provider Date of Service: 09/24/21 Date of admission: 09/22/21 20:21 Primary care physician: Sawyer Mckenzie MD Consults: 09/22/21 20:21 Consult to General Surgery Routine Consulting Provider: Mike Chappell Reason for consultation: Diverticulitis-recurrent; free fluid in the pelvis DS: Diagnosis Discharge Diagnosis (1) Diverticulitis: Status: Resolved DS: Summary Hospital Course Hospital Course: 71-year-old female with a past medical history of hypertension, hyperlipidemia, prediabetes, history of diverticulitis, dysphagia, hiatal hernia, gastritis, history of Schatzki ring; history of diverticulosis presented to the hospital with a chief complaint of lower abdominal pain.? Noted to have acute diverticulitis on the CT scan.? Admitted for further management.? Acute diverticulitis: CT scan showed diverticulitis, ? CT scan shows some fluid collection but no free air. She was treated with Zosyn in the hospital, IV fluid. She was evaluated by surgery and there was no indication for Procedure. Her diet has been advanced and she is tolerating presently has no fever or chill and her pain has significantly improved therefore will transition to oral Augmentin and Flagyl to complete a 7 day course of antibiotic. History of Dysphagia:She is swallowing History of anxiety/depression:? Continue home clonidine/aspirin.? Time Spent with Patient Time attestation: Total time spent providing and/or coordinating discharge services: Discharge coordination time: Greater than 30 minutes Quality: Safe Use of Opioids Does Pt have an Active Cancer Diagnosis on the Problem List?: No Quality: Stroke Does the patient have a stroke diagnosis?: No Physical Exam Vital Signs: Vital Signs: Last Vital Signs Temp 98.3 F 09/24/21 10:43 Pulse 63 09/24/21 10:43 Resp 20 09/24/21 10:43 BP 141/61 H 09/24/21 10:43 Pulse Ox 97 09/24/21 10:43 BMI result Body Mass Index 24.6 DS: Data Data Completed and Pending Labs on day of discharge: Laboratory Results - last 24 hr 09/23/21 17:33 POC Glucose 109 Preliminary micro results at discharge 09/22/21 20:16 Blood Culture - Preliminary Blood - Venous No growth after 24 hours. 09/22/21 20:16 Blood Culture - Preliminary Blood - Venous No growth after 24 hours. Discharge Plan Discharge Anticipated Discharge Date/Time: 09/24/21 10:26 Patient Disposition: Home, Self-Care Discharge Diagnosis: Acute diverticulitis Referrals: Sawyer Mckenzie MD [Primary Care Provider] - 1 Week Discharge Medications: New oxycodone 5 mg tablet 5 mg PO Q6H PRN (Reason: pain (scale score 7-10)) Qty: 10 0RF Continued clonidine HCl 0.1 mg tablet 1 tab PO BID sennosides-docusate sodium [Senna-S] 8.6-50 mg tablet 1 tab PO BEDTIME minoxidil 2.5 mg tablet 0.5 tab PO DAILY risperidone 2 mg tablet 1 tab PO BEDTIME lorazepam 1 mg tablet 1 mg PO QPM PRN (Reason: Anxiety) Discharge Orders: Discharge Order (Routine); Ordered 09/24/21 Ordered By: Jose A Zuluaga Activity on Discharge: As tolerated Stand Alone Forms: Patient Portal Discharge page Care Plan Goals: full recovery from diverticulitis Health Concerns: diverticulitis Plan of Treatment: take antibiotics as recommended and follow up with your doctor in a week Assessment: as above Patient Instructions: Diverticulitis Diet (DC) Discharge Date/Time: 09/24/21 16:40
[2021-09-24 11:16] LABS: Glucose, Whole Blood 101 mg/dL (60-115)
[2021-09-24 11:42] VITALS: BP 133/64; PULSE 63; RESP 20; TEMP 36.7; O2SAT 97
--- NOTE | 2021-09-24 12:39 | MHC.CM.PN ---
PT REPORTS SHE LIVES ALONE AND IS INDEPENDENT WITH CARE PT DENIES USE OF DME OR HOME SERVICES PT DOES NOT HAVE A HCP AND DECLINES TO COMPLETE ONE TODAY PT CONFIRMS HER PCP IS SHI CONNORS PT REPORTS SHE IS COVID VACCINATED X 3 IMM DELIVERED PT WILL DC HOME TODAY WITH NO SERVICES PT REPORTS SHE WILL SELF ARRANGE TRANSPORT
== END 2021-09-24 16:40 | disposition home or self-care (01) | DRG 392 ==
LOC: HO.ED 20:09 → HO.EDOVER 20:42 → HO.IMC 09-24 07:44
PROVIDERS: Physician Assistant; Admitting Provider Hospitalist; Emergency Provider Internal Medicine; PCP Internal Medicine; Visit Provider Internal Medicine
DX: K57.92 Diverticulitis of intestine, part unspecified, without perforation or abscess without bleeding (principal); F25.9 Schizoaffective disorder, unspecified; E78.5 Hyperlipidemia, unspecified; I10 Essential (primary) hypertension; Z20.822 Contact with and (suspected) exposure to COVID-19; Z79.899 Other long term (current) drug therapy
CPT/HCPCS: 36415; 74176; 80048; 81003; 82947; 83605; 85025; 87040; 87502; 87635; 96361; 96365; 96375; 99285; 99291; J1170; J2270; J2405; J2543

== ENCOUNTER → 2021-09-30 13:02 | Outpatient (BNVA) | payer SELFPAY | PROVIDERS: PCP Internal Medicine; Referring Provider Internal Medicine; Visit Provider Internal Medicine Gastroenterology | DX: K57.92 Diverticulitis of intestine, part unspecified, without perforation or abscess without bleeding (principal); K59.09 Other constipation; K22.2 Esophageal obstruction; R10.30 Lower abdominal pain, unspecified; R63.4 Abnormal weight loss; R13.12 Dysphagia, oropharyngeal phase; Z86.010 Personal history of colon polyps | CPT/HCPCS: 99212 ==

== ENCOUNTER → 2021-10-28 12:52 | Outpatient (BNVA) | payer SELFPAY | PROVIDERS: PCP Internal Medicine; Visit Provider Internal Medicine Gastroenterology | DX: R13.12 Dysphagia, oropharyngeal phase (principal); K22.2 Esophageal obstruction; K59.09 Other constipation; Z87.19 Personal history of other diseases of the digestive system; Z86.010 Personal history of colon polyps | CPT/HCPCS: 99212 ==

== ENCOUNTER 2021-10-29 11:30 | Outpatient (REF) | payer MEDICARE, SELFPAY ==
--- NOTE | ~2021-10-29 | CT_ITS ---
EXAMINATION: CT ABDOMEN AND PELVIS WITHOUT CONTRAST CLINICAL INFORMATION: Abdominal pain COMPARISON: Previous CT of the abdomen and pelvis most recent September 2021 TECHNIQUE: Multidetector volumetric imaging was performed from the superior aspect of the liver through the pubic symphysis. Sagittal and coronal reformatted images were obtained on the technologist's workstation. This CT examination was performed using dose optimization techniques as appropriate, variously including the following: *Automated exposure control *Adjustment of mA and/or kV according to patient size (this includes techniques or standardized protocols for targeted exams where dose is matched to indication/reason for exam; i.e. extremities or head) *Use of iterative reconstruction technique DLP: 311 mGy-cm FINDINGS: LUNG BASES: There is a 2 mm right lower lobe nodule axial image 1 series 3 that is stable. The lung bases are otherwise clear. LIVER, GALLBLADDER, AND BILIARY TREE: The liver is normal in size, shape, and attenuation. No focal hepatic lesion or biliary ductal dilatation is present. The gallbladder is unremarkable with no evidence of radiopaque gallstones, gallbladder wall thickening, or obvious pericholecystic inflammatory changes. PANCREAS: Unremarkable. SPLEEN: Unremarkable. ADRENAL GLANDS: Unremarkable. KIDNEYS AND URETERS: The kidneys are normal in size, shape, and attenuation. No hydronephrosis, hydroureter, or calculi seen. No perinephric stranding. BLADDER: Unremarkable. GASTROINTESTINAL TRACT: There is significant interval improvement in sigmoid diverticulitis compared to September 2021 exam. There is still an area of wall thickening and of the left side of the proximal sigmoid colon and some stranding of the adjacent fat. No evidence of obstruction, perforation or abscess is seen. Small and large bowel is otherwise normal. The appendix is not seen. ABDOMINAL WALL: No significant hernia is appreciated. LYMPH NODES: Normal. VASCULAR: Unremarkable. PELVIC VISCERA: The uterus appears to have been removed. No pelvic mass. OSSEOUS STRUCTURES: There are degenerative changes of the spine. CT/CT abdomen pelvis wo con IMPRESSION: Improving sigmoid diverticulitis from September 2021 exam. Fleischner guidelines were followed.
[2021-10-29] MEDS: Barium Sulfate Oral (Mocha) 450 ML ORAL.SUSP 900 ML PO (14:12)
== END 2021-10-29 11:31 | disposition home or self-care (01) ==
LOC: HO.CT 11:30
PROVIDERS: Visit Provider Internal Medicine Gastroenterology
DX: Z87.19 Personal history of other diseases of the digestive system (principal)
CPT/HCPCS: 74176

== ENCOUNTER 2022-02-24 12:27 | Outpatient (REF) | payer MEDICARE, SELFPAY ==
[2022-02-24 12:35] LABS: MANUAL DIFF FLAG NO
[2022-02-24 12:50] LABS: Basophils Percent Auto 0.8 % (0-2); Eosinophils Absolute Auto 0.1 X10*3/uL (0.0-0.4); Eosinophils Percent Auto 2.8 % (0-4); Hematocrit 37.2 % (37.0-47.0); Hemoglobin 12.5 g/dl (12.0-16.0); Lymphocytes Absolute Auto 1.1 X10*3/uL (1.2-4.9); Lymphocytes Percent Auto 27.6 % (20-40); Mean Corpuscular HGB Conc 33.6 g/dl (31.0-35.0); Mean Corpuscular Hemoglobin 29.9 pg (27.0-33.0); Mean Platelet Volume 9.2 fL (9.4-12.3); Monocytes Absolute Auto 0.7 X10*3/uL (0.1-1.2); Monocytes Percent Auto 16.5 % (2-11); Neutrophils Absolute Auto 2.1 x10*3/uL (2.0-8.3); Neutrophils Percent Auto 52.3 % (45-73); Platelet Count 221 X10*3/uL (160-400); Red Blood Count 4.18 X10*6/uL (4.20-5.50); Red Cell Distribution Width 13.5 % (11.0-16.0)
[2022-02-24 12:55] LABS: COVID-19 Test Positive (Negative); IDNOW Serial# 16C4AD1C
[2022-02-24 13:37] LABS: C Reactive Protein 2.35 mg/dL (< or = 0.50)
[2022-02-24 13:51] LABS: Ferritin 135 ng/mL (10-250); Vitamin D 25-OH Total 25.4 ng/mL (>30)
== END 2022-02-24 12:28 | disposition home or self-care (01) ==
LOC: HO.LAB 12:27
PROVIDERS: Internal Medicine; PCP Internal Medicine; Visit Provider Internal Medicine Gastroenterology
DX: K21.9 Gastro-esophageal reflux disease without esophagitis (principal); Z20.822 Contact with and (suspected) exposure to COVID-19
CPT/HCPCS: 36415; 82306; 82728; 85025; 86140; 87635; C9803

== ENCOUNTER 2022-02-24 12:39 | Outpatient (REF) | payer MEDICARE, SELFPAY | END 2022-02-24 12:40 | disposition home or self-care (01) | LOC: HO.LAB 12:39 | PROVIDERS: Visit Provider Internal Medicine | DX: Z13.89 Encounter for screening for other disorder (principal) ==

== ENCOUNTER → 2022-08-25 11:25 | Outpatient (BNVA) | payer MEDICARE, SELFPAY | PROVIDERS: PCP Internal Medicine; Visit Provider Internal Medicine Gastroenterology ==

== ENCOUNTER 2022-08-25 12:27 | Outpatient (REF) | payer MEDICARE, SELFPAY ==
--- NOTE | ~2022-08-25 | XR_ITS ---
EXAMINATION: XR ABDOMEN KUB CLINICAL INDICATION: Constipation COMPARISON: None available. TECHNIQUE: AP view of the abdomen. FINDINGS: The bowel gas pattern is normal. There does not appear to be a large amount of stool in the colon. There are no dilated loops of bowel or evidence of free air. There is a diverticulosis. Small pelvic calcifications suggestive of calcified phleboliths. Mild degenerative changes of the spine and hip joints. XR/XR KUB IMPRESSION: No evidence of constipation or obstruction.
[2022-08-25 12:40] LABS: MANUAL DIFF FLAG NO
[2022-08-25 13:04] LABS: Basophils Percent Auto 0.7 % (0-2); Eosinophils Absolute Auto 0.1 X10*3/uL (0.0-0.4); Eosinophils Percent Auto 2.8 % (0-4); Hematocrit 40.1 % (37.0-47.0); Hemoglobin 13.7 g/dl (12.0-16.0); Imm Gran Abs Auto 0.01 X10*3/uL (0.00-0.03); Imm Gran Pct Auto 0.2 % (0.0-0.4); Lymphocytes Absolute Auto 1.5 X10*3/uL (1.2-4.9); Mean Corpuscular HGB Conc 34.2 g/dl (31.0-35.0); Mean Corpuscular Hemoglobin 30.5 pg (27.0-33.0); Mean Corpuscular Volume 89.3 fL (80.0-98.0); Mean Platelet Volume 9.2 fL (9.4-12.3); Monocytes Absolute Auto 0.4 X10*3/uL (0.1-1.2); Monocytes Percent Auto 8.8 % (2-11); Neutrophils Absolute Auto 2.3 x10*3/uL (2.0-8.3); Neutrophils Percent Auto 52.5 % (45-73); Platelet Count 285 X10*3/uL (160-400); Red Blood Count 4.49 X10*6/uL (4.20-5.50); Red Cell Distribution Width 13.8 % (11.0-16.0); White Blood Count 4.3 X10*3/uL (4.8-10.8)
[2022-08-25 13:18] LABS: Appearance Urine Clear; Color Urine Yellow; Glucose Urine UA Negative (Negative); Leukocyte Esterase Urine Small (1+) (Negative); Nitrite Urine Negative (Negative); PH 5.5 (5.0-9.0); UMIC TRIGGER UACC YES; Urine Blood Negative (Negative); Urine Ketones Negative (Negative); Urine Protein Negative (Neg-Trace)
[2022-08-25 13:44] LABS: C Reactive Protein 0.15 mg/dL (< or = 0.50)
[2022-08-25 13:53] LABS: Bacteria Urine None Seen (None Seen); Hyaline Casts Urine 0-2 /LPF (0-2); RBC Urine 0-2 /HPF (0-2); Squamous Epithelial Cell Urine 0-2 /HPF (0-2); UACC Culture Trigger YES; WBC Urine 0-5 /HPF (0-5)
[2022-08-25 14:17] LABS: Folate 15.8 ng/mL (> or = 4.0); Vitamin B12 374 pg/mL (200-900)
== END 2022-08-25 12:28 | disposition home or self-care (01) ==
LOC: HO.LAB 12:27
PROVIDERS: PCP Internal Medicine; Visit Provider Internal Medicine Gastroenterology
DX: K57.90 Diverticulosis of intestine, part unspecified, without perforation or abscess without bleeding (principal); K59.09 Other constipation; R10.32 Left lower quadrant pain; R13.10 Dysphagia, unspecified; R63.4 Abnormal weight loss; R35.0 Frequency of micturition; Z87.19 Personal history of other diseases of the digestive system; Z79.899 Other long term (current) drug therapy
CPT/HCPCS: 36415; 74018; 81001; 82607; 82746; 85025; 86140; 87086; 99212

== ENCOUNTER → 2022-09-23 07:12 | Outpatient (BNVA) | payer MEDICARE, SELFPAY | PROVIDERS: PCP Internal Medicine; Referring Provider Internal Medicine; Visit Provider Internal Medicine Gastroenterology | DX: J21.9 Acute bronchiolitis, unspecified (principal); R63.4 Abnormal weight loss; K59.09 Other constipation; K22.2 Esophageal obstruction; Z87.19 Personal history of other diseases of the digestive system; Z86.010 Personal history of colon polyps | CPT/HCPCS: 99212 ==

== ENCOUNTER 2022-10-03 11:23 | Outpatient (REF) | payer MEDICARE, SELFPAY ==
--- NOTE | ~2022-10-03 | XR_ITS ---
EXAMINATION: XR CHEST CLINICAL INFORMATION: Chest wall pain COMPARISON: Previous chest CT June 2016 TECHNIQUE: 2 views of the chest were obtained. FINDINGS: The cardiac silhouette is upper normal in size but stable. Hilar and mediastinal contours are normal. The lungs are clear. No pleural effusions. Degenerative changes of the spine. No rib fracture seen. XR/XR chest 2V IMPRESSION: No evidence for acute disease in the chest.
== END 2022-10-03 11:24 | disposition home or self-care (01) ==
LOC: HO.XRAY 11:23
PROVIDERS: PCP Internal Medicine; Visit Provider Internal Medicine
DX: R07.89 Other chest pain (principal)
CPT/HCPCS: 71046

== ENCOUNTER 2023-01-03 10:41 | Outpatient (REF) | payer MEDICARE, SELFPAY ==
[2023-01-03 12:14] LABS: Erythrocyte Sedimentation Rate 9 MM/HR (0-20)
== END 2023-01-03 10:42 | disposition home or self-care (01) ==
LOC: HO.LNP 10:41
PROVIDERS: PCP Internal Medicine; Visit Provider Internal Medicine
DX: M79.10 Myalgia, unspecified site (principal)
CPT/HCPCS: 85652

== ENCOUNTER 2023-03-30 07:07 | Outpatient (AMB) | payer MEDICARE, SELFPAY ==
--- NOTE | 2023-03-30 07:21 | A.OFFVIS_ITS ---
Intake Vital Signs 03/30/23 07:25 Height 5 ft Weight 140 lb BMI 27.3 BP 141/70 H Blood Pressure Location Lt brachial Position Sitting Pulse 80 Intake Visit Reasons: 6 month fu Intake Note: Patient follow up for constipation. Patient cc: constipation on and off, some problems swallowing, and lower and middle abdominal pain come and go. 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 Accompanied by: Self / Same As Patient Allergies No Known Allergies [No Known Allergies*] Allergy (Verified 03/30/23 07:19) Medication List - Last Reconciled 03/30/23 by Dalia Mcknight MD cholecalciferol (vitamin D3) 250 mcg PO 2XW 90 days diclofenac sodium 1% (Voltaren Arthritis Pain) 2 grams topical QID 30 days famotidine 20 mg PO BEDTIME 90 days gabapentin 300 mg PO BEDTIME minoxidil 0.5 tabs PO DAILY mirtazapine 7.5 mg PO DAILY polyethylene glycol 3350 (Miralax) 17 grams PO DAILY 90 days sennosides-docusate sodium 8.6-50 mg (Senna-S) 2 tab-caps (2 x 8.6-50 mg) PO BEDTIME 90 days HPI 6 month fu HPI Details GI clinic visit for this 72-year-old female for follow-up of dysphagia, left lower quadrant pain, diverticulosis and constipation. Pt was hospitalized 09/22-09/24/21 with acute diverticulitis and discharged on p.o. antibiotics x 7 days ? IMAGING STUDIES:? 09/22/[address] SCAN SHOWED: Findings as described above. Findings most consistent with significant diverticulitis in the sigmoid. As described some adjacent soft tissue stranding and fluid. Possible early fluid collection in the deep pelvis on the right. Attention to follow-up. This area of disease is also intimately associated with the cervical/uterine structure which demonstrates some air density. Therefore an element of fistulization cannot be excluded. 11/23/20 ABD US SHOWED: 1 cm left renal cyst with question wall calcification versus milk of calcium cyst. Otherwise unremarkable exam. ? ENDOSCOPIC STUDIES: 03/04 EGD showed: ESOPHAGUS: Tortuous esophagus with increased tertiary contractions without stricture or ring.? GE junction at 34 cms, hiatal hernia 34 to 37 cms . No esophagitis or Wahl?s.? Recurrent Schatzki's ring was not visualized - empirc dilation was performed with an 18 and 19 mm CRE balloon x 60 seconds at each level. DUODENUM: Normal - bxed to check for celiac sprue - normal Plan:? Await pathology results 07/2018 UPPER ENDOSCOPY AND COLONOSCOPY W PERFORMED: EGD showed hiatal hernia, gastritis and a Schatzki's ring which was dilated with a balloon. ? Colonoscopy showed diverticulosis and two small adenomatous polyps were removed ?TODAY'S VISIT Continues to have intermittent constipation. When she takes her pills, has a BM the following morning. Takes Senna and Miralax daily. Intermittent dysphagia - mostly solids and occasionally with liquids. Food can get stuck occasionally and she has to drink some water. Chews her food well Will be spending Thanksgiving by herself since she has children in [facility] PAST VISIT: Abdominal pain has improved. Taking Miralax twice a day and Senna at bedtime and has a BM the following day. Notes lower abdominal pain when she sleeps on stomach. Continues to have acid reflux and denies dysphagia. Has chronic cough and intermittent hoarseness. Having pain in the back for the past week and taking Ibuprofen. Had back pain in the past and it resolved. Has to pee every 15 min without burning Has been having nausea in the am for the past 1-2 weeks. Taking Senna or Miralax daily and has a BM daily every morning Had a BM today with incomplete evacuation. Notes lower abdominal pain which improves after she has a BM Had a cough for 3 weeks - resolved and then came back again Denies heartburn or dysphaia Abdominal pain is better - notes some pain at night. Notes occasonal nausea Has nausea when she wakes up. Taking a low fibre diet. Has not been Denies fever or chills. Has some sweating during sleep which she thinks is normal for her. Abdominal pain is 50% better and not resolved. Taking soups and sometimes white bread. Abd pain is 3-4/10 in intesnity. Having small BMs in the morning. Continuing to have some lower abdominal pain (4-5/10 in intensity) Notes some pressure in the lower abdomen and denies fever. Finished antibiotics today. taking mostly a liquid diet - unsure what she can eat. BMs are small. Notes some dysphagia when she takes her pills. Lost weight to 105 due to depression and is now regaining the wt she lost Patient cc: N/V, GERD, lower abdominal pain with bloating and she said is more at night time. Denies any other GI issues. Dysphagia has improved - sometimes has trouble swallowing large pills. Lower abdominal pain for the past few weeks - wakes her up from sleep at night. Pain improves after she has a BM Notes worsening constipation -sometimes no BM for 3 days. Taking Senna and Miralax - not always helpful ? ? ? Continues to have recurrent dysphagia with solid foods for the past several months ? ? ? Notes difficulty swallowing her pills and sometimes looses her voice. Scheduled for an EGD in November, and procedure was postponed by anesthesia due to presence of dental implants - pt was advised to reschedule after her dental work was completed. Taking Miralax daily and has a BM every other day . Ran out of pills - which worked better. Has not been eating. Has lost 20 to?22?lbs [facility] Medical History Anxiety Chronic constipation Hiatal hernia Hx of diverticulitis of colon Oropharyngeal dysphagia Psychotic disorder Schatzki's ring Surgical History History of esophagogastroduodenoscopy (EGD) Hx of tonsillectomy Hx of hand surgery History of appendectomy History of hysterectomy Hx of endoscopy History of colonoscopy Family History Father No problems noted. Mother No problems noted. Social History Household Members: None Housing: House Housing Other:: Two family home. lives on second floor alone Do you presently have visiting nurse or other home services: No Unable to assess alcohol history related to: Refusing to respond Alcohol intake: current Alcohol intake frequency: holidays/special occasions only Alcohol type: wine Patient Tobacco Use Status: Never used Tobacco Second Hand Smoke Exposure: No service: No Current occupational status: unemployed Current occupation: rt handed Sexual orientation: Straight/Heterosexual Review of Systems Const All systems reviewed & are unremarkable except as noted in HPI and below Physical Exam Vital Signs: Last Vital Signs Pulse 80 03/30/23 07:25 BP 141/70 H 03/30/23 07:25 BMI result Body Mass Index 27.3 Const General: healthy appearing and no acute distress Nutritional Appearance: overweight Orientation/consciousness: patient oriented x3 Limitations: no limitations HEENT Head: Yes normal to inspection Ears: hearing grossly normal bilaterally Eyes Sclerae: sclerae normal Pupils: Equal, round and reactive pupils present Neck Neck: Yes normal visual inspection Chest Chest palpation & inspection: normal inspection of the chest Resp Effort & Inspection: normal respiratory effort Auscultation: clear to auscultation bilaterally Cardio Palpation: normal PMI Rate: regular rate Rhythm: regular rhythm Heart sounds: S1 normal heart sound present, S2 normal heart sound present and no murmurs GI Palpation (GI): Soft to palpation, nontender and No hepatosplenomegaly present Auscultation: normal bowel sounds Rectal Exam - Female: deferred Skin General skin exam: no rashes or lesions noted Neuro General: patient oriented x3, gait normal and moves all extremities Cranial nerves: Yes Equal, round and reactive pupils present Psych Appearance: grossly normal Mental Status: mental status grossly normal Assessment & Plan Assessment & Plan (1) GERD (gastroesophageal reflux disease): Code(s): K21.9 - Gastro-esophageal reflux disease without esophagitis (2) History of colon polyps: Comment: Two small adenomatous polyps were removed during colonoscopy in 07/2018. Action in place for repeat colon in 5 years (due July,). Code(s): Z86.010 - Personal history of colonic polyps (3) Chronic constipation: Code(s): K59.09 - Other constipation (4) Schatzki's ring: Code(s): K22.2 - Esophageal obstruction Plan 72 YF with Htn, pre-diabetes, hypertriglyceridemia, arthritis, Vitamin D deficiency seen for FU of recurrent LLQ pain and past episode of diverticulitis. Past EGD showed hiatal hernia, gastritis and a Schatzki's ring which was dilated with a balloon. Colonoscopy showed diverticulosis and two small adenomatous polyps were removed. Her abdominal pain has improved with regular BMs. Pt was?scheduled for EGD in November, and procedure was postponed by anesthesia due to presence of dental implants - 03/04 EGD with balloon dilation was performed and recurrent Schatzki's ring was not visualized. Pt was hospitalized 09/22 to 09/24/21 with acute diverticulitis. Her symptoms have improved and not resolved after 1 week of antibiotic therapy. Pt was advised to continue antibiotics for another 10 days with subsequent improvement in her symptoms. 10/29/[address] SCAN SHOWED: GASTROINTESTINAL TRACT: There is significant interval improvement in sigmoid diverticulitis compared to September 2021 exam. There is still an area of wall thickening and of the left side of the proximal sigmoid colon and some stranding of the adjacent fat. No evidence of obstruction, perforation or abscess is seen. Small and large bowel is otherwise normal. The appendix is not seen. ABDOMINAL WALL: No significant hernia is appreciated.? Pt was advised to increase Senna to 2 tab at bedtime and continue taking Miralax every morning for constipation 08/25/22 Pt was advised to check labs and a KUB Labs showed normal CBC and CRP. KUB showed: No evidence of constipation or obstruction.- pt called and informed Patient was advised to take MiraLax twice daily for constipation with improvement in abdominal pain 09/23/22 Pt was prescribed Voltaren gel for back and pain in the right shoulder until she can be seen by her PCP next month. 03/2023 Pt was advised to schedule an EGD (dysphagia) and a colon (FU of colon polyps) in July, FU in 6 months Medications: New bisacodyl (Dulcolax (bisacodyl)) Take 4 tablets at 12 pm the day before colonoscopy appointment 10 mg (2 x 5 mg) PO ONCE 4 tabs 0RF colon prep 2 days polyethylene glycol 3350 (Miralax) Mix Miralax with 64 oz(8 cups) of Crystal light. Take 2 tablets of Dulcolax qt 12 pm. Wait to have your 1st bowel movement, then begin drinking Miralax. Drink a glass of Miralax every 10-15 minutes until you are finished. You will drink at least another 4 cups of clear liquid of your choice over the next 2 hours. Please drink as many clear liquids as possible You may have clear liquids up to four hours before your procedure 17 grams PO DAILY 238 grams 0RF colon prep 1 day Coding Level of Care Code Est Pt Level 4 (13955) Diagnoses GERD (gastroesophageal reflux disease) K21.9 History of colon polyps Z86.010 Chronic constipation K59.09 Schatzki's ring K22.2 Time Spent (min) 18
[2023-03-30 07:25] VITALS: BP 141/70; PULSE 80; BMI 27.3
== END 2023-03-30 07:48 | disposition home or self-care (01) ==
PROVIDERS: Visit Provider Internal Medicine Gastroenterology
DX: K21.9 Gastro-esophageal reflux disease without esophagitis (principal); Z86.010 Personal history of colon polyps; K59.09 Other constipation; K22.2 Esophageal obstruction
CPT/HCPCS: 99214

== ENCOUNTER → 2023-03-30 07:07 | Outpatient (BNVA) | payer MEDICARE, SELFPAY | PROVIDERS: Visit Provider Internal Medicine Gastroenterology | DX: K21.9 Gastro-esophageal reflux disease without esophagitis (principal); K59.09 Other constipation; K22.2 Esophageal obstruction; Z86.010 Personal history of colon polyps | CPT/HCPCS: 99212 ==

== ENCOUNTER 2023-07-28 12:02 | Day surgery (SDC) | payer MEDICARE, SELFPAY ==
[2023-07-28 12:10] VITALS: BP 148/86; PULSE 83; RESP 18; TEMP 36.9; O2SAT 98; BMI 28.6
[2023-07-28] MEDS: Lactated Ringers 1,000 ML 50 ML IVCONT (12:27)
--- NOTE | 2023-07-28 13:17 | MHC.SHP ---
Pre-Procedural Eval Section A - 24 Hr Update-Section A only Date of Service: 07/28/23 The patient is an INPATIENT: No Section B - Complete if H&P > 30 days Chief Complaint: Surveillance of colon polyps, GERD, dysphagia Relevant Family History (Specify if Yes): No Relevant Social History: None Present Medications: see Short Stay Collaborative assessment Medical History: Significant History (Chronic constipation Hiatal hernia Hx of diverticulitis of colon Oropharyngeal dysphagia Psychotic disorder Schatzki's ring) History of Previous Operations: Relevant previous surgery/procedure and date(s) (History of esophagogastroduodenoscopy (EGD) Hx of tonsillectomy Hx of hand surgery History of appendectomy History of hysterectomy Hx of endoscopy History of colonoscopy) Allergies: Allergies Allergy/AdvReac Type Severity Reaction Status Date / Time No Known Allergies Allergy Verified 03/30/23 07:19 [No Known Allergies*] Review of Systems Sugical H&P ROS: Negative: Constitution, Cardiovascular, Respiratory and Gastrointestinal Exam Surgical H&P Exam: Normal: Heart, Normal: Lungs, Normal: Extremities and Normal: Abdomen Plan Diagnosis/Plan: Unchanged I have reviewed the history and physical and performed a pertinent physical examination on my patient. No changes have occurred unless specified. Time Spent With Patient Time: Total time managing care of this patient today ____ minutes.
--- NOTE | 2023-07-28 13:27 | W.PM.OPN ---
Operative Note Operative Note Date of Service: 07/28/23 Narrative: FLEXIBLE TRANSORAL UPPER GASTROINTESTINAL ENDOSCOPY WITH BIOPSIES AND COLONOSCOPY TILL CECUM. Pre-op diagnosis: Colon cancer screening, GERD, Dysphagia Post-op diagnosis: Hiatal hernia, Esophagitis, Gastritis, Gastric polyp, Diverticulosis, hemorrhoids Endoscopist:? Dalia Mcknight MD Anesthesia:?MAC UPPER ENDOSCOPY Consent: Indications for the procedure and potential complications of bleeding, perforation, reaction to medications and missed diagnosis were discussed with the patient and informed consent was obtained. Instrument: Olympus GIF H 190 mid size upper endoscope Monitoring: Vital signs and clinical assessment, continuous EKG monitoring, Pulse oximetry, Carbon Dioxide monitoring and blood pressure monitoring were done throughout the procedure. Procedure: The patient was placed in the left lateral decubitis position and pre-procedure medications were administered and a bite block was placed. The endoscope was inserted into the mouth and advanced under direct vision to the third part of duodenum. A careful inspection was made as the upper endoscope was withdrawn including a retroflexed examination of the proximal stomach; Findings and interventions are described below. Findings: Larynx: Normal Esophagus: GE junction at 32 cms, hiatal hernia 32 to 35 cms. Multiple linear erosions and 7-8 mm ulcers in the distal esophagus from 25 to 32 cms No stricture or ring seen. Stomach: A few 4-5 mm benign appearing polyps in the gastric body - biopsied. Moderate diffuse gastric erythema - biopsies were obtained from the antrum. Grade 2 flap valve on retroflexed examination of the cardia. Duodenum: Normal bulb and descending duodenum Intervention: Biopsies as noted above COLONOSCOPY PROCEDURE NOTE Instrument: Olympus PCF H 190 L variable stiffness pediatric colonoscope Monitoring: Vital signs and clinical assessment, intermittent blood pressure monitoring, continuous EKG monitoring, Pulse oximetry and Carbon Dioxide monitoring were done throughout the procedure. Please see anesthesia flowsheet. Colon withdrawl time was 23 minutes. Procedure: The patient was placed in the left lateral decubitis position and pre-procedure medications were administered. After a digital rectal examination of the ano-rectum, the video colonoscope was inserted into the rectum and advanced through the colon to the cecum. The colonoscope was slowly withdrawn in a retrograde panoramic fashion and the colon mucosa was carefully examined including a retroflexed view of the rectum. Findings and interventions are described below. Procedure Difficulty: without difficulty Findings: Terminal Ileum: Not evaluated Cecum: Moderate diverticulosis throughout the entire colon Ascending Colon: Moderate diverticulosis throughout the entire colon Transverse Colon: Moderate diverticulosis throughout the entire colon Descending Colon: Moderate diverticulosis throughout the entire colon Sigmoid Colon: Severe diverticulosis with luminal narrowing and spasm Rectum: Normal Ano-rectum: Small internal hemorrhoids Colon preparation: Good after some irrigation. Harlan Bowel Preparation Scale Right colon; 2 Transverse colon: 2 Left colon; 2 (0 = Unprepared colon segment with mucosa not seen due to solid stool that cannot be cleared. 1 = Portion of mucosa of the colon segment seen, but other areas of the colon segment not well seen due to staining, residual stool and/or opaque liquid. 2 = Minor amount of residual staining, small fragments of stool and/or opaque liquid, but mucosa of colon segment seen well. 3 = Entire mucosa of colon segment seen well with no residual staining, small fragments of stool or opaque liquid) Impression and Post Procedure Diagnosis: Endoscopy Findings: ESOPHAGUS: Hiatal hernia 32 to 35 cms. Multiple linear erosions and 7-8 mm ulcers in the distal esophagus from 25 to 32 cms No stricture or ring seen. STOMACH: Gastritis and gastric polyps Colonoscopy Findings: No polyps were detected Moderate diverticulosis seen in the entire colon Small hemorrhoids on retroflexed exam. Plan: Pt has a FU appointment on 08/17/[address] Mcknight Repeat Colonoscopy in 5 years due to a history of adenomatous colon polyps. Above findings were reviewed with the patient and relevant handouts were given and the discharge area.
[2023-07-28 14:07] VITALS: BP 102/58; PULSE 73; RESP 16; TEMP 36.1; O2SAT 100
[2023-07-28 14:22] VITALS: BP 111/75; PULSE 72; RESP 14; O2SAT 100
[2023-07-28 14:30] VITALS: BP 124/67; PULSE 72; RESP 15; TEMP 36.2; O2SAT 100
== END 2023-07-28 14:46 | disposition home or self-care (01) ==
PROVIDERS: PCP Internal Medicine; Visit Provider Internal Medicine Gastroenterology
PROC: (CPT 43239; principal; 2023-07-28 14:00)
DX: Z12.11 Encounter for screening for malignant neoplasm of colon (principal); Z86.010 Personal history of colon polyps; K57.30 Diverticulosis of large intestine without perforation or abscess without bleeding; K64.8 Other hemorrhoids; K59.09 Other constipation; Z87.19 Personal history of other diseases of the digestive system; K21.9 Gastro-esophageal reflux disease without esophagitis; R13.12 Dysphagia, oropharyngeal phase; K20.80 Other esophagitis without bleeding; K22.2 Esophageal obstruction; K31.7 Polyp of stomach and duodenum; K29.70 Gastritis, unspecified, without bleeding; K44.9 Diaphragmatic hernia without obstruction or gangrene; Z79.899 Other long term (current) drug therapy; Z98.890 Other specified postprocedural states
CPT/HCPCS: 43239; G0105; 88305; 88313; 88342; J2704

== ENCOUNTER → 2023-07-28 12:02 | Outpatient (BNV) | payer MEDICARE, SELFPAY | PROVIDERS: PCP Internal Medicine; Visit Provider Internal Medicine Gastroenterology | DX: Z12.11 Encounter for screening for malignant neoplasm of colon (principal); Z86.010 Personal history of colon polyps; K57.90 Diverticulosis of intestine, part unspecified, without perforation or abscess without bleeding; K64.8 Other hemorrhoids; K21.00 Gastro-esophageal reflux disease with esophagitis, without bleeding; R13.10 Dysphagia, unspecified; K29.70 Gastritis, unspecified, without bleeding; K31.7 Polyp of stomach and duodenum | CPT/HCPCS: 43239; G0105 ==

== ENCOUNTER 2023-08-17 08:11 | Outpatient (AMB) | payer MEDICARE, SELFPAY ==
--- NOTE | 2023-08-17 08:20 | MHC.OFFVIS ---
Intake Vital Signs 08/17/23 08:23 Height 4 ft 11 in Weight 143 lb BMI 28.9 BP 134/69 Blood Pressure Location Lt brachial Position Sitting Pulse 91 Intake Visit Reasons: S/p egd/colon Intake Note: Patient follow up for EGD/Colonoscopy results. Patient cc acid reflex with burning sensation at night time. Denies any other GI issues. Lens And Frames Prescription Clerk Required: No Accompanied by: Self / Same As Patient Allergies No Known Allergies [No Known Allergies*] Allergy (Verified 08/17/23 08:18) Medication List - Last Reconciled 08/17/23 by Dalia Mcknight MD cholecalciferol (vitamin D3) 250 mcg PO 2XW 90 days diclofenac sodium 1% (Voltaren Arthritis Pain) 2 grams topical QID 30 days duloxetine 30 mg PO DAILY famotidine 20 mg PO BEDTIME 90 days gabapentin 300 mg PO BEDTIME minoxidil 0.5 tabs PO DAILY mirtazapine 7.5 mg PO DAILY sennosides-docusate sodium 8.6-50 mg (Senna-S) 2 tab-caps (2 x 8.6-50 mg) PO BEDTIME 90 days HPI S/p egd/colon HPI Details GI clinic visit for this 73-year-old female for follow-up of dysphagia, left lower quadrant pain, diverticulosis and constipation. Pt was hospitalized 09/22-09/24/21 with acute diverticulitis and discharged on p.o. antibiotics x 7 days ? IMAGING STUDIES:? 09/22/[address] SCAN SHOWED: Findings as described above. Findings most consistent with significant diverticulitis in the sigmoid. As described some adjacent soft tissue stranding and fluid. Possible early fluid collection in the deep pelvis on the right. Attention to follow-up. This area of disease is also intimately associated with the cervical/uterine structure which demonstrates some air density. Therefore an element of fistulization cannot be excluded. 11/23/20 ABD US SHOWED: 1 cm left renal cyst with question wall calcification versus milk of calcium cyst.Otherwise unremarkable exam. ? ENDOSCOPIC STUDIES: 07/28/23 EGD AND COLON SHOWED: Endoscopy Findings: ESOPHAGUS: Hiatal hernia 32 to 35 cms. Multiple linear erosions and 7-8 mm ulcers in the distal esophagus from 25 to 32 cms No stricture or ring seen. STOMACH: Gastritis and gastric polyps BIOPSIES SHOWED: A. Stomach, antrum, biopsy: Antral-type mucosa within normal limits; no Helicobacter organisms seen. B. Stomach, polyp: Fundic gland polyp with background mild chronic inactive inflammation; no Helicobacter organisms seen. Colonoscopy Findings: No polyps were detected Moderate diverticulosis seen in the entire colon Small hemorrhoids on retroflexed exam. Plan: Repeat Colonoscopy in 5 years due to a history of adenomatous colon polyps. 03/04 EGD showed: ESOPHAGUS: Tortuous esophagus with increased tertiary contractions without stricture or ring.? GE junction at 34 cms, hiatal hernia 34 to 37 cms . No esophagitis or Wahl?s.? Recurrent Schatzki's ring was not visualized - empirc dilation was performed with an 18 and 19 mm CRE balloon x 60 seconds at each level. DUODENUM: Normal - bxed to check for celiac sprue - normal Plan:? Await pathology results 07/2018 UPPER ENDOSCOPY AND COLONOSCOPY WAS PERFORMED:EGD showed hiatal hernia, gastritis and a Schatzki's ring which was dilated with a balloon. ? Colonoscopy showed diverticulosis and two small adenomatous polyps were removed ?TODAY'S VISIT Patient cc acid reflex with burning sensation at night time. Denies any other GI issues. EGD and colon results were reviewed - advised to start taking Omeprazole 20 mg every morning And continue taking famotidine 20 mg at bedtime. Continues to have intermittent LLQ pain and constipation. When she takes her pills, has a BM the following morning. Takes Senna and Miralax daily with relief of abdominal pain. PAST VISIT: Intermittent dysphagia - mostly solids and occasionally with liquids. Food can get stuck occasionally and she has to drink some water. Chews her food well Will be spending Thanksgiving by herself since she has children in [facility] Abdominal pain has improved. Taking Miralax twice a day and Senna at bedtime and has a BM the following day. Notes lower abdominal pain when she sleeps on stomach. Continues to have acid reflux and denies dysphagia. Has chronic cough and intermittent hoarseness. Having pain in the back for the past week and taking Ibuprofen. Had back pain in the past and it resolved. Has to pee every 15 min without burning Has been having nausea in the am for the past 1-2 weeks. Taking Senna or Miralax daily and has a BM daily every morning Had a BM today with incomplete evacuation. Notes lower abdominal pain which improves after she has a BM Had a cough for 3 weeks - resolved and then came back again Denies heartburn or dysphaia Abdominal pain is better - notes some pain at night. Notes occasonal nausea Has nausea when she wakes up. Taking a low fibre diet. Has not been Denies fever or chills. Has some sweating during sleep which she thinks is normal for her. Abdominal pain is 50% better and not resolved. Taking soups and sometimes white bread. Abd pain is 3-4/10 in intesnity. Having small BMs in the morning. Continuing to have some lower abdominal pain (4-5/10 in intensity) Notes some pressure in the lower abdomen and denies fever. Finished antibiotics today. taking mostly a liquid diet - unsure what she can eat. BMs are small. Notes some dysphagia when she takes her pills. Lost weight to 105 due to depression and is now regaining the wt she lost Patient cc: N/V, GERD, lower abdominal pain with bloating and she said is more at night time. Denies any other GI issues. Dysphagia has improved - sometimes has trouble swallowing large pills. Lower abdominal pain for the past few weeks - wakes her up from sleep at night. Pain improves after she has a BM Notes worsening constipation -sometimes no BM for 3 days. Taking Senna and Miralax - not always helpful ? ? ? Continues to have recurrent dysphagia with solid foods for the past several months ? ? ? Notes difficulty swallowing her pills and sometimes looses her voice. Scheduled for an EGD in November, and procedure was postponed by anesthesia due to presence of dental implants - pt was advised to reschedule after her dental work was completed. Taking Miralax daily and has a BM every other day . Ran out of pills - which worked better. Has not been eating. Has lost 20 to?22?lbs [facility] Medical History (Updated 09/23/22 @ 07:49 by Dalia Mcknight MD) Hiatal hernia Anxiety Psychotic disorder Schatzki's ring Hx of diverticulitis of colon Chronic constipation Oropharyngeal dysphagia Surgical History History of esophagogastroduodenoscopy (EGD) Hx of tonsillectomy Hx of hand surgery History of appendectomy History of hysterectomy Hx of endoscopy History of colonoscopy Family History Father No problems noted. Mother No problems noted. Social History Household Members: None Housing: House Housing Other:: Two family home. lives on second floor alone Do you presently have visiting nurse or other home services: No Unable to assess alcohol history related to: Refusing to respond Alcohol intake: current Alcohol intake frequency: does not drink Alcohol type: wine Patient Tobacco Use Status: Never used Tobacco Second Hand Smoke Exposure: No service: No Current occupational status: unemployed Current occupation: rt handed Sexual orientation: Straight/Heterosexual Review of Systems Const All systems reviewed & are unremarkable except as noted in HPI and below Physical Exam Const General: healthy appearing and no acute distress Nutritional Appearance: overweight Orientation/consciousness: patient oriented x3 Limitations: no limitations HEENT Head: Yes normal to inspection Ears: hearing grossly normal bilaterally Eyes Sclerae: sclerae normal Pupils: Equal, round and reactive pupils present Neck Neck: Yes normal visual inspection Chest Chest palpation & inspection: normal inspection of the chest Resp Effort & Inspection: normal respiratory effort Auscultation: clear to auscultation bilaterally Cardio Palpation: normal PMI Rate: regular rate Rhythm: regular rhythm Heart sounds: S1 normal heart sound present, S2 normal heart sound present and no murmurs GI Palpation (GI): Soft to palpation, nontender and No hepatosplenomegaly present Auscultation: normal bowel sounds Rectal Exam - Female: deferred Skin General skin exam: no rashes or lesions noted Neuro General: patient oriented x3, gait normal and moves all extremities Cranial nerves: Yes Equal, round and reactive pupils present Psych Appearance: grossly normal Mental Status: mental status grossly normal Assessment & Plan Assessment & Plan (1) Diverticulitis: Code(s): K57.92 - Diverticulitis of intestine, part unspecified, without perforation or abscess without bleeding (2) GERD (gastroesophageal reflux disease): Code(s): K21.9 - Gastro-esophageal reflux disease without esophagitis (3) History of colon polyps: Comment: Two small adenomatous polyps were removed during colonoscopy in 07/2018. Action in place for repeat colon in 5 years (due July,). Code(s): Z86.010 - Personal history of colonic polyps (4) Oropharyngeal dysphagia: Code(s): R13.12 - Dysphagia, oropharyngeal phase (5) Chronic constipation: Code(s): K59.09 - Other constipation (6) Hx of diverticulitis of colon: Code(s): Z87.19 - Personal history of other diseases of the digestive system (7) Schatzki's ring: Code(s): K22.2 - Esophageal obstruction Plan 73 YF with Htn, pre-diabetes, hypertriglyceridemia, arthritis, Vitamin D deficiency seen for FU of recurrent LLQ pain and past episode of diverticulitis. Past EGD showed hiatal hernia, gastritis and a Schatzki's ring which was dilated with a balloon. Colonoscopy showed diverticulosis and two small adenomatous polyps were removed. Her abdominal pain has improved with regular BMs. Pt was?scheduled for EGD in November, and procedure was postponed by anesthesia due to presence of dental implants - 03/04 EGD with balloon dilation was performed and recurrent Schatzki's ring was not visualized. Pt was hospitalized 09/22 to 09/24/21 with acute diverticulitis. Her symptoms have improved and not resolved after 1 week of antibiotic therapy. Pt was advised to continue antibiotics for another 10 days with subsequent improvement in her symptoms. 10/29/[address] SCAN SHOWED: GASTROINTESTINAL TRACT: There is significant interval improvement in sigmoid diverticulitis compared to September 2021 exam. There is still an area of wall thickening and of the left side of the proximal sigmoid colon and some stranding of the adjacent fat. No evidence of obstruction, perforation or abscess is seen. Small and large bowel is otherwise normal. The appendix is not seen. ABDOMINAL WALL: No significant hernia is appreciated.? Pt was advised to increase Senna to 2 tab at bedtime and continue taking Miralax every morning for constipation 08/25/22 Pt was advised to check labs and a KUB Labs showed normal CBC and CRP. KUB showed: No evidence of constipation or obstruction.- pt called and informed Patient was advised to take MiraLax twice daily for constipation with improvement in abdominal pain 09/23/22 Pt was prescribed Voltaren gel for back and pain in the right shoulder until she can be seen by her PCP next month. 08/17/23 EGD and colon results were reviewed - advised to start taking Omeprazole 20 mg every morning And continue taking famotidine 20 mg at bedtime. Continues to have intermittent LLQ pain and constipation. When she takes her pills, has a BM the following morning. Takes Senna and Miralax daily with relief of abdominal pain. Repeat colon in 5 yrs Repeat EGD in 4 months - follow-up of erosive esophagitis FU in 5 months Medications: New omeprazole 20 mg PO DAILY 100 days 100 caps 1RF Refilled cholecalciferol (vitamin D3) 250 mcg PO 2XW 90 days 26 caps 1RF E55.9 - Vitamin D deficiency, unspecified Coding Level of Care Code Est Pt Level 4 (29838) Diagnoses Diverticulitis K57.92 GERD (gastroesophageal reflux disease) K21.9 History of colon polyps Z86.010 Oropharyngeal dysphagia R13.12 Chronic constipation K59.09 Hx of diverticulitis of colon Z87.19 Schatzki's ring K22.2 Time Spent (min) 19
[2023-08-17 08:23] VITALS: BP 134/69; PULSE 91; BMI 28.9
== END 2023-08-17 09:38 | disposition home or self-care (01) ==
PROVIDERS: PCP Internal Medicine; Visit Provider Internal Medicine Gastroenterology
DX: K57.92 Diverticulitis of intestine, part unspecified, without perforation or abscess without bleeding (principal); K21.9 Gastro-esophageal reflux disease without esophagitis; Z86.010 Personal history of colon polyps; R13.12 Dysphagia, oropharyngeal phase; K59.09 Other constipation; Z87.19 Personal history of other diseases of the digestive system; K22.2 Esophageal obstruction
CPT/HCPCS: 99214

== ENCOUNTER → 2023-08-17 08:11 | Outpatient (BNVA) | payer MEDICARE, SELFPAY | PROVIDERS: PCP Internal Medicine; Visit Provider Internal Medicine Gastroenterology | DX: R13.12 Dysphagia, oropharyngeal phase (principal); K57.92 Diverticulitis of intestine, part unspecified, without perforation or abscess without bleeding; K22.2 Esophageal obstruction; K21.9 Gastro-esophageal reflux disease without esophagitis; K59.09 Other constipation; Z86.010 Personal history of colon polyps | CPT/HCPCS: 99212 ==

== ENCOUNTER 2024-01-19 09:02 | Day surgery (SDC) | payer MEDICARE, SELFPAY ==
--- NOTE | 2024-01-18 09:24 | P.CONAN_ITS ---
Documented by User: Stephanie Garvin NP 01/18/24 09:25 HPI - Anesthesia Eval Consult details Narrative: 73yo F for Upper Endoscopy s/p EGD & [place] 07/2023 with [facility] PMFSH Active Problems Active Problems: All Active Problems Back pain (Acute) Urinary frequency (Acute) Diverticulitis (Acute) GERD (gastroesophageal reflux disease) (Acute) Schizoaffective disorder, depressive type (Acute) History of colon polyps (Acute) Weight loss (Acute) Rotator cuff tendonitis (Acute) Depression (Acute) Psychotic disorder (Acute) Oropharyngeal dysphagia (Acute) Chronic constipation (Acute) Hx of diverticulitis of colon (Acute) Schatzki's ring (Acute) Past Medical History Medical History Hiatal hernia Anxiety Psychotic disorder Schatzki's ring Hx of diverticulitis of colon Chronic constipation Oropharyngeal dysphagia Family History Family History Father No problems noted. Mother No problems noted. Family history of problems with anesthesia: No Surgical History Surgical History History of esophagogastroduodenoscopy (EGD) Hx of tonsillectomy Hx of hand surgery History of appendectomy History of hysterectomy Hx of endoscopy History of colonoscopy History of Problems with Anesthesia: No Social History Social History Household Members: None Housing: House Housing Other:: Two family home. lives on second floor alone Are you a primary resident care director to a significant other at home: No Do you presently have visiting nurse or other home services: No Unable to assess alcohol history related to: Refusing to respond Alcohol intake: current Alcohol intake frequency: does not drink Alcohol type: wine Patient Tobacco Use Status: Never used Tobacco Second Hand Smoke Exposure: No Have you been hit, kicked, punched, or otherwise hurt by someone within the past year? If so, by whom?: No Are you DNR?: No Advance Directives: No Advance Directives Information Provided: Yes Nutrition Risks: No Nutritional Risk service: No Current occupational status: unemployed Current occupation: rt handed Sexual orientation: Straight/Heterosexual Meds Allergies Allergy/AdvReac Type Severity Reaction Status Date / Time No Known Allergies Allergy Verified 01/19/24 09:38 [No Known Allergies*] Home Medications ?Medication ?Instructions ?Recorded ?Confirmed ?Last Taken ?Type minoxidil 2.5 mg tablet 0.5 tab PO DAILY alopecia 09/22/21 01/19/24 09/22/21 History mirtazapine 15 mg tablet 7.5 mg PO DAILY 09/23/22 01/19/24 Unknown History gabapentin 300 mg capsule 300 mg PO BEDTIME 03/30/23 01/19/24 Unknown History duloxetine 30 mg capsule,delayed 30 mg PO DAILY 08/17/23 01/19/24 Unknown History release Assessment and Plan Assessment Anesthesia Assessment: Chart Reviewed Final Anesthetic Review Family History of Problems with Anesthesia: No History of Problems with Anesthesia: No Documented by User: Agueda Bal MD 01/19/24 10:36 PMFSH Past Medical History Medical History Hiatal hernia Anxiety Psychotic disorder Schatzki's ring Hx of diverticulitis of colon Chronic constipation Oropharyngeal dysphagia Family History Family History Father No problems noted. Mother No problems noted. Surgical History Surgical History History of esophagogastroduodenoscopy (EGD) Hx of tonsillectomy Hx of hand surgery History of appendectomy History of hysterectomy Hx of endoscopy History of colonoscopy Social History Social History Household Members: None Housing: House Housing Other:: Two family home. lives on second floor alone Are you a primary resident care director to a significant other at home: No Do you presently have visiting nurse or other home services: No Unable to assess alcohol history related to: Refusing to respond Alcohol intake: current Alcohol intake frequency: does not drink Alcohol type: wine Patient Tobacco Use Status: Never used Tobacco Second Hand Smoke Exposure: No Have you been hit, kicked, punched, or otherwise hurt by someone within the past year? If so, by whom?: No Are you DNR?: No Advance Directives: No Advance Directives Information Provided: Yes Nutrition Risks: No Nutritional Risk service: No Current occupational status: unemployed Current occupation: rt handed Sexual orientation: Straight/Heterosexual Meds Allergies Allergy/AdvReac Type Severity Reaction Status Date / Time No Known Allergies Allergy Verified 01/19/24 09:38 [No Known Allergies*] Home Medications ?Medication ?Instructions ?Recorded ?Confirmed ?Last Taken ?Type minoxidil 2.5 mg tablet 0.5 tab PO DAILY alopecia 09/22/21 01/19/24 09/22/21 History mirtazapine 15 mg tablet 7.5 mg PO DAILY 09/23/22 01/19/24 Unknown History gabapentin 300 mg capsule 300 mg PO BEDTIME 03/30/23 01/19/24 Unknown History duloxetine 30 mg capsule,delayed 30 mg PO DAILY 08/17/23 01/19/24 Unknown History release Exam Airway Mallampati Class: II TM Dist: >3cm Neck ROM: Full Heart: rrr Lungs: cta Assessment and Plan Assessment Anesthesia Assessment: Anesthesia Plan Discussed Final Anesthetic Review NPO: Yes ASA Class: III Final Preanesthetic Review: No Changes in Pt Med Stat, Meds/Allgs Chart Reviewed, Consent Obtained/Reviewed and Anes Risks/Benef Reviewed Patient Risk: Intermediate Procedure Risk: Low Anesthetic Plan Anesthetic Plan: MAC: Disposition: Standard PACU
[2024-01-19 09:21] VITALS: BMI 29.0
[2024-01-19] MEDS: Lactated Ringers 1,000 ML 100 ML IVCONT (09:29)
[2024-01-19 09:38] VITALS: BP 137/73; PULSE 72; RESP 18; TEMP 36.4; O2SAT 96
--- NOTE | 2024-01-19 09:54 | MHC.SHP ---
Pre-Procedural Eval Section A - 24 Hr Update-Section A only Date of Service: 01/19/24 The patient is an INPATIENT: No The patient has been examined within 24 hours of the surgical procedure. The History & Physical has been completed within 30 days and I have reviewed it.: No Section B - Complete if H&P > 30 days Chief Complaint: Fu of erosive esophagitis Relevant Family History (Specify if Yes): No Relevant Social History: None Present Medications: see Short Stay Collaborative assessment Medical History: Significant History (Chronic constipation Hiatal hernia Hx of diverticulitis of colon Oropharyngeal dysphagia Psychotic disorder Schatzki's ring) History of Previous Operations: Relevant previous surgery/procedure and date(s) (History of esophagogastroduodenoscopy (EGD) Hx of tonsillectomy Hx of hand surgery History of appendectomy History of hysterectomy Hx of endoscopy History of colonoscopy) Allergies: Allergies Allergy/AdvReac Type Severity Reaction Status Date / Time No Known Allergies Allergy Verified 01/19/24 09:38 [No Known Allergies*] Review of Systems Sugical H&P ROS: Negative: Constitution, Cardiovascular, Respiratory and Gastrointestinal Exam Surgical H&P Exam: Normal: Heart, Normal: Lungs, Normal: Extremities and Normal: Abdomen Plan Diagnosis/Plan: Unchanged I have reviewed the history and physical and performed a pertinent physical examination on my patient. No changes have occurred unless specified. Time Spent With Patient Time: Total time managing care of this patient today ____ minutes.
--- NOTE | 2024-01-19 10:54 | W.PM.OPN ---
Operative Note Operative Note Date of Service: 01/19/24 Narrative: FLEXIBLE TRANSORAL UPPER GASTROINTESTINAL ENDOSCOPY WITH BIOPSIES AND ESOPHAGEAL BALLOON DILATION Pre-op diagnosis: GERD, Dysphagia, follow-up of erosive esophagitis Post-op diagnosis: Hiatal hernia, esophagitis, Schatzki's ring, gastritis Endoscopist:? Dalia Mcknight MD Anesthesia:?MAC UPPER ENDOSCOPY Consent: Indications for the procedure and potential complications of bleeding, perforation, reaction to medications and missed diagnosis were discussed with the patient and informed consent was obtained. Instrument: Olympus GIF H 190 mid size upper endoscope Monitoring: Vital signs and clinical assessment, continuous EKG monitoring, Pulse oximetry, Carbon Dioxide monitoring and blood pressure monitoring were done throughout the procedure. Procedure: The patient was placed in the left lateral decubitis position and pre-procedure medications were administered and a bite block was placed. The endoscope was inserted into the mouth and advanced under direct vision to the third part of duodenum. A careful inspection was made as the upper endoscope was withdrawn including a retroflexed examination of the proximal stomach; Findings and interventions are described below. Findings: Larynx: Normal Esophagus: GE junction at 30 cms,hiatal hernia 30 to 35 cms. Mildly tortuous esophagus Esophagitis with two focal ulcers at GE junction. A partially obstructing schatzki's ring - dilated with a 20 mm CRE balloon x 60 seconds. Stomach: Mild gastric erythema - biopsies were obtained from the antrum. Grade 3 flap valve on retroflexed examination of the cardia. Duodenum: Normal bulb and descending duodenum Intervention: Biopsies as noted above Impression and Post Procedure Diagnosis: Endoscopy Findings: ESOPHAGUS: Hiatal hernia with mildly tortuous esophagus Esophagitis with two focal ulcers at the GE junction. A partially obstructing schatzki's ring - dilated with a 20 mm CRE balloon x 60 seconds. STOMACH: Mild gastritis Plan: Pt has a FU appointment on 02/01/[address] Mcknight. Schedule a Barium swallow if pt continues to have dysphagia symptoms Above findings were reviewed with the patient and relevant handouts were given and the discharge area. BIOPSIES SHOWED: A. Gastric antrum, biopsy: Gastric antral mucosa with minimal chronic inactive gastritis; negative for intestinal metaplasia and dysplasia. B. Gastroesophageal junction, biopsy: Squamous mucosa with hyperplasia, reactive epithelial changes, and intraepithelial neutrophils and eosinophils (up to 4 per high-power field) consistent with esophagitis; no columnar mucosa present
[2024-01-19 11:00] VITALS: BP 102/60; PULSE 76; RESP 17; TEMP 36.1; O2SAT 95
[2024-01-19 11:15] VITALS: BP 135/76; PULSE 69; RESP 18; TEMP 36.4; O2SAT 97
== END 2024-01-19 11:58 | disposition home or self-care (01) ==
PROVIDERS: PCP Internal Medicine; Visit Provider Internal Medicine Gastroenterology
PROC: 0DJ08ZZ Inspection of Upper Intestinal Tract, Via Natural or Artificial Opening Endoscopic (ICD-10-PCS; CPT 43235; principal; 2024-01-19 11:50)
DX: K20.80 Other esophagitis without bleeding (principal); R13.12 Dysphagia, oropharyngeal phase; K21.9 Gastro-esophageal reflux disease without esophagitis; K29.50 Unspecified chronic gastritis without bleeding; K22.2 Esophageal obstruction; K44.9 Diaphragmatic hernia without obstruction or gangrene; F23 Brief psychotic disorder; I10 Essential (primary) hypertension; R73.03 Prediabetes; E55.9 Vitamin D deficiency, unspecified; Z79.899 Other long term (current) drug therapy; Z87.19 Personal history of other diseases of the digestive system; Z56.0 Unemployment, unspecified; Z98.890 Other specified postprocedural states
CPT/HCPCS: 43249; 43239; 88305; 88312; 88342; C1726; J2704

== ENCOUNTER → 2024-01-19 09:02 | Outpatient (BNV) | payer MEDICARE, SELFPAY | PROVIDERS: PCP Internal Medicine; Visit Provider Internal Medicine Gastroenterology | DX: R13.19 Other dysphagia (principal); K20.80 Other esophagitis without bleeding; K29.70 Gastritis, unspecified, without bleeding; K22.2 Esophageal obstruction | CPT/HCPCS: 43239; 43249 ==

== ENCOUNTER 2024-02-01 07:59 | Outpatient (AMB) | payer MEDICARE, SELFPAY ==
--- NOTE | 2024-02-01 08:12 | MHC.OFFVIS ---
Vital Signs 02/01/24 08:13 Height 4 ft 11 in Weight 140 lb BMI 28.3 BP 122/61 Blood Pressure Location Lt brachial Position Sitting Pulse 62 Intake Visit Reasons: S/P EGD; Dr. Mcknight Intake Note: Patient follow up for EGD results. Patient cc: acid reflex with burning sensation, constipation on and off, denies any other GI issues for today. Corpsman Required: No Accompanied by: Self / Same As Patient Allergies No Known Allergies [No Known Allergies*] Allergy (Verified 02/01/24 08:11) Medication List - Last Reconciled 02/01/24 by Dalia Mcknight MD cholecalciferol (vitamin D3) 250 mcg PO 2XW 90 days diclofenac sodium 1% (Voltaren Arthritis Pain) 2 grams topical QID 30 days duloxetine 30 mg PO DAILY famotidine 20 mg PO BEDTIME 90 days gabapentin 300 mg PO BEDTIME minoxidil 0.5 tabs PO DAILY mirtazapine 7.5 mg PO DAILY omeprazole 20 mg PO DAILY 100 days sennosides-docusate sodium 8.6-50 mg (Senna-S) 2 tab-caps (2 x 8.6-50 mg) PO BEDTIME 90 days HPI HPI S/P EGD; Dr. Mcknight: Details: GI clinic visit for this 73-year-old female for follow-up of dysphagia, left lower quadrant pain, diverticulosis and constipation. Pt was hospitalized 09/22-09/24/21 with acute diverticulitis and discharged on p.o. antibiotics x 7 days ?TODAY'S VISIT Patient cc: acid reflex with burning sensation, constipation on and off, denies any other GI issues for today. EGD results were reviewed - advised to increase Omeprazole 20 mg twice daily Notes impeorvement in dysphagia and LLQ pain PAST VISIT: Patient cc a reflex with burning sensation at night time. Denies any other GI issues. Continues to have intermittent LLQ pain and constipation. When she takes her pills, has a BM the following morning. Takes Senna and Miralax daily with relief of abdominal pain. Intermittent dysphagia - mostly solids and occasionally with liquids. Food can get stuck occasionally and she has to drink some water. Chews her food well Will be spending Thanksgiving by herself since she has children in [facility] Abdominal pain has improved. Taking Miralax twice a day and Senna at bedtime and has a BM the following day. Notes lower abdominal pain when she sleeps on stomach. Continues to have acid reflux and denies dysphagia. Has chronic cough and intermittent hoarseness. Having pain in the back for the past week and taking Ibuprofen. Had back pain in the past and it resolved. Has to pee every 15 min without burning Has been having nausea in the am for the past 1-2 weeks. Taking Senna or Miralax daily and has a BM daily every morning Had a BM today with incomplete evacuation. Notes lower abdominal pain which improves after she has a BM Had a cough for 3 weeks - resolved and then came back again Denies heartburn or dysphaia Abdominal pain is better - notes some pain at night. Notes occasonal nausea Has nausea when she wakes up. Taking a low fibre diet. Has not been Denies fever or chills. Has some sweating during sleep which she thinks is normal for her. Abdominal pain is 50% better and not resolved. Taking soups and sometimes white bread. Abd pain is 3-4/10 in intesnity. Having small BMs in the morning. Continuing to have some lower abdominal pain (4-5/10 in intensity) Notes some pressure in the lower abdomen and denies fever. Finished antibiotics today. taking mostly a liquid diet - unsure what she can eat. BMs are small. Notes some dysphagia when she takes her pills. Lost weight to 105 due to depression and is now regaining the wt she lost Patient cc: N/V, GERD, lower abdominal pain with bloating and she said is more at night time. Denies any other GI issues. Dysphagia has improved - sometimes has trouble swallowing large pills. Lower abdominal pain for the past few weeks - wakes her up from sleep at night. Pain improves after she has a BM Notes worsening constipation -sometimes no BM for 3 days. Taking Senna and Miralax - not always helpful ? ? ? Continues to have recurrent dysphagia with solid foods for the past several months ? ? ? Notes difficulty swallowing her pills and sometimes looses her voice. Scheduled for an EGD in November, and procedure was postponed by anesthesia due to presence of dental implants - pt was advised to reschedule after her dental work was completed. Taking Miralax daily and has a BM every other day . Ran out of pills - which worked better. Has not been eating. Has lost 20 to?22 lbs ? IMAGING STUDIES:? 09/22/[address] SCAN SHOWED: Findings as described above. Findings most consistent with significant diverticulitis in the sigmoid. As described some adjacent soft tissue stranding and fluid. Possible early fluid collection in the deep pelvis on the right. Attention to follow-up. This area of disease is also intimately associated with the cervical/uterine structure which demonstrates some air density. Therefore an element of fistulization cannot be excluded. 11/23/20 ABD US SHOWED: 1 cm left renal cyst with question wall calcification versus milk of calcium cyst.Otherwise unremarkable exam.? ENDOSCOPIC STUDIES: 07/28/23 EGD AND COLON SHOWED: Endoscopy Findings: ESOPHAGUS: Hiatal hernia 32 to 35 cms. Multiple linear erosions and 7-8 mm ulcers in the distal esophagus from 25 to 32 cms No stricture or ring seen. STOMACH: Gastritis and gastric polyps BIOPSIES SHOWED: A. Stomach, antrum, biopsy: Antral-type mucosa within normal limits; no Helicobacter organisms seen. B. Stomach, polyp: Fundic gland polyp with background mild chronic inactive inflammation; no Helicobacter organisms seen. Colonoscopy Findings: No polyps were detected Moderate diverticulosis seen in the entire colon Small hemorrhoids on retroflexed exam. Plan: Repeat Colonoscopy in 5 years due to a history of adenomatous colon polyps. 03/04 EGD showed:ESOPHAGUS: Tortuous esophagus with increased tertiary contractions without stricture or ring.? GE junction at 34 cms, hiatal hernia 34 to 37 cms . No esophagitis or Wahl?s.? Recurrent Schatzki's ring was not visualized - empirc dilation was performed with an 18 and 19 mm CRE balloon x 60 seconds at each level. DUODENUM: Normal - bxed to check for celiac sprue - normal Plan:? Await pathology results 07/2018 UPPER ENDOSCOPY AND COLONOSCOPY WAS PERFORMED: EGD showed hiatal hernia, gastritis and a Schatzki's ring which was dilated with a balloon.? Colonoscopy showed diverticulosis and two small adenomatous polyps were removed [facility] Medical History Hiatal hernia Anxiety Psychotic disorder Schatzki's ring Hx of diverticulitis of colon Chronic constipation Oropharyngeal dysphagia Surgical History History of esophagogastroduodenoscopy (EGD) Hx of tonsillectomy Hx of hand surgery History of appendectomy History of hysterectomy Hx of endoscopy History of colonoscopy Family History Father No problems noted. Mother No problems noted. Social History Household Members: None Housing: House Housing Other:: Two family home. lives on second floor alone Are you a primary spiritual care coordinator to a significant other at home: No Do you presently have visiting nurse or other home services: No Unable to assess alcohol history related to: Refusing to respond Alcohol intake: current Alcohol intake frequency: does not drink Alcohol type: wine Patient Tobacco Use Status: Never used Tobacco Second Hand Smoke Exposure: No service: No Current occupational status: unemployed Current occupation: rt handed Sexual orientation: Straight/Heterosexual Review of Systems Const All systems reviewed & are unremarkable except as noted in HPI and below Physical Exam Vital Signs: Last Vital Signs Pulse 62 02/01/24 08:13 BP 122/61 02/01/24 08:13 BMI result Body Mass Index 28.3 Const General: healthy appearing and no acute distress Nutritional Appearance: overweight Orientation/consciousness: patient oriented x3 Limitations: no limitations HEENT Head: Yes normal to inspection Ears: hearing grossly normal bilaterally Eyes Sclerae: sclerae normal Pupils: Equal, round and reactive pupils present Neck Neck: Yes normal visual inspection Chest Chest palpation & inspection: normal inspection of the chest Resp Effort & Inspection: normal respiratory effort Auscultation: clear to auscultation bilaterally Cardio Palpation: normal PMI Rate: regular rate Rhythm: regular rhythm Heart sounds: S1 normal heart sound present, S2 normal heart sound present and no murmurs GI Palpation (GI): Soft to palpation, nontender and No hepatosplenomegaly present Auscultation: normal bowel sounds Rectal Exam - Female: deferred Skin General skin exam: no rashes or lesions noted Neuro General: patient oriented x3, gait normal and moves all extremities Cranial nerves: Yes Equal, round and reactive pupils present Psych Appearance: grossly normal Mental Status: mental status grossly normal Assessment & Plan Assessment & Plan (1) Oropharyngeal dysphagia: Code(s): R13.12 - Dysphagia, oropharyngeal phase Category: Medical (2) Chronic constipation: Code(s): K59.09 - Other constipation Category: Medical (3) History of colon polyps: Comment: Two small adenomatous polyps were removed during colonoscopy in 07/2018. Action in place for repeat colon in 5 years (due July,). Code(s): Z86.010 - Personal history of colonic polyps Category: Medical (4) Hx of diverticulitis of colon: Code(s): Z87.19 - Personal history of other diseases of the digestive system Category: Medical (5) Schatzki's ring: Code(s): K22.2 - Esophageal obstruction Category: Medical (6) Weight loss: Code(s): R63.4 - Abnormal weight loss Category: Medical (7) GERD (gastroesophageal reflux disease): Code(s): K21.9 - Gastro-esophageal reflux disease without esophagitis Category: Medical Plan 73 YF with Htn, pre-diabetes, hypertriglyceridemia, arthritis, Vitamin D deficiency seen for FU of recurrent LLQ pain and past episode of diverticulitis. Past EGD showed hiatal hernia, gastritis and a Schatzki's ring which was dilated with a balloon. Colonoscopy showed diverticulosis and two small adenomatous polyps were removed. Her abdominal pain has improved with regular BMs. Pt was?scheduled for EGD in November, and procedure was postponed by anesthesia due to presence of dental implants - 03/04 EGD with balloon dilation was performed and recurrent Schatzki's ring was not visualized. Pt was hospitalized 09/22 to 09/24/21 with acute diverticulitis. Her symptoms have improved and not resolved after 1 week of antibiotic therapy. Pt was advised to continue antibiotics for another 10 days with subsequent improvement in her symptoms. 10/29/[address] SCAN SHOWED: GASTROINTESTINAL TRACT: There is significant interval improvement in sigmoid diverticulitis compared to September 2021 exam. There is still an area of wall thickening and of the left side of the proximal sigmoid colon and some stranding of the adjacent fat. No evidence of obstruction, perforation or abscess is seen. Small and large bowel is otherwise normal. The appendix is not seen. ABDOMINAL WALL: No significant hernia is appreciated.? Pt was advised to increase Senna to 2 tab at bedtime and continue taking Miralax every morning for constipation 08/25/22 Pt was advised to check labs and a KUB Labs showed normal CBC and CRP. KUB showed: No evidence of constipation or obstruction.- pt called and informed Patient was advised to take MiraLax twice daily for constipation with improvement in abdominal pain 5/12/23 Pt was prescribed Voltaren gel for back and pain in the right shoulder until she can be seen by her PCP next month. 08/17/23 EGD and colon results were reviewed - advised to start taking Omeprazole 20 mg every morning And continue taking famotidine 20 mg at bedtime. Continues to have intermittent LLQ pain and constipation. When she takes her pills, has a BM the following morning. Takes Senna and Miralax daily with relief of abdominal pain. Repeat colon in 5 yrs 01/18 EGD with balloon dilation was performed Patient advised to increase omeprazole to 20 mg twice daily FU in 4 months Medications: Changed From omeprazole 20 mg PO DAILY 100 days 100 caps 1RF To omeprazole 20 mg PO BID 100 days 200 caps 1RF Coding Level of Care Code Est Pt Level 4 (02875) Diagnoses Oropharyngeal dysphagia R13.12 Chronic constipation K59.09 History of colon polyps Z86.010 Hx of diverticulitis of colon Z87.19 Schatzki's ring K22.2 Weight loss R63.4 GERD (gastroesophageal reflux disease) K21.9 Time Spent (min) 20
[2024-02-01 08:13] VITALS: BP 122/61; PULSE 62; BMI 28.3
== END 2024-02-01 09:08 | disposition home or self-care (01) ==
PROVIDERS: PCP Internal Medicine; Visit Provider Internal Medicine Gastroenterology
DX: R13.12 Dysphagia, oropharyngeal phase (principal); K59.09 Other constipation; Z86.010 Personal history of colon polyps; Z87.19 Personal history of other diseases of the digestive system; K22.2 Esophageal obstruction; R63.4 Abnormal weight loss; K21.9 Gastro-esophageal reflux disease without esophagitis
CPT/HCPCS: 99214

== ENCOUNTER → 2024-02-01 07:59 | Outpatient (BNVA) | payer MEDICARE, SELFPAY | PROVIDERS: PCP Internal Medicine; Visit Provider Internal Medicine Gastroenterology | DX: K59.09 Other constipation (principal); K22.2 Esophageal obstruction; K21.9 Gastro-esophageal reflux disease without esophagitis; R13.12 Dysphagia, oropharyngeal phase; R63.4 Abnormal weight loss; Z86.010 Personal history of colon polyps; Z87.19 Personal history of other diseases of the digestive system | CPT/HCPCS: 99212 ==

== ENCOUNTER 2024-06-06 09:56 | Outpatient (AMB) | payer MEDICARE, SELFPAY ==
--- NOTE | 2024-06-06 10:07 | MHC.OFFVIS ---
Vital Signs 06/06/24 10:08 Height 4 ft 11 in Weight 142 lb BMI 28.7 BP 144/68 H Blood Pressure Location Lt brachial Position Sitting Pulse 78 Intake Visit Reasons: 4 month follow up Intake Note: Patient 4 month follow up for Chronic constipation. Patient cc: acid reflex with burning sensation on and off, abdominal bloating, and constipation on and off. Also patient is been with a lot of urinary frequency during the date. Denies any other GI issues for today. 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: No Accompanied by: Self / Same As Patient Allergies No Known Allergies [No Known Allergies*] Allergy (Verified 06/06/24 10:06) Medication List - Last Reconciled 06/06/24 by Dalia Mcknight MD cholecalciferol (vitamin D3) 250 mcg PO 2XW 90 days diclofenac sodium 1% (Voltaren Arthritis Pain) 2 grams topical QID 30 days duloxetine 30 mg PO DAILY famotidine 20 mg PO BEDTIME 90 days minoxidil 0.5 tabs PO DAILY mirtazapine 7.5 mg PO DAILY omeprazole 20 mg PO BID 100 days sennosides-docusate sodium 8.6-50 mg (Senna-S) 2 tab-caps (2 x 8.6-50 mg) PO BEDTIME 90 days HPI HPI 4 month follow up: Details: GI clinic visit for this 74-year-old female for follow-up of dysphagia, left lower quadrant pain, diverticulosis and constipation. Pt was hospitalized 09/22-09/24/21 with acute diverticulitis and discharged on p.o. antibiotics x 7 days ?TODAY'S VISIT Patient cc: acid reflex with burning sensation on and off, abdominal bloating, and constipation on and off. Also patient is been with a lot of urinary frequency during the date. Notes intermittent heartburn mostly at night when she lies down Tries to eat dinner at 4 or 5 pm and denies HB if she eats early Managing dysphagia with eating slowly urinary frequency without burning PAST VISIT: EGD results were reviewed - advised to increase Omeprazole 20 mg twice daily Notes improvement in dysphagia and LLQ pain Patient cc a reflex with burning sensation at night time. Denies any other GI issues. Continues to have intermittent LLQ pain and constipation. When she takes her pills, has a BM the following morning. Takes Senna and Miralax daily with relief of abdominal pain. Intermittent dysphagia - mostly solids and occasionally with liquids. Food can get stuck occasionally and she has to drink some water. Chews her food well Will be spending Thanksgiving by herself since she [facility] Abdominal pain has improved. Taking Miralax twice a day and Senna at bedtime and has a BM the following day. Notes lower abdominal pain when she sleeps on stomach. Continues to have acid reflux and denies dysphagia. Has chronic cough and intermittent hoarseness. Having pain in the back for the past week and taking Ibuprofen. Had back pain in the past and it resolved. Has to pee every 15 min without burning Has been having nausea in the am for the past 1-2 weeks. Taking Senna or Miralax daily and has a BM daily every morning Had a BM today with incomplete evacuation. Notes lower abdominal pain which improves after she has a BM Had a cough for 3 weeks - resolved and then came back again Denies heartburn or dysphaia Abdominal pain is better - notes some pain at night. Notes occasonal nausea Has nausea when she wakes up. Taking a low fibre diet. Has not been Denies fever or chills. Has some sweating during sleep which she thinks is normal for her. Abdominal pain is 50% better and not resolved. Taking soups and sometimes white bread. Abd pain is 3-4/10 in intesnity. Having small BMs in the morning. Continuing to have some lower abdominal pain (4-5/10 in intensity) Notes some pressure in the lower abdomen and denies fever. Finished antibiotics today. taking mostly a liquid diet - unsure what she can eat. BMs are small. Notes some dysphagia when she takes her pills. Lost weight to 105 due to depression and is now regaining the wt she lost Patient cc: N/V, GERD, lower abdominal pain with bloating and she said is more at night time. Denies any other GI issues. Dysphagia has improved - sometimes has trouble swallowing large pills. Lower abdominal pain for the past few weeks - wakes her up from sleep at night. Pain improves after she has a BM Notes worsening constipation -sometimes no BM for 3 days. Taking Senna and Miralax - not always helpful ? ? ? Continues to have recurrent dysphagia with solid foods for the past several months ? ? ? Notes difficulty swallowing her pills and sometimes looses her voice. Scheduled for an EGD in [place], 2021 and procedure was postponed by anesthesia due to presence of dental implants - pt was advised to reschedule after her dental work was completed. Taking Miralax daily and has a BM every other day . Ran out of pills - which worked better. Has not been eating. Has lost 20 to?22 lbs ? IMAGING STUDIES:? 09/22/[address] SCAN SHOWED: Findings as described above. Findings most consistent with significant diverticulitis in the sigmoid. As described some adjacent soft tissue stranding and fluid. Possible early fluid collection in the deep pelvis on the right. Attention to follow-up. This area of disease is also intimately associated with the cervical/uterine structure which demonstrates some air density. Therefore an element of fistulization cannot be excluded. 11/23/20 ABD US SHOWED: 1 cm left renal cyst with question wall calcification versus milk of calcium cyst.Otherwise unremarkable exam.? ENDOSCOPIC STUDIES: 07/28/23 EGD AND COLON SHOWED: Endoscopy Findings: ESOPHAGUS: Hiatal hernia 32 to 35 cms. Multiple linear erosions and 7-8 mm ulcers in the distal esophagus from 25 to 32 cms No stricture or ring seen. STOMACH: Gastritis and gastric polyps BIOPSIES SHOWED: A. Stomach, antrum, biopsy: Antral-type mucosa within normal limits; no Helicobacter organisms seen. B. Stomach, polyp: Fundic gland polyp with background mild chronic inactive inflammation; no Helicobacter organisms seen. Colonoscopy Findings: No polyps were detected Moderate diverticulosis seen in the entire colon Small hemorrhoids on retroflexed exam. Plan: Repeat Colonoscopy in 5 years due to a history of adenomatous colon polyps. 03/04 EGD showed:ESOPHAGUS: Tortuous esophagus with increased tertiary contractions without stricture or ring.? GE junction at 34 cms, hiatal hernia 34 to 37 cms . No esophagitis or Wahl?s.? Recurrent Schatzki's ring was not visualized - empirc dilation was performed with an 18 and 19 mm CRE balloon x 60 seconds at each level. DUODENUM: Normal - bxed to check for celiac sprue - normal Plan:? Await pathology results 07/2018 UPPER ENDOSCOPY AND COLONOSCOPY WAS PERFORMED: EGD showed hiatal hernia, gastritis and a Schatzki's ring which was dilated with a balloon.? Colonoscopy showed diverticulosis and two small adenomatous polyps were re [facility] Medical History (Updated 06/06/24 @ 10:38 by Dalia Mcknight MD) Hiatal hernia Anxiety Psychotic disorder Schatzki's ring Hx of diverticulitis of colon Chronic constipation Oropharyngeal dysphagia Surgical History History of esophagogastroduodenoscopy (EGD) Hx of tonsillectomy Hx of hand surgery History of appendectomy History of hysterectomy Hx of endoscopy History of colonoscopy Family History Father No problems noted. Mother No problems noted. Social History Household Members: None Housing: House Housing Other:: Two family home. lives on second floor alone Are you a primary vocational childcare teacher to a significant other at home: No Do you presently have visiting nurse or other home services: No Unable to assess alcohol history related to: Refusing to respond Alcohol intake: current Alcohol intake frequency: does not drink Alcohol type: wine Patient Tobacco Use Status: Never used Tobacco Second Hand Smoke Exposure: No service: No Current occupational status: unemployed Current occupation: rt handed Sexual orientation: Straight/Heterosexual Review of Systems Const All systems reviewed & are unremarkable except as noted in HPI and below Physical Exam Vital Signs: Last Vital Signs Pulse 78 06/06/24 10:08 BP 144/68 H 06/06/24 10:08 BMI result Body Mass Index 28.7 Const General: healthy appearing and no acute distress Nutritional Appearance: overweight Orientation/consciousness: patient oriented x3 Limitations: no limitations HEENT Head: Yes normal to inspection Ears: hearing grossly normal bilaterally Eyes Sclerae: sclerae normal Pupils: Equal, round and reactive pupils present Neck Neck: Yes normal visual inspection Chest Chest palpation & inspection: normal inspection of the chest Resp Effort & Inspection: normal respiratory effort Auscultation: clear to auscultation bilaterally Cardio Palpation: normal PMI Rate: regular rate Rhythm: regular rhythm Heart sounds: S1 normal heart sound present, S2 normal heart sound present and no murmurs GI Palpation (GI): Soft to palpation, nontender and No hepatosplenomegaly present Auscultation: normal bowel sounds Rectal Exam - Female: deferred Skin General skin exam: no rashes or lesions noted Neuro General: patient oriented x3, gait normal and moves all extremities Cranial nerves: Yes Equal, round and reactive pupils present Psych Appearance: grossly normal Mental Status: mental status grossly normal Assessment & Plan Assessment & Plan (1) Oropharyngeal dysphagia: Code(s): R13.12 - Dysphagia, oropharyngeal phase Category: Medical (2) Chronic constipation: Code(s): K59.09 - Other constipation Category: Medical (3) History of colon polyps: Comment: Two small adenomatous polyps were removed during colonoscopy in 07/2018. Action in place for repeat colon in 5 years (due July,). Code(s): Z86.010 - Personal history of colon polyps Category: Medical (4) Hx of diverticulitis of colon: Code(s): Z87.19 - Personal history of other diseases of the digestive system Category: Medical (5) Schatzki's ring: Code(s): K22.2 - Esophageal obstruction Category: Medical (6) GERD (gastroesophageal reflux disease): Code(s): K21.9 - Gastro-esophageal reflux disease without esophagitis Category: Medical (7) Urinary frequency: Code(s): R35.0 - Frequency of micturition Category: Medical Plan 74 YF with Htn, pre-diabetes, hypertriglyceridemia, arthritis, Vitamin D deficiency seen for FU of recurrent LLQ pain and past episode of diverticulitis. Past EGD showed hiatal hernia, gastritis and a Schatzki's ring which was dilated with a balloon. Colonoscopy showed diverticulosis and two small adenomatous polyps were removed. Her abdominal pain has improved with regular BMs. Pt was?scheduled for EGD in November, and procedure was postponed by anesthesia due to presence of dental implants - 03/04 EGD with balloon dilation was performed and recurrent Schatzki's ring was not visualized. Pt was hospitalized 09/22 to 09/24/21 with acute diverticulitis. Her symptoms have improved and not resolved after 1 week of antibiotic therapy. Pt was advised to continue antibiotics for another 10 days with subsequent improvement in her symptoms. 10/29/[address] SCAN SHOWED: GASTROINTESTINAL TRACT: There is significant interval improvement in sigmoid diverticulitis compared to September 2021 exam. There is still an area of wall thickening and of the left side of the proximal sigmoid colon and some stranding of the adjacent fat. No evidence of obstruction, perforation or abscess is seen. Small and large bowel is otherwise normal. The appendix is not seen. ABDOMINAL WALL: No significant hernia is appreciated.? Pt was advised to increase Senna to 2 tab at bedtime and continue taking Miralax every morning for constipation 08/25/22 Pt was advised to check labs and a KUB Labs showed normal CBC and CRP. KUB showed: No evidence of constipation or obstruction.- pt called and informed Patient was advised to take MiraLax twice daily for constipation with improvement in abdominal pain 09/23/22 Pt was prescribed Voltaren gel for back and pain in the right shoulder until she can be seen by her PCP next month. 08/17/23 EGD and colon results were reviewed - advised to start taking Omeprazole 20 mg every morning And continue taking famotidine 20 mg at bedtime. Continues to have intermittent LLQ pain and constipation. When she takes her pills, has a BM the following morning. Takes Senna and Miralax daily with relief of abdominal pain. Repeat colon in 5 yrs 01/18 EGD with balloon dilation was performed Patient advised to increase omeprazole to 20 mg twice daily 06/06/24 Notes intermittent heartburn mostly at night when she lies down Advised switching to Pantoprazole 40 mg twice daily for GERD FU in 6 months Orders: Orders Comprehensive [place]. Panel Fast Today K21.9 - Gastro-esophageal reflux disease without esophagitis, K59.09 - Other constipation Vitamin B12 and Folate Today K21.9 - Gastro-esophageal reflux disease without esophagitis, K59.09 - Other constipation UA CC w/rflx Micro + Cult Today R35.0 - Frequency of micturition Complete Blood Count no Diff Today K21.9 - Gastro-esophageal reflux disease without esophagitis, K59.09 - Other constipation Vitamin D 25-OH Total Today K21.9 - Gastro-esophageal reflux disease without esophagitis, K59.09 - Other constipation Lipid Panel with Reflex Today K21.9 - Gastro-esophageal reflux disease without esophagitis, K59.09 - Other constipation TSH reflex Free T4 Today K21.9 - Gastro-esophageal reflux disease without esophagitis, K59.09 - Other constipation Medications: New pantoprazole 40 mg PO BID 30 days 60 tabs 3RF K21.9 - Gastro-esophageal reflux disease without esophagitis Discontinued famotidine Discontinued Reason: Patient Completed Course 20 mg PO BEDTIME 90 days 90 tabs 1RF K21.9 - Gastro-esophageal reflux disease without esophagitis omeprazole Discontinued Reason: Ancillary Entered New Order 20 mg PO BID 100 days 200 caps 1RF Coding Level of Care Code Est Pt Level 3 (70630) Diagnoses Oropharyngeal dysphagia R13.12 Chronic constipation K59.09 History of colon polyps Z86.010 Hx of diverticulitis of colon Z87.19 Schatzki's ring K22.2 GERD (gastroesophageal reflux disease) K21.9 Urinary frequency R35.0 Time Spent (min) 18
[2024-06-06 10:08] VITALS: BP 144/68; PULSE 78; BMI 28.7
== END 2024-06-06 10:57 | disposition home or self-care (01) ==
PROVIDERS: PCP Internal Medicine; Visit Provider Internal Medicine Gastroenterology
DX: R13.12 Dysphagia, oropharyngeal phase (principal); K59.09 Other constipation; Z86.0100 Personal history of colon polyps, unspecified; Z87.19 Personal history of other diseases of the digestive system; K22.2 Esophageal obstruction; K21.9 Gastro-esophageal reflux disease without esophagitis; R35.0 Frequency of micturition
CPT/HCPCS: 99213

== ENCOUNTER → 2024-06-06 09:56 | Outpatient (BNVA) | payer MEDICARE, SELFPAY | PROVIDERS: PCP Internal Medicine; Visit Provider Internal Medicine Gastroenterology | DX: K59.09 Other constipation (principal); K22.2 Esophageal obstruction; K21.9 Gastro-esophageal reflux disease without esophagitis; R13.12 Dysphagia, oropharyngeal phase; R35.0 Frequency of micturition; Z86.0100 Personal history of colon polyps, unspecified; Z87.19 Personal history of other diseases of the digestive system | CPT/HCPCS: 99212 ==

== ENCOUNTER 2024-06-08 07:41 | Outpatient (REF) | payer MEDICARE, SELFPAY ==
[2024-06-08 08:11] LABS: Appearance Urine Clear; Color Urine Yellow; Glucose Urine UA Negative (Negative); Leukocyte Esterase Urine Large (3+) (Negative); Nitrite Urine Negative (Negative); PH 5.5 (5.0-9.0); UMIC TRIGGER UACC YES; Urine Blood Negative (Negative); Urine Ketones Negative (Negative); Urine Protein Negative (Neg-Trace)
[2024-06-08 08:17] LABS: Bacteria Urine None Seen (None Seen); Hematocrit 39.4 % (37.0-47.0); Hemoglobin 13.1 g/dl (12.0-16.0); Hyaline Casts Urine 0-2 /LPF (0-2); Mean Corpuscular HGB Conc 33.2 g/dl (31.0-35.0); Mean Corpuscular Hemoglobin 29.9 pg (27.0-33.0); Mean Platelet Volume 9.1 fL (9.4-12.3); Platelet Count 279 X10*3/uL (160-400); RBC Urine 0-2 /HPF (0-2); Red Blood Count 4.38 X10*6/uL (4.20-5.50); Red Cell Distribution Width 13.5 % (11.0-16.0); UACC Culture Trigger YES; WBC Urine >50 /HPF (0-5); White Blood Count 3.8 X10*3/uL (4.8-10.8)
[2024-06-08 08:56] LABS: Alanine Aminotransferase 27 U/L (0-31); Albumin Level 4.1 g/dL (3.5-5.0); Alkaline Phosphatase 84 U/L (39-117); Anion Gap 11 (12-20); Aspartate Amino Transferase 23 U/L (5-31); Bilirubin Total 0.5 mg/dL (0.0-1.0); Blood Urea Nitrogen 13 mg/dL (9-16); Calcium 8.7 mg/dL (8.4-10.2); Carbon Dioxide 25 mmol/L (22-29); Chloride 109 mmol/L (96-108); Cholesterol 239 mg/dL (<200); Estimated Glomerular Filt Rate > 60; Glucose Fasting 125 mg/dL (60-99); HDL Cholesterol 50 mg/dL (>40); LDL Cholesterol Calculated 156 mg/dL (<100); Potassium 4.4 mmol/L (3.3-5.1); Sodium 141 mmol/L (135-145); Total Protein 7.2 g/dL (6.5-8.0); Triglycerides 167 mg/dL (<150)
[2024-06-08 09:02] LABS: TSH reflex Free T4 2.83 uIU/mL (0.32-4.0)
[2024-06-08 09:14] LABS: Folate 8.7 ng/mL (> or = 4.0); Vitamin B12 366 pg/mL (200-900)
[2024-06-08 11:51] LABS: Reflex LDLD? No
== END 2024-06-08 07:42 | disposition home or self-care (01) ==
LOC: HO.LAB 07:41
PROVIDERS: PCP Internal Medicine; Visit Provider Internal Medicine Gastroenterology
DX: K21.9 Gastro-esophageal reflux disease without esophagitis (principal); K59.09 Other constipation; R35.0 Frequency of micturition
CPT/HCPCS: 36415; 80053; 80061; 81001; 82306; 82607; 82746; 84443; 85027; 87086

== ENCOUNTER 2024-12-05 09:39 | Outpatient (AMB) | payer MEDICARE, SELFPAY ==
--- OUTSIDE RECORDS SUMMARY | 2024-11-26 06:15 | XMS_ITS ---
Author Organization Sawyer Mckenzie MD Address [address] [place] [phone] Care Team Providers Care Supervisor Claims Name Role Phone Sawyer Mckenzie Primary Care Provider Allergies No Known Allergies Reason For Referral Reason Hoarseness of voice Diagnosis 1 Hoarseness of voice (R49.0) Referral Organization Sawyer Mckenzie MD Referring Provider First Name Sawyer Referring Provider Last Name Magaly Referring Provider Speciality Internal M edicine Referred Provider RENE MONTALVO Referred Provider Specialty Otolaryngolo gy Referral Priority Routine Medications Medication SIG (Take, Route, Frequency, Duration) [...] Location Date Provider Diagnosis Sawyer Mckenzie MD [address] [place] [address] Drive [address] [place], [place] [phone] 11/26/2024 Sawyer Mckenzie Essential hypertension I10 and Hoarseness of voice R49.0 Assessments Encounter Date Diagnosis (ICD Code) Assessment Notes Treatment Notes Treatment Clinical Notes Section Notes 11/26/2024 Essential hypertension (ICD-10 - I10) well controlled 11/26/2024 Hoarseness of voice (ICD-10 - R49.0) needs referral to dr montalvo in [facility] in [place] Plan Of Treatment Treatment Notes Assessment Notes Essential hypertension well controlled Hoarseness of voice needs referral to dr montalvo in [facility] in [place] Referrals Referral Date Details 11/26/2024 11/26/2024, Hoarsene ss of voice, RENE MONTALVO Next Appt Details Follow Up: 6 Months, Reason: complete Provider Name:Sawyer galvan, 05/23/2025 07:45:00 AM, [address] [place] [address], [address], [place], [place], [phone], Provider Name:Sawyer galvan, 05/30/2025 11:00:00 AM, [address] [place] [address], [address], [place], [place], [phone], Progress Notes * Hoa ARMANDO:1 06/21/1949 (74 yo F)Acc No.[id number]:11/26/2024 Progress Notes Patient: Hoa ROWAN Provider: Julianne Mckenzie MD :1950 A ge:74 Y S ex:Female Date:11/26/2024 Address:[address] [place] [id number] Subjective: * Chief Complaints: * * HPI: [...] BP:132/70, Wt-k.23. weight is down 1 pound [id number]. * Examination: G eneral Examination: GENERAL APPEARANCE: [...] referral to dr montalvo in [place] in [place] ? Referral To:RENE MONTALVO Otolaryngology Reason:Hoarseness of voice * Procedure Codes: * Follow Up: 6 Months (Reason: complete) * * Sign off status: Completed true * Provider: Julianne Mckenzie MD Date: 0 11/26/2024 Generated for Robe neff/Delmer/Rubensitting on: 12/05/2024 10:17 AM EDT History and Physical Notes * HPI (History [...]
--- NOTE | 2024-12-05 09:47 | MHC.OFFVIS ---
Vital Signs 12/05/24 09:49 Height 4 ft 11 in Weight 143 lb 4.807 oz BMI 28.9 BP 165/74 H Blood Pressure Location Lt brachial Position Sitting Pulse 83 Intake Visit Reasons: 6 mo f/u Intake Note: Hoa presents in the office as a 6 month follow up. CC: She states that she has had no changes since her last visit. Ore Trimmer Required: No Allergies No Known Allergies (No Known Allergies*) Allergy (Verified 06/06/24 10:06) Medication List - Last Reconciled 12/05/24 by Dalia Mcknight MD cholecalciferol (vitamin D3) PO 2XW diclofenac sodium 1% (Voltaren Arthritis Pain) 2 grams topical QID 30 days duloxetine 40 mg PO QAM duloxetine 30 mg PO DAILY minoxidil 0.5 tabs PO DAILY mirtazapine 7.5 mg PO DAILY pantoprazole 40 mg PO BID 30 days sennosides-docusate sodium 8.6-50 mg (Senna-S) 2 tab-caps (2 x 8.6-50 mg) PO BEDTIME 90 days HPI HPI 6 mo f/u: Details: GI clinic visit for this 74-year-old female for follow-up of dysphagia, left lower quadrant pain, diverticulosis and constipation. Pt was hospitalized 09/22-09/24/21 with acute diverticulitis and discharged on p.o. antibiotics x 7 days ?TODAY'S VISIT CC: She states that she has had no changes since her last visit. Patient cc: acid reflex with burning sensation on and off, abdominal bloating, and constipation on and off. Continues to have acid reflux daily - mostly at night and sometimes in the morning Intermittent dysphagia to solids and liquids and can loose her voice Tries not to eat anything after 6 pm and sleeps at 9 pm. PAST VISIT: Also patient is been with a lot of urinary frequency during the day. Notes intermittent heartburn mostly at night when she lies down Tries to eat dinner at 4 or 5 pm and denies HB if she eats early Managing dysphagia with eating slowly urinary frequency without burning EGD results were reviewed - advised to increase Omeprazole 20 mg twice daily Notes improvement in dysphagia and LLQ pain Patient cc a reflex with burning sensation at night time. Denies any other GI issues. Continues to have intermittent LLQ pain and constipation. When she takes her pills, has a BM the following morning. Takes Senna and Miralax daily with relief of abdominal pain. Intermittent dysphagia - mostly solids and occasionally with liquids. Food can get stuck occasionally and she has to drink some water. Chews her food well Will be spending Thanksgiving by herself since she has children in [facility] Abdominal pain has improved. Taking Miralax twice a day and Senna at bedtime and has a BM the following day. Notes lower abdominal pain when she sleeps on stomach. Continues to have acid reflux and denies dysphagia. Has chronic cough and intermittent hoarseness. Having pain in the back for the past week and taking Ibuprofen. Had back pain in the past and it resolved. Has to pee every 15 min without burning Has been having nausea in the am for the past 1-2 weeks. Taking Senna or Miralax daily and has a BM daily every morning Had a BM today with incomplete evacuation. Notes lower abdominal pain which improves after she has a BM Had a cough for 3 weeks - resolved and then came back again Denies heartburn or dysphaia Abdominal pain is better - notes some pain at night. Notes occasonal nausea Has nausea when she wakes up. Taking a low fibre diet. Has not been Denies fever or chills. Has some sweating during sleep which she thinks is normal for her. Abdominal pain is 50% better and not resolved. Taking soups and sometimes white bread. Abd pain is 3-4/10 in intesnity. Having small BMs in the morning. Continuing to have some lower abdominal pain (4-5/10 in intensity) Notes some pressure in the lower abdomen and denies fever. Finished antibiotics today. taking mostly a liquid diet - unsure what she can eat. BMs are small. Notes some dysphagia when she takes her pills. Lost weight to 105 due to depression and is now regaining the wt she lost Patient cc: N/V, GERD, lower abdominal pain with bloating and she said is more at night time. Denies any other GI issues. Dysphagia has improved - sometimes has trouble swallowing large pills. Lower abdominal pain for the past few weeks - wakes her up from sleep at night. Pain improves after she has a BM Notes worsening constipation -sometimes no BM for 3 days. Taking Senna and Miralax - not always helpful ? ? ? Continues to have recurrent dysphagia with solid foods for the past several months ? ? ? Notes difficulty swallowing her pills and sometimes looses her voice. Scheduled for an EGD in November, and procedure was postponed by anesthesia due to presence of dental implants - pt was advised to reschedule after her dental work was completed. Taking Miralax daily and has a BM every other day . Ran out of pills - which worked better. Has not been eating. Has lost 20 to?22 lbs ? IMAGING STUDIES:? 09/22/[address] SCAN SHOWED: Findings as described above. Findings most consistent with significant diverticulitis in the sigmoid. As described some adjacent soft tissue stranding and fluid. Possible early fluid collection in the deep pelvis on the right. Attention to follow-up. This area of disease is also intimately associated with the cervical/uterine structure which demonstrates some air density. Therefore an element of fistulization cannot be excluded. 11/23/20 ABD US SHOWED: 1 cm left renal cyst with question wall calcification versus milk of calcium cyst.Otherwise unremarkable exam.? ENDOSCOPIC STUDIES: 07/28/23 EGD AND COLON SHOWED: Endoscopy Findings: ESOPHAGUS: Hiatal hernia 32 to 35 cms. Multiple linear erosions and 7-8 mm ulcers in the distal esophagus from 25 to 32 cms No stricture or ring seen. STOMACH: Gastritis and gastric polyps BIOPSIES SHOWED: A. Stomach, antrum, biopsy: Antral-type mucosa within normal limits; no Helicobacter organisms seen. B. Stomach, polyp: Fundic gland polyp with background mild chronic inactive inflammation; no Helicobacter organisms seen. Colonoscopy Findings: No polyps were detected Moderate diverticulosis seen in the entire colon Small hemorrhoids on retroflexed exam. Plan: Repeat Colonoscopy in 5 years due to a history of adenomatous colon polyps. 03/04 EGD showed:ESOPHAGUS: Tortuous esophagus with increased tertiary contractions without stricture or ring.? GE junction at 34 cms, hiatal hernia 34 to 37 cms . No esophagitis or Wahl?s.? Recurrent Schatzki's ring was not visualized - empirc dilation was performed with an 18 and 19 mm CRE balloon x 60 seconds at each level. DUODENUM: Normal - bxed to check for celiac sprue - normal Plan:? Await pathology results 07/2018 UPPER ENDOSCOPY AND COLONOSCOPY WAS PERFORMED: EGD showed hiatal hernia, gastritis and a Schatzki's ring which was dilated with a balloon.? Colonoscopy showed diverticulosis and two small adenomatous polyps were removed [facility] Medical History Hiatal hernia Anxiety Psychotic disorder Schatzki's ring Hx of diverticulitis of colon Chronic constipation Oropharyngeal dysphagia Surgical History History of esophagogastroduodenoscopy (EGD) Hx of tonsillectomy Hx of hand surgery History of appendectomy History of hysterectomy Hx of endoscopy History of colonoscopy Family History Father No problems noted. Mother No problems noted. Social History Household Members: None Housing: House Housing Other:: Two family home. lives on second floor alone Are you a primary acute care certified nursing assistant to a significant other at home: No Do you presently have visiting nurse or other home services: No Unable to assess alcohol history related to: Refusing to respond Alcohol intake: current Alcohol intake frequency: does not drink Alcohol type: wine Patient Tobacco Use Status: Never used Tobacco Second Hand Smoke Exposure: No service: No Current occupational status: unemployed Current occupation: rt handed Sexual orientation: Straight/Heterosexual Review of Systems Const All systems reviewed & are unremarkable except as noted in HPI and below Physical Exam Vital Signs: Last Vital Signs Pulse 83 12/05/24 09:49 BP 165/74 H 12/05/24 09:49 BMI result Body Mass Index 28.9 Const General: healthy appearing and no acute distress Nutritional Appearance: overweight Orientation/consciousness: patient oriented x3 Limitations: no limitations HEENT Head: Yes normal to inspection Ears: hearing grossly normal bilaterally Eyes Sclerae: sclerae normal Pupils: Equal, round and reactive pupils present Neck Neck: Yes normal visual inspection Chest Chest palpation & inspection: normal inspection of the chest Resp Effort & Inspection: normal respiratory effort Auscultation: clear to auscultation bilaterally Cardio Palpation: normal PMI Rate: regular rate Rhythm: regular rhythm Heart sounds: S1 normal heart sound present, S2 normal heart sound present and no murmurs GI Palpation (GI): Soft to palpation, nontender and No hepatosplenomegaly present Auscultation: normal bowel sounds Rectal Exam - Female: deferred Skin General skin exam: no rashes or lesions noted Neuro General: patient oriented x3, gait normal and moves all extremities Cranial nerves: Yes Equal, round and reactive pupils present Psych Appearance: grossly normal Mental Status: mental status grossly normal Assessment & Plan Assessment & Plan (1) Oropharyngeal dysphagia: Code(s): R13.12 - Dysphagia, oropharyngeal phase Category: Medical (2) Chronic constipation: Code(s): K59.09 - Other constipation Category: Medical (3) History of colon polyps: Comment: Two small adenomatous polyps were removed during colonoscopy in 07/2018. Action in place for repeat colon in 5 years (due July,). Code(s): Z86.010 - Personal history of colon polyps Category: Medical (4) Hx of diverticulitis of colon: Code(s): Z87.19 - Personal history of other diseases of the digestive system Category: Medical (5) Schatzki's ring: Code(s): K22.2 - Esophageal obstruction Category: Medical (6) GERD (gastroesophageal reflux disease): Code(s): K21.9 - Gastro-esophageal reflux disease without esophagitis Category: Medical (7) Vitamin D deficiency: Code(s): E55.9 - Vitamin D deficiency, unspecified Category: Medical Plan 74 YF with Htn, pre-diabetes, hypertriglyceridemia, arthritis, Vitamin D deficiency seen for FU of recurrent LLQ pain and past episode of diverticulitis. Past EGD showed hiatal hernia, gastritis and a Schatzki's ring which was dilated with a balloon. Colonoscopy showed diverticulosis and two small adenomatous polyps were removed. Her abdominal pain has improved with regular BMs. Pt was?scheduled for EGD in November, and procedure was postponed by anesthesia due to presence of dental implants - 03/04 EGD with balloon dilation was performed and recurrent Schatzki's ring was not visualized. Pt was hospitalized 09/22 to 09/24/21 with acute diverticulitis. Her symptoms have improved and not resolved after 1 week of antibiotic therapy. Pt was advised to continue antibiotics for another 10 days with subsequent improvement in her symptoms. 10/29/[address] SCAN SHOWED: GASTROINTESTINAL TRACT: There is significant interval improvement in sigmoid diverticulitis compared to September 2021 exam. There is still an area of wall thickening and of the left side of the proximal sigmoid colon and some stranding of the adjacent fat. No evidence of obstruction, perforation or abscess is seen. Small and large bowel is otherwise normal. The appendix is not seen. ABDOMINAL WALL: No significant hernia is appreciated.? Pt was advised to increase Senna to 2 tab at bedtime and continue taking Miralax every morning for constipation 08/25/22 Pt was advised to check labs and a KUB Labs showed normal CBC and CRP. KUB showed: No evidence of constipation or obstruction.- pt called and informed Patient was advised to take MiraLax twice daily for constipation with improvement in abdominal pain 09/23/22 Pt was prescribed Voltaren gel for back and pain in the right shoulder until she can be seen by her PCP next month. 08/17/23 EGD and colon results were reviewed - advised to start taking Omeprazole 20 mg every morning And continue taking famotidine 20 mg at bedtime. Continues to have intermittent LLQ pain and constipation. When she takes her pills, has a BM the following morning. Takes Senna and Miralax daily with relief of abdominal pain. Repeat colon in 5 yrs 01/18 EGD with balloon dilation was performed Patient advised to increase omeprazole to 20 mg twice daily 06/06/24 Notes intermittent heartburn mostly at night when she lies down Advised switching to Pantoprazole 40 mg twice daily for GERD 12/05/24 Pt advised to add Famotidine 20 mg at bedtime for persistent nocturnal GERD symptoms FU in 3 months Medications: New famotidine 20 mg PO BEDTIME 30 tabs 3RF 30 days K21.9 - Gastro-esophageal reflux disease without esophagitis Refilled sennosides-docusate sodium 8.6-50 mg (Senna-S) 2 tab-caps (2 x 8.6-50 mg) PO BEDTIME 180 tabs 1RF 90 days K59.09 - Other constipation Coding Level of Care Code Est Pt Level 3 (04263) Diagnoses Oropharyngeal dysphagia R13.12 Chronic constipation K59.09 History of colon polyps Z86.010 Hx of diverticulitis of colon Z87.19 Schatzki's ring K22.2 GERD (gastroesophageal reflux disease) K21.9 Vitamin D deficiency E55.9 Time Spent (min) 18
[2024-12-05 09:49] VITALS: BP 165/74; PULSE 83; BMI 28.9
--- OUTSIDE RECORDS SUMMARY | 2024-12-05 10:17 | XMS_ITS | Encounter Summary ---
Author Organization [facility] Address [address] [facility] [place] [address] Phone Care Team Providers Care Mass Spectrometry Manager Name Role Phone Sawyer Mckenzie MD Primary Care Provider Encounter Details Date Type Department Care Team (Late st Contact Info) Description 08/07/2017 Ancillary Orders [facility], X-Ray - [address] [place] [address] Kina Corcoran PA-C [address] [place] [address], [address] [place] [address] [email or web address] Neck pain Social History Tobacco Use Types Packs/Day Years Used Date Smoking Tobacco: Never Smokeless Tobacco: Never Alcohol Use Standard Drinks/Week Comments No 0 (1 standard drink = 0.6 oz pur e alcohol) Comments Unknown Sex and Gender Information Value Date Recorded Sex Assigned at Not on file Legal Sex Female 10:42 AM EST Gender Identity Not on file Sexual Orientation Not on file documented as of this encounter Plan of Treatment Not on file documented as of this encounter Results * XR CERVICAL SPINE 4-5 VIEWS (08/07/2017 10:24 AM EDT) Anatomical Region Laterality Modality C-spine Radiographic Soledad ging 08/07/2017 10:2 8 AM EDT Impressions 08/07/2017 10:31 AM EDT Chronic-appearing mild loss of height of the C6 vertebral body which could be further assessed on MR if felt to be clinically warranted. Degenerative disc disease at C5-6. No gross neural foraminal compromise apparent. POS [id number] Narrative 08/07/2017 10:31 AM EDT COMPARISON: None FINDINGS: Frontal, lateral, oblique, and AP open mouth views were obtained revealing no vertebral body wedge compression fracture or subluxation. There is chronic-appearing slight loss of height of the C6 vertebral body with ventral spondylosis present at C5-6. Neural foramina are grossly patent. Prevertebral soft tissues are within normal limits. Odontoid process is incompletely visualized on the AP open mouth views but felt to be intact on the additional projections. Procedure Note Glenis Burr MD - 08/07/2017 COMPARISON: None FINDINGS: Frontal, lateral, oblique, and AP open mouth views were obtainedrevealing no vertebral body wedge compression fracture or subluxation.There is chronic- appearing slight loss of height of the C6 vertebral bodywith ventral spondylosis present at C5-6. Neural foramina are grosslypatent. Prevertebral soft tissues are within normal limits. Odontoidprocess is incompletely visualized on the AP open mouth views but felt demario intact on the additional projections. IMPRESSION: Chronic-appearing mild loss of height of the C6 vertebral body which couldbe further assessed on MR if felt to be clinically warranted.Degenerative disc disease at C5-6. No gross neural foraminal compromiseapparent. POS [id number] Kina Corcoran PA-Sumanth IMG XR SPINE Final Result documented in this encounter Visit Diagnoses Diagnosis Neck pain Cervicalgia Neck pain Cervicalgia documented in this encounter Care Teams Mass Spectrometry Manager Relationship Specialty Start Date End Date Sawyer Mckenzie MD [address] [place] [address] [place] [address] PCP - General Internal Medicine 07/17/17 documented as of this encounter Additional Source Comments The information contained in this document represents components of the legal health record. It is not the complete legal health record.[facility]
== END 2024-12-05 10:25 | disposition home or self-care (01) ==
LOC: HO.HGI 09:39
PROVIDERS: PCP Internal Medicine; Visit Provider Internal Medicine Gastroenterology
DX: R13.12 Dysphagia, oropharyngeal phase (principal); K59.09 Other constipation; Z86.0100 Personal history of colon polyps, unspecified; Z87.19 Personal history of other diseases of the digestive system; K22.2 Esophageal obstruction; K21.9 Gastro-esophageal reflux disease without esophagitis; E55.9 Vitamin D deficiency, unspecified
CPT/HCPCS: 99213

== ENCOUNTER → 2024-12-05 09:39 | Outpatient (BNVA) | payer MEDICARE, SELFPAY | PROVIDERS: PCP Internal Medicine; Visit Provider Internal Medicine Gastroenterology | DX: R13.12 Dysphagia, oropharyngeal phase (principal); K59.09 Other constipation; K22.2 Esophageal obstruction; K21.9 Gastro-esophageal reflux disease without esophagitis; E55.9 Vitamin D deficiency, unspecified; Z86.0100 Personal history of colon polyps, unspecified; Z87.19 Personal history of other diseases of the digestive system | CPT/HCPCS: 99212 ==

== ENCOUNTER → 2025-03-06 10:52 | Outpatient (BNVA) | payer MEDICARE, SELFPAY | PROVIDERS: PCP Internal Medicine; Visit Provider Internal Medicine Gastroenterology | DX: K59.09 Other constipation (principal); R13.12 Dysphagia, oropharyngeal phase; K22.2 Esophageal obstruction; K21.9 Gastro-esophageal reflux disease without esophagitis; Z87.19 Personal history of other diseases of the digestive system; Z86.0100 Personal history of colon polyps, unspecified | CPT/HCPCS: 99212 ==

== ENCOUNTER → 2025-03-06 10:52 | Outpatient (AMB) | payer MEDICARE, SELFPAY ==
--- NOTE | 2025-03-06 11:19 | MHC.OFFVIS ---
Vital Signs 03/06/25 11:20 Height 4 ft 11 in Weight 145 lb BMI 29.3 BP 170/90 H Blood Pressure Location Lt brachial Position Sitting Pulse 83 Pulse Oximetry (%) 97 Oxygen Delivery Method Room Air Intake Visit Reasons: 3 mo f/u Intake Note: Patient follow up for Chronic constipation Patient cc: some swallowing difficulties on and off, acid reflux come and go, denies any other GI issues. Psychiatric Aides Teacher Required: No Accompanied by: Self / Same As Patient Allergies No Known Allergies (No Known Allergies*) Allergy (Verified 03/06/25 11:19) Medication List - Last Reconciled 03/06/25 by Dalia Mcknight MD cholecalciferol (vitamin D3) PO 2XW diclofenac sodium 1% (Voltaren Arthritis Pain) 2 grams topical QID 30 days duloxetine 40 mg PO QAM duloxetine 30 mg PO DAILY famotidine 20 mg PO BEDTIME 30 days minoxidil 0.5 tabs PO DAILY mirtazapine 7.5 mg PO DAILY pantoprazole 40 mg PO BID 30 days sennosides-docusate sodium 8.6-50 mg (Senna-S) 2 tab-caps (2 x 8.6-50 mg) PO BEDTIME 90 days HPI HPI 3 mo f/u: Details: GI clinic visit for this 74-year-old female for follow-up of dysphagia, left lower quadrant pain, diverticulosis and constipation. Pt was hospitalized 09/22-09/24/21 with acute diverticulitis and discharged on p.o. antibiotics x 7 days ?TODAY'S VISIT Patient complains of some swallowing difficulties on and off, acid reflux come and go, Intermittent dysphagia - referred to ENT and evaluation was negative Notes coughing at night and can loose her voice. Continues to have acid reflux daily - mostly at night and sometimes in the morning Intermittent dysphagia to solids and liquids and can loose her voice Tries not to eat anything after 6 pm and sleeps at 9 pm. PAST VISIT: Also patient is been with a lot of urinary frequency during the day. Notes intermittent heartburn mostly at night when she lies down Tries to eat dinner at 4 or 5 pm and denies HB if she eats early Managing dysphagia with eating slowly urinary frequency without burning EGD results were reviewed - advised to increase Omeprazole 20 mg twice daily Notes improvement in dysphagia and LLQ pain Patient cc a reflex with burning sensation at night time. Denies any other GI issues. Continues to have intermittent LLQ pain and constipation. When she takes her pills, has a BM the following morning. Takes Senna and Miralax daily with relief of abdominal pain. Intermittent dysphagia - mostly solids and occasionally with liquids. Food can get stuck occasionally and she has to drink some water. Chews her food well Will be spending Thanksgiving by herself since she has children in [facility] Abdominal pain has improved. Taking Miralax twice a day and Senna at bedtime and has a BM the following day. Notes lower abdominal pain when she sleeps on stomach. Continues to have acid reflux and denies dysphagia. Has chronic cough and intermittent hoarseness. Having pain in the back for the past week and taking Ibuprofen. Had back pain in the past and it resolved. Has to pee every 15 min without burning Has been having nausea in the am for the past 1-2 weeks. Taking Senna or Miralax daily and has a BM daily every morning Had a BM today with incomplete evacuation. Notes lower abdominal pain which improves after she has a BM Had a cough for 3 weeks - resolved and then came back again Denies heartburn or dysphaia Abdominal pain is better - notes some pain at night. Notes occasonal nausea Has nausea when she wakes up. Taking a low fibre diet. Has not been Denies fever or chills. Has some sweating during sleep which she thinks is normal for her. Abdominal pain is 50% better and not resolved. Taking soups and sometimes white bread. Abd pain is 3-4/10 in intesnity. Having small BMs in the morning. Continuing to have some lower abdominal pain (4-5/10 in intensity) Notes some pressure in the lower abdomen and denies fever. Finished antibiotics today. taking mostly a liquid diet - unsure what she can eat. BMs are small. Notes some dysphagia when she takes her pills. Lost weight to 105 due to depression and is now regaining the wt she lost Patient cc: N/V, GERD, lower abdominal pain with bloating and she said is more at night time. Denies any other GI issues. Dysphagia has improved - sometimes has trouble swallowing large pills. Lower abdominal pain for the past few weeks - wakes her up from sleep at night. Pain improves after she has a BM Notes worsening constipation -sometimes no BM for 3 days. Taking Senna and Miralax - not always helpful ? ? ? Continues to have recurrent dysphagia with solid foods for the past several months ? ? ? Notes difficulty swallowing her pills and sometimes looses her voice. Scheduled for an EGD in November, and procedure was postponed by anesthesia due to presence of dental implants - pt was advised to reschedule after her dental work was completed. Taking Miralax daily and has a BM every other day . Ran out of pills - which worked better. Has not been eating. Has lost 20 to?22 lbs ? IMAGING STUDIES:? 09/22/[address] SCAN SHOWED: Findings as described above. Findings most consistent with significant diverticulitis in the sigmoid. As described some adjacent soft tissue stranding and fluid. Possible early fluid collection in the deep pelvis on the right. Attention to follow-up. This area of disease is also intimately associated with the cervical/uterine structure which demonstrates some air density. Therefore an element of fistulization cannot be excluded. 11/23/20 ABD US SHOWED: 1 cm left renal cyst with question wall calcification versus milk of calcium cyst.Otherwise unremarkable exam.? ENDOSCOPIC STUDIES: 07/28/23 EGD AND COLON SHOWED: Endoscopy Findings: ESOPHAGUS: Hiatal hernia 32 to 35 cms. Multiple linear erosions and 7-8 mm ulcers in the distal esophagus from 25 to 32 cms No stricture or ring seen. STOMACH: Gastritis and gastric polyps BIOPSIES SHOWED: A. Stomach, antrum, biopsy: Antral-type mucosa within normal limits; no Helicobacter organisms seen. B. Stomach, polyp: Fundic gland polyp with background mild chronic inactive inflammation; no Helicobacter organisms seen. Colonoscopy Findings: No polyps were detected Moderate diverticulosis seen in the entire colon Small hemorrhoids on retroflexed exam. Plan: Repeat Colonoscopy in 5 years due to a history of adenomatous colon polyps. 03/04 EGD showed:ESOPHAGUS: Tortuous esophagus with increased tertiary contractions without stricture or ring.? GE junction at 34 cms, hiatal hernia 34 to 37 cms . No esophagitis or Wahl?s.? Recurrent Schatzki's ring was not visualized - empirc dilation was performed with an 18 and 19 mm CRE balloon x 60 seconds at each level. DUODENUM: Normal - bxed to check for celiac sprue - normal Plan:? Await pathology results 07/2018 UPPER ENDOSCOPY AND COLONOSCOPY WAS PERFORMED: EGD showed hiatal hernia, gastritis and a Schatzki's ring which was dilated with a balloon.? Colonoscopy showed diverticulosis and two small adenomatous polyps were remove [facility] Medical History Hiatal hernia Anxiety Psychotic disorder Schatzki's ring Hx of diverticulitis of colon Chronic constipation Oropharyngeal dysphagia Surgical History History of esophagogastroduodenoscopy (EGD) Hx of tonsillectomy Hx of hand surgery History of appendectomy History of hysterectomy Hx of endoscopy History of colonoscopy Family History Father No problems noted. Mother No problems noted. Social History Household Members: None Housing: House Housing Other:: Two family home. lives on second floor alone Are you a primary daycare director to a significant other at home: No Do you presently have visiting nurse or other home services: No Unable to assess alcohol history related to: Refusing to respond Alcohol intake: current Alcohol intake frequency: does not drink Alcohol type: wine Patient Tobacco Use Status: Never used Tobacco Second Hand Smoke Exposure: No service: No Current occupational status: unemployed Current occupation: rt handed Sexual orientation: Straight/Heterosexual Review of Systems Const All systems reviewed & are unremarkable except as noted in HPI and below Physical Exam Vital Signs: Last Vital Signs Pulse 83 03/06/25 11:20 BP 170/90 H 03/06/25 11:20 Pulse Ox 97 03/06/25 11:20 Oxygen Delivery Method Room Air 03/06/25 11:20 BMI result Body Mass Index 29.3 Const General: healthy appearing and no acute distress Nutritional Appearance: overweight Orientation/consciousness: patient oriented x3 Limitations: no limitations HEENT Head: Yes normal to inspection Ears: hearing grossly normal bilaterally Eyes Sclerae: sclerae normal Pupils: Equal, round and reactive pupils present Neck Neck: Yes normal visual inspection Chest Chest palpation & inspection: normal inspection of the chest Resp Effort & Inspection: normal respiratory effort Auscultation: clear to auscultation bilaterally Cardio Palpation: normal PMI Rate: regular rate Rhythm: regular rhythm Heart sounds: S1 normal heart sound present, S2 normal heart sound present and no murmurs GI Palpation (GI): Soft to palpation, nontender and No hepatosplenomegaly present Auscultation: normal bowel sounds Rectal Exam - Female: deferred Skin General skin exam: no rashes or lesions noted Neuro General: patient oriented x3, gait normal and moves all extremities Cranial nerves: Yes Equal, round and reactive pupils present Psych Appearance: grossly normal Mental Status: mental status grossly normal Assessment & Plan Assessment & Plan (1) Oropharyngeal dysphagia: Code(s): R13.12 - Dysphagia, oropharyngeal phase Category: Medical (2) Schatzki's ring: Code(s): K22.2 - Esophageal obstruction Category: Medical (3) GERD (gastroesophageal reflux disease): Code(s): K21.9 - Gastro-esophageal reflux disease without esophagitis Category: Medical (4) Chronic constipation: Code(s): K59.09 - Other constipation Category: Medical (5) History of colon polyps: Comment: Two small adenomatous polyps were removed during colonoscopy in 07/2018. Action in place for repeat colon in 5 years (due July,). Code(s): Z86.010 - Personal history of colon polyps Category: Medical (6) Hx of diverticulitis of colon: Code(s): Z87.19 - Personal history of other diseases of the digestive system Category: Medical Plan 74 YF with Htn, pre-diabetes, hypertriglyceridemia, arthritis, Vitamin D deficiency seen for FU of recurrent LLQ pain and past episode of diverticulitis. Past EGD showed hiatal hernia, gastritis and a Schatzki's ring which was dilated with a balloon. Colonoscopy showed diverticulosis and two small adenomatous polyps were removed. Her abdominal pain has improved with regular BMs. Pt was?scheduled for EGD in November, and procedure was postponed by anesthesia due to presence of dental implants - 03/04 EGD with balloon dilation was performed and recurrent Schatzki's ring was not visualized. Pt was hospitalized 09/22 to 09/24/21 with acute diverticulitis. Her symptoms have improved and not resolved after 1 week of antibiotic therapy. Pt was advised to continue antibiotics for another 10 days with subsequent improvement in her symptoms. 10/29/[address] SCAN SHOWED: GASTROINTESTINAL TRACT: There is significant interval improvement in sigmoid diverticulitis compared to September 2021 exam. There is still an area of wall thickening and of the left side of the proximal sigmoid colon and some stranding of the adjacent fat. No evidence of obstruction, perforation or abscess is seen. Small and large bowel is otherwise normal. The appendix is not seen. ABDOMINAL WALL: No significant hernia is appreciated.? Pt was advised to increase Senna to 2 tab at bedtime and continue taking Miralax every morning for constipation 08/25/22 Pt was advised to check labs and a KUB Labs showed normal CBC and CRP. KUB showed: No evidence of constipation or obstruction.- pt called and informed Patient was advised to take MiraLax twice daily for constipation with improvement in abdominal pain 09/23/22 Pt was prescribed Voltaren gel for back and pain in the right shoulder until she can be seen by her PCP next month. 08/17/23 EGD and colon results were reviewed - advised to start taking Omeprazole 20 mg every morning And continue taking famotidine 20 mg at bedtime. Continues to have intermittent LLQ pain and constipation. When she takes her pills, has a BM the following morning. Takes Senna and Miralax daily with relief of abdominal pain. Repeat colon in 5 yrs 01/19/24 EGD with balloon dilation was performed Patient advised to increase omeprazole to 20 mg twice daily 06/06/24 Notes intermittent heartburn mostly at night when she lies down Advised switching to Pantoprazole 40 mg twice daily for GERD 12/05/24 Pt advised to add Famotidine 20 mg at bedtime for persistent nocturnal GERD symptoms 03/06/25 Pt advised to switch to Vonoprazan Advised to see PCP or go to the walkin clinic for pain in the left leg TV in 6 weeks Medications: New vonoprazan Failed Omeprazole and Pantoprazole 10 mg PO BID 60 tabs 4RF 30 days Coding Level of Care Code Est Pt Level 3 (04161) Diagnoses Oropharyngeal dysphagia R13.12 Schatzki's ring K22.2 GERD (gastroesophageal reflux disease) K21.9 Chronic constipation K59.09 History of colon polyps Z86.010 Hx of diverticulitis of colon Z87.19 Time Spent (min) 18
[2025-03-06 11:20] VITALS: BP 170/90; PULSE 83; O2SAT 97; BMI 29.3
--- OUTSIDE RECORDS SUMMARY | 2025-03-06 13:26 | XMS_ITS | Encounter Summary ---
Author Organization [facility] Address [address] [facility] [address] [place] [address] Phone Care Team Providers Care Lens Generating Machine Tender Name Role Phone Sawyer Mckenzie MD Primary Care Provider Encounter Details Date Type Department Care Team (Late st Contact Info) Description 08/07/2017 Ancillary Orders [facility], X-Ray - [address] [place] [address] Kina Corcoran PA-C [address] [place] [address], [address] [place] [address] [email or web address] Neck pain Social History Tobacco Use Types [...] No gross neural foraminal compromise apparent. POS [id number] Narrative 08/07/2017 10:31 AM EDT COMPARISON: None [...] C5-6. No gross neural foraminal compromiseapparent. POS [id number] Kina Corcorna PA-Sumanth IMG XR SPINE Final Result documented in this encounter Visit Diagnoses Diagnosis Neck pain Cervicalgia Neck pain Cervicalgia documented in this encounter Care Teams Lens Generating Machine Tender Relationship Specialty Start Date End Date Sawyer Mckenzie MD [address] [place] [address] [place] [address] PCP - General Internal Medicine 07/17/17 documented as of this encounter Additional Source Comments The information contained in this document represents components of the legal health record. It is not the complete legal health record.[facility]
--- OUTSIDE RECORDS SUMMARY | 2025-03-06 13:26 | XMS_ITS | Encounter Summary ---
Author Organization [facility] Address [address] [place] [id number] Phone Care Team Providers Care Welding Setter Name Role Phone Sawyer Mckenzie MD Primary Care Provider Encounter Details Date Type Department Care Team (Late st Contact Info) Description 07/17/2017 Procedure Pass [facility], Ct Scan - [facility] [address] [place] [address] Social History Tobacco Use Types Packs/Day Years [...] on file documented as of this encounter Visit Diagnoses Not on filedocumented in this encounter Care Teams Welding Setter Relationship Specialty Start Date End Date Sawyer Mckenzie MD [address] [place] [address] [place] [address] PCP - General Internal Medicine 07/17/17 documented as of this encounter Additional Source Comments The information contained in this document represents components of the legal health record. It is not the complete legal health record.[facility]
--- OUTSIDE RECORDS SUMMARY | 2025-03-06 13:26 | XMS_ITS | Clinical Summary ---
Author Organization [facility] Address [address] [facility] [address] [place] [id number] Phone Care Team Providers Care Big Data Developer Name Role Phone Sawyer Mckenzie MD Primary Care Provider Allergies No known active allergies Medications mirtazapine (REMERON) 15 MG tablet Take 15 mg by mouth nightly at bedtime. at bedtime. 04/15/2023 Active minoxidiL (LONITEN) 2.5 MG tablet Take 1 tablet by mouth 2 (two) times a day. 04/13/2023 Active cholecalciferol (VITAMIN D3) 2,000 unit tablet Take 2,000 Units by mouth 2 (two) times a week. Active celecoxib (CELEBREX) 200 MG capsule Take 200 mg by mouth daily. Active ibuprofen (ADVIL,MOTRIN) 800 MG tablet Take 800 mg by mouth 3 (three) times a day as needed for pain (specific location in comments). Active zolpidem (AMBIEN) 5 MG tablet Take 5 mg by mouth nightly at bedtime as needed for sleep. Active Family History Medical History Relation Comments Cancer Mother Relation Status Comments Father Mother Social History Tobacco Use Types Packs/Day Years Used Date Smoking Tobacco: Never Smokeless Tobacco: Never Alcohol Use Standard Drinks/Week Comments No 0 (1 standard drink = 0.6 oz pur e alcohol) Education Answer Date Recorded Are you interested in more education? Not on yefri e 04/25/2023 Are you concerned about learning? Not on file 04/25/2023 No 04/25/2023 No 04/25/2023 Digital Access Answer Date Recorded No 04/25/2023 No 04/25/2023 Reliable internet access at home? Not on file 04/25/2023 Device with a working camera? Not on file Comments Unknown Sex and Gender Information Value Date Recorded Sex Assigned at Not on file Legal Sex Female 10:42 AM EST Gender Identity Not on file Sexual Orientation Not on file Last Filed Vital Signs Vital Sign Reading Time Taken Comments Blood Pressure 163/97 07/17/2017 3:13 PM EST Pulse 81 07/17/2017 11:39 AM EST Temperature 37 C (98.6 F) 07/17/2017 11:39 AM EST Respiratory Rate 16 07/17/2017 3:13 PM EST Oxygen Saturation 92% 07/17/2017 11:39 AM EST Inhaled Oxygen Concentration - - Weight 59 kg (130 lb) 07/17/2017 11:39 AM EST Height 152.4 cm (5') 07/17/2017 11:39 AM EST Body Mass Index 25.39 07/17/2017 11:39 AM EST Plan of Treatment Health Maintenance Due Date Last Done Comments Adult Td,Tdap Booster 1952 LIPID PANEL 1952 DEPRESSION SCREENING 1964 HEPATITIS C SCREENING 1970 SMOKING STATUS SCREENING (On ce After 26 Yrs) 1978 MAMMOGRAM 1992 COLOGUARD 1997 COLONOSCOPY 1997 COLORECTAL CANCER SCREENING 1997 FIT TEST 1997 FOBT 1997 SIGMOIDOSCOPY 1997 VIRTUAL COLONOSCOPY 1997 PNEUMOCOCCAL VACCINES (50+ y ears) (1 of 1 - PCV) 2002 ZOSTER VACCINES (1 of 2) 2002 OSTEOPOROSIS SCREENING INITI AL (ONE-TIME) 2017 INFLUENZA VACCINE (#1) 2024 COVID-19 VACCINE (1 - 2024-2 6 season) 2025 RSV VACCINE (1 - 1-dose 75+ series) 2027 HEPATITIS A VACCINES Aged Out No long er eligible based on patient's age to complete this topic HIB VACCINES Aged Out No longer eligi ble based on patient's age to complete this topic MENINGOCOCCAL VACCINES (ACWY) Aged Out No longer eligible based on patient's age to complete this topic MENINGOCOCCAL VACCINES (B) Aged Out N o longer eligible based on patient's age to complete this topic Medical Devices Not on file Insurance MEDICARE REPLACEMENT MEDICARE REPLACEMENT MEDICARE REPLACEMENT MEDICARE REPLACEMENT MEDICARE REPLACEMENT MEDICARE REPLACEMENT WORKERS COMPENSATION Care Teams Big Data Developer Relationship Specialty Start Date End Date Sawyer Mckenzie MD [address] [place] [address] [place] [address] PCP - General Internal Medicine 07/17/17 Additional Source Comments The information contained in this document represents components of the legal health record. It is not the complete legal health record.[facility]
== END ==
LOC: HO.HGI 10:53
PROVIDERS: PCP Internal Medicine; Visit Provider Internal Medicine Gastroenterology
DX: R13.12 Dysphagia, oropharyngeal phase (principal); K22.2 Esophageal obstruction; K21.9 Gastro-esophageal reflux disease without esophagitis; K59.09 Other constipation; Z86.0100 Personal history of colon polyps, unspecified; Z87.19 Personal history of other diseases of the digestive system
CPT/HCPCS: 99213

== ENCOUNTER 2025-03-19 11:51 | Outpatient (REF) | payer MEDICARE, SELFPAY ==
--- OUTSIDE RECORDS SUMMARY | 2023-11-20 06:00 | XMS_ITS ---
Author Organization Sawyer Mckenzie MD Address [address] [place] [phone] Care Team Providers Care Microfiche Duplicator Name Role Phone Swayer Mckenzie Primary Care Provider [phone] Allergies No Known Allergies REASON FOR VISIT 6 MO F/U Medications Medication SIG (Take, Route, Frequency, Duration) Notes Start Date End Date Status Ambien 5 MG 1 tablet at bedtime Orally Once a day as needed for 14 days 04/16/2020 Not-Taking MiraLax - 1 packet mixed with 8 ounces of fluid Orally Once a day for 30 day(s) Not-Hank ing CeleBREX 200 MG 1 capsule with food Orally Once a day for 30 day(s) 06/04/2019 Not-Taking Ibuprofen 800 MG 1 tablet with food o r milk as needed Orally Three times a day for 14 days 12/25/2020 Not-Taking CeleBREX 200 MG 1 capsule with food Orally Once a day for 30 day(s) 10/03/2022 Not-Taking Minoxidil 2.5 MG 1 tablet Orally Twic e a day Active Vitamin D (Ergocalciferol) 2000 UNIT as directed Orally twice a week 02/23/2018 Active Diclofenac Sod-Lidocaine HCl 1-4.5 % 1 application as needed Externally Twice a day Active Mirtazapine 15 MG 1 tablet at bedtime Orally Once a day hs Active DULoxetine HCl 20 MG 2 capsule Orally On ce a day in AM Active Vital Signs Blood pressure systolic 122 mm Hg 11/20/19 24 Blood pressure diastolic 60 mm Hg 024 Height 60 in 11/20/2023 Weight 148 lbs 11/20/2023 BMI 28.90 kg/m2 11/20/2023 weight is up 3 pounds since 05-22-23 Encounters Encounter Location Date Provider Diagnosis Sawyer Mckenzie MD [address] [place] [address] [place] [address] [phone] 11/20/2023 Sawyer Mckenzie Essential hypertension I10 ; Unintended weight gain R63.5 and Dysthymia F34.1 Assessments Encounter Date Diagnosis (ICD Code) Assessment Notes Treatment Notes Treatment Clinical Notes Section Notes 11/20/2023 Essential hypertension (ICD-10 - I10) doing well 11/20/2023 Unintended weight gain (ICD-10 - R63.5) may be related to mirtazpine 11/20/2023 Dysthymia (ICD-10 - F34.1) is beeing seen by GINO doing better on the meds little sad at times . just had duloxitine Plan Of Treatment Treatment Notes Assessment Notes Essential hypertension doing well Unintended weight gain may be related to mirtazpine Dysthymia is beeing seen by SHARON Nettles doing better on the meds little sad at times . just had duloxitine Next Appt Details Follow Up: 6 Months, Reason: Provider Name:Sawyer galvan, 05/23/2025 07:45:00 AM, [address] [facility], [address] [facility], [place], [place], [phone], Provider Name:Sawyer galvan, 05/30/2025 11:00:00 AM, [address] [place] [address], [address] [facility], [place], [place], [phone], Progress Notes * Hoa ARMANDO EDOB:1 06/21/1949 (73 yo F)Acc No.[id number]:11/20/2023 Progress Notes Patient: Hoa Pack Provider: Julianne Mckenzie MD :1950 A ge:73 Y S ex:Female Date:11/20/2023 Address:[address] [place] [address], [id number] Subjective: * Chief Complaints: * 6 MO F/U * HPI: S ymptom(s): patient is a 73 yo female here for follow, here for follow up. has been gaining a lot. * ROS: G eneral/Constitutional: Denies C hills. D enies F atigue. D enies F ever. D enies H eadache. E NT: Patient denies d ecreased sense of smell , any loss of taste , sore throat. D enies S ore throat. R espiratory: Admits C ough. D enies S hortness of breath at rest. D enies S hortness of breath with exertion. G astrointestinal: Denies D iarrhea. A dmits H eartburn. D enies?Nausea. M usculoskeletal: Patient denies m uscle aches. P eripheral Vascular: Patient denies r ed and blue toes. * Medical History: * Surgical History: * Hospitalization/Major Diagno stic Procedure: * Medications: T akingDULoxetine HCl 20 MG Capsule Delayed Release Particles 2 capsule Orally Once a day in AMMirtazapine 15 MG Tablet 1 tablet at bedtime Orally Once a day hsDiclofenac Sod-Lidocaine HCl 1-4.5 % Gel 1 application as needed Externally Twice a dayVitamin D (Ergocalciferol) 2000 UNIT Capsule as directed Orally twice a weekMinoxidil 2.5 MG Tablet 1 tablet Orally Twice a dayTaking DULoxetine HCl 20 MG Capsule Delayed Release Particles 2 capsule Orally Once a day in AMTaking Mirtazapine 15 MG Tablet 1 tablet at bedtime Orally Once a day hsTaking Diclofenac Sod-Lidocaine HCl 1-4.5 % Gel 1 application as needed Externally Twice a dayTaking Vitamin D (Ergocalciferol) 2000 UNIT Capsule as directed Orally twice a weekTaking Minoxidil 2.5 MG Tablet 1 tablet Orally Twice a dayNot-Taking/PRNCeleBREX 200 MG Capsule 1 capsule with food Orally Once a dayIbuprofen 800 MG Tablet 1 tablet with food or milk as needed Orally Three times a dayMiraLax - Packet 1 packet mixed with 8 ounces of fluid Orally Once a dayAmbien 5 MG Tablet 1 tablet at bedtime Orally Once a day as neededCeleBREX 200 MG Capsule 1 capsule with food Orally Once a dayNot-Taking/PRN CeleBREX 200 MG Capsule 1 capsule with food Orally Once a dayNot-Taking/PRN Ibuprofen 800 MG Tablet 1 tablet with food or milk as needed Orally Three times a dayNot-Taking/PRN MiraLax - Packet 1 packet mixed with 8 ounces of fluid Orally Once a dayNot-Taking/PRN Ambien 5 MG Tablet 1 tablet at bedtime Orally Once a day as neededNot-Taking/PRN CeleBREX 200 MG Capsule 1 capsule with food Orally Once a dayDiscontinuedGabapentin 300 MG Capsule 1 capsule Orally at nightMedication List reviewed and reconciled with the patientDiscontinued Gabapentin 300 MG Capsule 1 capsule Orally at nightMedication List reviewed and reconciled with the patient * Allergies: N .K.D.A.yes[Allergies Verified] Objective: * Vitals: H t: 60, Wt:148, BMI:28.90, BP:122/60 weight is up 3 pounds since 05-22-23. Assessment: * Assessment: 1. E ssential hypertension - I10 (Primary) 2 . U nintended weight gain - R63.5 3 .?Dysthymia - F34.1 Plan: * Treatment: 2. U nintended weight gain Notes: may be related to mirtazpine. 3. D ysthymia Notes: is beeing seen by N doing better on the meds little sad at times . just had duloxitine.? * Procedure Codes: * Follow Up: 6 Months * * Sign off status: Completed true * Provider: Julianne Mckenzie MD Date: 0 11/20/2023 Generated for Robe neff/Delmer/Neeraj on: 05/19/2024 02:32 PM EST History and Physical Notes * HPI (History of Present Illness) Category Sub-Category Detail Notes Category Not es Symptom(s) patient is a 73 yo female here for follow, here for follow up. has been gaining a lot
--- OUTSIDE RECORDS SUMMARY | 2024-05-27 05:15 | XMS_ITS ---
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 Installer Apprentice Name Role Phone Sawyer Mckenzie Primary Care Provider Allergies No Known Allergies REASON FOR VISIT 6 MO F/U Medications Medication SIG (Take, Route, Frequency, Duration) Notes Start Date End Date Status MiraLax - 1 packet mixed with 8 ounces of fluid Orally Once a day for 30 day(s) Not-Hank ing Ambien 5 MG 1 tablet at bedtime Orally Once a day as needed for 14 days 04/16/2020 Not-Taking CeleBREX 200 MG 1 capsule with food Orally Once a day for 30 day(s) 06/04/2019 Not-Taking Vitamin D (Ergocalciferol) 2000 UNIT as directed Orally twice a week for 90 days 02/23/2018 Active DULoxetine HCl 20 MG 2 capsule Orally On ce a day in AM Active Ibuprofen 800 MG 1 tablet with food o r milk as needed Orally Three times a day for 14 days 12/25/2020 Not-Taking Diclofenac Sod-Lidocaine HCl 1-4.5 % 1 application as needed Externally Twice a day Active Minoxidil 2.5 MG 1 tablet Orally Twic e a day Active CeleBREX 200 MG 1 capsule with food Orally Once a day for 30 day(s) 10/03/2022 Not-Taking Mirtazapine 15 MG 1 tablet at bedtime Orally Once a day hs Active Vital Signs Blood pressure systolic 132 mm Hg 05/27/19 25 Blood pressure diastolic 80 mm Hg 025 Height 60 in 05/27/2024 Weight 147 lbs 05/27/2024 BMI 28.71 kg/m2 05/27/2024 weight is down 1 pound since 11-20-23 Encounters Encounter Location Date Provider Diagnosis Sawyer Mckenzie MD [address] [place] [phone] 05/27/2024 Sawyer Mckenzie Vitamin D deficiency E55.9 and Essential hypertension I10 Assessments Encounter Date Diagnosis (ICD Code) Assessment Notes Treatment Notes Treatment Clinical Notes Section Notes 05/27/2024 Vitamin D deficiency (ICD-10 - E55.9) will continue current regiment, will continue to monitor 05/27/2024 Essential hypertension (ICD-10 - I10) doing great on meds., will continue current regiment Plan Of Treatment Medication Medication Name Sig Start Date Stop Date Notes Vitamin D (Ergocalciferol) 2000 UNIT as directed Orally twice a week for 90 days 02/23/2018 Treatment Notes Assessment Notes Vitamin D deficiency will continue curre nt regiment, will continue to monitor Essential hypertension doing great on me ds., will continue current regiment Next Appt Details Follow Up: 6 Months, Reason: Provider Name:Sawyer galvan, 05/23/2025 07:45:00 AM, [address] [place] [address], [place] [address], [place], [place], [phone], Provider Name:Sawyer galvan, 05/30/2025 11:00:00 AM, [address] [place] [address], [place] [address], [place], [place], [phone], Progress Notes * Hoa ARMANDO EDOB:1 06/21/1949 (74 yo F)Acc No.[id number]:05/27/2024 Progress Notes Patient: Hoa Pack Provider: Julianne Mckenzie MD :1950 A ge:74 Y S ex:Female Date:05/27/2024 Address:[address] [place], [place] [address]BERENICE [id number] Subjective: * Chief Complaints: * 6 MO F/U * HPI: S ymptom(s): patient is a 74 yo female here for 6 month follow up visit. is gaining a lot of weight. * ROS: G eneral/Constitutional: Denies C hills. D enies F atigue. D enies F ever. D enies H eadache. E NT: Patient denies d ecreased sense of smell , any loss of taste , sore throat. D enies S ore throat. R espiratory: Denies C ough. D enies S hortness of breath at rest. D enies S hortness of breath with exertion. G astrointestinal: Denies D iarrhea. D enies N ausea. M usculoskeletal: Patient denies m uscle aches. [...] 1 capsule with food Orally Once a dayMedication List reviewed and reconciled with the patientNot-Taking/PRN CeleBREX 200 MG Capsule 1 capsule with [...] 1 capsule with food Orally Once a dayMedication List reviewed and reconciled with the patient * Allergies: N .K.D.A.yes[Allergies Verified] Objective: * Vitals: H t: 60, Wt:147, BMI:28.71, BP:132/80 weight is down 1 pound since 11-20-23. * Examination: G eneral Examination: GENERAL APPEARANCE: p leasant, in no acute distress. HEAD: n ormocephalic. SKIN: g ood turgor. HEART: r egular rate and rhythm , no murmurs, rubs, gallops. LUNGS: n o wheezes, rales, rhonchi , good air movement , clear to auscultation bilaterally. Assessment: * Assessment: 1. V itamin D deficiency - E55.9 (Primary) 2 . E ssential hypertension - I10 Plan: * Treatment: 2. E ssential hypertension Notes: doing great on meds., will continue current regiment * Procedure Codes: * Follow Up: 6 Months * * Sign off status: Completed true * Provider: Julianne Mckenzie MD Date: 0 05/27/2024 Generated for Robe neff/Delmer/eTransmitting on: 05/19/2024 02:33 PM EST History and Physical Notes * HPI (History of Present Illness) Category Sub-Category Detail Notes Category Not es Symptom(s) patient is a 74 yo female here for 6 month follow up visit. is gaining a lot of weight Examination Category Sub-Category Detail Notes Category Not es General Examination GENERAL APPEARANCE: pleasant, in n o acute distress HEAD: normocephalic HEART: regular rate and rhy thm , no murmurs, rubs, gallops LUNGS: no wheezes, rales, r honchi , good air movement , clear to auscultation bilaterally SKIN: good turgor
--- OUTSIDE RECORDS SUMMARY | 2024-11-26 05:15 | XMS_ITS ---
Author Organization Sawyer Mckenzie MD Address [address] [place] [phone] Care Team Providers Care Case Specialist Name Role Phone Magaly Sawyer Primary Care Provider [phone] Allergies No Known Allergies Reason For Referral Reason Hoarseness of voice Diagnosis 1 Hoarseness of voice (R49.0) Referral Organization Sawyer Mckenzie MD Referring Provider First Name Sawyer Referring Provider Last Name Magaly Referring Provider Speciality Internal M edicine Referred Provider RENE MONTALVO Referred Provider Specialty Otolaryngolo gy General Notes Gifty Graham 0 12/17/2024 09:08:30 AM >referral info faxed on 11-29-2024, Gifty Graham 12/17/2024 09:09:52 AM >was told still being worked onSantos Annette 02/18/2025 03:13:12 PM > called office and was told being looked into Referral Priority Routine Referral Appointment Date 02/18/2025 Medications Medication SIG (Take, Route, Frequency, Duration) Notes Start Date End Date Status Minoxidil 2.5 MG 1 tablet Orally Twic e a day Active Diclofenac Sod-Lidocaine HCl 1-4.5 % 1 application as needed Externally Twice a day Active Mirtazapine 15 MG 1 tablet at bedtime Orally Once a day hs Active DULoxetine HCl 20 MG 2 capsule Orally On ce a day in AM Active CeleBREX 200 MG 1 capsule with food Orally Once a day for 30 day(s) 06/04/2019 Not-Taking CeleBREX 200 MG 1 capsule with food Orally Once a day for 30 day(s) 10/03/2022 Not-Taking Vitamin D (Ergocalciferol) 2000 UNIT as directed Orally twice a week for 90 days 02/23/2018 Active Ambien 5 MG 1 tablet at bedtime Orally Once a day as needed for 14 days 04/16/2020 Not-Taking MiraLax - 1 packet mixed with 8 ounces of fluid Orally Once a day for 30 day(s) Not-Hank ing Ibuprofen 800 MG 1 tablet with food o r milk as needed Orally Three times a day for 14 days 12/25/2020 Not-Taking Vital Signs Blood pressure systolic 132 mm Hg 11/27/19 25 Blood pressure diastolic 70 mm Hg 025 Height 60 in 11/26/2024 Weight 146 lbs 11/26/2024 BMI 28.51 kg/m2 11/26/2024 weight is down 1 pound since 05-27-24 Encounters Encounter Location Date Provider Diagnosis Sawyer Mckenzie MD [facility] [address] [place] [phone] 11/26/2024 Sawyer Mckenzie Essential hypertension I10 and Hoarseness of voice R49.0 Assessments Encounter Date Diagnosis (ICD Code) Assessment Notes Treatment Notes Treatment Clinical Notes Section Notes 11/26/2024 Essential hypertension (ICD-10 - I10) well controlled 11/26/2024 Hoarseness of voice (ICD-10 - R49.0) needs referral to dr montalvo in [facility] in [place] Plan Of Treatment Treatment Notes Assessment Notes Essential hypertension well controlled Hoarseness of voice needs referral to dr montalvo in [facility] in [place] Referrals Referral Date Details 11/26/2024 11/26/2024, Hoarsene ss of voice, RENE MONTALVO Next Appt Details Follow Up: 6 Months, Reason: complete Provider Name:Sawyer galvan, 05/23/2025 07:45:00 AM, [address], [address], [place], [place], [phone], Provider Name:Sawyer Preston ier, 05/30/2025 11:00:00 AM, [address], [address], [place], [place], [phone], Progress Notes * Hoa ARMANDO EDOB:1 06/21/1949 (74 yo F)Acc No.[id number]:11/26/2024 Progress Notes Patient: Hoa ROWAN E Provider: Julianne Mckenzie MD :1950 A ge:74 Y S ex:Female Date:11/26/2024 Address:[address] [place] [id number] Subjective: * Chief Complaints: * * HPI: S ymptom(s): patient is a 74 yo female here for follow up.. depression is doing great/ hoarse for 3 years. * ROS: G eneral/Constitutional: Denies C hills. D enies F atigue. D enies F ever. D enies H eadache. E NT: Denies S ore throat. R espiratory: Denies C ough. D enies S hortness of breath at rest. D enies S hortness of breath with exertion. G astrointestinal: Denies D iarrhea. D enies N ausea. * Medical History: * Surgical History: * Hospitalization/Major Diagno stic Procedure: * Medications: T akingDULoxetine HCl 20 MG Capsule Delayed Release Particles 2 capsule Orally Once a day in AM Mirtazapine 15 MG Tablet 1 tablet at bedtime Orally Once a day hs Diclofenac Sod-Lidocaine HCl 1-4.5 % Gel 1 application as needed Externally Twice a day Minoxidil 2.5 MG Tablet 1 tablet Orally Twice a day Vitamin D (Ergocalciferol) 2000 UNIT Capsule as directed Orally twice a week Taking DULoxetine HCl 20 MG Capsule Delayed Release Particles 2 capsule Orally Once a day in AM Taking Mirtazapine 15 MG Tablet 1 tablet at bedtime Orally Once a day hs Taking Diclofenac Sod-Lidocaine HCl 1-4.5 % Gel 1 application as needed Externally Twice a day Taking Minoxidil 2.5 MG Tablet 1 tablet Orally Twice a day Taking Vitamin D (Ergocalciferol) 2000 UNIT Capsule as directed Orally twice a week Not-Taking/PRNCeleBREX 200 MG Capsule 1 capsule with food Orally Once a day Ibuprofen 800 MG Tablet 1 tablet with food or milk as needed Orally Three times a day MiraLax - Packet 1 packet mixed with 8 ounces of fluid Orally Once a day Ambien 5 MG Tablet 1 tablet at bedtime Orally Once a day as needed CeleBREX 200 MG Capsule 1 capsule with food Orally Once a day Medication List reviewed and reconciled with the patientNot-Taking/PRN CeleBREX 200 MG Capsule 1 capsule with food Orally Once a day Not-Taking/PRN Ibuprofen 800 MG Tablet 1 tablet with food or milk as needed Orally Three times a day Not-Taking/PRN MiraLax - Packet 1 packet mixed with 8 ounces of fluid Orally Once a day Not-Taking/PRN Ambien 5 MG Tablet 1 tablet at bedtime Orally Once a day as needed Not-Taking/PRN CeleBREX 200 MG Capsule 1 capsule with food Orally Once a day Medication List reviewed and reconciled with the patient * Allergies: N .K.D.A.yes[Allergies Verified] Objective: * Vitals: H t: 60, Wt: 146, BMI:28.51, BP:132/70, Wt-k.23. weight is down 1 pound [id number]. * Examination: G eneral Examination: GENERAL APPEARANCE: a lert, well hydrated, in no distress, female. HEAD: n ormocephalic. SKIN: g ood turgor. HEART: n o murmurs, rubs, gallops, regular rate and rhythm.? LUNGS: n o wheezes, rales, rhonchi, good air movement, clear to auscultation bilaterally. ABDOMEN: s oft, nontender, nondistended. ? Assessment: * Assessment: 1. E ssential hypertension - I10 (Primary) 2 . H oarseness of voice - R49.0? Plan: * Treatment: 2. H oarseness of voice Notes: needs referral to dr montalvo in [facility] in [place] ? Referral To:RENE MONTALVO Otolaryngology Reason:Hoarseness of voice * Procedure Codes: * Follow Up: 6 Months (Reason: complete) * * Sign off status: Completed true * Provider: Julianne Mckenzie MD Date: 0 11/26/2024 Generated for Tessi aishwarya/Delmer/eTransmitting on: 1 05/19/2024 02:32 PM EST History and Physical Notes * HPI (History of Present Illness) Category Sub-Category Detail Notes Category Not es Symptom(s) patient is a 74 yo female here for follow up.. depression is doing great/ hoarse for 3 years Examination Category Sub-Category Detail Notes Category Not es General Examination GENERAL APPEARANCE: alert, w ell hydrated, in no distress, female HEAD: normocephalic HEART: no murmurs, rubs, ga llops, regular rate and rhythm LUNGS: no wheezes, rales, r honchi, good air movement, clear to auscultation bilaterally ABDOMEN: soft, nontender, non distended SKIN: good turgor Consultation Request Notes Referral Date Referring Provider Referred Provider Not es 11/26/2024 Sawyer Mckenzie BARRY Hoarseness of voice
[2025-03-19 13:22] LABS: Appearance Urine Clear; Glucose Urine UA Negative (Negative); PH 5.5 (5.0-9.0); Specific Gravity - Urine 1.020 (1.005-1.025); UMIC TRIGGER UACC YES
[2025-03-19 13:29] LABS: MANUAL DIFF FLAG NO
[2025-03-19 13:30] LABS: UACC Culture Trigger YES
[2025-03-19 13:36] LABS: Hematocrit 37.4 % (37.0-47.0); Hemoglobin 12.5 g/dl (12.0-16.0); Imm Gran Abs Auto 0.02 X10*3/uL (0.00-0.03); Imm Gran Pct Auto 0.5 % (0.0-0.4); Lymphocytes Absolute Auto 1.3 X10*3/uL (1.2-4.9); Mean Corpuscular HGB Conc 33.4 g/dl (31.0-35.0); Mean Corpuscular Hemoglobin 30.5 pg (27.0-33.0); Mean Corpuscular Volume 91.2 fL (80.0-98.0); NRBC Abs Auto 0.000 X10*3/uL (0.0-0.012); NRBC Pct Auto 0.0 /100WBC (0.0-0.2); Platelet Count 283 X10*3/uL (160-400); Red Blood Count 4.10 X10*6/uL (4.20-5.50); White Blood Count 4.4 X10*3/uL (4.8-10.8)
--- OUTSIDE RECORDS SUMMARY | 2025-03-19 14:33 | XMS_ITS | Data Portability ---
Author Organization [place] - [facility], Allergy Address [address] [place] [phone] Care Team Providers Care Salary And Wage Administrator Name Role Phone SHI CONNORS Referring Provider [phone] Assessment Encounter Date Assessment Date Assessment LastModified by Organization Details LastModified Time 02/18/2025 02/18/2025 Assessment: - Voice changes, chronic. - Left ear discomfort. - Heartburn. Plan: The vocal cords were evaluated using fiber optic laryngoscopy, which demonstrated no tumors, nodules, or masses. The patient was reassured that there is no evidence of cancer or other dangerous conditions affecting her voice. It was explained that her voice changes may be related to muscle tension or breath support issues or reflux. A referral for voice therapy was placed to help improve the quality of her voice through exercises and breath support techniques. The patient expressed interest in pursuing therapy, and the office will coordinate the referral with the therapist. She was advised to continue using omeprazole for heartburn management. No additional imaging or procedures were deemed necessary at this time. Procedure Documentation: - Fiber optic laryngoscopy performed during the visit. [email or web address] Not available 02/18/2025 15:30:30 Plan of Treatment Reminders Order Date Submit Date Provider Last Modified By Organization Details Last Modified Time Details Appointments None recorded. Lab None recorded. Referral speech language pathologist referral 2024 025 [email or web address] Ester Aleta, [address] [place] [address], [place], [address], 08:23:31 Procedures None recorded. Surgeries None recorded. Imaging None recorded. Medication Orders None recorded. Patient TargetsNo targets recorded. Patient Instructions Encounter Date Encounter Id Patient Instructions Last Modified By Organization Details Last Modified Time 02/18/2025 [id number] - Follow up with voice therapy as coordinated by the office. - Continue using omeprazole for heartburn management. [email or web address] Not available 02/18/2025 15:28:11 Please note: Parts of this encounter note have been generated by AI based on audio conversation. Patient consent was required prior to utilizing this technology. Content review was required prior to finalizing the note. [email or web address] Not available 02/18/2025 15:28:11 Reason for Referral Speech Language Pathologist Referral for Hoarse Referring Physician: Daniel Ferreira, Otolaryngology, Encounter Date: 02/18/2025 Problems Name Problem SNOMED Code Status Onset Date Resolution Date Notes Provider Name and Address Organization Details Recorded Time Dysphonia 75663262 Active 2019 Hoarsene ss; Note: Date Diagnose d: 0 1:04 PM (R49.0) DANIEL FERREIRA MD [address] [place] [address], [place], [phone], [facility] - [facility] 15:28:34 Gastroesopha geal reflux disease without esophagitis 750393633 Active 2019 Gastro-e sophagea l reflux disease without esophagi tis; Note: Date Diagnose d: 0 1:04 PM (K21.9) DANIEL FERREIRA MD [address] [place] [address], [place], [phone], [place] - [facility] 15:29:21 Hoarse 23675087 Active 2024 DANIEL FERREIRA MD [address] [place] [address], [place], [address], [place] - [facility] 15:28:13 Problem Notes None recorded. Procedures Surgical History Date Name Laterality Status Provider Name and Address Organization Details Recorded Time 02/18/2025 FOL_DP completed DANIEL FERREIRA MD [address] [place] [address],[address], [phone], [place] - [facility] 02/18/2025 15:28:07 Imaging Results None recorded. Procedure Notes None recorded. Medical Equipment None Reported. Allergies No known drug allergies Medications Name Sig Start Date Stop Date Status Note LastModified by Organization Details LastModified Time celecoxib 200 mg capsule 02/18 completed Medicati on ID: [id number] D uration Value: 30 Brand Name: celecoxi b Send Method: E-Prescr ibed Sub s Allowed: subs OK Speci al Instruct ion: TAKE 1 CAPSULE BY MOUTH ONCE DAILY WITH FOOD FOR 30 DAYS Med [employer]: celecoxi b Not Available Not Available Not Available pantopraz ole 40 mg tablet,de layed release TAKE 1 TABLET BY MOUTH TWICE DAILY active Not Available Not Available No t Available mirtazapi ne 15 mg tablet TAKE 1 TABLET BY MOUTH AT BEDTIME active Not Available Not Available No t Available naproxen 500 mg tablet 02/18 completed Medicati on ID: [id number] D uration Value: 10 Brand Name: naproxen Send Method: E-Prescr ibed Sub s Allowed: subs OK Speci al Instruct ion: TAKE 1 TABLET BY MOUTH EVERY 12 HOURS WITH FOOD OR MILK NEEDED FOR 30 DAYS Med ication enericNa me: naproxen Not Available Not Available Not Available duloxetin e 20 mg capsule,d elayed release TAKE 1 CAPSULE BY MOUTH DAILY active Not Available Not Available No t Available duloxetin e 60 mg capsule,d elayed release TAKE 1 CAPSULE BY MOUTH DAILY active Not Available Not Available No t Available cholecalc iferol (vitamin D3) 50 mcg (2,000 unit) capsule USE DIRECTED BY MOUTH TWICE A WEEK active Not Available Not Available No t Available Vitals Date Recorded Body height Body mass index (BMI) Body weight Provider Name and Address Organization Details Last Updated DateTime 02/18/2025 152.4 cm 25.4 kg/m2 55825.01 g PLACIDO RODGERS [facility] 02/18/2025 15:18:25 Social History None recorded. Functional Status None recorded. Mental Status None recorded. Family History Nothing Reported. Medical History Condition Response Anxiety Y Gynecological HistoryNo gynecological history recorded. Obstetrics History GPAL:G 0 P 0 0 0 0 Past Encounters Encounter ID Performer Location Encounter Start Date Encounter Closed Date Diagnosis/Indication Diagnosis SNOMED-CT Code Diagnosis ICD10 Code Diagnosis IMO Codes Diagnosis Note [id number] DANIEL FERREIRA MD [facility] [address] [place] [address] 02/18/2025 14:50:22 02/18/2025 15:35:14 Hoarse 44863349 R49.0 [id number] Dysphonia 38346674 R49.0 529938 Gastroesop hageal reflux disease without esophagitis 937453144 K21.9 Health Concerns Section Related Observation LastModified by Organization Detai ls LastModified Time None Recorded Concern Status LastModified by Organization Details LastModified Time None Recorded Advance Directives Directive None Recorded Payers Insurance Date Sequence Insurance Name Policy Number Policy Fuller Covered Member ID Fuller Member ID Guarantor Name 02/18/2025 1 [employer] [id number] Hoa Brown [id number] Hoa Torres 02/18/2025 1 [facility] [id number] Hoaopal Brown Torres [id number] Hoa Torres Notes Date Note Type Note Provider Name and Address Organization Details Recorded Time 02/18/2025 text/html hoarse Hoa Torres is a 74-year-old female who presents for evaluation of voice changes and associated symptoms. She reports experiencing voice changes for approximately two to three years, characterized by intermittent loss of voice and a dry throat. She also notes occasional choking when consuming bread or rice, though water generally goes down without difficulty. She denies any history of smoking, surgeries, or procedures involving her neck or chest. Additionally, she reports a dry cough most of the time and recent left ear discomfort described as a pinching sensation, which has been present for the past couple of weeks. She denies decreased hearing or drainage from the ear. She has a history of heartburn and uses omeprazole for treatment. She denies any history of stroke, asthma, or lung issues. She describes feeling tired and frustrated due to difficulty communicating effectively. DANIEL FERREIRA MD [address] [place] [address], [phone], [facility] - [facility] 02/18/2025 15:30:39 OBGyn Episode No OBEpisode recorded.
--- OUTSIDE RECORDS SUMMARY | 2025-03-19 14:33 | XMS_ITS | Encounter Summary ---
Author Organization [facility] Address [address] [place] [address] Phone Care Team Providers Care Olericulture Professor Name Role Phone Sawyer Mckenzie MD Primary Care Provider Encounter Details Date Type Department Care Team (Late st Contact Info) Description 07/17/2017 Procedure Pass [facility], Ct Scan - [facility] [address] [place] [address] Social History Tobacco Use Types Packs/Day Years [...] on filedocumented in this encounter Care Teams Olericulture Professor Relationship Specialty Start Date End Date Sawyer Mckenzie MD [address] [place] [address] [place] [address] PCP - General Internal Medicine 07/17/17 documented as of this encounter Additional Source Comments The information contained in this document represents components of the legal health record. It is not the complete legal health record.[facility]
--- OUTSIDE RECORDS SUMMARY | 2025-03-19 14:33 | XMS_ITS | Encounter Summary ---
Author Organization [facility] Address [address] [facility] [address] [place] [address] Phone Care Team Providers Care Avionics Safety Inspector Name Role Phone Sawyer Mckenzie MD Primary Care Provider Encounter Details Date Type Department Care Team (Late st Contact Info) Description 08/07/2017 Ancillary Orders [facility], X-Ray - [address] [place] [address] Kina Corcoran PA-C [address] [place] [address], [address] [place] [address] [email or web address] Neck pain Social History Tobacco Use Types [...] No gross neural foraminal compromise apparent. POS [id number] Narrative 08/07/2017 10:31 AM EDT COMPARISON: None [...] C5-6. No gross neural foraminal compromiseapparent. POS [id number] Kina Corcoran PA-[facility] XR SPINE Final Result documented in this encounter Visit Diagnoses Diagnosis Neck pain Cervicalgia Neck pain Cervicalgia documented in this encounter Care Teams Avionics Safety Inspector Relationship Specialty Start Date End Date Sawyer Mckenzie MD [address] [place] [address] [place] [address] PCP - General Internal Medicine 07/17/17 documented as of this encounter Additional Source Comments The information contained in this document represents components of the legal health record. It is not the complete legal health record.[facility]
--- OUTSIDE RECORDS SUMMARY | 2025-03-19 14:33 | XMS_ITS | Clinical Summary ---
Author Organization [facility] Address [address] [place] [address] Phone Care Team Providers Care Deck Specialist Name Role Phone Sawyer Mckenzie MD Primary [...] REPLACEMENT MEDICARE REPLACEMENT WORKERS COMPENSATION Care Teams Deck Specialist Relationship Specialty Start Date End Date Sawyer Mckenzie MD [address] [place] [address] [place] [address] PCP - General Internal Medicine 07/17/17 Additional Source Comments The information contained in this document represents components of the legal health record. It is not the complete legal health record.[facility]
--- OUTSIDE RECORDS SUMMARY | 2025-03-19 14:33 | XMS_ITS | Patient Health Record ---
Author Organization Sawyer Mckenzie MD Address [address] [place], [place] [id number] Care Team Providers Care Business Info Consultant Name Role Phone Sawyer Mckenzie Primary Care Provider Allergies No Known Allergies Results Component Value Reference Range Notes Complete Blood Count no Diff Reviewed date:06/09/2024 05:17:12 PM Interpretation: Performing Lab:[facility], [address] [place] [phone] Notes/Report: White Blood Count 3.8 4.8-10.8 X10*3/uL Red Blood Count 4.38 4.20-5.50 X10*6/uL Hemoglobin 13.1 12.0-16.0 g/dl Hematocrit 39.4 37.0-47.0 % Mean Corpuscular Volume 90.0 80.0-98.0 fL Mean Corpuscular Hemoglobin 29.9 27.0-33.0 pg Mean Corpuscular HGB Conc 33.2 31.0-35.0 g/dl Red Cell Distribution Width 13.5 11.0-16.0 % Platelet Count 279 160-400 X10*3/uL Mean Platelet Volume 9.1 9.4-12.3 fL NRBC Pct Auto 0.0 0.0-0.2 /100WBC NRBC Abs Auto 0.000 0.0-0.012 X10*3/uL Comprehensive [place]. Panel Fa st Reviewed date:06/09/2024 05:14:05 PM Interpretation: Performing Lab:[facility], [address] [place] [phone] Notes/Report: Sodium 141 135-145 mmol/L Potassium 4.4 3.3-5.1 mmol/L Chloride 109 96-108 mmol/L Carbon Dioxide 25 22-29 mmol/L Anion Gap 11 12-20 Blood Urea Nitrogen 13 9-16 mg/dL Creatinine 0.65 0.5-1.4 mg/dL Estimated Glomerular Filt Rate > 60 Chronic Kidney Disease: Estimated GFR < 60 mL/min/1.73m2 Severe Kidney Disease: Estimated GFR < 15 mL/min/1.73m2 Glucose Fasting 125 60-99 mg/dL A fasting glucose from 100-125 mg/dl is considered impaired (pre-diabetes). Calcium 8.7 8.4-10.2 mg/dL Bilirubin Total 0.5 0.0-1.0 mg/dL Aspartate Amino Transferase 23 5-31 U/L Alanine Aminotransferase 27 0-31 U/L Total Protein 7.2 6.5-8.0 g/dL Albumin Level 4.1 3.5-5.0 g/dL Alkaline Phosphatase 84 39-117 U/L Lipid Panel with Reflex Reviewed date:06/08/2024 12:27:43 PM Interpretation: Performing Lab:[facility], [address] [place] [phone] Notes/Report: Triglycerides 167 <150 mg/dL Desirable Triglyceride: less than 150 mg/dL Borderline High Triglyceride 150-199 mg/dL High Triglyceride: 200-499 mg/dL Very High Triglyceride: greater than or equal to 5OO mg/dL Cholesterol 239 <200 mg/dL Desirable Cholesterol: less than 200 mg/dL Borderline High Cholesterol: 200-239 mg/dL High Cholesterol: greater than 239 mg/dL LDL Cholesterol Calculated 156 <100 mg/dL Desirable LDL: less than 100 mg/dL Near Optimal/Above Optimal LDL: 110-129 mg/dL Borderline High LDL: 130-159 mg/dL High LDL: 160-189 mg/dL Very High LDL: greater than or equal to 190 mg/dL HDL Cholesterol 50 >40 mg/dL Desirable HDL: greater than 40 mg/dL Note: This HDL assay may give artificially low results in patients with liver disease. Vitamin B12 and Folate Reviewed date:06/08/2024 12:27:51 PM Interpretation: Performing Lab:[facility], [address] [place] [phone] Notes/Report: Vitamin B12 366 200-900 pg/mL NORMAL 200-900 PG/ML INDETERMINATE 160-199 PG/ML DEFICIENT < 160 PG/ML Folate 8.7 > or = 4.0 ng/mL Reference Values: > or = 4.0 ng/mL < 4.0 ng/mL suggests folate deficiency Methotrexate, aminopterin and folinic acid (leucovorin) are chemotherapeutic agents whose molecular structures are similar to folate; therefore, the Medical Doctor folate assay cannot be used for patients using these drugs. Vitamin D 25-OH Total Reviewed date:06/08/2024 12:27:28 PM Interpretation: Performing Lab:[facility], [address] [place] [phone] Notes/Report: Vitamin D 25-OH Total 49.0 >30 ng/mL Health Based Reference Values* < 20 ng/mL Deficient 20-30 ng/mL Insufficient > 30 ng/mL Sufficient *Rehana DICK. N Engl J Med. 2007;357:266-280 Care must be taken in interpreting Vitamin D results from different laboratories and methodologies. Published data demonstrated that results from patients undergoing hemodialysis may show a negative bias when tested with various automated 25-OH vitamin D assays when compared to LC-MS/MS. When testing samples from patients whose predominant form of Vitamin D is Vitamin D2, such as patients receiving Vitamin D2 supplementation, results that are subtherapeutic should be confirmed with another method such as LC-MS/MS. TSH reflex Free T4 Reviewed date:06/08/2024 12:27:18 PM Interpretation: Performing Lab:[facility], [address] [place] [phone] Notes/Report: TSH reflex Free T4 2.83 0.32-4.0 uIU/mL Urine Culture Reviewed date:06/09/2024 04:58:50 PM Interpretation: Performing Lab:[facility], [address] [place] [phone] Notes/Report: Urine Culture No growth. UA ClnCatch+Micro w/rflx Cul t Reviewed date:06/08/2024 12:41:14 PM Interpretation: Performing Lab:[facility], [address] [place] [phone] Notes/Report: Urine, Clean Catch Color Urine Yellow Appearance Urine Clear PH 5.5 5.0-9.0 Glucose Urine UA Negative Negative mg/dL Urine Blood Negative Negative Specific [place] - Urine 1.020 1.005-1.025 Urine Protein Negative Neg-Trace mg/dL Urine Ketones Negative Negative mg/dL Nitrite Urine Negative Negative Leukocyte Esterase Urine Large (3+) Negative RBC Urine 0-2 0-2 /HPF WBC Urine >50 0-5 /HPF Squamous Epithelial Cell Urine 3-5 0-2 /HPF Bacteria Urine None Seen None Seen Hyaline Casts Urine 0-2 0-2 /LPF UA ClnCatch+Micro w/rflx Cul t Reviewed date:03/19/2025 02:25:57 PM Interpretation: Performing Lab:[facility], [address] [place] [phone] Notes/Report: Urine, Clean Catch Color Urine Yellow Appearance Urine Clear PH 5.5 5.0-9.0 Glucose Urine UA Negative Negative mg/dL Urine Blood Negative Negative Specific [place] - Urine 1.020 1.005-1.025 Urine Protein Negative Neg-Trace mg/dL Urine Ketones Negative Negative mg/dL Nitrite Urine Negative Negative Leukocyte Esterase Urine Moderate (2+) Negative RBC Urine 0-2 0-2 /HPF WBC Urine 21-50 0-5 /HPF Squamous Epithelial Cell Urine 3-5 0-2 /HPF Bacteria Urine None Seen None Seen Hyaline Casts Urine 0-2 0-2 /LPF Reason For Referral Reason Hoarseness of voice Diagnosis 1 Hoarseness of voice (R49.0) Referral Organization Sawyer Mckenzie MD Referring Provider First Name Sawyer Referring Provider Last Name Maglay Referring Provider Speciality Internal M edicine Referred Provider RENE MONTALVO Referred Provider Specialty Otolaryngolo gy General Notes Gifty Graham 0 12/17/2024 09:08:30 AM >referral info faxed on 11-29-2024, Elvia Grahamette 12/17/2024 09:09:52 AM >was told still being worked on, Elvia Grahamette 02/18/2025 03:13:12 PM > called office and was told being looked into Referral Priority Routine Referral Appointment Date 02/18/2025 Medications Medication SIG (Take, Route, Frequency, Duration) Notes Start Date End Date Status CeleBREX 200 MG 1 capsule with food Orally Once a day for 30 day(s) 10/03/2022 Not-Taking Vitamin D (Ergocalciferol) 2000 UNIT as directed Orally twice a week for 90 days 02/23/2018 Active Minoxidil 2.5 MG 1 tablet Orally Twic e a day Active Diclofenac Sod-Lidocaine HCl 1-4.5 % 1 application as needed Externally Twice a day Active Ambien 5 MG 1 tablet at bedtime Orally Once a day as needed for 14 days 04/16/2020 Not-Taking MiraLax - 1 packet mixed with 8 ounces of fluid Orally Once a day for 30 day(s) Not-Hank ing Ibuprofen 800 MG 1 tablet with food o r milk as needed Orally Three times a day for 14 days 12/25/2020 Not-Taking Mirtazapine 15 MG 1 tablet at bedtime Orally Once a day hs Active DULoxetine HCl 20 MG 2 capsule Orally On ce a day in AM Active CeleBREX 200 MG 1 capsule with food Orally Once a day for 30 day(s) 06/04/2019 Not-Taking Immunizations Vaccine Route Administration Date Status Comme nts Fluarix Quadrivalent IM Intramuscular 02/19/2019 Administe red TDaP Unknown 02/25/2019 Administered [facility] SARS-COV-2 Moderna Unknown 09/02/2020 Administered SARS-COV-2 Moderna Unknown 10/02/2020 Administered DECLINED, FLU Unknown 03/18/2014 Refused Flu Vaccine Unknown 03/23/2015 Refused Fluarix Quadrivalent Unknown 02/09/2016 Refused PPSV23 (Pnemovax) Unknown 05/26/2016 Refused Fluarix Quadrivalent Unknown 02/06/2017 Refused Fluarix Quadrivalent Unknown 02/09/2018 Refused PPSV23 (Pnemovax) Unknown 03/01/2019 Refused Influenza High Dose Unknown 02/19/2021 Refused Influenza High Dose Unknown 04/04/2022 Refused Social History Tobacco Use: Social History Observation Description Date Details (start date - stop date) Never Smoker NA - NA Tobacco Use/Smoking Question Answer Notes Patient is a nonsmoker Additional Findings: Tobacco Non-User Cu rrent non-smoker, currently using no form of tobacco Alcohol Screen Question Answer Notes Did you have a drink contain ing alcohol in the past year? Yes How often did you have a dri nk containing alcohol in the past year? Monthly or less (1 point) How many drinks did you have on a typical day when you were drinking in the past year? 1 or 2 drinks (0 point) How often did you have 6 or more drinks on one occasion in the past year? Never (0 point) Points 1 Interpretation Negative Problems Problem Type SNOMED Code ICD Code Onset Dates Problem Status W/U Status Risk Notes Problem 848568405 Lethargy (R53.83) Active confirmed Problem 258500173 Tubular adenoma (D36.9) Active confirmed Problem 69937666 Vitamin D deficiency (E55.9) Active confirmed Problem 99291798 Anxiety (F41.9) Active confirmed Problem 4286978 Primary insomnia (F51.01) Active confirmed Problem 3846120 Diverticulitis o f large intestine without perforation or abscess without bleeding (K57.32) Active confirmed Problem 819591773 Fibromyalgia (M79.7) Active confirmed Problem 926409027 Acquired absence of both cervix and uterus (Z90.710) Active confirmed Problem 26047035 Essential hypertension (I10) Active confirmed Problem 0611200 Prediabetes (R73.09) Active confirmed Problem 511541387 Elevated triglycerides with high cholesterol (E78.2) Active confirmed Problem 82583805 Hiatal hernia (K44.9) Active confirmed Problem 006400596 Cervical disc disease (M50.90) Active confirmed Problem 393601710 Schatzki's ring (K22.2) Active confirmed Problem 33847908 Dysthymia (F34.1) Active confirmed Problem 37371674 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) Active confirmed Problem 646306815 Arthritis of kne e (M17.10) Active confirmed Problem 1377660 Arthritis of valerie k (M47.9) Active confirmed Problem 52494498 Acute psychosis (F23) Active confirmed Problem 492605444 Osteopenia determined by x-ray (M85.80) Active confirmed Problem Dysthymia (20179300) 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) Active confirmed Vital Signs Blood pressure diastolic 70 mm Hg 11/26/2024 joan ght is down 1 pound [id number] Height 60 in 11/26/2024 weight is down 1 pound [id number] Blood pressure systolic 132 mm Hg 11/26/2024 weig ht is down 1 pound [id number] Weight 146 lbs 11/26/2024 weight is down 1 pound [id number] BMI 28.51 kg/m2 11/26/2024 weight is down 1 pound -77-20 Encounters Encounter Location Date Provider Diagnosis Sawyer Mckenzie MD [address] [place] [address] Drive [address] [place] [phone] 05/27/2024 Sawyer Mckenzie Vitamin D deficiency E55.9 and Essential hypertension I10 Sawyer Mckenzie MD [address] [place] [address] [place] [phone] 11/26/2024 Sawyer Mckenzie Essential hypertension I10 and Hoarseness of voice R49.0 Assessments Encounter Date Diagnosis (ICD Code) Assessment Notes Treatment Notes Treatment Clinical Notes Section Notes 05/27/2024 Vitamin D deficiency (ICD-10 - E55.9) will continue current regiment, will continue to monitor 05/27/2024 Essential hypertension (ICD-10 - I10) doing great on meds., will continue current regiment 11/26/2024 Essential hypertension (ICD-10 - I10) well controlled 11/26/2024 Hoarseness of voice (ICD-10 - R49.0) needs referral to dr montalvo in ent in [place] Plan Of Treatment Pending Test Test Name Order Date CT Scan : Abd & Pelvis with IV and oral contrast 01/31/2011 Electrocardiogram (EKG) 03/01/2019 Electrocardiogram (EKG) 01/15/2016 Electrocardiogram (EKG) 02/09/2017 CT Abdomen and Pelvis 01/10/2011 XR CHEST 2 VIEW PA & LAT 10/03/2022 Next Appt Details Provider Name:Sawyer galvan, 05/23/2025 07:45:00 AM, [address] [place] [address], [address], [place], [place], [phone], Provider Name:Sawyer Preston ier, 05/30/2025 11:00:00 AM, [address], [address], [place], [place], [phone], Insurance Providers Payer Name Payer Address Payer Phone Subscriber Number Group Number Insured Name Patient Relationship to Insured Coverage Start Date Coverage End Date [facility] are [employer] [address] [address] [place] [address] [id number] Hoa Armando Self - patient is the insured 2 Medical (General) History Medical History History ICD Code hysterectomy and oopherectomy colonoscopy 2010 due in 10 y gio, Pt had colonscopy and Endo on 08/07/[address] Joseph repeat in [address] chest 2016. no sig nodules no need fo r follw up Surgical History Surgery Date(Month/Year) hysterectomy and ovaries 2010
[2025-03-19 16:38] LABS: Alanine Aminotransferase 15 U/L (0-31); Albumin Level 4.0 g/dL (3.5-5.0); Alkaline Phosphatase 81 U/L (39-117); Anion Gap 13 (12-20); Aspartate Amino Transferase 20 U/L (5-31); Blood Urea Nitrogen 15 mg/dL (9-16); Calcium 8.8 mg/dL (8.4-10.2); Carbon Dioxide 27 mmol/L (22-29); Chloride 106 mmol/L (96-108); Estimated Glomerular Filt Rate > 60; Potassium 4.7 mmol/L (3.3-5.1); Sodium 141 mmol/L (135-145); Total Protein 7.1 g/dL (6.5-8.0)
[2025-03-19 16:42] LABS: Thyroid Stimulating Hormone 1.29 uIU/mL (0.32-4.0)
== END 2025-03-19 11:52 | disposition home or self-care (01) ==
LOC: HO.HHCL 11:51
PROVIDERS: Internal Medicine Gastroenterology; PCP Internal Medicine; Visit Provider Dietitian, Registered
DX: F33.1 Major depressive disorder, recurrent, moderate (principal)
CPT/HCPCS: 36415; 80053; 81001; 84443; 85025; 87086

== ENCOUNTER 2025-04-22 07:47 | Outpatient (AMB) | payer MEDICARE, SELFPAY ==
--- NOTE | 2025-04-22 07:54 | A.OFFVIS_ITS ---
Vital Signs 04/22/25 07:55 Height 4 ft 11 in Weight 145 lb BMI 29.3 BP 161/73 H Blood Pressure Location Lt brachial Position Sitting Pulse 81 Pulse Oximetry (%) 96 Oxygen Delivery Method Room Air Intake Visit Reasons: f/u Chronic constipation Intake Note: Patient follow up for chronic constipation. Patient cc: nauseas, abdominal bloating, constipation is much better, and LBP/she can not move with the back pain. [place] Required: No Accompanied by: Self / Same As Patient Allergies No Known Allergies (No Known Allergies*) Allergy (Verified 04/22/25 07:54) Medication List - Last Reconciled 04/22/25 by Dalia Mcknight MD cholecalciferol (vitamin D3) PO 2XW diclofenac sodium 1% (Voltaren Arthritis Pain) 2 grams topical QID 30 days duloxetine 40 mg PO QAM duloxetine 30 mg PO DAILY famotidine 20 mg PO BEDTIME 30 days minoxidil 0.5 tabs PO DAILY mirtazapine 7.5 mg PO DAILY pantoprazole 40 mg PO BID 30 days sennosides-docusate sodium 8.6-50 mg (Senna-S) 2 tab-caps (2 x 8.6-50 mg) PO BEDTIME 90 days vonoprazan 10 mg PO BID 30 days HPI HPI f/u Chronic constipation: Details: GI clinic visit for this 75-year-old female for follow-up of dysphagia, left lower quadrant pain, diverticulosis and constipation. Pt was hospitalized 09/22-09/24/21 with acute diverticulitis and discharged on p.o. antibiotics x 7 days ?TODAY'S VISIT Taking Omeprazole 20 mg twice daily and Famotidine at bedtime for GERD Waiting to hear from her pharmacy regarding Vonoprazen (awaiting PA) Notes improvement in dysphagia Taking Senna prn for constipation and went 2 days in a row after a week. PAST VISIT: Patient complains of some swallowing difficulties on and off, acid reflux come and go, Intermittent dysphagia - referred to ENT and evaluation was negative Notes coughing at night and can loose her voice. Continues to have acid reflux daily - mostly at night and sometimes in the morning Intermittent dysphagia to solids and liquids and can loose her voice Tries not to eat anything after 6 pm and sleeps at 9 pm. Also patient is been with a lot of urinary frequency during the day. Notes intermittent heartburn mostly at night when she lies down Tries to eat dinner at 4 or 5 pm and denies HB if she eats early Managing dysphagia with eating slowly urinary frequency without burning EGD results were reviewed - advised to increase Omeprazole 20 mg twice daily Notes improvement in dysphagia and LLQ pain Patient cc a reflex with burning sensation at night time. Denies any other GI issues. Continues to have intermittent LLQ pain and constipation. When she takes her pills, has a BM the following morning. Takes Senna and Miralax daily with relief of abdominal pain. Intermittent dysphagia - mostly solids and occasionally with liquids. Food can get stuck occasionally and she has to drink some water. Chews her food well Will be spending Thanksgiving by herself since she has children in [facility] Abdominal pain has improved. Taking Miralax twice a day and Senna at bedtime and has a BM the following day. Notes lower abdominal pain when she sleeps on stomach. Continues to have acid reflux and denies dysphagia. Has chronic cough and intermittent hoarseness. Having pain in the back for the past week and taking Ibuprofen. Had back pain in the past and it resolved. Has to pee every 15 min without burning Has been having nausea in the am for the past 1-2 weeks. Taking Senna or Miralax daily and has a BM daily every morning Had a BM today with incomplete evacuation. Notes lower abdominal pain which improves after she has a BM Had a cough for 3 weeks - resolved and then came back again Denies heartburn or dysphaia Abdominal pain is better - notes some pain at night. Notes occasonal nausea Has nausea when she wakes up. Taking a low fibre diet. Has not been Denies fever or chills. Has some sweating during sleep which she thinks is normal for her. Abdominal pain is 50% better and not resolved. Taking soups and sometimes white bread. Abd pain is 3-4/10 in intesnity. Having small BMs in the morning. Continuing to have some lower abdominal pain (4-5/10 in intensity) Notes some pressure in the lower abdomen and denies fever. Finished antibiotics today. taking mostly a liquid diet - unsure what she can eat. BMs are small. Notes some dysphagia when she takes her pills. Lost weight to 105 due to depression and is now regaining the wt she lost Patient cc: N/V, GERD, lower abdominal pain with bloating and she said is more at night time. Denies any other GI issues. Dysphagia has improved - sometimes has trouble swallowing large pills. Lower abdominal pain for the past few weeks - wakes her up from sleep at night. Pain improves after she has a BM Notes worsening constipation -sometimes no BM for 3 days. Taking Senna and Miralax - not always helpful ? ? ? Continues to have recurrent dysphagia with solid foods for the past several months ? ? ? Notes difficulty swallowing her pills and sometimes looses her voice. Scheduled for an EGD in November, and procedure was postponed by anesthesia due to presence of dental implants - pt was advised to reschedule after her dental work was completed. Taking Miralax daily and has a BM every other day . Ran out of pills - which worked better. Has not been eating. Has lost 20 to?22 lbs ? IMAGING STUDIES:? 09/22/[address] SCAN SHOWED: Findings as described above. Findings most consistent with significant diverticulitis in the sigmoid. As described some adjacent soft tissue stranding and fluid. Possible early fluid collection in the deep pelvis on the right. Attention to follow-up. This area of disease is also intimately associated with the cervical/uterine structure which demonstrates some air density. Therefore an element of fistulization cannot be excluded. 11/23/20 ABD US SHOWED: 1 cm left renal cyst with question wall calcification versus milk of calcium cyst.Otherwise unremarkable exam.? ENDOSCOPIC STUDIES: 07/28/23 EGD AND COLON SHOWED: Endoscopy Findings: ESOPHAGUS: Hiatal hernia 32 to 35 cms. Multiple linear erosions and 7-8 mm ulcers in the distal esophagus from 25 to 32 cms No stricture or ring seen. STOMACH: Gastritis and gastric polyps BIOPSIES SHOWED: A. Stomach, antrum, biopsy: Antral-type mucosa within normal limits; no Helicobacter organisms seen. B. Stomach, polyp: Fundic gland polyp with background mild chronic inactive infl ammation; no Helicobacter organisms seen. Colonoscopy Findings: No polyps were detected Moderate diverticulosis seen in the entire colon Small hemorrhoids on retroflexed exam. Plan: Repeat Colonoscopy in 5 years due to a history of adenomatous colon polyps. 03/04 EGD showed:ESOPHAGUS: Tortuous esophagus with increased tertiary contractions without stricture or ring.? GE junction at 34 cms, hiatal hernia 34 to 37 cms . No esophagitis or Wahl?s.? Recurrent Schatzki's ring was not visualized - empirc dilation was performed with an 18 and 19 mm CRE balloon x 60 seconds at each level. DUODENUM: Normal - bxed to check for celiac sprue - normal Plan:? Await pathology results 07/2018 UPPER ENDOSCOPY AND COLONOSCOPY WAS PERFORMED: EGD showed hiatal hernia, gastritis and a Schatzki's ring which was dilated with a balloon.? Colonoscopy showed diverticulosis and two small adenomatous polyps were removed PFSH Medical History Hiatal hernia Anxiety Psychotic disorder Schatzki's ring Hx of diverticulitis of colon Chronic constipation Oropharyngeal dysphagia Surgical History History of esophagogastroduodenoscopy (EGD) Hx of tonsillectomy Hx of hand surgery History of appendectomy History of hysterectomy Hx of endoscopy History of colonoscopy Family History Father No problems noted. Mother No problems noted. Social History Household Members: None Housing: House Housing Other:: Two family home. lives on second floor alone Are you a primary residential care officer to a significant other at home: No Do you presently have visiting nurse or other home services: No Alcohol intake: current Alcohol intake frequency: does not drink Alcohol type: wine Patient Tobacco Use Status: Never used Tobacco Second Hand Smoke Exposure: No service: No Current occupational status: unemployed Current occupation: rt handed Sexual orientation: Straight/Heterosexual Review of Systems Const All systems reviewed & are unremarkable except as noted in HPI and below Physical Exam Vital Signs: Last Vital Signs Pulse 81 04/22/25 07:55 BP 161/73 H 04/22/25 07:55 Pulse Ox 96 04/22/25 07:55 Oxygen Delivery Method Room Air 04/22/25 07:55 BMI result Body Mass Index 29.3 Const General: healthy appearing and no acute distress Nutritional Appearance: overweight Orientation/consciousness: patient oriented x3 Limitations: no limitations HEENT Head: Yes normal to inspection Ears: hearing grossly normal bilaterally Eyes Sclerae: sclerae normal Pupils: Equal, round and reactive pupils present Neck Neck: Yes normal visual inspection Chest Chest palpation & inspection: normal inspection of the chest Resp Effort & Inspection: normal respiratory effort Auscultation: clear to auscultation bilaterally Cardio Palpation: normal PMI Rate: regular rate Rhythm: regular rhythm Heart sounds: S1 normal heart sound present, S2 normal heart sound present and no murmurs GI Palpation (GI): Soft to palpation, nontender and No hepatosplenomegaly present Auscultation: normal bowel sounds Rectal Exam - Female: deferred Skin General skin exam: no rashes or lesions noted Neuro General: patient oriented x3, gait normal and moves all extremities Cranial nerves: Yes Equal, round and reactive pupils present Psych Appearance: grossly normal Mental Status: mental status grossly normal Assessment & Plan Assessment & Plan (1) Oropharyngeal dysphagia: Code(s): R13.12 - Dysphagia, oropharyngeal phase Category: Medical (2) Schatzki's ring: Code(s): K22.2 - Esophageal obstruction Category: Medical (3) GERD (gastroesophageal reflux disease): Code(s): K21.9 - Gastro-esophageal reflux disease without esophagitis Category: Medical (4) Chronic constipation: Code(s): K59.09 - Other constipation Category: Medical (5) History of colon polyps: Comment: Two small adenomatous polyps were removed during colonoscopy in 07/2018. Action in place for repeat colon in 5 years (due July,). Code(s): Z86.010 - Personal history of colon polyps Category: Medical (6) Hx of diverticulitis of colon: Code(s): Z87.19 - Personal history of other diseases of the digestive system Category: Medical (7) Back pain: Code(s): M54.9 - Dorsalgia, unspecified Category: Medical Plan 75 YF with Htn, pre-diabetes, hypertriglyceridemia, arthritis, Vitamin D deficiency seen for FU of recurrent LLQ pain and past episode of diverticulitis. Past EGD showed hiatal hernia, gastritis and a Schatzki's ring which was dilated with a balloon. Colonoscopy showed diverticulosis and two small adenomatous polyps were removed. Her abdominal pain has improved with regular BMs. Pt was?scheduled for EGD in November, and procedure was postponed by anesthesia due to presence of dental implants - 03/04 EGD with balloon dilation was performed and recurrent Schatzki's ring was not visualized. Pt was hospitalized 09/22 to 09/24/21 with acute diverticulitis. Her symptoms have improved and not resolved after 1 week of antibiotic therapy. Pt was advised to continue antibiotics for another 10 days with subsequent improvement in her symptoms. 10/29/[address] SCAN SHOWED: GASTROINTESTINAL TRACT: There is significant interval improvement in sigmoid diverticulitis compared to September 2021 exam. There is still an area of wall thickening and of the left side of the proximal sigmoid colon and some stranding of the adjacent fat. No evidence of obstruction, perforation or abscess is seen. Small and large bowel is otherwise normal. The appendix is not seen. ABDOMINAL WALL: No significant hernia is appreciated.? Pt was advised to increase Senna to 2 tab at bedtime and continue taking Miralax every morning for constipation 08/25/22 Pt was advised to check labs and a KUB Labs showed normal CBC and CRP. KUB showed: No evidence of constipation or obstruction.- pt called and informed Patient was advised to take MiraLax twice daily for constipation with improvement in abdominal pain 09/23/22 Pt was prescribed Voltaren gel for back and pain in the right shoulder until she can be seen by her PCP next month. 08/17/23 EGD and colon results were reviewed - advised to start taking Omeprazole 20 mg every morning And continue taking famotidine 20 mg at bedtime. Continues to have intermittent LLQ pain and constipation. When she takes her pills, has a BM the following morning. Takes Senna and Miralax daily with relief of abdominal pain. Repeat colon in 5 yrs 01/19/24 EGD with balloon dilation was performed Patient advised to increase omeprazole to 20 mg twice daily 06/06/24 Notes intermittent heartburn mostly at night when she lies down Advised switching to Pantoprazole 40 mg twice daily for GERD 12/05/24 Pt advised to add Famotidine 20 mg at bedtime for persistent nocturnal GERD symptoms 03/06/25 Pt advised to switch to Vonoprazan Advised to see PCP or go to the walkin clinic for pain in the left leg 04/22/25 awaiting PA for Vonoprazan - to continue omeprazole and famotidine in the interim Prescribed gabapentin for back pain (was helpful in the past) until patient can be seen by her PCP (has an appt in may, 2025 FU in 4 months Medications: New gabapentin 100 mg PO TID 90 caps 3RF 30 days M54.9 - Dorsalgia, unspecified Coding Level of Care Code Est Pt Level 4 (84500) Diagnoses Oropharyngeal dysphagia R13.12 Schatzki's ring K22.2 GERD (gastroesophageal reflux disease) K21.9 Chronic constipation K59.09 History of colon polyps Z86.010 Hx of diverticulitis of colon Z87.19 Back pain M54.9 Time Spent (min) 20
[2025-04-22 07:55] VITALS: BP 161/73; PULSE 81; O2SAT 96; BMI 29.3
== END 2025-04-22 08:23 | disposition home or self-care (01) ==
LOC: HO.HGI 07:48
PROVIDERS: PCP Internal Medicine; Visit Provider Internal Medicine Gastroenterology
DX: R13.12 Dysphagia, oropharyngeal phase (principal); K22.2 Esophageal obstruction; K21.9 Gastro-esophageal reflux disease without esophagitis; K59.09 Other constipation; Z86.0100 Personal history of colon polyps, unspecified; Z87.19 Personal history of other diseases of the digestive system; M54.9 Dorsalgia, unspecified
CPT/HCPCS: 99214

== ENCOUNTER → 2025-04-22 07:47 | Outpatient (BNVA) | payer MEDICARE, SELFPAY | PROVIDERS: PCP Internal Medicine; Visit Provider Internal Medicine Gastroenterology | DX: R13.12 Dysphagia, oropharyngeal phase (principal); K22.2 Esophageal obstruction; K21.9 Gastro-esophageal reflux disease without esophagitis; K59.09 Other constipation; M54.9 Dorsalgia, unspecified; Z87.19 Personal history of other diseases of the digestive system; Z86.0100 Personal history of colon polyps, unspecified | CPT/HCPCS: 99212 ==